=== PATIENT | male | born 1970 | race Caucasian/White ===

== ENCOUNTER → 2016-04-28 | Outpatient (CLI) | payer MEDICARE, MEDICAID ==
[~2016-04-28] MED LIST: ALBU17IN INH; ASPI81TA45 PO; ASPI81TA7 PO; BREO1INH INH; CARV6.25 PO; FLECTOR1.3 TD; FLEXERIL OR; GABA300C3 PO; GEMF600T PO; LIPI20TA PO; MOBI15TA PO; NICO14DI3 TD; NORC5TAB PO; OMEP20CA3 PO; OMEP40CA2 PO; ROBA750T4 PO; ROSU10TA PO; SUCR1TA PO; TIZA4CAP3 PO; TIZA4TAB OR; TRIC1TAB PO; VARE1TA PO; VICO5TAB OR; VITA100066 PO; VYTO10TA5 PO
--- NOTE | 2016-05-25 01:14 | ECWPNPC ---
PATIENT NAME: MEHUL FERRARO : 1970 GENDER: MALE VISIT DATE: 04/28/2016 DISCHARGE DATE: 04/28/16 1458 VISIT LOCKED DATE TIME: PHYSICIAN: EARL BANUELOS RESOURCE: EARL BANUELOS REASON FOR APPOINTMENT 1. POST PROCEDURE-BACK HISTORY OF PRESENT ILLNESS HISTORY OF PRESENT ILLNESS: PAIN THE PATIENT DESCRIBES THE PAIN... FALL RISK SCREENING: SCREENING :NO FALLS IN THE PAST YEAR TODAY'S VISIT: NOTES: RATES PAIN TODAY 7/10. NOTES PAIN IS CENTERD IN MID AND LOW BACK WELL BOTH KNEES. IS BEING SCHEDULED FOR ENDOSCOPY AND COLONOSCOPY. NO RECENT FALLS. IS S/P SIJ [id number]/16 AND THIS HAS DECREASED PAIN IN AREA. . CURRENT MEDICATIONS TAKING ASPIRIN EC 81 MG TABLET DELAYED RELEASE 1 TABLET ORALLY ONCE A DAY, NOTES: 04/06/16929 TAKING VITAMIN D3 1000 UNIT CAPSULE 1 CAPSULE ORALLY ONCE A DAY, NOTES: 04/06/16 TAKING CARVEDILOL 6.25 MG TABLET 1 TABLET WITH FOOD ORALLY DAILY, NOTES: 04/06/16929 TAKING PROAIR HFA 108 (90 BASE) MCG/ACT AEROSOL SOLUTION 2 PUFFS NEEDED INHALATION EVERY 4 HRS, NOTES: > 1 WEEK TAKING BREO ELLIPTA 100-25 MCG/INH AEROSOL POWDER BREATH ACTIVATED USE ONE INHALATION ONCE DAILY , NOTES: 04/06/16929 TAKING CRESTOR 10 MG TABLET 1 TABLET ORALLY ONCE A DAY, NOTES: 04/06/16929 TAKING GEMFIBROZIL 600 MG TABLET 1 TABLET ORALLY TWICE A DAY, NOTES: 04/06/162229 TAKING VIAGRA 50 MG TABLET 1 TABLET NEEDED ORALLY ONCE A DAY, NOTES: NONE RECENT TAKING GABAPENTIN 300 MG CAPSULE 1 CAPSULE ORALLY QHS, NOTES: 04/06/162229 TAKING OMEPRAZOLE 40 MG CAPSULE DELAYED RELEASE 1 CAPSULE ORALLY TWICE DAILY, NOTES: 04/06/162229 TAKING HYDROCODONE-ACETAMINOPHEN 5-325 MG TABLET 1 TABLET NEEDED ORALLY EVERY 4- 6 HRS PRN PAIN MDD=4, NOTES: 04/07/16629 TAKING SUCRALFATE 1 GM TABLET 1 TABLET ON AN EMPTY STOMACH ORALLY TWICE A DAY, NOTES: 04/06/162229 NOT-TAKING PREDNISONE 10 MG TABLET 1 TABLET ORALLY TAKE 5 TABS X 2 DAY, 4 TAB X 2 DAY, 3 TAB X 2 DAY, 2 TAB X 2 DAY AND 1 TAB X 2 DAY MEDICATION LIST REVIEWED AND RECONCILED WITH THE PATIENT PAST MEDICAL HISTORY CAD - NO HISTORY OF INFARCT - CARDIAC CATHETERIZATION 08/24 REVEALED NON-OBSTRUCTIVE DISEASE ONLY. ECHOCARDIOGRAM 10/25 NO VALVULAR DISEASE, TRACE MITRAL INSUFFICIENCY, TRACE TRICUSPID INSUFFICIENCY. NUCLEAR STRESS TEST 10/25 - NORMAL PERFUSION NO ISCHEMIA OR INFARCTION. EF CALCULATED AT 52% EKG - 07/28 - NSR 84 BPM (FOLLOWED BY DR. TORRES) LUMBAGO - OSTEOARTHRITIS - DDD HYPERLIPIDEMIA HIATAL HERNIA WITH REFLUX TOBACCO ABUSE WALI DX 02/26, COMPLIANT WITH CPAP. COPD ALLERGIES N.K.D.A. SURGICAL HISTORY DOUBLE HERNIA REPAIR CARDIAC CATH, NO STENTS SOCIAL HISTORY GENERAL: TOBACCO USE ARE YOU A:NONSMOKER LEARNING BARRIERS / SPECIAL NEEDS ORIENTED TO PLAN OF CARE: PATIENT, PAIN MANAGEMENT PATIENT, ORIENTED TO PLAN OF CARE: PATIENT, PAIN MANAGEMENT PATIENT. NEW PATIENT PAIN DIARY TODAY'S VISITNOTES FROM 0-10, WHAT LEVEL IS YOUR PAIN TODAY?0 PAIN CLINIC PFS, CLERGY, PUBLIC HEALTH REFERRALS PFS REFERRAL NEEDED?NO CLERGY REFERRAL NEEDED?NO PUBLIC HEALTH REFERRAL NEEDED?NO WAS THE PROVIDER NOTIFIED OF ANY PERTINENT INFO?NO PFS REFERRAL NEEDED?NO CLERGY REFERRAL NEEDED?NO PUBLIC HEALTH REFERRAL NEEDED?NO WAS THE PROVIDER NOTIFIED OF ANY PERTINENT INFO?NO HOSPITALIZATION/MAJOR DIAGNOSTIC PROCEDURE TWICE FOR CHEST PAIN - NO INFARCTS REVIEW OF SYSTEMS CONSTITUTIONAL: ANY CHANGE IN YOUR MEDICAL CONDITION? NO . CHILLS NO . FEVER NO . INFECTION: DO YOU HAVE NEW INFECTIONS? NO . DO YOU HAVE HISTORY OF MRSA? NO . MUSCULOSKELETAL: ANY NEW PATTERNS OF PAIN OR NUMBNESS? NO . GASTROENTEROLOGY: ANY NEW CHANGE IN BOWEL CONTROL? NO . UNEXPLAINED WEIGHT LOSS OVER 10 LBS IN 1 MONTH DESPITE GOOD APPETITE. WILL DISCUSS WITH DR PETERSEN . GENITOURINARY: ANY NEW CHANGE IN BLADDER CONTROL? NO . IS THERE A CHANCE YOU COULD BE ? NO . HEMATOLOGY/LYMPH: DO YOU TAKE ANY BLOOD THINNERS? (FOR EXAMPLE- COUMADIN, PLAVIX, AGGRENOX, PLATEL, PRADAXA, OR XARELTO) NO . WHEN WAS YOUR LAST DOSE? DATE: TIME: . NEUROLOGY: HAVE YOU FALLEN IN THE PAST 6 MONTHS? NO . ANY NEW EXTREMITY NUMBNESS OR WEAKNESS? NO . CARDIOLOGY: DO YOU HAVE A PACEMAKER OR DEFIBRILLATOR? NO . RESPIRATORY: HAVE YOU BEEN SICK IN THE PAST WEEK? NO . FEVER NO . FLU LIKE SYMPTOMS? NO . COUGH YES - CLEAR PRODUCTION . INTEGUMENTARY: DO YOU HAVE ANY RASHES OR OPEN SORES? NO . ALLERGIC/IMMUNO: ARE YOU ALLERGIC TO SHELLFISH OR IV DYE? NO . ANY NEW ALLERGIES? NO . PSYCHIATRIC: DO YOU HAVE THOUGHTS OF HURTING YOURSELF OR SOMEONE ELSE? NO . ARE YOU ABUSED, NEGLECTED, OR IN AN UNSAFE ENVIRONMENT? NO . ENDOCRINOLOGY: ARE YOU DIABETIC? NO . OTHER: DO YOU NEED ANY PRESCRIPTIONS? NO . IF YES, PLEASE LIST: ____ . ANY NEW PROBLEMS WITH YOUR MEDICATIONS? NO . WHEN DID YOU LAST EAT? ____ . WHEN DID YOU LAST DRINK? ____ . WHAT DID YOU LAST DRINK? ____ . NAME OF PERSON DRIVING YOU HOME? ____ . DO YOU HAVE ANY OTHER QUESTIONS OR CONCERNS NO . REVIEWED BY: PROVIDER: EARL CUNNINGHAM . VITAL SIGNS WT 194 LBS, HT 68 IN, BMI 29.49 INDEX, BP 134/86 MM HG, HR 76 /MIN, RR 16 /MIN, TEMP 96.5 F, OXYGEN SAT % 96, NA INITIALS TL 1419, REVIEWED BY: AD. EXAMINATION GENERAL EXAMINATION: PSYCHALERT , ORIENTED X 3 , APPROPRIATE MOOD AND AFFECT . LUNGS:WHEEZES THOUGH ALL LUNG HARRY. HEART:HEART RATE REGULAR. MUSCULOSKELETAL:MUSCLE STRENGTH TESTING 4/5 BILATERAL LOWER EXTREMITIES. UNABLE TO FLEX AT HIPS WITHOUT SEVERE LOW BACK PAIN. POINT TENDERNESS OVER SACRALILIAC JOINTS, RIGHT GREATER THAN LEFT. CANE USED FOR BALANCE., GAIT ANTALGIC, POSTURE STOOPED.. ASSESSMENTS LUMBAR DISC DISEASE WITH RADICULOPATHY - M51.16 (PRIMARY) SACROILIITIS - M46.1 CHRONIC USE OF OPIATE DRUGS THERAPEUTIC PURPOSES - Z79.899 TREATMENT LUMBAR DISC DISEASE WITH RADICULOPATHY NOTES: UTOX TODAY. CLINICAL NOTES: ISTOP REGISTRY REVIEWED AND DEMNOSTRATES COMPLLIANCE. BRINGS IN MEDICATIONS WHICH IS APPROPRIATE FOR WHAT WAS DISPENSED. RECENT URINE TOXICOLOGY REVIEWED. NO UNAUTHORIZED MEDICATIONS. NO ILLICIT SUBSTANCES AND PRESCRIBED MEDICATIONS WERE PRESENT. , # 226 TOBACCO USE SCREENING/INTERVENTION: PATIENT CURRENTLY USED TOBACCO. WAS OFFERED SMOKING CESSATION FOR GUIDANCE IN QUITTING THROUGH THE [facility] QUITS PROGRAM AND THE [facility] CESSATION PROGRAM. PROCEDURE CODES FA211 ESTABILISHED PATIENT [facility] FACILITY CHARGE G8751 BP SCR PRFRM RCMDD DEFIND SCR INTVL G8730 PAIN ASSESS POS TOOL F/U PLAN DOC 3016F PT SCRND [place] USE 1123F ACP DISCUSS/DSCN MKR DOCD 0518F FALL PLAN OF CARE DOCD G8427 DOC MEDS VERIFIED W/PT OR RE G8420 BMI<30 AND >=22 CALC & DOCU 3288F FALL RISK ASSESSMENT DOCD 4004F PT TOBACCO SCREEN RCVD TLK FOLLOW UP 7 WEEKS ELECTRONICALLY SIGNED BY CHAPIN BERG ON 05/23/2016 AT 08:38 AM EST DISCLAIMER : THIS IS A VISIT SUMMARY EXTRACTED FROM THE [employer] CHART. IT IS NOT A COPY OF THE [employer] PROGRESS NOTE. NILAD
== END ==
LOC: M PAIN 14:20
PROVIDERS: ATTEND Nurse Practitioner Family
DX: Z09 Encounter for follow-up examination after completed treatment for conditions other than malignant neoplasm (principal); M51.16 Intervertebral disc disorders with radiculopathy, lumbar region; M46.1 Sacroiliitis, not elsewhere classified; I25.10 Atherosclerotic heart disease of native coronary artery without angina pectoris; M51.36 Other intervertebral disc degeneration, lumbar region; E78.5 Hyperlipidemia, unspecified; K44.9 Diaphragmatic hernia without obstruction or gangrene; K21.9 Gastro-esophageal reflux disease without esophagitis; G47.30 Sleep apnea, unspecified; J44.9 Chronic obstructive pulmonary disease, unspecified; Z79.82 Long term (current) use of aspirin; Z79.891 Long term (current) use of opiate analgesic; Z79.899 Other long term (current) drug therapy; Z87.891 Personal history of nicotine dependence

== ENCOUNTER → 2016-05-15 | Outpatient (CLI) | payer MEDICARE, MEDICAID ==
[~2016-05-15] VITALS: Ht 172.7 cm; Wt 88.0 kg
[~2016-05-15] MED LIST changes: +LIDOCAINE 2% INJ 100 MG/5 ML SDV (FOR ANES.) As Ordered ONE; +PROPOFOL 200 MG/20 ML VIAL As Ordered ONE
[2016-05-15] MEDS: NS 1,000 ML IV SCH ×2 (10:31→10:37)
--- NOTE | 2016-05-15 11:08 | ROOR ---
Patient Name: Kristofer Castaneda Procedure Date: 05/15/2016 10:49 AM Date of : 1970 Age: 46 Room: [facility] Gender: Male Note Status: Finalized Procedure: Upper GI endoscopy Indications: Epigastric abdominal pain Providers: Jayden Esteves MD Referring MD: JOI Oseguera Requesting Provider: Medicines: Monitored Anesthesia Care Complications: No immediate complications. Procedure: Pre-Anesthesia Assessment: - The heart rate, respiratory rate, oxygen saturations, blood pressure, adequacy of pulmonary ventilation, and response to care were monitored throughout the procedure. The Endoscope was introduced through the mouth, and advanced to the second part of duodenum. The upper GI endoscopy was accomplished without difficulty. The patient tolerated the procedure well. Findings: The Z-line was regular and was found 40 cm from the incisors. A small hiatal hernia was present. The exam of the esophagus was otherwise normal. No other significant abnormalities were identified in a careful examination of the stomach. The exam of the duodenum was otherwise normal. Impression: - Z-line regular, 40 cm from the incisors. - Small hiatal hernia. - No specimens collected. - The examination was otherwise normal. Recommendation: - Patient has a contact number available for emergencies. The signs and symptoms of potential delayed complications were discussed with the patient. Return to normal activities tomorrow. Written discharge instructions were provided to the patient. - High fiber diet. - Discharge patient to home. - Continue present medications. - Follow an antireflux regimen. - Return to referring physician. - The findings and recommendations were discussed with the patient's family. Jayden Esteves MD Jayden Esteves MD 05/15/2016 11:07:52 AM This report has been signed electronically. Number of Addenda: 0 Note Initiated On: 05/15/2016 10:49 AM Estimated Blood Loss: Estimated blood loss: none.
--- NOTE | 2016-05-15 11:21 | ROOR ---
Patient Name: Kristofer Castaneda Procedure Date: 05/15/2016 10:50 AM Date of : 1970 Age: 46 Room: [facility] Gender: Male Note Status: Finalized Procedure: Colonoscopy to Cecum Indications: High risk colon cancer surveillance: Personal history of colonic polyps, Last colonoscopy: 2010 Providers: Jayden Esteves MD Referring MD: JOI Oseguera Requesting Provider: Medicines: Monitored Anesthesia Care Complications: No immediate complications. Procedure: Pre-Anesthesia Assessment: - The heart rate, respiratory rate, oxygen saturations, blood pressure, adequacy of pulmonary ventilation, and response to care were monitored throughout the procedure. The Colonoscope was introduced through the anus and advanced to the cecum, identified by appendiceal orifice and ileocecal valve. The colonoscopy was performed without difficulty. The patient tolerated the procedure well. The quality of the bowel preparation was good. Findings: The perianal and digital rectal examinations were normal. Non-bleeding internal hemorrhoids were found during retroflexion. The hemorrhoids were small and Grade I (internal hemorrhoids that do not prolapse). Scattered small-mouthed diverticula were found in the recto-sigmoid colon, sigmoid colon and descending colon. The exam was otherwise without abnormality on direct and retroflexion views. Impression: - Non-bleeding internal hemorrhoids. - Diverticulosis in the recto-sigmoid colon, in the sigmoid colon and in the descending colon. - The examination was otherwise normal on direct and retroflexion views. - No specimens collected. - The exam was otherwise normal to the cecum. Recommendation: - Patient has a contact number available for emergencies. The signs and symptoms of potential delayed complications were discussed with the patient. Return to normal activities tomorrow. Written discharge instructions were provided to the patient. - Discharge patient to home. - High fiber diet. - Continue present medications. - Repeat colonoscopy in 5 years for surveillance. - Return to referring physician. - The findings and recommendations were discussed with the patient's family. Jayden Esteves MD Jayden Esteves MD 05/15/2016 11:21:10 AM This report has been signed electronically. Number of Addenda: 0 Note Initiated On: 05/15/2016 10:50 AM Estimated Blood Loss: Estimated blood loss: none.
[2016-05-15 11:40] VITALS: BP 134/88
== END | disposition home or self-care (01) ==
LOC: M OPP 10:05
PROVIDERS: ATTEND Internal Medicine Gastroenterology
DX: Z12.11 Encounter for screening for malignant neoplasm of colon (principal); Z86.010 Personal history of colon polyps; K64.0 First degree hemorrhoids; K57.30 Diverticulosis of large intestine without perforation or abscess without bleeding; R10.13 Epigastric pain; K44.9 Diaphragmatic hernia without obstruction or gangrene; I48.91 Unspecified atrial fibrillation; I25.10 Atherosclerotic heart disease of native coronary artery without angina pectoris; I10 Essential (primary) hypertension; E78.00 Pure hypercholesterolemia, unspecified; R06.83 Snoring; I25.2 Old myocardial infarction; F17.200 Nicotine dependence, unspecified, uncomplicated; F17.228 Nicotine dependence, chewing tobacco, with other nicotine-induced disorders; Z79.82 Long term (current) use of aspirin; Z79.899 Other long term (current) drug therapy
CPT/HCPCS: 43235; 99156; 99157; G0105

== ENCOUNTER 2016-06-19 15:36 | Emergency (ER) | payer MEDICARE, MEDICAID ==
[~2016-06-19] VITALS: Ht 172.7 cm; Wt 90.7 kg
[~2016-06-19 15:36] MED LIST changes: -LIDOCAINE 2% INJ 100 MG/5 ML SDV (FOR ANES.) As Ordered ONE; -PROPOFOL 200 MG/20 ML VIAL As Ordered ONE
[2016-06-19] MEDS ORDERED: ASPIRIN 81 MG CHEW TABLET PO ONE ×2 (16:30→17:15)
[2016-06-19 16:40] LABS: BASO % 0.5 % (0.0-1.0); EOS # 0.3 K/mm3 (0.0-0.50); EOS % 2.6 % (0.0-3.0); LARGE UNSTAINED CELL # 0.2 K/mm3 (0.0-0.4); LARGE UNSTAINED CELL % 1.6 % (0.0-4.0); LYMPH # 2.3 K/mm3 (1.5-4.5); LYMPH % 22.1 % (24.0-44.0); MEAN CORPUSCULAR HEMOGLOBIN 29.8 pg (27.0-33.0); MEAN CORPUSCULAR VOLUME 87.6 fl (80.0-96.0); MONO # 0.5 K/mm3 (0.0-0.8); MONO % 5.2 % (0.0-5.0); NEUTROPHILS # 7.1 K/mm3 (1.8-7.7); PLATELET COUNT, AUTOMATED 325 k/mm3 (150-450); RED CELL DISTRIBUTION WIDTH 12.7 % (11.5-14.5); WHITE BLOOD COUNT 10.4 K/mm3 (4.0-10.0)
[2016-06-19 16:57] LABS: ANION GAP 9 MEQ/L (8-16); BLOOD UREA NITROGEN 31 MG/DL (7-18); CARBON DIOXIDE LEVEL 24 MEQ/L (21-32); CHLORIDE LEVEL 108 MEQ/L (98-107); CREATININE FOR GFR 0.92 MG/DL (0.70-1.30); GLOMERULAR FILTRATION RATE > 60.0 (>60); GLUCOSE, FASTING 101 MG/DL (70-105); POTASSIUM SERUM 4.1 MEQ/L (3.5-5.1); SODIUM LEVEL 141 MEQ/L (136-145)
--- NOTE | 2016-06-19 17:00 | REP ---
Portable chest: Single view. History: Chest pain. Comparison study: March 10, 2016 Findings: EKG monitoring electrodes overlie the chest. Lungs are well inflated and clear. Heart is not enlarged. Pulmonary vasculature is not increased. No bony abnormality is seen for Impression: No active disease. Signed by Naren Allen MD 06/19/2016 04:52 P
[2016-06-19] MEDS ORDERED: ISOVUE-370 76% 100ML VIAL (Q9967) As Ordered ONE (17:13)
[2016-06-19] MEDS ORDERED: ONDANSETRON 4MG/2ML VIAL (J2405) IV ONE ×2 (17:30→19:30)
[2016-06-19] MEDS ORDERED: fentaNYL 100 MCG/2 ML INJECTION (J3010) IV ONE (17:30)
--- NOTE | 2016-06-19 18:14 | REP ---
CT abdomen and pelvis with IV but without oral contrast: History: Abdominal pain. CT contrast dose: 75 ml of Isovue 370 is administered intravenously. Comparison study: 03/14/2016. CT findings: The lung bases are clear except for some linear plate-like atelectasis in the right middle lobe. No pleural effusion is seen. The liver and the spleen are normal in size and homogeneous in texture. No adrenal lesion is seen on either side. Pancreas is unremarkable. The gallbladder wall is very slightly thickened but otherwise the gallbladder has a normal appearance. It is smaller and somewhat contracted today. The kidneys enhance symmetrically are morphologically intact. No retroperitoneal mass or adenopathy is seen. A normal caliber aorta is noted. Small and large intestinal bowel loops are normal in the abdomen and pelvis. A normal appendix is seen containing a gas. No appendiceal inflammation is observed. Small and large bowel loops are unremarkable. Urinary bladder seminal vesicles and prostate are intact. No abdominal wall defect is seen. There is some postoperative scarring in the right inguinal soft tissues post herniorrhaphy. Bone window settings show no bony destructive lesion. Impression: Normal appendix seen. No significant abnormality. Signed by Naren Allen MD 06/19/2016 07:46 P
--- NOTE | 2016-06-19 18:16 | REP ---
CT pulmonary angiogram: With IV contrast: History: Question pulmonary embolism. Comparison studies: No comparison study. Contrast dose: 75 cc of Isovue-[address] technique: Helical scanning is acquired and overlapping 1.5 mm and contiguous 3 mm axial images are reformatted. In addition, a 3-D work station is deployed to generate thick slab maximum intensity projection images in sagittal and coronal imaging projections. CT pulmonary angiographic findings: There is good opacification of the pulmonary arterial tree. There is no CT evidence of pulmonary embolism. The thoracic aorta enhances homogeneously and is normal in course and caliber. No dissection or aneurysm is seen. No pleural or pericardial effusion is seen. No hilar or mediastinal mass or adenopathy is observed. No adrenal lesion is seen. Lung parenchymal window settings demonstrate an mild linear discoid atelectasis or fibrosis in the right middle lobe. No lung nodule or mass lesion is observed. There is one granulomatous calcification visible in the left upper lobe. There are a few tiny right apical bullae. There is mild oligemia and hyperlucency in the right middle lobe which is unchanged from the 04/19/[address] study. Impression: No CT evidence of pulmonary embolism. Small right apical bullae. No active cardiopulmonary disease seen. There is a granulomatous calcification in the left upper lobe. Signed by Naren Allen MD 06/19/2016 07:46 P
--- NOTE | 2016-06-19 19:14 | REP ---
Scrotal sonography: History: Right testicular pain. Findings: High-resolution bilateral scrotal sonography shows no evidence of intratesticular mass lesion on either side. Testicular Doppler flow is normal to both testes. Resistive indices are measured at 0.48 and 0.36 on the right and left respectively. Right testis measures 4.1 x 2.8 x 3.1 cm. Left testicular dimensions are 4.7 x 2.9 x 2.8 cm. There is a tiny cyst in the head of each epididymis, 0.2 cm on the right and 0.5 cm on the left. No significant scrotal abnormality. Impression: Normal scrotal sonography. Normal testicular Doppler flow bilaterally. Signed by Naren Allen MD 06/19/2016 07:47 P
[2016-06-19] MEDS ORDERED: KETOROLAC 30 MG/ML VIAL (J1885) IV ONE (19:30)
[2016-06-19 20:26] VITALS: BP 115/62
--- NOTE | 2016-06-19 20:59 | ECGEPIP ---
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
== END 2016-06-19 20:31 | disposition home or self-care (01) ==
LOC: M ED 18:33
DX: R07.9 Chest pain, unspecified (principal); R10.9 Unspecified abdominal pain; I48.91 Unspecified atrial fibrillation; M51.9 Unspecified thoracic, thoracolumbar and lumbosacral intervertebral disc disorder; R11.2 Nausea with vomiting, unspecified; R06.02 Shortness of breath; Z79.899 Other long term (current) drug therapy; Z79.82 Long term (current) use of aspirin; Z79.51 Long term (current) use of inhaled steroids; F17.210 Nicotine dependence, cigarettes, uncomplicated
CPT/HCPCS: 71010; 71275; 74177; 76870; 80048; 81001; 82550; 82553; 83690; 83880; 84484; 85025; 87086; 93005; 93041; 93976; 94760; 96374; 96375; 96376; 99285; J1885; J2405; J3010; Q9967

== ENCOUNTER → 2016-06-26 | Outpatient (CLI) | payer MEDICARE, MEDICAID ==
--- NOTE | 2016-07-01 01:44 | ECWPNPC ---
PATIENT NAME: NAEL FERRARO : 1970 GENDER: MALE VISIT DATE: 06/26/2016 DISCHARGE DATE: 06/26/16 1542 VISIT LOCKED DATE TIME: PHYSICIAN: EARL BANUELOS RESOURCE: EARL BANUELOS REASON FOR APPOINTMENT 1. FOLLOWUP-BACK HISTORY OF PRESENT ILLNESS HISTORY OF PRESENT ILLNESS: PAIN THE PATIENT DESCRIBES THE PAIN... FALL RISK SCREENING: SCREENING :NO FALLS IN THE PAST YEAR TODAY'S VISIT: NOTES: RATES PAIN TODAY 7.5/10. IS S/P BILATERAL SIJ INJECTION ON 04/07/16. REPORTS A REDUCTION IN RIOS OF 25-30% AND THEN PAIN RETURNED IN 2 WEEEK.S FEELS IF PAIN WAS ABOVE THE INJECTION SITE. NOTES PAIN IS SHOOTING DOWN LEGS TO THE FEET AND THE FEET ARE GOING NUMB. HAS NOT BEEN ABLE TO GO OUT LIKE USUAL. HAS BEEN HAVING MORE HEAD PAIN WITH WEATHER, SINUSES AND VARIOUS VIRAL ILLNESS. HAS HAD INCREASE IN PAIN DAY PROGRESSES. . CURRENT MEDICATIONS TAKING ASPIRIN EC 81 MG TABLET DELAYED RELEASE 1 TABLET ORALLY ONCE A DAY, NOTES: 04/06/16929 TAKING VITAMIN D3 1000 UNIT CAPSULE 1 CAPSULE ORALLY ONCE A DAY, NOTES: 04/06/16 TAKING CARVEDILOL 6.25 MG TABLET 1 TABLET WITH FOOD ORALLY DAILY, NOTES: 04/06/16929 TAKING PROAIR HFA 108 (90 BASE) MCG/ACT AEROSOL SOLUTION 2 PUFFS NEEDED INHALATION EVERY 4 HRS, NOTES: > 1 WEEK TAKING CRESTOR 10 MG TABLET 1 TABLET ORALLY ONCE A DAY, NOTES: 04/06/16929 TAKING GEMFIBROZIL 600 MG TABLET 1 TABLET ORALLY TWICE A DAY, NOTES: 04/06/162229 TAKING GABAPENTIN 300 MG CAPSULE 1 CAPSULE ORALLY QHS, NOTES: 04/06/162229 TAKING OMEPRAZOLE 40 MG CAPSULE DELAYED RELEASE 1 CAPSULES ORALLY TWICE DAILY TAKING HYDROCODONE-ACETAMINOPHEN 5-325 MG TABLET 1 TABLET NEEDED ORALLY EVERY 4- 6 HRS PRN PAIN MDD=4 TAKING BREO ELLIPTA 100-25 MCG/INH AEROSOL POWDER BREATH ACTIVATED USE ONE INHALATION ONCE DAILY TAKING MENS ONE DAILY - TABLET ORALLY NOT-TAKING VIAGRA 50 MG TABLET 1 TABLET NEEDED ORALLY ONCE A DAY, NOTES: NONE RECENT DISCONTINUED SUCRALFATE 1 GM TABLET 1 TABLET ON AN EMPTY STOMACH ORALLY TWICE A DAY, NOTES: 12/22/16 2230 DISCONTINUED PREDNISONE 10 MG TABLET 1 TABLET ORALLY TAKE 5 TABS X 2 DAY, 4 TAB X 2 DAY, 3 TAB X 2 DAY, 2 TAB X 2 DAY AND 1 TAB X 2 DAY MEDICATION LIST REVIEWED AND RECONCILED WITH THE PATIENT PAST MEDICAL HISTORY CAD - NO HISTORY OF INFARCT - CARDIAC CATHETERIZATION 08/24 REVEALED NON-OBSTRUCTIVE DISEASE ONLY. ECHOCARDIOGRAM 10/25 NO VALVULAR DISEASE, TRACE MITRAL INSUFFICIENCY, TRACE TRICUSPID INSUFFICIENCY. NUCLEAR STRESS TEST 10/25 - NORMAL PERFUSION NO ISCHEMIA OR INFARCTION. EF CALCULATED AT 52% EKG - 07/28 - NSR 84 BPM (FOLLOWED BY DR. TORRES) LUMBAGO - OSTEOARTHRITIS - DDD HYPERLIPIDEMIA HIATAL HERNIA WITH REFLUX TOBACCO ABUSE WALI DX 02/26, COMPLIANT WITH CPAP. COPD ALLERGIES N.K.D.A. SOCIAL HISTORY GENERAL: TOBACCO USE ARE YOU A:NONSMOKER LEARNING BARRIERS / SPECIAL NEEDS ORIENTED TO PLAN OF CARE: PATIENT, PAIN MANAGEMENT PATIENT, ORIENTED TO PLAN OF CARE: PATIENT, PAIN MANAGEMENT PATIENT. NEW PATIENT PAIN DIARY TODAY'S VISITNOTES FROM 0-10, WHAT LEVEL IS YOUR PAIN TODAY?0 PAIN CLINIC PFS, CLERGY, PUBLIC HEALTH REFERRALS PFS REFERRAL NEEDED?NO CLERGY REFERRAL NEEDED?NO PUBLIC HEALTH REFERRAL NEEDED?NO WAS THE PROVIDER NOTIFIED OF ANY PERTINENT INFO?NO PFS REFERRAL NEEDED?NO CLERGY REFERRAL NEEDED?NO PUBLIC HEALTH REFERRAL NEEDED?NO WAS THE PROVIDER NOTIFIED OF ANY PERTINENT INFO?NO REVIEW OF SYSTEMS CONSTITUTIONAL: ANY CHANGE IN YOUR MEDICAL CONDITION? NO . CHILLS NO . FEVER NO . INFECTION: DO YOU HAVE NEW INFECTIONS? NO BUT HAS HAD MULTIPLE GI UPSETS, AND SINUS INFECTIONS . DO YOU HAVE HISTORY OF MRSA? NO . MUSCULOSKELETAL: ANY NEW PATTERNS OF PAIN OR NUMBNESS? NO . GASTROENTEROLOGY: ANY NEW CHANGE IN BOWEL CONTROL? NO . GENITOURINARY: ANY NEW CHANGE IN BLADDER CONTROL? NO . IS THERE A CHANCE YOU COULD BE ? NO . HEMATOLOGY/LYMPH: DO YOU TAKE ANY BLOOD THINNERS? (FOR EXAMPLE- COUMADIN, PLAVIX, AGGRENOX, PLATEL, PRADAXA, OR XARELTO) NO . WHEN WAS YOUR LAST DOSE? DATE: TIME: . NEUROLOGY: HAVE YOU FALLEN IN THE PAST 6 MONTHS? YES . ANY NEW EXTREMITY NUMBNESS OR WEAKNESS? NO . CARDIOLOGY: DO YOU HAVE A PACEMAKER OR DEFIBRILLATOR? NO . CHEST PAIN TO HOSPITAL FOR CHEST PAIN - CADIAC WORKUP ALL OK. IS TO HAVE GALL BLADDER EVAL. . RESPIRATORY: HAVE YOU BEEN SICK IN THE PAST WEEK? YE-SCOLD . FEVER NO . FLU LIKE SYMPTOMS? NO . COUGH NO . INTEGUMENTARY: DO YOU HAVE ANY RASHES OR OPEN SORES? NO . ALLERGIC/IMMUNO: ARE YOU ALLERGIC TO SHELLFISH OR IV DYE? NO . ANY NEW ALLERGIES? NO . PSYCHIATRIC: DO YOU HAVE THOUGHTS OF HURTING YOURSELF OR SOMEONE ELSE? NO . ARE YOU ABUSED, NEGLECTED, OR IN AN UNSAFE ENVIRONMENT? NO . ENDOCRINOLOGY: ARE YOU DIABETIC? NO . OTHER: DO YOU NEED ANY PRESCRIPTIONS? NO . IF YES, PLEASE LIST: ____ . ANY NEW PROBLEMS WITH YOUR MEDICATIONS? NO . WHEN DID YOU LAST EAT? ____ . WHEN DID YOU LAST DRINK? ____ . WHAT DID YOU LAST DRINK? ____ . NAME OF PERSON DRIVING YOU HOME? ____ . DO YOU HAVE ANY OTHER QUESTIONS OR CONCERNS NO . REVIEWED BY: PROVIDER: EARL CUNNINGHAM . VITAL SIGNS WT 209.6 LBS, HT 68 IN, BMI 31.87 INDEX, BP 144/91 MM HG, HR 81 /MIN, RR 16 /MIN, TEMP 96.3 F, OXYGEN SAT % 95, NA INITIALS TL 1448. EXAMINATION GENERAL EXAMINATION: PSYCHALERT , ORIENTED X 3 , APPROPRIATE MOOD AND AFFECT . LUNGS:WHEEZES THOUGH ALL LUNG HARRY. HEART:HEART RATE REGULAR. MUSCULOSKELETAL:MUSCLE STRENGTH TESTING 4/5 BILATERAL LOWER EXTREMITIES. UNABLE TO FLEX AT HIPS WITHOUT SEVERE LOW BACK PAIN. POINT TENDERNESS OVER SACRALILIAC JOINTS, RIGHT GREATER THAN LEFT. CANE USED FOR BALANCE., GAIT ANTALGIC, POSTURE STOOPED.. ASSESSMENTS LUMBAR DISC DISEASE WITH RADICULOPATHY - M51.16 (PRIMARY) MYALGIA - M79.1 SACROILIITIS - M46.1 CHRONICALLY ON OPIATE THERAPY - Z79.891 TREATMENT LUMBAR DISC DISEASE WITH RADICULOPATHY CAUDAL/LUMBAR EARL MARIEE 06/26/2016 3:21:06 PM > INTRALAMINAL L3 NOTES: UTOX TODAY,WHAT IS LUMBAR EPIDURAL INJECTION? MATERIAL WAS PRINTED, #128 - SCREENING BMI AND F/U PLAN IN : BMI ABOVE NORMAL TODAY. DISCUSSED WITH PATIENT NUTRITIONAL FOOD CHOICES TO ASSIST WITH WEIGHT LOSS. RECCOMMENDED REDUCING SALT, SUGAR, SODA INTAKE. RECOMMEND INCREASE ACTIVITY TO INCLUDE WALKING ON A REGULAR BASIS. , # 226 TOBACCO USE SCREENING/INTERVENTION: PATIENT CURRENTLY USED TOBACCO. WAS OFFERED SMOKING CESSATION FOR GUIDANCE IN QUITTING THROUGH THE [facility] QUITS PROGRAM AND THE [facility] CESSATION PROGRAM. CLINICAL NOTES: ISTOP REGISTRY REVIEWED AND DEMNOSTRATES COMPLLIANCE. BRINGS IN MEDICATIONS WHICH IS APPROPRIATE FOR WHAT WAS DISPENSED. RECENT URINE TOXICOLOGY REVIEWED. NO UNAUTHORIZED MEDICATIONS. NO ILLICIT SUBSTANCES AND PRESCRIBED MEDICATIONS WERE PRESENT. PROCEDURE CODES FA211 ESTABILISHED PATIENT [facility] FACILITY CHARGE G8783 BP SCR PRFRM RCMDD DEFIND SCR INTVL G8730 PAIN ASSESS POS TOOL F/U PLAN DOC 3016F PT SCRND [place] USE 1123F ACP DISCUSS/DSCN MKR DOCD 0518F FALL PLAN OF CARE DOCD G8427 DOC MEDS VERIFIED W/PT OR RE G8417 BMI >=30 CALCUATE W/FOLLOWUP 3288F FALL RISK ASSESSMENT DOCD 4004F PT TOBACCO SCREEN RCVD TLK DISPOSITION & COMMUNICATION FOLLOW UP AFTER INJECTION (REASON: [facility] AUTH FOR LESB) ELECTRONICALLY SIGNED BY CHAPIN BERG ON 06/29/2016 AT 08:06 PM EDT DISCLAIMER : THIS IS A VISIT SUMMARY EXTRACTED FROM THE [employer] CHART. IT IS NOT A COPY OF THE [employer] PROGRESS NOTE. MELYSSA
== END ==
LOC: M PAIN 14:20
PROVIDERS: ATTEND Nurse Practitioner Family
DX: Z09 Encounter for follow-up examination after completed treatment for conditions other than malignant neoplasm (principal); G89.29 Other chronic pain; Z87.891 Personal history of nicotine dependence; M51.16 Intervertebral disc disorders with radiculopathy, lumbar region; M79.1 Myalgia; M46.1 Sacroiliitis, not elsewhere classified; I25.10 Atherosclerotic heart disease of native coronary artery without angina pectoris; E78.5 Hyperlipidemia, unspecified; K44.9 Diaphragmatic hernia without obstruction or gangrene; K21.9 Gastro-esophageal reflux disease without esophagitis; J44.9 Chronic obstructive pulmonary disease, unspecified; G47.30 Sleep apnea, unspecified; Z79.82 Long term (current) use of aspirin; Z79.51 Long term (current) use of inhaled steroids; Z79.899 Other long term (current) drug therapy

== ENCOUNTER → 2016-07-05 | Outpatient (CLI) | payer MEDICARE, MEDICAID ==
--- NOTE | 2016-07-05 09:08 | REP ---
Clinical: Right upper quadrant and epigastric pain. Technique: Real time holt scale ultrasound examination using curved array transducer. Findings: Liver and visualized portions of the pancreas are relatively normal in contour, size, echogenicity without significant focal hepatic or pancreatic lesions identified. A 9 mm granuloma in the liver approaching the dome suggest chronic change. The gallbladder is relatively collapsed and actual wall thickening cannot be excluded no obvious cholelithiasis or pericholecystic fluid is appreciated. No sonographic Erickson's sign was elicited. No biliary ductal dilatation is identified and the common bile duct measures 2 mm diameter. The right kidney is normal in reniform shape without hydronephrosis and measures 11.6 x 5.2 x 5.9 cm. No ascites. Impression: Under distended gallbladder cannot exclude wall thickening. However no evidence for cholelithiasis, pericholecystic fluid or sonographic Erickson sign. If the patient remains symptomatic HIDA scan may be warranted for further investigation. Signed by Angel Lopez MD 07/05/2016 08:59 A
== END ==
LOC: M RAD 08:04
PROVIDERS: ATTEND Physician Assistant Medical
DX: R10.13 Epigastric pain (principal)

== ENCOUNTER → 2016-07-20 | Outpatient (CLI) | payer MEDICARE, MEDICAID ==
[~2016-07-20] MED LIST changes: +CRES10TA32 PO; +GABA-282 PO; -GABA300C3 PO; +NORC1TAB4 PO; -NORC5TAB PO; -ROSU10TA PO; +diazePAM 5 MG TAB As Ordered ONE; +oxyCODONE 5MG TAB As Ordered ONE
--- NOTE | 2016-07-20 17:21 | REP ---
FLUOROSCOPIC GUIDANCE FOR LUMBAR SPINE EPIDURAL INJECTION: 07/20/2016: Clinical history: Back pain. Findings: Three views from C-arm fluoroscopy provided to Dr. Mccall of the pain clinic demonstrating needle to the left of midline at the L5 S1 level with epidural contrast adjacent to it on the second view and the needle removed on the third view. Fluoroscopy time: 7 seconds. Signed by Domenic Wright MD 07/21/2016 08:50 P
--- NOTE | 2016-07-23 23:41 | ECWPNPC ---
PATIENT NAME: NAEL FERRARO : 1970 GENDER: MALE VISIT DATE: 07/20/2016 DISCHARGE DATE: 07/20/16 1219 VISIT LOCKED DATE TIME: PHYSICIAN: MAXIMILIANO SABA RESOURCE: MAXIMILIANO SABA REASON FOR APPOINTMENT 1. LE HISTORY OF PRESENT ILLNESS HISTORY OF PRESENT ILLNESS: PAIN THE PATIENT DESCRIBES THE PAIN... FALL RISK SCREENING: SCREENING :NO FALLS IN THE PAST YEAR CURRENT MEDICATIONS TAKING ASPIRIN EC 81 MG TABLET DELAYED RELEASE 1 TABLET ORALLY ONCE A DAY, NOTES: 07/19/16 1000 TAKING VITAMIN D3 1000 UNIT CAPSULE 1 CAPSULE ORALLY ONCE A DAY, NOTES: 07/19/16 1000 TAKING CARVEDILOL 6.25 MG TABLET 1 TABLET WITH FOOD ORALLY DAILY, NOTES: 07/19/16999 TAKING PROAIR HFA 108 (90 BASE) MCG/ACT AEROSOL SOLUTION 2 PUFFS NEEDED INHALATION EVERY 4 HRS, NOTES: 07/18/16 TAKING GABAPENTIN 300 MG CAPSULE 1 CAPSULE ORALLY QHS, NOTES: 07/19/162329 TAKING OMEPRAZOLE 40 MG CAPSULE DELAYED RELEASE 1 CAPSULES ORALLY TWICE DAILY, NOTES: 07/19/162329 TAKING BREO ELLIPTA 100-25 MCG/INH AEROSOL POWDER BREATH ACTIVATED USE ONE INHALATION ONCE DAILY , NOTES: 07/19/16 1000 TAKING MENS ONE DAILY - TABLET ORALLY , NOTES: 07/19/16999 TAKING CRESTOR 10 MG TABLET 1 TABLET ORALLY ONCE A DAY, NOTES: 07/19/16999 TAKING GEMFIBROZIL 600 MG TABLET 1 TABLET ORALLY TWICE A DAY, NOTES: 07/19/162329 TAKING HYDROCODONE-ACETAMINOPHEN 5-325 MG TABLET 1 TABLET NEEDED ORALLY EVERY 4- 6 HRS PRN PAIN MDD=4, NOTES: 07/19/161999 NOT-TAKING VIAGRA 50 MG TABLET 1 TABLET NEEDED ORALLY ONCE A DAY, NOTES: NONE RECENT MEDICATION LIST REVIEWED AND RECONCILED WITH THE PATIENT PAST MEDICAL HISTORY CAD - NO HISTORY OF INFARCT - CARDIAC CATHETERIZATION 08/24 REVEALED NON-OBSTRUCTIVE DISEASE ONLY. ECHOCARDIOGRAM 10/25 NO VALVULAR DISEASE, TRACE MITRAL INSUFFICIENCY, TRACE TRICUSPID INSUFFICIENCY. NUCLEAR STRESS TEST 10/25 - NORMAL PERFUSION NO ISCHEMIA OR INFARCTION. EF CALCULATED AT 52% EKG - 07/28 - NSR 84 BPM (FOLLOWED BY DR. TORRES) LUMBAGO - OSTEOARTHRITIS - DDD HYPERLIPIDEMIA HIATAL HERNIA WITH REFLUX TOBACCO ABUSE WALI DX 02/26, COMPLIANT WITH CPAP. COPD ALLERGIES N.K.D.A. SOCIAL HISTORY GENERAL: PAIN CLINIC PFS, CLERGY, PUBLIC HEALTH REFERRALS CLERGY REFERRAL NEEDED?NO WAS THE PROVIDER NOTIFIED OF ANY PERTINENT INFO?NO PFS REFERRAL NEEDED?NO PUBLIC HEALTH REFERRAL NEEDED?NO PATIENT: ____. REVIEW OF SYSTEMS CONSTITUTIONAL: ANY CHANGE IN YOUR MEDICAL CONDITION? NO . CHILLS NO . FEVER NO . INFECTION: DO YOU HAVE NEW INFECTIONS? NO . DO YOU HAVE HISTORY OF MRSA? NO . MUSCULOSKELETAL: ANY NEW PATTERNS OF PAIN OR NUMBNESS? NO . GASTROENTEROLOGY: ANY NEW CHANGE IN BOWEL CONTROL? NO . GENITOURINARY: ANY NEW CHANGE IN BLADDER CONTROL? NO . IS THERE A CHANCE YOU COULD BE ? NO . HEMATOLOGY/LYMPH: DO YOU TAKE ANY BLOOD THINNERS? (FOR EXAMPLE- COUMADIN, PLAVIX, AGGRENOX, PLATEL, PRADAXA, OR XARELTO) NO . WHEN WAS YOUR LAST DOSE? DATE: TIME: . NEUROLOGY: HAVE YOU FALLEN IN THE PAST 6 MONTHS? NO . ANY NEW EXTREMITY NUMBNESS OR WEAKNESS? NO . CARDIOLOGY: DO YOU HAVE A PACEMAKER OR DEFIBRILLATOR? NO . RESPIRATORY: HAVE YOU BEEN SICK IN THE PAST WEEK? NO . FEVER NO . FLU LIKE SYMPTOMS? NO . COUGH NO . INTEGUMENTARY: DO YOU HAVE ANY RASHES OR OPEN SORES? NO . ALLERGIC/IMMUNO: ARE YOU ALLERGIC TO SHELLFISH OR IV DYE? NO . ANY NEW ALLERGIES? NO . PSYCHIATRIC: DO YOU HAVE THOUGHTS OF HURTING YOURSELF OR SOMEONE ELSE? NO . ARE YOU ABUSED, NEGLECTED, OR IN AN UNSAFE ENVIRONMENT? NO . ENDOCRINOLOGY: ARE YOU DIABETIC? NO . OTHER: DO YOU NEED ANY PRESCRIPTIONS? NO . IF YES, PLEASE LIST: ____ . ANY NEW PROBLEMS WITH YOUR MEDICATIONS? NO . WHEN DID YOU LAST EAT? ____07/19/16 1900 . WHEN DID YOU LAST DRINK? ____07/20/16 0700 . WHAT DID YOU LAST DRINK? ____WATER . NAME OF PERSON DRIVING YOU HOME? ____PATTY . DO YOU HAVE ANY OTHER QUESTIONS OR CONCERNS NO . REVIEWED BY: PROVIDER: . VITAL SIGNS WT 204 LBS, HT 68 IN, BMI 31.01 INDEX, BP 130/86 MM HG, HR 82 /MIN, RR 18 /MIN, TEMP 98.2 F, OXYGEN SAT % 96, NA INITIALS HS, REVIEWED BY: MLF. ASSESSMENTS INTERVERTEBRAL DISC DISORDERS WITH RADICULOPATHY, LUMBOSACRAL REGION - M51.17 (PRIMARY) PROCEDURES PRE PROCEDURE DIAGNOSIS LUMBOSACRAL RADICULOPATHY, LUMBOSACRAL DISC DISORDER WITH RADICULOPATHY POST PROCEDURE DIAGNOSIS LUMBOSACRAL RADICULOPATHY , LUMBOSACRAL DISC DISORDER WITH RADICULOPATHY PROCEDURE L5-S1 EPIDURAL STEROID INJECTION UNDER FLUOROSCOPIC GUIDANCE SURGEON DR. MAXIMILIANO SABA CHEF INSTRUCTOR NONE ANESTHESIA LOCAL PRE PROCEDURE NOTE THE PATIENT HAS A HISTORY OF CHRONIC LOW BACK PAIN. I EVALUATE THE PATIENT AND REVIEWED THE CHART. I WENT OVER THE RISKS, ALTERNATIVES, AND BENEFITS ASSOCIATED WITH THIS PROCEDURE. THE PATIENT WOULD LIKE TO PROCEED AND GIVE CONSENT TO PERFORMED THE PROCEDURE. THE PATIENT DENIES UNEXPLAINABLE WEIGHT LOSS, FEVER, CHILLS, OR NEW CHANGES IN URINARY OR BOWEL CONTROL. DESCRIPTION OF PROCEDURE THE PATIENT WAS BROUGHT TO THE PROCEDURE ROOM AND PLACED IN THE PRONE POSITION. THE LUMBOSACRAL AREA WAS CLEANED WITH BETADINE SOLUTION AND DRAPED ASEPTICALLY. THE PROCEDURE WAS DONE UNDER STERILE CONDITIONS. I CHECKED LATERALITY AND THE LEVEL WHERE THE PROCEDURE WAS GOING TO BE PERFORMED WITH THE PATIENT AND THE SUPPORTING STAFF AT THE MOMENT OF THE TIME OUT IN THE PROCEDURE ROOM. UNDER FLUOROSCOPIC GUIDANCE, THE TARGET POINT WAS SELECTED AT THE INTERLAMINAR LEVEL OF L5-S1. LIDOCAINE WAS USED TO NUMB THE SKIN AND THE SUBCUTANEOUS TISSUE BELOW IT. EPIDURAL TUOHY NEEDLE, 17-GAUGE, WAS ADVANCED UNDER FLUOROSCOPIC GUIDANCE AND FOLLOWING PATIENT FEEDBACK UNTIL THE EPIDURAL SPACE WAS REACHED, 7 CM DEEP INTO THE SKIN BY THE LOSS OF RESISTANCE TECHNIQUE. ISOVUE M DYE 30%, 0.25 ML, WAS INJECTED SHOWING ADEQUATE SPREAD OF THE DYE. THEN, A SOLUTION OF 3 ML OF NORMAL SALINE WITH DEPO-MEDROL 60 MG WAS INJECTED SLOWLY FOLLOWING PATIENT FEEDBACK. THERE WAS NO EVIDENCE OF BLOOD, PARESTHESIA OR CEREBROSPINAL FLUID DURING THE PROCEDURE. THE PATIENT WAS SENT TO THE RECOVERY ROOM. THE PATIENT WAS MOVING THE EXTREMITIES AND DOING WELL. THERE WAS NO COMPLICATION DURING THE PROCEDURE. FLUOROSCOPY TIME WAS 7 SECONDS. POST PROCEDURE NOTE THE PATIENT WILL BE SEEN IN A FOLLOW UP IN THE NEXT FEW WEEKS. INSTRUCTIONS WERE GIVEN, QUESTIONS WERE ANSWERED, AND THE PATIENT EXPRESSED UNDERSTANDING AND AGREES WITH THE PLAN. I, OSBALDO LIN, DOCUMENTED THE ABOVE INFORMATION ACTING A SCRIBE FOR DR. SABA. I HAVE REVIEWED THE ABOVE DOCUMENT, WRITTEN BY OSBALDO HANSEN AND I VERIFY THAT IT IS ACCURATE. DIAGNOSTIC IMAGING [facility] FLUORO GUIDE SPINE INJECTION (PAIN)[id number] PROCEDURE CODES 97940 LUMBAR/SACRAL W/ IMAGING 6045F RADXPS IN END [id number] PXD DISPOSITION & COMMUNICATION FOLLOW UP 3 WEEKS ELECTRONICALLY SIGNED BY MAXIMILIANO SABA MD ON 07/23/2016 AT 08:42 PM EDT DISCLAIMER : THIS IS A VISIT SUMMARY EXTRACTED FROM THE [employer] CHART. IT IS NOT A COPY OF THE [employer] PROGRESS NOTE. MTDD
== END ==
LOC: M PAIN 10:20
PROVIDERS: ATTEND Anesthesiology
DX: G89.29 Other chronic pain (principal); M51.17 Intervertebral disc disorders with radiculopathy, lumbosacral region; I25.10 Atherosclerotic heart disease of native coronary artery without angina pectoris; E78.5 Hyperlipidemia, unspecified; K44.9 Diaphragmatic hernia without obstruction or gangrene; K21.9 Gastro-esophageal reflux disease without esophagitis; J44.9 Chronic obstructive pulmonary disease, unspecified; Z79.82 Long term (current) use of aspirin; Z79.51 Long term (current) use of inhaled steroids; Z79.899 Other long term (current) drug therapy; Z87.891 Personal history of nicotine dependence

== ENCOUNTER → 2016-08-09 | Outpatient (REF) | payer MEDICARE, MEDICAID ==
[~2016-08-09] MED LIST changes: -diazePAM 5 MG TAB As Ordered ONE; -oxyCODONE 5MG TAB As Ordered ONE
[2016-08-09 20:13] LABS: BASO # 0.1 K/mm3 (0.0-0.2); BASO % 0.7 % (0.0-1.0); EOS # 0.2 K/mm3 (0.0-0.50); EOS % 2.2 % (0.0-3.0); LARGE UNSTAINED CELL # 0.1 K/mm3 (0.0-0.4); LYMPH # 1.9 K/mm3 (1.5-4.5); LYMPH % 22.7 % (24.0-44.0); MEAN CORPUSCULAR HEMOGLOBIN 29.9 pg (27.0-33.0); MEAN CORPUSCULAR HGB CONC 32.9 g/dl (32.0-36.5); MONO # 0.5 K/mm3 (0.0-0.8); MONO % 6.4 % (0.0-5.0); NEUTROPHILS # 5.3 K/mm3 (1.8-7.7); NEUTROPHILS % 67.1 % (36.0-66.0); PLATELET COUNT, AUTOMATED 321 k/mm3 (150-450); RED CELL DISTRIBUTION WIDTH 12.5 % (11.5-14.5); WHITE BLOOD COUNT 7.9 K/mm3 (4.0-10.0)
[2016-08-09 21:08] LABS: ALBUMIN 4.2 GM/DL (3.2-5.2); ALKALINE PHOSPHATASE 57 U/L (45-117); ALT/SGPT 20 U/L (12-78); ANION GAP 7 MEQ/L (8-16); AST/SGOT 15 U/L (15-37); BILIRUBIN,TOTAL 0.3 MG/DL (0.2-1.0); BLOOD UREA NITROGEN 19 MG/DL (7-18); CARBON DIOXIDE LEVEL 28 MEQ/L (21-32); CHLORIDE LEVEL 107 MEQ/L (98-107); CHOLESTEROL LEVEL 167 MG/DL (<200); CREATININE FOR GFR 1.01 MG/DL (0.70-1.30); GLOMERULAR FILTRATION RATE > 60.0 (>60); GLUCOSE, FASTING 93 MG/DL (70-105); POTASSIUM SERUM 4.8 MEQ/L (3.5-5.1); SODIUM LEVEL 142 MEQ/L (136-145); TOTAL PROTEIN 7.2 GM/DL (6.4-8.2); TRIGLYCERIDES LEVEL 147 MG/DL (<150)
== END ==
LOC: M SFHCADAM 11:33
PROVIDERS: ATTEND Physician Assistant Medical
DX: I25.10 Atherosclerotic heart disease of native coronary artery without angina pectoris (principal); E55.9 Vitamin D deficiency, unspecified

== ENCOUNTER → 2016-08-10 | Outpatient (CLI) | payer MEDICARE, MEDICAID ==
--- NOTE | 2016-08-29 02:44 | ECWPNPC ---
PATIENT NAME: NAEL FERRARO : 1970 GENDER: MALE VISIT DATE: 08/10/2016 DISCHARGE DATE: 08/10/16 1554 VISIT LOCKED DATE TIME: PHYSICIAN: EARL BANUELOS RESOURCE: EARL BANUELOS REASON FOR APPOINTMENT 1. POST PROCEDURE HISTORY OF PRESENT ILLNESS HISTORY OF PRESENT ILLNESS: PAIN THE PATIENT DESCRIBES THE PAIN... FALL RISK SCREENING: SCREENING :NO FALLS IN THE PAST YEAR TODAY'S VISIT: NOTES: RATES PAIN TODAY 10/23. IS S/P LESB COMPLETED ON 07/20/16. REPORTS THE PAIN WAS SIGNIFICANTLY IMPROVED. IS HAVING DIFFICULTY WITH SLEEP WITH DRENCHING SWEATS. NO RECENT FALLS. IS HAVING A VERY HOT FEELING ACROSS SHOULDERS. CURRENT MEDICATIONS TAKING ASPIRIN EC 81 MG TABLET DELAYED RELEASE 1 TABLET ORALLY ONCE A DAY TAKING VITAMIN D3 1000 UNIT CAPSULE 1 CAPSULE ORALLY ONCE A DAY TAKING CARVEDILOL 6.25 MG TABLET 1 TABLET WITH FOOD ORALLY DAILY TAKING PROAIR HFA 108 (90 BASE) MCG/ACT AEROSOL SOLUTION 2 PUFFS NEEDED INHALATION EVERY 4 HRS TAKING GABAPENTIN 300 MG CAPSULE 1 CAPSULE ORALLY QHS TAKING OMEPRAZOLE 40 MG CAPSULE DELAYED RELEASE 1 CAPSULES ORALLY TWICE DAILY TAKING BREO ELLIPTA 100-25 MCG/INH AEROSOL POWDER BREATH ACTIVATED USE ONE INHALATION ONCE DAILY TAKING MENS ONE DAILY - TABLET 1 TAB ORALLY DAILY TAKING CRESTOR 10 MG TABLET 1 TABLET ORALLY ONCE A DAY TAKING GEMFIBROZIL 600 MG TABLET 1 TABLET ORALLY TWICE A DAY TAKING HYDROCODONE-ACETAMINOPHEN 5-325 MG TABLET 1 TABLET NEEDED ORALLY EVERY 4- 6 HRS PRN PAIN MDD=4 NOT-TAKING VIAGRA 50 MG TABLET 1 TABLET NEEDED ORALLY ONCE A DAY, NOTES: NONE RECENT MEDICATION LIST REVIEWED AND RECONCILED WITH THE PATIENT PAST MEDICAL HISTORY CAD - NO HISTORY OF INFARCT - CARDIAC CATHETERIZATION 08/24 REVEALED NON-OBSTRUCTIVE DISEASE ONLY. ECHOCARDIOGRAM 10/25 NO VALVULAR DISEASE, TRACE MITRAL INSUFFICIENCY, TRACE TRICUSPID INSUFFICIENCY. NUCLEAR STRESS TEST 10/25 - NORMAL PERFUSION NO ISCHEMIA OR INFARCTION. EF CALCULATED AT 52% EKG - 07/28 - NSR 84 BPM (FOLLOWED BY DR. TORRES) LUMBAGO - OSTEOARTHRITIS - DDD HYPERLIPIDEMIA HIATAL HERNIA WITH REFLUX TOBACCO ABUSE WALI DX 02/26, COMPLIANT WITH CPAP. COPD ALLERGIES N.K.D.A. REVIEW OF SYSTEMS CONSTITUTIONAL: ANY CHANGE IN YOUR MEDICAL CONDITION? NO . CHILLS NO . FEVER NO . INFECTION: DO YOU HAVE NEW INFECTIONS? NO . DO YOU HAVE HISTORY OF MRSA? NO . MUSCULOSKELETAL: ANY NEW PATTERNS OF PAIN OR NUMBNESS? NO . GASTROENTEROLOGY: ANY NEW CHANGE IN BOWEL CONTROL? NO . GENITOURINARY: ANY NEW CHANGE IN BLADDER CONTROL? NO . IS THERE A CHANCE YOU COULD BE ? NO . HEMATOLOGY/LYMPH: DO YOU TAKE ANY BLOOD THINNERS? (FOR EXAMPLE- COUMADIN, PLAVIX, AGGRENOX, PLATEL, PRADAXA, OR XARELTO) NO . WHEN WAS YOUR LAST DOSE? DATE: TIME: . NEUROLOGY: HAVE YOU FALLEN IN THE PAST 6 MONTHS? YES . ANY NEW EXTREMITY NUMBNESS OR WEAKNESS? NO . CARDIOLOGY: DO YOU HAVE A PACEMAKER OR DEFIBRILLATOR? NO . RESPIRATORY: HAVE YOU BEEN SICK IN THE PAST WEEK? NO . FEVER NO . FLU LIKE SYMPTOMS? NO . COUGH NO . INTEGUMENTARY: DO YOU HAVE ANY RASHES OR OPEN SORES? NO . ALLERGIC/IMMUNO: ARE YOU ALLERGIC TO SHELLFISH OR IV DYE? NO . ANY NEW ALLERGIES? NO . PSYCHIATRIC: DO YOU HAVE THOUGHTS OF HURTING YOURSELF OR SOMEONE ELSE? NO . ARE YOU ABUSED, NEGLECTED, OR IN AN UNSAFE ENVIRONMENT? NO . ENDOCRINOLOGY: ARE YOU DIABETIC? NO . OTHER: DO YOU NEED ANY PRESCRIPTIONS? NO . IF YES, PLEASE LIST: ____ . ANY NEW PROBLEMS WITH YOUR MEDICATIONS? NO . WHEN DID YOU LAST EAT? ____ . WHEN DID YOU LAST DRINK? ____ . WHAT DID YOU LAST DRINK? ____ . NAME OF PERSON DRIVING YOU HOME? ____ . DO YOU HAVE ANY OTHER QUESTIONS OR CONCERNS NO . REVIEWED BY: PROVIDER: EARL CUNNINGHAM . VITAL SIGNS WT 204 LBS, HT 68 IN, BMI 31.01 INDEX, BP 121/79 MM HG, HR 80 /MIN, RR 16 /MIN, TEMP 99.1 F, OXYGEN SAT % 94%, NA INITIALS TL, REVIEWED BY: CS. EXAMINATION GENERAL EXAMINATION: PSYCHALERT , ORIENTED X 3 , APPROPRIATE MOOD AND AFFECT . LUNGS:FEW SCATTERED WHEEZES THOUGH ALL LUNG HARRY. HEART:HEART RATE REGULAR. MUSCULOSKELETAL:MUSCLE STRENGTH TESTING 5-/5 BILATERAL LOWER EXTREMITIES. FLEX AT HIPS IMPROVED WITH IMPROVED QUAD STRENGTH. POINT TENDERNESS OVER SACRALILIAC JOINTS, RIGHT GREATER THAN LEFT. CANE USED FOR BALANCE., GAIT ANTALGIC, POSTURE STOOPED.. ASSESSMENTS LUMBAR DISC DISEASE WITH RADICULOPATHY - M51.16 (PRIMARY) MYALGIA - M79.1 CHRONICALLY ON OPIATE THERAPY - Z79.891 LUMBAR FACET ARTHROPATHY - M12.88 TREATMENT LUMBAR DISC DISEASE WITH RADICULOPATHY INJECTION FACET JOINT/NERVE DOM/SHELTONEARL BANUELOS Celine 08/10/2016 3:37:59 PM > BILATERAL DIAGNOSTIC L4-5, L5 S1 NOTES: CONTINUE CURRENT MEDS,FACET JOINT INJECTION MATERIAL WAS PRINTED,FACET JOINT INJECTION: YOUR EXPERIENCE MATERIAL WAS PRINTED. CLINICAL NOTES: ISTOP REGISTRY REVIEWED AND DEMNOSTRATES COMPLLIANCE. BRINGS IN MEDICATIONS WHICH IS APPROPRIATE FOR WHAT WAS DISPENSED. RECENT URINE TOXICOLOGY REVIEWED. NO UNAUTHORIZED MEDICATIONS. NO ILLICIT SUBSTANCES AND PRESCRIBED MEDICATIONS WERE PRESENT. PROCEDURE CODES FA211 ESTABILISHED PATIENT [facility] FACILITY CHARGE G8730 PAIN ASSESS POS TOOL F/U PLAN DOC G8427 DOC MEDS VERIFIED W/PT OR RE DISPOSITION & COMMUNICATION FOLLOW UP AFTER INJECTION (REASON: CHECK AUTH FOR BILATERAL DIAGNOSTIC LUMBAR FACET L4-5, L5-S1) ELECTRONICALLY SIGNED BY CHAPIN BERG ON 08/28/2016 AT 05:48 PM EDT DISCLAIMER : THIS IS A VISIT SUMMARY EXTRACTED FROM THE [employer] CHART. IT IS NOT A COPY OF THE [employer] PROGRESS NOTE. MELYSSA
== END ==
LOC: M PAIN 14:40
PROVIDERS: ATTEND Nurse Practitioner Family
DX: G89.29 Other chronic pain (principal); M51.16 Intervertebral disc disorders with radiculopathy, lumbar region; M79.1 Myalgia; M12.88 Other specific arthropathies, not elsewhere classified, other specified site; I25.10 Atherosclerotic heart disease of native coronary artery without angina pectoris; E78.5 Hyperlipidemia, unspecified; K44.9 Diaphragmatic hernia without obstruction or gangrene; K21.9 Gastro-esophageal reflux disease without esophagitis; G47.30 Sleep apnea, unspecified; J44.9 Chronic obstructive pulmonary disease, unspecified; Z79.82 Long term (current) use of aspirin; Z79.51 Long term (current) use of inhaled steroids; Z79.899 Other long term (current) drug therapy

== ENCOUNTER → 2016-08-22 | Outpatient (CLI) | payer MEDICARE, MEDICAID ==
[~2016-08-22] MED LIST changes: +BUPIVACAINE HCL 0.25% 30 ML VIAL As Ordered ONE; +ISOVUE-M 300 61% 15ML VIAL (Q9967) As Ordered ONE; +LIDOCAINE 1% SDV INJ 30 ML VIAL As Ordered ONE
--- NOTE | 2016-08-22 16:07 | REP ---
Partial lumbar spine series: Two views: History: Bilateral lumbar facet block for pain. 45 seconds of fluoroscopy time is reported. Findings: A sequence of two fluoroscopically obtained intraprocedural spot radiographs of the lumbar spine document various needle positions and contrast injections associated with lumbar spine and facet injection procedure. Signed by Naren Allen MD 08/22/2016 04:40 P
--- NOTE | 2016-09-02 23:38 | ECWPNPC ---
PATIENT NAME: NAEL FERRARO : 1970 GENDER: MALE VISIT DATE: 08/22/2016 DISCHARGE DATE: 08/22/16 1230 VISIT LOCKED DATE TIME: PHYSICIAN: MAXIMILIANO SABA RESOURCE: MAXIMILIANO SABA REASON FOR APPOINTMENT 1. LUMBAR FACET HISTORY OF PRESENT ILLNESS HISTORY OF PRESENT ILLNESS: PAIN THE PATIENT DESCRIBES THE PAIN... FALL RISK SCREENING: SCREENING :NO FALLS IN THE PAST YEAR CURRENT MEDICATIONS TAKING ASPIRIN EC 81 MG TABLET DELAYED RELEASE 1 TABLET ORALLY ONCE A DAY, NOTES: 08-21-16799 TAKING VITAMIN D3 1000 UNIT CAPSULE 1 CAPSULE ORALLY ONCE A DAY, NOTES: 08-21-16799 TAKING CARVEDILOL 6.25 MG TABLET 1 TABLET WITH FOOD ORALLY DAILY, NOTES: 08-21-16799 TAKING PROAIR HFA 108 (90 BASE) MCG/ACT AEROSOL SOLUTION 2 PUFFS NEEDED INHALATION EVERY 4 HRS, NOTES: 08-21-16799 TAKING GABAPENTIN 300 MG CAPSULE 1 CAPSULE ORALLY QHS, NOTES: 08-21-162099 TAKING OMEPRAZOLE 40 MG CAPSULE DELAYED RELEASE 1 CAPSULES ORALLY TWICE DAILY, NOTES: 08-21-16799 TAKING BREO ELLIPTA 100-25 MCG/INH AEROSOL POWDER BREATH ACTIVATED USE ONE INHALATION ONCE DAILY , NOTES: 08-21-16799 TAKING MENS ONE DAILY - TABLET 1 TAB ORALLY DAILY, NOTES: 08-21-16799 TAKING CRESTOR 10 MG TABLET 1 TABLET ORALLY ONCE A DAY, NOTES: 08-21-16799 TAKING GEMFIBROZIL 600 MG TABLET 1 TABLET ORALLY TWICE A DAY, NOTES: 08-21-162099 TAKING HYDROCODONE-ACETAMINOPHEN 5-325 MG TABLET 1 TABLET NEEDED ORALLY EVERY 4- 6 HRS PRN PAIN MDD=4, NOTES: 08-21-161199 NOT-TAKING VIAGRA 50 MG TABLET 1 TABLET NEEDED ORALLY ONCE A DAY, NOTES: NONE RECENT MEDICATION LIST REVIEWED AND RECONCILED WITH THE PATIENT PAST MEDICAL HISTORY CAD - NO HISTORY OF INFARCT - CARDIAC CATHETERIZATION 08/24 REVEALED NON-OBSTRUCTIVE DISEASE ONLY. ECHOCARDIOGRAM 10/25 NO VALVULAR DISEASE, TRACE MITRAL INSUFFICIENCY, TRACE TRICUSPID INSUFFICIENCY. NUCLEAR STRESS TEST 10/25 - NORMAL PERFUSION NO ISCHEMIA OR INFARCTION. EF CALCULATED AT 52% EKG - 07/28 - NSR 84 BPM (FOLLOWED BY DR. TORRES) LUMBAGO - OSTEOARTHRITIS - DDD HYPERLIPIDEMIA HIATAL HERNIA WITH REFLUX TOBACCO ABUSE WALI DX 11/13, COMPLIANT WITH CPAP. COPD ALLERGIES N.K.D.A. REVIEW OF SYSTEMS CONSTITUTIONAL: ANY CHANGE IN YOUR MEDICAL CONDITION? NO . CHILLS NO . FEVER NO . INFECTION: DO YOU HAVE NEW INFECTIONS? NO . DO YOU HAVE HISTORY OF MRSA? NO . MUSCULOSKELETAL: ANY NEW PATTERNS OF PAIN OR NUMBNESS? NO . GASTROENTEROLOGY: ANY NEW CHANGE IN BOWEL CONTROL? NO . GENITOURINARY: ANY NEW CHANGE IN BLADDER CONTROL? NO . IS THERE A CHANCE YOU COULD BE ? NO . HEMATOLOGY/LYMPH: DO YOU TAKE ANY BLOOD THINNERS? (FOR EXAMPLE- COUMADIN, PLAVIX, AGGRENOX, PLATEL, PRADAXA, OR XARELTO) NO . WHEN WAS YOUR LAST DOSE? DATE: TIME: . NEUROLOGY: HAVE YOU FALLEN IN THE PAST 6 MONTHS? YES . ANY NEW EXTREMITY NUMBNESS OR WEAKNESS? NO . CARDIOLOGY: DO YOU HAVE A PACEMAKER OR DEFIBRILLATOR? NO . RESPIRATORY: HAVE YOU BEEN SICK IN THE PAST WEEK? NO . FEVER NO . FLU LIKE SYMPTOMS? NO . COUGH NO . INTEGUMENTARY: DO YOU HAVE ANY RASHES OR OPEN SORES? NO . ALLERGIC/IMMUNO: ARE YOU ALLERGIC TO SHELLFISH OR IV DYE? NO . ANY NEW ALLERGIES? NO . PSYCHIATRIC: DO YOU HAVE THOUGHTS OF HURTING YOURSELF OR SOMEONE ELSE? NO . ARE YOU ABUSED, NEGLECTED, OR IN AN UNSAFE ENVIRONMENT? NO . ENDOCRINOLOGY: ARE YOU DIABETIC? NO . OTHER: DO YOU NEED ANY PRESCRIPTIONS? NO . IF YES, PLEASE LIST: ____ . ANY NEW PROBLEMS WITH YOUR MEDICATIONS? NO . WHEN DID YOU LAST EAT? 08-21-16 PM . WHEN DID YOU LAST DRINK? 08-22-16 0800 . WHAT DID YOU LAST DRINK? WATER . NAME OF PERSON DRIVING YOU HOME? ALYCIA . DO YOU HAVE ANY OTHER QUESTIONS OR CONCERNS NO . REVIEWED BY: PROVIDER: . VITAL SIGNS WT 205.4 LBS, HT 68 IN, BMI 31.23 INDEX, BP 136/89 MM HG, HR 82 /MIN, RR 18 /MIN, TEMP 98.1 F, OXYGEN SAT % 96%, NA INITIALS TL 1007, REVIEWED BY: CM. 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 MAXIMILIANO SABA GRAIN ELEVATOR AGENT NONE ANESTHESIA LOCAL PRE PROCEDURE NOTE THE PATIENT WITH HISTORY OF CHRONIC LOW BACK PAIN. I EVALUATED THE PATIENT AND REVIEWED THE CHART. I WENT OVER THE RISKS, ALTERNATIVES, AND BENEFITS ASSOCIATED WITH THIS PROCEDURE. THE PATIENT WOULD LIKE TO PROCEED AND GAVE CONSENT TO PERFORM THE PROCEDURE. AGREED WITH THE PATIENT WE ARE DOING THIS PROCEDURE TO DETERMINE IF THE PATIENT IS A CANDIDATE FOR A RADIOFREQUENCY ABLATION OF THE FACETS JOINTS. THE PATIENT DENIES UNEXPLAINABLE WEIGHT LOSS, FEVER, CHILLS, OR NEW CHANGES IN URINARY OR BOWEL CONTROL DESCRIPTION OF PROCEDURE THE PATIENT WAS BROUGHT TO THE PROCEDURE ROOM AND PLACED IN THE PRONE POSITION. THE LUMBOSACRAL AREA WAS CLEANED WITH CHLORAPREP SOLUTION AND DRAPED ASEPTICALLY. THE PROCEDURE WAS DONE UNDER STERILE CONDITIONS. I CHECKED LATERALITY AND THE LEVEL WHERE THE PROCEDURE WAS GOING TO BE PERFORMED WITH THE PATIENT AND THE SUPPORTING STAFF AT THE MOMENT OF THE TIME OUT IN THE PROCEDURE ROOM. UNDER FLUOROSCOPIC GUIDANCE, TARGETS WERE SELECTED AT THE INTERSECTION OF THE RIGHT AND LEFT TRANSVERSE PROCESS OF L4, L5 AND ALA OF S1 WITH ITS RESPECTIVE SUPERIOR ARTICULAR PROCESS. LIDOCAINE WAS USED TO NUMB THE SKIN AND THE SUBCUTANEOUS TISSUE BELOW IT. SPINAL NEEDLE, 22-GAUGE WAS ADVANCED UNDER FLUOROSCOPIC GUIDANCE AND FOLLOWING PATIENT FEEDBACK UNTIL THE TARGETS WERE REACHED. POSITION OF THE NEEDLES WAS VERIFIED WITH AP AND LATERAL VIEWS. AFTER PROPER POSITION OF THE NEEDLES WAS ACHIEVED, ISOVUE-M DYE 30% 0.1 ML WAS INJECTED AT EACH SITE SHOWING ADEQUATE SPREAD OF THE DYE. THEN A SOLUTION OF 0.4 ML OF BUPIVACAINE 0.25% WAS INJECTED AT EACH SITE. THERE WAS NO EVIDENCE OF BLOOD, PARESTHESIA OR CEREBROSPINAL FLUID DURING THE PROCEDURE. THE PATIENT WAS SENT TO THE RECOVERY ROOM. THE PATIENT WAS MOVING THE EXTREMITIES AND DOING WELL. THERE WAS NO COMPLICATION DURING THE PROCEDURE. FLUOROSCOPY TIME WAS 45 SECONDS POST PROCEDURE NOTE THE PATIENT WILL DOCUMENT HIS PAIN LEVEL AND RESPONSE TO THIS PROCEDURE EVERY 30 MINUTES. THE PATIENT WILL BE SEEN IN A FOLLOW UP IN THE NEXT FEW WEEKS. FURTHER DETERMINATION FOR HIS CASE WILL BE DONE AT THE NEXT VISIT. INSTRUCTIONS WERE GIVEN, QUESTIONS WERE ANSWERED, AND THE PATIENT EXPRESSED UNDERSTANDING AND AGREED WITH THE PLAN. I, OSBALDO LIN, DOCUMENTED THE ABOVE INFORMATION ACTING A SCRIBE FOR DR. SABA. I HAVE REVIEWED THE ABOVE DOCUMENT, WRITTEN BY OSBALDO LIN SCRIBE AND I VERIFY THAT IT IS ACCURATE DIAGNOSTIC IMAGING [facility] FACET BLOCK (PAIN)[id number] PROCEDURE CODES 02980 INJ PARAVERT F JNT L/S 1 LEV 95480 INJ PARAVERT F JNT L/S 2 LEV 6045F RADXPS IN END [id number] PXD DISPOSITION & COMMUNICATION FOLLOW UP 3 WEEKS ELECTRONICALLY SIGNED BY MAXIMILIANO SABA MD ON 09/02/2016 AT 06:55 PM EDT DISCLAIMER : THIS IS A VISIT SUMMARY EXTRACTED FROM THE [employer] CHART. IT IS NOT A COPY OF THE [employer] PROGRESS NOTE. MTDMi
== END ==
LOC: M PAIN 10:20
PROVIDERS: ATTEND Anesthesiology
DX: G89.29 Other chronic pain (principal); M47.816 Spondylosis without myelopathy or radiculopathy, lumbar region; M47.817 Spondylosis without myelopathy or radiculopathy, lumbosacral region; E78.5 Hyperlipidemia, unspecified; K21.9 Gastro-esophageal reflux disease without esophagitis; K44.9 Diaphragmatic hernia without obstruction or gangrene; F17.210 Nicotine dependence, cigarettes, uncomplicated; J44.9 Chronic obstructive pulmonary disease, unspecified; G47.33 Obstructive sleep apnea (adult) (pediatric); I25.10 Atherosclerotic heart disease of native coronary artery without angina pectoris; E55.9 Vitamin D deficiency, unspecified; Z79.82 Long term (current) use of aspirin; Z79.51 Long term (current) use of inhaled steroids; Z79.899 Other long term (current) drug therapy
CPT/HCPCS: 64493; 64494; Q9967

== ENCOUNTER → 2016-09-07 | Outpatient (CLI) | payer MEDICARE, MEDICAID ==
[~2016-09-07] MED LIST changes: -BUPIVACAINE HCL 0.25% 30 ML VIAL As Ordered ONE; -ISOVUE-M 300 61% 15ML VIAL (Q9967) As Ordered ONE; -LIDOCAINE 1% SDV INJ 30 ML VIAL As Ordered ONE
--- NOTE | 2016-09-11 23:47 | ECWPNPC ---
PATIENT NAME: NAEL FERRARO : 1970 GENDER: MALE VISIT DATE: 09/07/2016 DISCHARGE DATE: 09/07/16 1535 VISIT LOCKED DATE TIME: PHYSICIAN: EARL BANUELOS RESOURCE: EARL BANUELOS REASON FOR APPOINTMENT 1. POST PROCDEDURE HISTORY OF PRESENT ILLNESS HISTORY OF PRESENT ILLNESS: PAIN THE PATIENT DESCRIBES THE PAIN... FALL RISK SCREENING: SCREENING :ONE FALL WITHOUT INJURY IN THE PAST YEAR TODAY'S VISIT: NOTES: RATES PAIN TODAY 3-4/10. PT IS S/P DIAGNOSITC LUMBAR FACET BLOCK #1, DONE BILATERALLY AT L4-5, L5-S1 ON 08/22/16. BILLIE REPORTS HE IS VERY PLEASED ANS HE HAS HAD EXCELLANT RELIEF OF PAIN AND HAS BEEN MUCH MORE ACTIVE AROUND HIS HOME. HE REPORTS HE HAS USED LESS PAIN MEDS. STILL HAS SOME INTERMITTANT PAIN SOME RIGHT SIDE LOW BACK WITH RADIATION TO THE HIP. CURRENT MEDICATIONS TAKING ASPIRIN EC 81 MG TABLET DELAYED RELEASE 1 TABLET ORALLY ONCE A DAY, NOTES: 08-21-16799 TAKING VITAMIN D3 1000 UNIT CAPSULE 1 CAPSULE ORALLY ONCE A DAY, NOTES: 08-21-16799 TAKING CARVEDILOL 6.25 MG TABLET 1 TABLET WITH FOOD ORALLY DAILY, NOTES: 08-21-16799 TAKING PROAIR HFA 108 (90 BASE) MCG/ACT AEROSOL SOLUTION 2 PUFFS NEEDED INHALATION EVERY 4 HRS, NOTES: 08-21-16799 TAKING GABAPENTIN 300 MG CAPSULE 1 CAPSULE ORALLY QHS, NOTES: 08-21-162099 TAKING OMEPRAZOLE 40 MG CAPSULE DELAYED RELEASE 1 CAPSULES ORALLY TWICE DAILY, NOTES: 08-21-16799 TAKING BREO ELLIPTA 100-25 MCG/INH AEROSOL POWDER BREATH ACTIVATED USE ONE INHALATION ONCE DAILY , NOTES: 08-21-16799 TAKING MENS ONE DAILY - TABLET 1 TAB ORALLY DAILY, NOTES: 08-21-16799 TAKING CRESTOR 10 MG TABLET 1 TABLET ORALLY ONCE A DAY, NOTES: 08-21-16799 TAKING GEMFIBROZIL 600 MG TABLET 1 TABLET ORALLY TWICE A DAY, NOTES: 08-21-162099 TAKING HYDROCODONE-ACETAMINOPHEN 5-325 MG TABLET 1 TABLET NEEDED ORALLY EVERY 4- 6 HRS PRN PAIN MDD=4, NOTES: 08-21-161199 NOT-TAKING VIAGRA 50 MG TABLET 1 TABLET NEEDED ORALLY ONCE A DAY, NOTES: NONE RECENT MEDICATION LIST REVIEWED AND RECONCILED WITH THE PATIENT PAST MEDICAL HISTORY CAD - NO HISTORY OF INFARCT - CARDIAC CATHETERIZATION 08/24 REVEALED NON-OBSTRUCTIVE DISEASE ONLY. ECHOCARDIOGRAM 10/25 NO VALVULAR DISEASE, TRACE MITRAL INSUFFICIENCY, TRACE TRICUSPID INSUFFICIENCY. NUCLEAR STRESS TEST 10/25 - NORMAL PERFUSION NO ISCHEMIA OR INFARCTION. EF CALCULATED AT 52% EKG - 07/28 - NSR 84 BPM (FOLLOWED BY DR. TORRES) LUMBAGO - OSTEOARTHRITIS - DDD HYPERLIPIDEMIA HIATAL HERNIA WITH REFLUX TOBACCO ABUSE WALI DX 02/26, COMPLIANT WITH CPAP. COPD ALLERGIES N.K.D.A. SOCIAL HISTORY GENERAL: TOBACCO USE ARE YOU A:CURRENT SMOKER HOW MANY CIGARETTES A DAY DO YOU SMOKE?11-20 HOW SOON AFTER YOU WAKE UP DO YOU SMOKE YOUR FIRST CIGARETTE?6-30 MIN HOW OFTEN DO YOU SMOKE CIGARETTES?EVERY DAY PATIENT COUNSELED ON THE DANGERS OF TOBACCO USE AND URGED TO QUIT:09/07/2016 ARE YOU INTERESTED IN QUITTING?READY TO QUIT COUNSELED THE PATIENT ON TOBACCO USE, CESSATION [id number]/25/2017 ALCOHOL SCREENING DID YOU HAVE A DRINK CONTAINING ALCOHOL IN THE PAST YEAR?YES POINTS2 INTERPRETATIONNEGATIVE HOW OFTEN DID YOU HAVE A DRINK CONTAINING ALCOHOL IN THE PAST YEAR?MONTHLY OR LESS (1 POINT) HOW MANY DRINKS DID YOU HAVE ON A TYPICAL DAY WHEN YOU WERE DRINKING IN THE PAST YEAR?1 OR 2 (0 POINTS) HOW OFTEN DID YOU HAVE SIX OR MORE DRINKS ON ONE OCCASION IN THE PAST YEAR?LESS THAN MONTHLY (1 POINT) RECREATIONAL DRUG USE DRUG USE?NO CAFFEINE CAFFEINE USE?YES HOW OFTEN AND HOW MUCH? COFFEE 3- 4 POTS DAILY AT TIMES SEXUAL HX HAD SEX IN THE LAST 12 MONTHS (VAGINAL, ORAL, OR ANAL)?YES WITHWOMEN ONLY USE PROTECTION?NO HAVE YOU EVER HAD AN STD?NO HIV / HEP-C SCREENING HIV TEST OFFERED TO PATIENT:YES DATE OFFERED:08/17/2016 TEST ACCEPTED:NO REASON:PATIENT DECLINED HEP-C TEST OFFERED TO PATIENT:YES DATE OFFERED:08/17/2016 TEST ACCEPTED:NO REASON:PATIENT DECLINED DIET: REGULAR. EXERCISE: DAILY. MARITAL STATUS: . OTHERS AT HOME: NONE. BUDDHIST [id number] OTHER LANGUAGE LANGUAGES SPOKEN:UPPER SORBIAN LEARNING BARRIERS / SPECIAL NEEDS BARRIERS TO LEARNING?NO HEARING IMPAIRED?NO VISION IMPAIRED?YES :CORRECTIVE LENSES COGNITIVELY IMPAIRED?NO READINESS TO LEARN?YES LEARNING PREFERENCES?NO LEARNING CAPABILITIES PRESENT?YES EMOTIONAL BARRIERS?NO SPECIAL DEVICES?NO CHILD CARE DEVELOPMENT SPECIALIST NEEDED?NO PAIN CLINIC PFS, CLERGY, PUBLIC HEALTH REFERRALS PFS REFERRAL NEEDED? NO , CLERGY REFERRAL NEEDED? NO , PUBLIC HEALTH REFERRAL NEEDED? NO , WAS THE PROVIDER NOTIFIED OF ANY PERTINENT INFO? NO . PATIENT: ____. REVIEW OF SYSTEMS CONSTITUTIONAL: ANY CHANGE IN YOUR MEDICAL CONDITION? NO . CHILLS NO . FEVER NO . INFECTION: DO YOU HAVE NEW INFECTIONS? NO . DO YOU HAVE HISTORY OF MRSA? NO . MUSCULOSKELETAL: ANY NEW PATTERNS OF PAIN OR NUMBNESS? NO . GASTROENTEROLOGY: ANY NEW CHANGE IN BOWEL CONTROL? NO . GENITOURINARY: ANY NEW CHANGE IN BLADDER CONTROL? NO . IS THERE A CHANCE YOU COULD BE ? NO . HEMATOLOGY/LYMPH: DO YOU TAKE ANY BLOOD THINNERS? (FOR EXAMPLE- COUMADIN, PLAVIX, AGGRENOX, PLATEL, PRADAXA, OR XARELTO) NO . WHEN WAS YOUR LAST DOSE? DATE: TIME: . NEUROLOGY: HAVE YOU FALLEN IN THE PAST 6 MONTHS? YES . ANY NEW EXTREMITY NUMBNESS OR WEAKNESS? NO . CARDIOLOGY: DO YOU HAVE A PACEMAKER OR DEFIBRILLATOR? NO . RESPIRATORY: HAVE YOU BEEN SICK IN THE PAST WEEK? NO . FEVER NO . FLU LIKE SYMPTOMS? NO . COUGH NO . INTEGUMENTARY: DO YOU HAVE ANY RASHES OR OPEN SORES? NO . ALLERGIC/IMMUNO: ARE YOU ALLERGIC TO SHELLFISH OR IV DYE? NO . ANY NEW ALLERGIES? NO . PSYCHIATRIC: DO YOU HAVE THOUGHTS OF HURTING YOURSELF OR SOMEONE ELSE? NO . ARE YOU ABUSED, NEGLECTED, OR IN AN UNSAFE ENVIRONMENT? NO . ENDOCRINOLOGY: ARE YOU DIABETIC? NO . OTHER: DO YOU NEED ANY PRESCRIPTIONS? NO . IF YES, PLEASE LIST: ____ . ANY NEW PROBLEMS WITH YOUR MEDICATIONS? NO . WHEN DID YOU LAST EAT? ____ . WHEN DID YOU LAST DRINK? ____ . WHAT DID YOU LAST DRINK? ____ . NAME OF PERSON DRIVING YOU HOME? ____ . DO YOU HAVE ANY OTHER QUESTIONS OR CONCERNS NO . REVIEWED BY: PROVIDER: EARL CUNNINGHAM . VITAL SIGNS WT 202 LBS, HT 68 IN, BMI 30.71 INDEX, BP 111/77 MM HG, HR 67 /MIN, RR 18 /MIN, TEMP 99.1 F, OXYGEN SAT % 95, REVIEWED BY: VD. EXAMINATION GENERAL EXAMINATION: PSYCHALERT , ORIENTED X 3 , APPROPRIATE MOOD AND AFFECT . LUNGS:FEW SCATTERED WHEEZES THOUGH ALL LUNG HARRY. HEART:HEART RATE REGULAR. MUSCULOSKELETAL:MUSCLE STRENGTH TESTING 5-/5 BILATERAL LOWER EXTREMITIES. FLEX AT HIPS IMPROVED WITH IMPROVED QUAD STRENGTH. POINT TENDERNESS OVER SACRALILIAC JOINTS, RIGHT GREATER THAN LEFT. GAIT WIDEBASED. ASSESSMENTS SPONDYLOSIS WITHOUT MYELOPATHY OR RADICULOPATHY, LUMBAR REGION - M47.816 (PRIMARY) SPONDYLOSIS WITHOUT MYELOPATHY OR RADICULOPATHY, LUMBOSACRAL REGION - M47.817 TREATMENT SPONDYLOSIS WITHOUT MYELOPATHY OR RADICULOPATHY, LUMBAR REGION INJECTION FACET JOINT/NERVE LUMBAR/SACRALEARL BANUELOS 09/07/2016 3:18:52 PM > DIAGNOSTIC #2 RIGHT NOTES: TAKE MEDS WHEN NEEDED - NOT ON A SCHEDULE. CLINICAL NOTES: ISTOP REGISTRY REVIEWED AND DEMNOSTRATES COMPLLIANCE. BRINGS IN MEDICATIONS WHICH IS APPROPRIATE FOR WHAT WAS DISPENSED. RECENT URINE TOXICOLOGY REVIEWED. NO UNAUTHORIZED MEDICATIONS. NO ILLICIT SUBSTANCES AND PRESCRIBED MEDICATIONS WERE PRESENT. PREVENTIVE MEDICINE LUMBAR FACET BLOCK DIAGNOSTIC INFORMATION REVIEWED. PROCEDURE CODES FA211 ESTABILISHED PATIENT [facility] FACILITY CHARGE G8730 PAIN ASSESS POS TOOL F/U PLAN DOC G8427 DOC MEDS VERIFIED W/PT OR RE DISPOSITION & COMMUNICATION FOLLOW UP OK TO CALL TO SCHEDULE INJECTION - NEED MED FOLLOWUP 7 WEEKS (REASON: CHECK AUTH - LEFT L4-5, L5-S1 TRANSFORAMINAL EPIDURAL) ELECTRONICALLY SIGNED BY CHAPIN BERG ON 09/11/2016 AT 02:16 PM EDT DISCLAIMER : THIS IS A VISIT SUMMARY EXTRACTED FROM THE [employer] CHART. IT IS NOT A COPY OF THE [employer] PROGRESS NOTE. MTDMi
== END ==
LOC: M PAIN 14:20
PROVIDERS: ATTEND Nurse Practitioner Family
DX: M47.816 Spondylosis without myelopathy or radiculopathy, lumbar region (principal); M47.817 Spondylosis without myelopathy or radiculopathy, lumbosacral region; Z79.82 Long term (current) use of aspirin; Z79.891 Long term (current) use of opiate analgesic; Z79.899 Other long term (current) drug therapy; F17.210 Nicotine dependence, cigarettes, uncomplicated; I25.10 Atherosclerotic heart disease of native coronary artery without angina pectoris; J44.9 Chronic obstructive pulmonary disease, unspecified; K21.9 Gastro-esophageal reflux disease without esophagitis; E55.9 Vitamin D deficiency, unspecified; G47.33 Obstructive sleep apnea (adult) (pediatric); M46.1 Sacroiliitis, not elsewhere classified

== ENCOUNTER → 2016-09-27 | Outpatient (CLI) | payer MEDICARE, MEDICAID ==
[~2016-09-27] MED LIST changes: +BUPIVACAINE HCL 0.25% 30 ML VIAL As Ordered ONE; +ISOVUE-M 300 61% 15ML VIAL (Q9967) As Ordered ONE; +LIDOCAINE 1% SDV INJ 30 ML VIAL As Ordered ONE
--- NOTE | 2016-09-27 19:08 | REP ---
FLUOROSCOPIC GUIDANCE FOR LUMBAR FACET BLOCK: 09/27/2016. Clinical history: Back pain. Findings: Two images from C-arm fluoroscopy provided to Dr. Acosta of the pain clinic for left lumbar facet block are reviewed. [place] are seen at the L3-4, L4-5, and L5-S1 levels with contrast adjacent to the needle tips. Fluoroscopy time 27 seconds. Signed by Domenic Wright MD 09/28/2016 03:18 P
--- NOTE | 2016-10-06 00:08 | ECWPNPC ---
PATIENT NAME: NAEL FERRARO : 1970 GENDER: MALE VISIT DATE: 09/27/2016 DISCHARGE DATE: 09/27/16 1318 VISIT LOCKED DATE TIME: PHYSICIAN: MAXIMILIANO SABA RESOURCE: MAXIMILIANO SABA REASON FOR APPOINTMENT 1. LUMBAR FACET BLOCK AT L4-5, L5-S1 RIGHT HISTORY OF PRESENT ILLNESS HISTORY OF PRESENT ILLNESS: PAIN THE PATIENT DESCRIBES THE PAIN... FALL RISK SCREENING: SCREENING :NO FALLS IN THE PAST YEAR CURRENT MEDICATIONS TAKING ASPIRIN EC 81 MG TABLET DELAYED RELEASE 1 TABLET ORALLY ONCE A DAY, NOTES: 09/26/16@1000 TAKING VITAMIN D3 1000 UNIT CAPSULE 1 CAPSULE ORALLY ONCE A DAY, NOTES: 09/26/16@100 TAKING CARVEDILOL 6.25 MG TABLET 1 TABLET WITH FOOD ORALLY DAILY, NOTES: 09/26/16@999 TAKING PROAIR HFA 108 (90 BASE) MCG/ACT AEROSOL SOLUTION 2 PUFFS NEEDED INHALATION EVERY 4 HRS, NOTES: 2 DAYS AGO TAKING OMEPRAZOLE 40 MG CAPSULE DELAYED RELEASE 1 CAPSULES ORALLY TWICE DAILY, NOTES: 09/26/16@1000 TAKING BREO ELLIPTA 100-25 MCG/INH AEROSOL POWDER BREATH ACTIVATED USE ONE INHALATION ONCE DAILY , NOTES: 09/26/16@1000 TAKING MENS ONE DAILY - TABLET 1 TAB ORALLY DAILY, NOTES: 09/26/16@999 TAKING CRESTOR 10 MG TABLET 1 TABLET ORALLY ONCE A DAY, NOTES: 09/26/16@999 TAKING GEMFIBROZIL 600 MG TABLET 1 TABLET ORALLY TWICE A DAY, NOTES: 09/26/16@2330 TAKING HYDROCODONE-ACETAMINOPHEN 5-325 MG TABLET 1 TABLET NEEDED ORALLY EVERY 4- 6 HRS PRN PAIN MDD=4, NOTES: TAKING GABAPENTIN 300 MG CAPSULE 1 CAPSULE ORALLY QHS, NOTES: 09/26/16@2300 NOT-TAKING VIAGRA 50 MG TABLET 1 TABLET NEEDED ORALLY ONCE A DAY, NOTES: NONE RECENT MEDICATION LIST REVIEWED AND RECONCILED WITH THE PATIENT PAST MEDICAL HISTORY CAD - NO HISTORY OF INFARCT - CARDIAC CATHETERIZATION 08/24 REVEALED NON-OBSTRUCTIVE DISEASE ONLY. ECHOCARDIOGRAM 10/25 NO VALVULAR DISEASE, TRACE MITRAL INSUFFICIENCY, TRACE TRICUSPID INSUFFICIENCY. NUCLEAR STRESS TEST 10/25 - NORMAL PERFUSION NO ISCHEMIA OR INFARCTION. EF CALCULATED AT 52% EKG - 07/28 - NSR 84 BPM (FOLLOWED BY DR. BRIAN) LUMBAGO - OSTEOARTHRITIS - DDD HYPERLIPIDEMIA HIATAL HERNIA WITH REFLUX TOBACCO ABUSE WALI DX 02/26, COMPLIANT WITH CPAP. COPD ALLERGIES N.K.D.A. SOCIAL HISTORY GENERAL: TOBACCO USE ARE YOU A:CURRENT SMOKER HOW MANY CIGARETTES A DAY DO YOU SMOKE?11-20 HOW SOON AFTER YOU WAKE UP DO YOU SMOKE YOUR FIRST CIGARETTE?6-30 MIN HOW OFTEN DO YOU SMOKE CIGARETTES?EVERY DAY PATIENT COUNSELED ON THE DANGERS OF TOBACCO USE AND URGED TO QUIT:09/27/2016 ARE YOU INTERESTED IN QUITTING?READY TO QUIT COUNSELED THE PATIENT ON TOBACCO USE, CESSATION [id number]/14/2017 ALCOHOL SCREENING DID YOU HAVE A DRINK CONTAINING ALCOHOL IN THE PAST YEAR?YES POINTS2 INTERPRETATIONNEGATIVE HOW OFTEN DID YOU HAVE A DRINK CONTAINING ALCOHOL IN THE PAST YEAR?MONTHLY OR LESS (1 POINT) HOW MANY DRINKS DID YOU HAVE ON A TYPICAL DAY WHEN YOU WERE DRINKING IN THE PAST YEAR?1 OR 2 (0 POINTS) HOW OFTEN DID YOU HAVE SIX OR MORE DRINKS ON ONE OCCASION IN THE PAST YEAR?LESS THAN MONTHLY (1 POINT) RECREATIONAL DRUG USE DRUG USE?NO CAFFEINE CAFFEINE USE?YES HOW OFTEN AND HOW MUCH? COFFEE 3- 4 POTS DAILY AT TIMES SEXUAL HX HAD SEX IN THE LAST 12 MONTHS (VAGINAL, ORAL, OR ANAL)?YES WITHWOMEN ONLY USE PROTECTION?NO HAVE YOU EVER HAD AN STD?NO HIV / HEP-C SCREENING HIV TEST OFFERED TO PATIENT:YES DATE OFFERED:08/17/2016 TEST ACCEPTED:NO REASON:PATIENT DECLINED HEP-C TEST OFFERED TO PATIENT:YES DATE OFFERED:08/17/2016 TEST ACCEPTED:NO REASON:PATIENT DECLINED DIET: REGULAR. EXERCISE: DAILY. MARITAL STATUS: . OTHERS AT HOME: NONE. TEMPLE [id number] OTHER LANGUAGE LANGUAGES SPOKEN:KOREAN LEARNING BARRIERS / SPECIAL NEEDS BARRIERS TO LEARNING?NO HEARING IMPAIRED?NO VISION IMPAIRED?YES :CORRECTIVE LENSES COGNITIVELY IMPAIRED?NO READINESS TO LEARN?YES LEARNING PREFERENCES?NO LEARNING CAPABILITIES PRESENT?YES EMOTIONAL BARRIERS?NO SPECIAL DEVICES?NO CRYSTALIZER TENDER NEEDED?NO PAIN CLINIC PFS, CLERGY, PUBLIC HEALTH REFERRALS PFS REFERRAL NEEDED? NO , CLERGY REFERRAL NEEDED? NO , PUBLIC HEALTH REFERRAL NEEDED? NO , WAS THE PROVIDER NOTIFIED OF ANY PERTINENT INFO? NO . PATIENT: ____. REVIEW OF SYSTEMS REVIEWED BY: PROVIDER: . CONSTITUTIONAL: ANY CHANGE IN YOUR MEDICAL CONDITION? NO . CHILLS NO . FEVER NO . INFECTION: DO YOU HAVE NEW INFECTIONS? NO . DO YOU HAVE HISTORY OF MRSA? NO . MUSCULOSKELETAL: ANY NEW PATTERNS OF PAIN OR NUMBNESS? NO . GASTROENTEROLOGY: ANY NEW CHANGE IN BOWEL CONTROL? NO . GENITOURINARY: ANY NEW CHANGE IN BLADDER CONTROL? NO . IS THERE A CHANCE YOU COULD BE ? NO . HEMATOLOGY/LYMPH: DO YOU TAKE ANY BLOOD THINNERS? (FOR EXAMPLE- COUMADIN, PLAVIX, AGGRENOX, PLATEL, PRADAXA, OR XARELTO) NO . WHEN WAS YOUR LAST DOSE? DATE: TIME: . NEUROLOGY: HAVE YOU FALLEN IN THE PAST 6 MONTHS? NO . ANY NEW EXTREMITY NUMBNESS OR WEAKNESS? NO . CARDIOLOGY: DO YOU HAVE A PACEMAKER OR DEFIBRILLATOR? NO . RESPIRATORY: HAVE YOU BEEN SICK IN THE PAST WEEK? NO . FEVER NO . FLU LIKE SYMPTOMS? NO . COUGH NO . INTEGUMENTARY: DO YOU HAVE ANY RASHES OR OPEN SORES? NO . ALLERGIC/IMMUNO: ARE YOU ALLERGIC TO SHELLFISH OR IV DYE? NO . ANY NEW ALLERGIES? NO . PSYCHIATRIC: DO YOU HAVE THOUGHTS OF HURTING YOURSELF OR SOMEONE ELSE? NO . ARE YOU ABUSED, NEGLECTED, OR IN AN UNSAFE ENVIRONMENT? NO . ENDOCRINOLOGY: ARE YOU DIABETIC? NO . OTHER: DO YOU NEED ANY PRESCRIPTIONS? NO . IF YES, PLEASE LIST: ____ . ANY NEW PROBLEMS WITH YOUR MEDICATIONS? NO . WHEN DID YOU LAST EAT? ____09/26/16 . WHEN DID YOU LAST DRINK? ____0400 . WHAT DID YOU LAST DRINK? ____COFFEE . NAME OF PERSON DRIVING YOU HOME? ALYCIA . DO YOU HAVE ANY OTHER QUESTIONS OR CONCERNS NO . VITAL SIGNS WT 194.8 LBS, HT 68 IN, BMI 29.62 INDEX, BP 117/77 MM HG, HR 70 /MIN, RR 16 /MIN, TEMP 98.2 F, OXYGEN SAT % 94%, NA INITIALS SC 10:21. ASSESSMENTS SPONDYLOSIS WITHOUT MYELOPATHY OR RADICULOPATHY, LUMBAR REGION - M47.816 (PRIMARY) SPONDYLOSIS WITHOUT MYELOPATHY OR RADICULOPATHY, LUMBOSACRAL REGION - M47.817 PROCEDURES PN LUMBAR FACET BLOCK DIAGNOSTIC PRE PROCEDURE DIAGNOSIS LUMBAR SPONDYLOSIS, LUMBOSACRAL SPONDYLOSIS POST PROCEDURE DIAGNOSIS LUMBAR SPONDYLOSIS, LUMBOSACRAL SPONDYLOSIS PROCEDURE LEFT L4-L5 AND LEFT L5-S1 FACET BLOCK DIAGNOSTIC NUMBER [address] MAXIMILIANO SABA MEDICAL SUPERINTENDENT NONE ANESTHESIA LOCAL PRE PROCEDURE NOTE THE PATIENT WITH HISTORY OF CHRONIC LOW BACK PAIN. I EVALUATED THE PATIENT AND REVIEWED THE CHART. I WENT OVER THE RISKS, ALTERNATIVES, AND BENEFITS ASSOCIATED WITH THIS PROCEDURE. THE PATIENT WOULD LIKE TO PROCEED AND GAVE CONSENT TO PERFORM THE PROCEDURE. AGREED WITH THE PATIENT WE ARE DOING THIS PROCEDURE TO DETERMINE IF THE PATIENT IS A CANDIDATE FOR A RADIOFREQUENCY ABLATION OF THE FACETS JOINTS. THE PATIENT DENIES UNEXPLAINABLE WEIGHT LOSS, FEVER, CHILLS, OR NEW CHANGES IN URINARY OR BOWEL CONTROL DESCRIPTION OF PROCEDURE THE PATIENT WAS BROUGHT TO THE PROCEDURE ROOM AND PLACED IN THE PRONE POSITION. THE LUMBOSACRAL AREA WAS CLEANED WITH CHLORAPREP SOLUTION AND DRAPED ASEPTICALLY. THE PROCEDURE WAS DONE UNDER STERILE CONDITIONS. I CHECKED LATERALITY AND THE LEVEL WHERE THE PROCEDURE WAS GOING TO BE PERFORMED WITH THE PATIENT AND THE SUPPORTING STAFF AT THE MOMENT OF THE TIME OUT IN THE PROCEDURE ROOM. UNDER FLUOROSCOPIC GUIDANCE, TARGETS WERE SELECTED AT THE INTERSECTION OF THE LEFT TRANSVERSE PROCESS OF L4, L5 AND ALA OF S1 WITH ITS RESPECTIVE SUPERIOR ARTICULAR PROCESS. LIDOCAINE WAS USED TO NUMB THE SKIN AND THE SUBCUTANEOUS TISSUE BELOW IT. SPINAL NEEDLE, 22-GAUGE WAS ADVANCED UNDER FLUOROSCOPIC GUIDANCE AND FOLLOWING PATIENT FEEDBACK UNTIL THE TARGETS WERE REACHED. POSITION OF THE NEEDLES WAS VERIFIED WITH AP AND LATERAL VIEWS. AFTER PROPER POSITION OF THE NEEDLES WAS ACHIEVED, ISOVUE-M DYE 30% 0.1 ML WAS INJECTED AT EACH SITE SHOWING ADEQUATE SPREAD OF THE DYE. THEN A SOLUTION OF 0.4 ML OF BUPIVACAINE 0.25% WAS INJECTED AT EACH SITE. THERE WAS NO EVIDENCE OF BLOOD, PARESTHESIA OR CEREBROSPINAL FLUID DURING THE PROCEDURE. THE PATIENT WAS SENT TO THE RECOVERY ROOM. THE PATIENT WAS MOVING THE EXTREMITIES AND DOING WELL. THERE WAS NO COMPLICATION DURING THE PROCEDURE. FLUOROSCOPY TIME WAS 27 SECONDS POST PROCEDURE NOTE THE PATIENT WILL DOCUMENT HIS PAIN LEVEL AND RESPONSE TO THIS PROCEDURE EVERY 30 MINUTES. THE PATIENT WILL BE SEEN IN A FOLLOW UP IN THE NEXT FEW WEEKS. FURTHER DETERMINATION FOR HIS CASE WILL BE DONE AT THE NEXT VISIT. INSTRUCTIONS WERE GIVEN, QUESTIONS WERE ANSWERED, AND THE PATIENT EXPRESSED UNDERSTANDING AND AGREED WITH THE PLAN. I, AMILCAR FAUST, DOCUMENTED THE ABOVE INFORMATION ACTING A SCRIBE FOR DR. SABA. I HAVE REVIEWED THE ABOVE DOCUMENT, WRITTEN BY AMILCAR HANSEN AND I VERIFY THAT IT IS ACCURATE DIAGNOSTIC IMAGING [facility] FACET BLOCK (PAIN)[id number] PROCEDURE CODES 47978 INJ PARAVERT F JNT L/S 1 LEV 53018 INJ PARAVERT F JNT L/S 2 LEV 6045F RADXPS IN END [id number] PXD DISPOSITION & COMMUNICATION FOLLOW UP 3 WEEKS ELECTRONICALLY SIGNED BY MAXIMILIANO SABA MD ON 10/05/2016 AT 12:22 PM EDT DISCLAIMER : THIS IS A VISIT SUMMARY EXTRACTED FROM THE [employer] CHART. IT IS NOT A COPY OF THE [employer] PROGRESS NOTE. MTDD
== END ==
LOC: M PAIN 11:00
PROVIDERS: ATTEND Anesthesiology
DX: G89.29 Other chronic pain (principal); M47.816 Spondylosis without myelopathy or radiculopathy, lumbar region; M47.817 Spondylosis without myelopathy or radiculopathy, lumbosacral region; I25.10 Atherosclerotic heart disease of native coronary artery without angina pectoris; E78.5 Hyperlipidemia, unspecified; K44.9 Diaphragmatic hernia without obstruction or gangrene; K21.9 Gastro-esophageal reflux disease without esophagitis; F17.210 Nicotine dependence, cigarettes, uncomplicated; J44.9 Chronic obstructive pulmonary disease, unspecified; G47.33 Obstructive sleep apnea (adult) (pediatric); Z79.82 Long term (current) use of aspirin; Z79.51 Long term (current) use of inhaled steroids; Z79.899 Other long term (current) drug therapy
CPT/HCPCS: 64493; 64494; Q9967

== ENCOUNTER → 2016-10-31 | Outpatient (CLI) | payer MEDICARE, MEDICAID ==
[~2016-10-31] MED LIST changes: +ASPI1TAB15 PO; -ASPI81TA7 PO; -BUPIVACAINE HCL 0.25% 30 ML VIAL As Ordered ONE; -ISOVUE-M 300 61% 15ML VIAL (Q9967) As Ordered ONE; -LIDOCAINE 1% SDV INJ 30 ML VIAL As Ordered ONE
--- NOTE | 2016-11-20 00:30 | ECWPNPC ---
PATIENT NAME: NAEL FERRARO : 1970 GENDER: MALE VISIT DATE: 10/31/2016 DISCHARGE DATE: 10/31/16 1446 VISIT LOCKED DATE TIME: PHYSICIAN: EARL BANUELOS RESOURCE: EARL BANUELOS REASON FOR APPOINTMENT 1. BACK HISTORY OF PRESENT ILLNESS HISTORY OF PRESENT ILLNESS: PAIN THE PATIENT DESCRIBES THE PAIN... FALL RISK SCREENING: SCREENING :NO FALLS IN THE PAST YEAR TODAY'S VISIT: NOTES: S/P DIAGNOSTIC LUMBAR FACET BLOCK #2 COMPLETED ON. NOTES PAIN LEVEL PRIOR TO PROCEDURE -11/23 AND POST PROCEDURE -06/23 FOR 1 WEEK. REPORTS AT LEAST 75% IMPROVEMENT AND HAS BEEN ABLE TO STAND STRAIGHTER, SLEEP WITHOUT INTERRUPTION AND USE LESS PAIN MEDS.. CURRENT MEDICATIONS TAKING ASPIRIN EC 81 MG TABLET DELAYED RELEASE 1 TABLET ORALLY ONCE A DAY TAKING VITAMIN D3 1000 UNIT CAPSULE 1 CAPSULE ORALLY ONCE A DAY TAKING CARVEDILOL 6.25 MG TABLET 1 TABLET WITH FOOD ORALLY DAILY TAKING PROAIR HFA 108 (90 BASE) MCG/ACT AEROSOL SOLUTION 2 PUFFS NEEDED INHALATION EVERY 4 HRS TAKING OMEPRAZOLE 40 MG CAPSULE DELAYED RELEASE 1 CAPSULES ORALLY TWICE DAILY TAKING BREO ELLIPTA 100-25 MCG/INH AEROSOL POWDER BREATH ACTIVATED USE ONE INHALATION ONCE DAILY TAKING MENS ONE DAILY - TABLET 1 TAB ORALLY DAILY TAKING CRESTOR 10 MG TABLET 1 TABLET ORALLY ONCE A DAY TAKING GEMFIBROZIL 600 MG TABLET 1 TABLET ORALLY TWICE A DAY TAKING GABAPENTIN 300 MG CAPSULE 1 CAPSULE ORALLY QHS TAKING HYDROCODONE-ACETAMINOPHEN 5-325 MG TABLET 1 TABLET NEEDED ORALLY EVERY 4- 6 HRS PRN PAIN MDD=4 NOT-TAKING VIAGRA 50 MG TABLET 1 TABLET NEEDED ORALLY ONCE A DAY, NOTES: NONE RECENT MEDICATION LIST REVIEWED AND RECONCILED WITH THE PATIENT PAST MEDICAL HISTORY CAD - NO HISTORY OF INFARCT - CARDIAC CATHETERIZATION 08/24 REVEALED NON-OBSTRUCTIVE DISEASE ONLY. ECHOCARDIOGRAM 10/25 NO VALVULAR DISEASE, TRACE MITRAL INSUFFICIENCY, TRACE TRICUSPID INSUFFICIENCY. NUCLEAR STRESS TEST 10/25 - NORMAL PERFUSION NO ISCHEMIA OR INFARCTION. EF CALCULATED AT 52% EKG - 07/28 - NSR 84 BPM (FOLLOWED BY DR. TORRES) LUMBAGO - OSTEOARTHRITIS - DDD HYPERLIPIDEMIA HIATAL HERNIA WITH REFLUX TOBACCO ABUSE WALI DX 02/26, COMPLIANT WITH CPAP. COPD SURGICAL HISTORY B INGUINAL HERNIA REPAIR A CHILD AND AGAIN IN 2010 CARDIAC CATH 2007, 2010 COLONOSCOPY - 05/02 - REPEAT IN 5 YEARS 2010, 2016 HOSPITALIZATION/MAJOR DIAGNOSTIC PROCEDURE CHEST PAIN/ABD PAIN 03/01 CHEST PAIN, CARDIAC CATH 2010 REVIEW OF SYSTEMS REVIEWED BY: PROVIDER: EARL CUNNINGHAM . CONSTITUTIONAL: ANY CHANGE IN YOUR MEDICAL CONDITION? NO . CHILLS NO . FEVER NO . INFECTION: DO YOU HAVE NEW INFECTIONS? NO . DO YOU HAVE HISTORY OF MRSA? NO . MUSCULOSKELETAL: ANY NEW PATTERNS OF PAIN OR NUMBNESS? NO . GASTROENTEROLOGY: ANY NEW CHANGE IN BOWEL CONTROL? NO . GENITOURINARY: ANY NEW CHANGE IN BLADDER CONTROL? NO . IS THERE A CHANCE YOU COULD BE ? NO . HEMATOLOGY/LYMPH: DO YOU TAKE ANY BLOOD THINNERS? (FOR EXAMPLE- COUMADIN, PLAVIX, AGGRENOX, PLATEL, PRADAXA, OR XARELTO) NO . WHEN WAS YOUR LAST DOSE? DATE: TIME: . NEUROLOGY: HAVE YOU FALLEN IN THE PAST 6 MONTHS? NO . ANY NEW EXTREMITY NUMBNESS OR WEAKNESS? NO . CARDIOLOGY: DO YOU HAVE A PACEMAKER OR DEFIBRILLATOR? NO . RESPIRATORY: HAVE YOU BEEN SICK IN THE PAST WEEK? NO . FEVER NO . FLU LIKE SYMPTOMS? NO . COUGH NO . INTEGUMENTARY: DO YOU HAVE ANY RASHES OR OPEN SORES? NO . ALLERGIC/IMMUNO: ARE YOU ALLERGIC TO SHELLFISH OR IV DYE? NO . ANY NEW ALLERGIES? NO . PSYCHIATRIC: DO YOU HAVE THOUGHTS OF HURTING YOURSELF OR SOMEONE ELSE? NO . ARE YOU ABUSED, NEGLECTED, OR IN AN UNSAFE ENVIRONMENT? NO . ENDOCRINOLOGY: ARE YOU DIABETIC? NO . OTHER: DO YOU NEED ANY PRESCRIPTIONS? NO . IF YES, PLEASE LIST: ____ . ANY NEW PROBLEMS WITH YOUR MEDICATIONS? NO . WHEN DID YOU LAST EAT? ____ . WHEN DID YOU LAST DRINK? ____ . WHAT DID YOU LAST DRINK? ____ . NAME OF PERSON DRIVING YOU HOME? ____ . DO YOU HAVE ANY OTHER QUESTIONS OR CONCERNS NO . VITAL SIGNS WT 194.4 LBS, HT 68 IN, BMI 29.56 INDEX, BP 121/76 MM HG, HR 71 /MIN, RR 16 /MIN, TEMP 98.4 F, OXYGEN SAT % 95%, NA INITIALS TL 1406. EXAMINATION GENERAL EXAMINATION: PSYCHALERT , ORIENTED X 3 , APPROPRIATE MOOD AND AFFECT . LUNGS:FEW SCATTERED WHEEZES THOUGH ALL LUNG HARRY. HEART:HEART RATE REGULAR. MUSCULOSKELETAL:MUSCLE STRENGTH TESTING 5-/5 BILATERAL LOWER EXTREMITIES. FLEX AT HIPS IMPROVED WITH IMPROVED QUAD STRENGTH. POINT TENDERNESS OVER SACRALILIAC JOINTS, RIGHT GREATER THAN LEFT. GAIT WIDEBASED. ASSESSMENTS SPONDYLOSIS WITHOUT MYELOPATHY OR RADICULOPATHY, LUMBAR REGION - M47.816 (PRIMARY) SPONDYLOSIS WITHOUT MYELOPATHY OR RADICULOPATHY, LUMBOSACRAL REGION - M47.817 TREATMENT SPONDYLOSIS WITHOUT MYELOPATHY OR RADICULOPATHY, LUMBAR REGION NOTES: REQUEST AUTH LEFT L4-5, L5-S1 RADIOFREQUENCY DENERVATION REQUEST AUTH RIGHT DIAGNOSTIC LUMBAR FACET BLOCK #2 L4-5, L5-S1 CONTINUED EXERCISES AND STRETCHES. ,FACET JOINT INJECTION MATERIAL WAS PRINTED. CLINICAL NOTES: ISTOP REGISTRY REVIEWED AND DEMNOSTRATES COMPLLIANCE. BRINGS IN MEDICATIONS WHICH IS APPROPRIATE FOR WHAT WAS DISPENSED. RECENT URINE TOXICOLOGY REVIEWED. NO UNAUTHORIZED MEDICATIONS. NO ILLICIT SUBSTANCES AND PRESCRIBED MEDICATIONS WERE PRESENT. , RISKS AND BENEFITS OF NARCOTIC/OPIOD MEDICATIONS WERE REVIEWED WITH PATIENT - THIS INCLUDES BUT IS NOT LIMITED TO RISK OF DEPENDANCE/DEVELOPMENT OF ADDICTION, MOOD DISTURBANCE AND DEPRESSION, OSTEOPOROSIS, HORMONAL AND LABIDAL CHANGES, RESPIRATORY DEPRESSION AND . PATIENT IS ADVISED NOT TO DRIVE WHILE ON THESE MEDICATIONS. PREVENTIVE MEDICINE DISCUSSED PREPROCEDURE CARE AND RADIOFREQUENCY PROCEDURE WITH PT/ HE EXPRESSED UNDERSTANDING. PROCEDURE CODES FA211 ESTABILISHED PATIENT [facility] FACILITY CHARGE G8730 PAIN ASSESS POS TOOL F/U PLAN DOC G8427 DOC MEDS VERIFIED W/PT OR RE DISPOSITION & COMMUNICATION FOLLOW UP SCHED FOR FOLLOWUP AFTER DIAG BLOCK (REASON: [facility] AUTH LEFT L4-5, L5-S1 RADIOFREQUENCY DENERVATION) ELECTRONICALLY SIGNED BY CHAPIN BERG ON 11/19/2016 AT 01:38 PM EDT DISCLAIMER : THIS IS A VISIT SUMMARY EXTRACTED FROM THE [employer] CHART. IT IS NOT A COPY OF THE [employer] PROGRESS NOTE. MTDD
== END ==
LOC: M PAIN 14:00
PROVIDERS: ATTEND Nurse Practitioner Family
DX: G89.29 Other chronic pain (principal); M47.816 Spondylosis without myelopathy or radiculopathy, lumbar region; M47.817 Spondylosis without myelopathy or radiculopathy, lumbosacral region; E78.5 Hyperlipidemia, unspecified; K44.9 Diaphragmatic hernia without obstruction or gangrene; K21.9 Gastro-esophageal reflux disease without esophagitis; F17.200 Nicotine dependence, unspecified, uncomplicated; G47.33 Obstructive sleep apnea (adult) (pediatric); J44.9 Chronic obstructive pulmonary disease, unspecified; Z79.82 Long term (current) use of aspirin; Z79.51 Long term (current) use of inhaled steroids; Z79.899 Other long term (current) drug therapy

== ENCOUNTER → 2016-11-21 | Outpatient (CLI) | payer MEDICARE, MEDICAID ==
[~2016-11-21] MED LIST changes: +BUPIVACAINE HCL 0.25% 30 ML VIAL As Ordered ONE; +ISOVUE-M 300 61% 15ML VIAL (Q9967) As Ordered ONE; +LIDOCAINE 1% SDV INJ 30 ML VIAL As Ordered ONE
--- NOTE | 2016-11-21 18:05 | REP ---
FLUOROSCOPIC GUIDANCE FOR LUMBAR FACET BLOCK: 11/21/2016. Clinical history: Back pain. Findings: Two images from C-arm fluoroscopy provided to Dr. Acosta of the pain clinic. Initial image prone PA shows a needle at the L5-S1 level. Second image shows needles at the three lowermost facets with some adjacent contrast. Fluoroscopy time :19 seconds. Signed by Domenic Wright MD 11/22/2016 05:03 P
--- NOTE | 2016-12-05 01:07 | ECWPNPC ---
PATIENT NAME: NAEL FERRARO : 1970 GENDER: MALE VISIT DATE: 11/21/2016 DISCHARGE DATE: 11/21/16 1248 VISIT LOCKED DATE TIME: PHYSICIAN: MAXIMILIANO SABA RESOURCE: MAXIMILIANO SABA REASON FOR APPOINTMENT 1. L4-L5 AND L5-S1 DIAGNOSTIC #2 HISTORY OF PRESENT ILLNESS HISTORY OF PRESENT ILLNESS: PAIN THE PATIENT DESCRIBES THE PAIN... FALL RISK SCREENING: SCREENING :NO FALLS IN THE PAST YEAR CURRENT MEDICATIONS TAKING ASPIRIN EC 81 MG TABLET DELAYED RELEASE 1 TABLET ORALLY ONCE A DAY, NOTES: 11/20 999 TAKING VITAMIN D3 1000 UNIT CAPSULE 1 CAPSULE ORALLY ONCE A DAY, NOTES: 11/20 999 TAKING CARVEDILOL 6.25 MG TABLET 1 TABLET WITH FOOD ORALLY DAILY, NOTES: 11/20 999 TAKING PROAIR HFA 108 (90 BASE) MCG/ACT AEROSOL SOLUTION 2 PUFFS NEEDED INHALATION EVERY 4 HRS, NOTES: 11/20 999 TAKING BREO ELLIPTA 100-25 MCG/INH AEROSOL POWDER BREATH ACTIVATED USE ONE INHALATION ONCE DAILY , NOTES: 11/20 999 TAKING MENS ONE DAILY - TABLET 1 TAB ORALLY DAILY, NOTES: 11/20 999 TAKING CRESTOR 10 MG TABLET 1 TABLET ORALLY ONCE A DAY, NOTES: 11/20 999 TAKING GEMFIBROZIL 600 MG TABLET 1 TABLET ORALLY TWICE A DAY, NOTES: 11/20 999 TAKING GABAPENTIN 300 MG CAPSULE 1 CAPSULE ORALLY QHS, NOTES: 11/19 TAKING OMEPRAZOLE 20 MG CAPSULE DELAYED RELEASE TAKE TWO CAPSULES BY MOUTH TWICE A DAY , NOTES: 11/20 999 TAKING HYDROCODONE-ACETAMINOPHEN 5-325 MG TABLET 1 TABLET NEEDED ORALLY EVERY 4- 6 HRS PRN PAIN MDD=4, NOTES: 11/20 1929 NOT-TAKING VIAGRA 50 MG TABLET 1 TABLET NEEDED ORALLY ONCE A DAY, NOTES: NONE RECENT DISCONTINUED OMEPRAZOLE 40 MG CAPSULE DELAYED RELEASE 1 CAPSULES ORALLY TWICE DAILY MEDICATION LIST REVIEWED AND RECONCILED WITH THE PATIENT PAST MEDICAL HISTORY CAD - NO HISTORY OF INFARCT - CARDIAC CATHETERIZATION 08/24 REVEALED NON-OBSTRUCTIVE DISEASE ONLY. ECHOCARDIOGRAM 10/25 NO VALVULAR DISEASE, TRACE MITRAL INSUFFICIENCY, TRACE TRICUSPID INSUFFICIENCY. NUCLEAR STRESS TEST 10/25 - NORMAL PERFUSION NO ISCHEMIA OR INFARCTION. EF CALCULATED AT 52% EKG - 07/28 - NSR 84 BPM (FOLLOWED BY DR. TORRES) LUMBAGO - OSTEOARTHRITIS - DDD HYPERLIPIDEMIA HIATAL HERNIA WITH REFLUX TOBACCO ABUSE WALI DX 02/26, COMPLIANT WITH CPAP. COPD ALLERGIES N.K.D.A. SOCIAL HISTORY GENERAL: TOBACCO USE ARE YOU A:CURRENT SMOKER HOW MANY CIGARETTES A DAY DO YOU SMOKE?11-20 HOW SOON AFTER YOU WAKE UP DO YOU SMOKE YOUR FIRST CIGARETTE?6-30 MIN HOW OFTEN DO YOU SMOKE CIGARETTES?EVERY DAY PATIENT COUNSELED ON THE DANGERS OF TOBACCO USE AND URGED TO QUIT:11/21/2016 ARE YOU INTERESTED IN QUITTING?THINKING ABOUT QUITTING PREVIOUS QUIT ATTEMPTS?YES, MORE THAN 6 MONTHS AGO. COUNSELED THE PATIENT ON SMOKING CESSATION, EDUCATION [id number]/08/2017 ALCOHOL SCREENING DID YOU HAVE A DRINK CONTAINING ALCOHOL IN THE PAST YEAR?YES POINTS2 INTERPRETATIONNEGATIVE HOW OFTEN DID YOU HAVE A DRINK CONTAINING ALCOHOL IN THE PAST YEAR?MONTHLY OR LESS (1 POINT) HOW MANY DRINKS DID YOU HAVE ON A TYPICAL DAY WHEN YOU WERE DRINKING IN THE PAST YEAR?1 OR 2 (0 POINTS) HOW OFTEN DID YOU HAVE SIX OR MORE DRINKS ON ONE OCCASION IN THE PAST YEAR?LESS THAN MONTHLY (1 POINT) RECREATIONAL DRUG USE DRUG USE?NO CAFFEINE CAFFEINE USE?YES HOW OFTEN AND HOW MUCH? COFFEE 3- 4 POTS DAILY AT TIMES SEXUAL HX HAD SEX IN THE LAST 12 MONTHS (VAGINAL, ORAL, OR ANAL)?YES WITHWOMEN ONLY USE PROTECTION?NO HAVE YOU EVER HAD AN STD?NO HIV / HEP-C SCREENING HIV TEST OFFERED TO PATIENT:YES DATE OFFERED:08/17/2016 TEST ACCEPTED:NO REASON:PATIENT DECLINED HEP-C TEST OFFERED TO PATIENT:YES DATE OFFERED:08/17/2016 TEST ACCEPTED:NO REASON:PATIENT DECLINED DIET: REGULAR. EXERCISE: DAILY. MARITAL STATUS: . OTHERS AT HOME: NONE. SHINTO [id number] OTHER LANGUAGE LANGUAGES SPOKEN:FRENCH LEARNING BARRIERS / SPECIAL NEEDS BARRIERS TO LEARNING?NO HEARING IMPAIRED?NO VISION IMPAIRED?YES :CORRECTIVE LENSES COGNITIVELY IMPAIRED?NO READINESS TO LEARN?YES LEARNING PREFERENCES?NO LEARNING CAPABILITIES PRESENT?YES EMOTIONAL BARRIERS?NO SPECIAL DEVICES?NO SENIOR WATER/WASTEWATER ENGINEER NEEDED?NO PAIN CLINIC PFS, CLERGY, PUBLIC HEALTH REFERRALS PFS REFERRAL NEEDED? NO , CLERGY REFERRAL NEEDED? NO , PUBLIC HEALTH REFERRAL NEEDED? NO , WAS THE PROVIDER NOTIFIED OF ANY PERTINENT INFO? NO . PATIENT: ____. REVIEW OF SYSTEMS REVIEWED BY: PROVIDER: . CONSTITUTIONAL: ANY CHANGE IN YOUR MEDICAL CONDITION? NO . CHILLS NO . FEVER NO . INFECTION: DO YOU HAVE NEW INFECTIONS? NO . DO YOU HAVE HISTORY OF MRSA? NO . MUSCULOSKELETAL: ANY NEW PATTERNS OF PAIN OR NUMBNESS? NO . GASTROENTEROLOGY: ANY NEW CHANGE IN BOWEL CONTROL? NO . GENITOURINARY: ANY NEW CHANGE IN BLADDER CONTROL? NO . IS THERE A CHANCE YOU COULD BE ? NO . HEMATOLOGY/LYMPH: DO YOU TAKE ANY BLOOD THINNERS? (FOR EXAMPLE- COUMADIN, PLAVIX, AGGRENOX, PLATEL, PRADAXA, OR XARELTO) NO . WHEN WAS YOUR LAST DOSE? DATE: TIME: . NEUROLOGY: HAVE YOU FALLEN IN THE PAST 6 MONTHS? NO . ANY NEW EXTREMITY NUMBNESS OR WEAKNESS? NO . CARDIOLOGY: DO YOU HAVE A PACEMAKER OR DEFIBRILLATOR? NO . RESPIRATORY: HAVE YOU BEEN SICK IN THE PAST WEEK? NO . FEVER NO . FLU LIKE SYMPTOMS? NO . COUGH NO . INTEGUMENTARY: DO YOU HAVE ANY RASHES OR OPEN SORES? NO . ALLERGIC/IMMUNO: ARE YOU ALLERGIC TO SHELLFISH OR IV DYE? NO . ANY NEW ALLERGIES? NO . PSYCHIATRIC: DO YOU HAVE THOUGHTS OF HURTING YOURSELF OR SOMEONE ELSE? NO . ARE YOU ABUSED, NEGLECTED, OR IN AN UNSAFE ENVIRONMENT? NO . ENDOCRINOLOGY: ARE YOU DIABETIC? NO . OTHER: DO YOU NEED ANY PRESCRIPTIONS? NO . IF YES, PLEASE LIST: ____ . ANY NEW PROBLEMS WITH YOUR MEDICATIONS? NO . WHEN DID YOU LAST EAT? 11/20/161999 . WHEN DID YOU LAST DRINK? 11/20/160 . WHAT DID YOU LAST DRINK? COFFEE . NAME OF PERSON DRIVING YOU HOME? ALYCIA . DO YOU HAVE ANY OTHER QUESTIONS OR CONCERNS NO . VITAL SIGNS WT 196.4 LBS, HT 68 IN, BMI 29.86 INDEX, BP 133/77 MM HG, HR 109 /MIN, RR 18 /MIN, TEMP 98.4 F, OXYGEN SAT % 95%, NA INITIALS SC 10:49, REVIEWED BY: AD11/21/16 HR BOB 100. ASSESSMENTS SPONDYLOSIS WITHOUT MYELOPATHY OR RADICULOPATHY, LUMBAR REGION - M47.816 (PRIMARY) SPONDYLOSIS WITHOUT MYELOPATHY OR RADICULOPATHY, LUMBOSACRAL REGION - M47.817 PROCEDURES PN LUMBAR FACET BLOCK DIAGNOSTIC PRE PROCEDURE DIAGNOSIS LUMBAR SPONDYLOSIS, LUMBOSACRAL SPONDYLOSIS POST PROCEDURE DIAGNOSIS LUMBAR SPONDYLOSIS, LUMBOSACRAL SPONDYLOSIS PROCEDURE RIGHT L4-L5 AND RIGHT L5-S1 FACET BLOCK DIAGNOSTIC NUMBER [address] MAXIMILIANO SABA HOUSE MOTHER NONE ANESTHESIA LOCAL PRE PROCEDURE NOTE THE PATIENT WITH HISTORY OF CHRONIC LOW BACK PAIN. I EVALUATED THE PATIENT AND REVIEWED THE CHART. I WENT OVER THE RISKS, ALTERNATIVES, AND BENEFITS ASSOCIATED WITH THIS PROCEDURE. THE PATIENT WOULD LIKE TO PROCEED AND GAVE CONSENT TO PERFORM THE PROCEDURE. AGREED WITH THE PATIENT WE ARE DOING THIS PROCEDURE TO DETERMINE IF THE PATIENT IS A CANDIDATE FOR A RADIOFREQUENCY ABLATION OF THE FACETS JOINTS. THE PATIENT DENIES UNEXPLAINABLE WEIGHT LOSS, FEVER, CHILLS, OR NEW CHANGES IN URINARY OR BOWEL CONTROL DESCRIPTION OF PROCEDURE THE PATIENT WAS BROUGHT TO THE PROCEDURE ROOM AND PLACED IN THE PRONE POSITION. THE LUMBOSACRAL AREA WAS CLEANED WITH CHLORAPREP SOLUTION AND DRAPED ASEPTICALLY. THE PROCEDURE WAS DONE UNDER STERILE CONDITIONS. I CHECKED LATERALITY AND THE LEVEL WHERE THE PROCEDURE WAS GOING TO BE PERFORMED WITH THE PATIENT AND THE SUPPORTING STAFF AT THE MOMENT OF THE TIME OUT IN THE PROCEDURE ROOM. UNDER FLUOROSCOPIC GUIDANCE, TARGETS WERE SELECTED AT THE INTERSECTION OF THE RIGHT TRANSVERSE PROCESS OF L4, L5 AND ALA OF S1 WITH ITS RESPECTIVE SUPERIOR ARTICULAR PROCESS. LIDOCAINE WAS USED TO NUMB THE SKIN AND THE SUBCUTANEOUS TISSUE BELOW IT. SPINAL NEEDLE, 22-GAUGE WAS ADVANCED UNDER FLUOROSCOPIC GUIDANCE AND FOLLOWING PATIENT FEEDBACK UNTIL THE TARGETS WERE REACHED. POSITION OF THE NEEDLES WAS VERIFIED WITH AP AND LATERAL VIEWS. AFTER PROPER POSITION OF THE NEEDLES WAS ACHIEVED, ISOVUE-M DYE 30% 0.1 ML WAS INJECTED AT EACH SITE SHOWING ADEQUATE SPREAD OF THE DYE. THEN A SOLUTION OF 0.4 ML OF BUPIVACAINE 0.25% WAS INJECTED AT EACH SITE. THERE WAS NO EVIDENCE OF BLOOD, PARESTHESIA OR CEREBROSPINAL FLUID DURING THE PROCEDURE. THE PATIENT WAS SENT TO THE RECOVERY ROOM. THE PATIENT WAS MOVING THE EXTREMITIES AND DOING WELL. THERE WAS NO COMPLICATION DURING THE PROCEDURE. FLUOROSCOPY TIME WAS 19 SECONDS POST PROCEDURE NOTE THE PATIENT WILL DOCUMENT HIS PAIN LEVEL AND RESPONSE TO THIS PROCEDURE EVERY 30 MINUTES. THE PATIENT WILL BE SEEN IN A FOLLOW UP IN THE NEXT FEW WEEKS. FURTHER DETERMINATION FOR HIS CASE WILL BE DONE AT THE NEXT VISIT. INSTRUCTIONS WERE GIVEN, QUESTIONS WERE ANSWERED, AND THE PATIENT EXPRESSED UNDERSTANDING AND AGREED WITH THE PLAN. I, AMILCAR FAUST, DOCUMENTED THE ABOVE INFORMATION ACTING A SCRIBE FOR DR. SABA. I HAVE REVIEWED THE ABOVE DOCUMENT, WRITTEN BY AMILCAR HANSEN AND I VERIFY THAT IT IS ACCURATE DIAGNOSTIC IMAGING [facility] FACET BLOCK (PAIN)[id number] PROCEDURE CODES 79335 INJ PARAVERT F JNT L/S 1 LEV 11784 INJ PARAVERT F JNT L/S 2 LEV 6045F RADXPS IN END [id number] PXD DISPOSITION & COMMUNICATION FOLLOW UP 3 WEEKS ELECTRONICALLY SIGNED BY MAXIMILIANO SABA MD ON 12/04/2016 AT 05:45 PM EDT DISCLAIMER : THIS IS A VISIT SUMMARY EXTRACTED FROM THE [employer] CHART. IT IS NOT A COPY OF THE [facility] PROGRESS NOTE. MTDD
== END ==
LOC: M PAIN 11:00
PROVIDERS: ATTEND Anesthesiology
DX: G89.29 Other chronic pain (principal); M47.816 Spondylosis without myelopathy or radiculopathy, lumbar region; M47.817 Spondylosis without myelopathy or radiculopathy, lumbosacral region; I25.10 Atherosclerotic heart disease of native coronary artery without angina pectoris; E78.5 Hyperlipidemia, unspecified; K21.9 Gastro-esophageal reflux disease without esophagitis; F17.210 Nicotine dependence, cigarettes, uncomplicated; J44.9 Chronic obstructive pulmonary disease, unspecified; G47.33 Obstructive sleep apnea (adult) (pediatric); Z79.82 Long term (current) use of aspirin; Z79.51 Long term (current) use of inhaled steroids; Z79.891 Long term (current) use of opiate analgesic; Z79.899 Other long term (current) drug therapy
CPT/HCPCS: 64493; 64494; Q9967

== ENCOUNTER → 2016-12-25 | Outpatient (CLI) | payer MEDICARE, MEDICAID ==
[~2016-12-25] MED LIST changes: -BUPIVACAINE HCL 0.25% 30 ML VIAL As Ordered ONE; -ISOVUE-M 300 61% 15ML VIAL (Q9967) As Ordered ONE; -LIDOCAINE 1% SDV INJ 30 ML VIAL As Ordered ONE; +ONDA4TAB6 PO
--- NOTE | 2017-01-10 01:32 | ECWPNPC ---
PATIENT NAME: NAEL FERRARO : 1970 GENDER: MALE VISIT DATE: 12/25/2016 DISCHARGE DATE: 12/25/16 1453 VISIT LOCKED DATE TIME: PHYSICIAN: EARL BANUELOS RESOURCE: EARL BANUELOS REASON FOR APPOINTMENT 1. BACK HISTORY OF PRESENT ILLNESS HISTORY OF PRESENT ILLNESS: PAIN THE PATIENT DESCRIBES THE PAIN... FALL RISK SCREENING: SCREENING :NO FALLS IN THE PAST YEAR TODAY'S VISIT: NOTES: WAS SUPPOSED TO DO LEFT RFI BUT DECIDED HE WANTED TO REPEAT RIGHT DIAGNOSTIC. IS NOW READY TO DO DO LEFT RFI. RATES PAIN LEVEL TODAY 6-8/10 LEFT LOW BACK DEPENDING ON ACTIVITY. . CURRENT MEDICATIONS TAKING ASPIRIN EC 81 MG TABLET DELAYED RELEASE 1 TABLET ORALLY ONCE A DAY TAKING VITAMIN D3 1000 UNIT CAPSULE 1 CAPSULE ORALLY ONCE A DAY TAKING CARVEDILOL 6.25 MG TABLET 1 TABLET WITH FOOD ORALLY DAILY TAKING PROAIR HFA 108 (90 BASE) MCG/ACT AEROSOL SOLUTION 2 PUFFS NEEDED INHALATION EVERY 4 HRS TAKING MENS ONE DAILY - TABLET 1 TAB ORALLY DAILY TAKING CRESTOR 10 MG TABLET 1 TABLET ORALLY ONCE A DAY TAKING GEMFIBROZIL 600 MG TABLET 1 TABLET ORALLY TWICE A DAY TAKING GABAPENTIN 300 MG CAPSULE 1 CAPSULE ORALLY QHS TAKING OMEPRAZOLE 20 MG CAPSULE DELAYED RELEASE TAKE TWO CAPSULES BY MOUTH TWICE A DAY TAKING BREO ELLIPTA 100-25 MCG/INH AEROSOL POWDER BREATH ACTIVATED USE ONE INHALATION ONCE DAILY TAKING HYDROCODONE-ACETAMINOPHEN 5-325 MG TABLET 1 TABLET NEEDED ORALLY EVERY 4- 6 HRS PRN PAIN MDD=4 NOT-TAKING VIAGRA 50 MG TABLET 1 TABLET NEEDED ORALLY ONCE A DAY, NOTES: NONE RECENT MEDICATION LIST REVIEWED AND RECONCILED WITH THE PATIENT PAST MEDICAL HISTORY CAD - NO HISTORY OF INFARCT - CARDIAC CATHETERIZATION 08/24 REVEALED NON-OBSTRUCTIVE DISEASE ONLY. ECHOCARDIOGRAM 10/25 NO VALVULAR DISEASE, TRACE MITRAL INSUFFICIENCY, TRACE TRICUSPID INSUFFICIENCY. NUCLEAR STRESS TEST 10/25 - NORMAL PERFUSION NO ISCHEMIA OR INFARCTION. EF CALCULATED AT 52% EKG - 07/28 - NSR 84 BPM (FOLLOWED BY DR. TORRES) LUMBAGO - OSTEOARTHRITIS - DDD HYPERLIPIDEMIA HIATAL HERNIA WITH REFLUX TOBACCO ABUSE WALI DX 02/26, COMPLIANT WITH CPAP. COPD ALLERGIES N.K.D.A. SURGICAL HISTORY B INGUINAL HERNIA REPAIR A CHILD AND AGAIN IN 2010 CARDIAC CATH 2007, 2010 COLONOSCOPY - 05/02 - REPEAT IN 5 YEARS 20102016 HOSPITALIZATION/MAJOR DIAGNOSTIC PROCEDURE CHEST PAIN/ABD PAIN 03/01 CHEST PAIN, CARDIAC CATH 2010 REVIEW OF SYSTEMS REVIEWED BY: PROVIDER: EARL CUNNINGHAM . CONSTITUTIONAL: ANY CHANGE IN YOUR MEDICAL CONDITION? NO . CHILLS NO . FEVER NO . INFECTION: DO YOU HAVE NEW INFECTIONS? YES, N/V/D, HEADACHE X2 WEEKS, RESOLVED SPONTANEOUSLY . DO YOU HAVE HISTORY OF MRSA? NO . MUSCULOSKELETAL: ANY NEW PATTERNS OF PAIN OR NUMBNESS? NO . GASTROENTEROLOGY: ANY NEW CHANGE IN BOWEL CONTROL? NO . GENITOURINARY: ANY NEW CHANGE IN BLADDER CONTROL? NO . IS THERE A CHANCE YOU COULD BE ? NO . HEMATOLOGY/LYMPH: DO YOU TAKE ANY BLOOD THINNERS? (FOR EXAMPLE- COUMADIN, PLAVIX, AGGRENOX, PLATEL, PRADAXA, OR XARELTO) NO . WHEN WAS YOUR LAST DOSE? DATE: TIME: . NEUROLOGY: HAVE YOU FALLEN IN THE PAST 6 MONTHS? NO . ANY NEW EXTREMITY NUMBNESS OR WEAKNESS? NO . CARDIOLOGY: DO YOU HAVE A PACEMAKER OR DEFIBRILLATOR? NO . RESPIRATORY: HAVE YOU BEEN SICK IN THE PAST WEEK? NO . FEVER NO . FLU LIKE SYMPTOMS? NO . COUGH NO . INTEGUMENTARY: DO YOU HAVE ANY RASHES OR OPEN SORES? NO . ALLERGIC/IMMUNO: ARE YOU ALLERGIC TO SHELLFISH OR IV DYE? NO . ANY NEW ALLERGIES? NO . PSYCHIATRIC: DO YOU HAVE THOUGHTS OF HURTING YOURSELF OR SOMEONE ELSE? NO . ARE YOU ABUSED, NEGLECTED, OR IN AN UNSAFE ENVIRONMENT? NO . ENDOCRINOLOGY: ARE YOU DIABETIC? NO . OTHER: DO YOU NEED ANY PRESCRIPTIONS? NO . IF YES, PLEASE LIST: ____ . ANY NEW PROBLEMS WITH YOUR MEDICATIONS? NO . WHEN DID YOU LAST EAT? ____ . WHEN DID YOU LAST DRINK? ____ . WHAT DID YOU LAST DRINK? ____ . NAME OF PERSON DRIVING YOU HOME? ____ . DO YOU HAVE ANY OTHER QUESTIONS OR CONCERNS NO . VITAL SIGNS WT 195.6 LBS, HT 68 IN, BMI 29.74 INDEX, BP 122/79 MM HG, HR 81 /MIN, RR 18 /MIN, TEMP 98.8 F, OXYGEN SAT % 94%, NA INITIALS SC 14:15, REVIEWED BY: EM. EXAMINATION GENERAL EXAMINATION: PSYCHALERT , ORIENTED X 3 , APPROPRIATE MOOD AND AFFECT . LUNGS:FEW SCATTERED WHEEZES THOUGH ALL LUNG HARRY. HEART:HEART RATE REGULAR. MUSCULOSKELETAL:MUSCLE STRENGTH TESTING 5-/5 BILATERAL LOWER EXTREMITIES. FLEX AT HIPS IMPROVED WITH IMPROVED QUAD STRENGTH. POINT TENDERNESS OVER SLUMBAR FACETS LEFT GREATER THAN RIGHT. GAIT WIDEBASED. ASSESSMENTS SPONDYLOSIS WITHOUT MYELOPATHY OR RADICULOPATHY, LUMBAR REGION - M47.816 (PRIMARY) SPONDYLOSIS WITHOUT MYELOPATHY OR RADICULOPATHY, LUMBOSACRAL REGION - M47.817 TREATMENT SPONDYLOSIS WITHOUT MYELOPATHY OR RADICULOPATHY, LUMBAR REGION RF FACET LUMBAR SACRAL EARL CRAWFORD 12/25/2016 2:47:50 PM > LEFT L4-5, L5-S1 NOTES: CONTINUE CURRENT MEDS. WALK EVERY DAY,UNDERSTANDING RADIOFREQUENCY DENERVATION MATERIAL WAS PRINTED, REVIEWED AND GIVEN TO PT. CLINICAL NOTES: ISTOP REGISTRY REVIEWED AND DEMNOSTRATES COMPLLIANCE. BRINGS IN MEDICATIONS WHICH IS APPROPRIATE FOR WHAT WAS DISPENSED. RECENT URINE TOXICOLOGY REVIEWED. NO UNAUTHORIZED MEDICATIONS. NO ILLICIT SUBSTANCES AND PRESCRIBED MEDICATIONS WERE PRESENT. PROCEDURE CODES FA211 ESTABILISHED PATIENT [facility] FAC[facility] CHARGE G8730 PAIN ASSESS POS TOOL F/U PLAN DOC G8427 DOC MEDS VERIFIED W/PT OR RE DISPOSITION & COMMUNICATION FOLLOW UP AFTER INJECTION (REASON: CHECK AUTH FOR LEFT RFI L4-5 AND L5-S1) ELECTRONICALLY SIGNED BY CHAPIN BERG ON 01/09/2017 AT 07:18 PM EDT DISCLAIMER : THIS IS A VISIT SUMMARY EXTRACTED FROM THE [employer] CHART. IT IS NOT A COPY OF THE [employer] PROGRESS NOTE. MELYSSA
== END ==
LOC: M PAIN 14:15
PROVIDERS: ATTEND Nurse Practitioner Family
DX: G89.29 Other chronic pain (principal); M47.816 Spondylosis without myelopathy or radiculopathy, lumbar region; M47.817 Spondylosis without myelopathy or radiculopathy, lumbosacral region; K21.9 Gastro-esophageal reflux disease without esophagitis; F17.210 Nicotine dependence, cigarettes, uncomplicated; G47.33 Obstructive sleep apnea (adult) (pediatric); J44.9 Chronic obstructive pulmonary disease, unspecified; E55.9 Vitamin D deficiency, unspecified; I25.10 Atherosclerotic heart disease of native coronary artery without angina pectoris; Z79.82 Long term (current) use of aspirin; Z79.51 Long term (current) use of inhaled steroids; Z79.899 Other long term (current) drug therapy

== ENCOUNTER → 2017-01-09 | Outpatient (CLI) | payer MEDICARE, MEDICAID ==
[~2017-01-09] MED LIST changes: +BUPIVACAINE HCL 0.25% 30 ML VIAL As Ordered ONE; +ISOVUE-M 300 61% 15ML VIAL (Q9967) As Ordered ONE; +LIDOCAINE 1% SDV INJ 30 ML VIAL As Ordered ONE; +TRIAMCINOLONE ACETONIDE SUSP 40 MG/ML VIAL (J3301) As Ordered ONE
--- NOTE | 2017-01-10 00:22 | ECWPNPC ---
PATIENT NAME: NAEL FERRARO : 1970 GENDER: MALE VISIT DATE: 01/09/2017 DISCHARGE DATE: 01/09/17 1626 VISIT LOCKED DATE TIME: PHYSICIAN: MAXIMILIANO SABA RESOURCE: MAXIMILIANO SABA REASON FOR APPOINTMENT 1. LEFT RFI L4-5 AND L5-S1 HISTORY OF PRESENT ILLNESS HISTORY OF PRESENT ILLNESS: PAIN THE PATIENT DESCRIBES THE PAIN... FALL RISK SCREENING: SCREENING :NO FALLS IN THE PAST YEAR CURRENT MEDICATIONS TAKING ASPIRIN EC 81 MG TABLET DELAYED RELEASE 1 TABLET ORALLY ONCE A DAY, NOTES: 01/08/17829 TAKING VITAMIN D3 1000 UNIT CAPSULE 1 CAPSULE ORALLY ONCE A DAY, NOTES: 01/08/17829 TAKING CARVEDILOL 6.25 MG TABLET 1 TABLET WITH FOOD ORALLY DAILY, NOTES: 01/08/17829 TAKING PROAIR HFA 108 (90 BASE) MCG/ACT AEROSOL SOLUTION 2 PUFFS NEEDED INHALATION EVERY 4 HRS, NOTES: > 1 WEEK AGO TAKING MENS ONE DAILY - TABLET 1 TAB ORALLY DAILY, NOTES: 01/08/17829 TAKING CRESTOR 10 MG TABLET 1 TABLET ORALLY ONCE A DAY, NOTES: 01/08/17829 TAKING GEMFIBROZIL 600 MG TABLET 1 TABLET ORALLY TWICE A DAY, NOTES: 01/08/17829 TAKING GABAPENTIN 300 MG CAPSULE 1 CAPSULE ORALLY QHS, NOTES: 01/08/172099 TAKING OMEPRAZOLE 20 MG CAPSULE DELAYED RELEASE TAKE TWO CAPSULES BY MOUTH TWICE A DAY , NOTES: 01/08/17829 TAKING BREO ELLIPTA 100-25 MCG/INH AEROSOL POWDER BREATH ACTIVATED USE ONE INHALATION ONCE DAILY , NOTES: 01/08/17829 TAKING HYDROCODONE-ACETAMINOPHEN 5-325 MG TABLET 1 TABLET NEEDED ORALLY EVERY 4- 6 HRS PRN PAIN MDD=4, NOTES: 01/08/17 1200 NOT-TAKING VIAGRA 50 MG TABLET 1 TABLET NEEDED ORALLY ONCE A DAY, NOTES: NONE RECENT MEDICATION LIST REVIEWED AND RECONCILED WITH THE PATIENT PAST MEDICAL HISTORY CAD - NO HISTORY OF INFARCT - CARDIAC CATHETERIZATION 08/24 REVEALED NON-OBSTRUCTIVE DISEASE ONLY. ECHOCARDIOGRAM 10/25 NO VALVULAR DISEASE, TRACE MITRAL INSUFFICIENCY, TRACE TRICUSPID INSUFFICIENCY. NUCLEAR STRESS TEST 10/25 - NORMAL PERFUSION NO ISCHEMIA OR INFARCTION. EF CALCULATED AT 52% EKG - 07/28 - NSR 84 BPM (FOLLOWED BY DR. TORRES) LUMBAGO - OSTEOARTHRITIS - DDD HYPERLIPIDEMIA HIATAL HERNIA WITH REFLUX TOBACCO ABUSE WALI DX 02/26, COMPLIANT WITH CPAP. COPD ALLERGIES N.K.D.A. SOCIAL HISTORY GENERAL: TOBACCO USE ARE YOU A:CURRENT SMOKER ARE YOU INTERESTED IN QUITTING?THINKING ABOUT QUITTING PRESENTLY TRYING TO QUIT PREVIOUS QUIT ATTEMPTS?YES, MORE THAN 6 MONTHS AGO. COUNSELED THE PATIENT ON SMOKING CESSATION, EDUCATION [id number]/26/2017 PT HAS INFORMATION ABOUT [facility] QUITTING CLASSES HOW MANY CIGARETTES A DAY DO YOU SMOKE?11-20 HOW SOON AFTER YOU WAKE UP DO YOU SMOKE YOUR FIRST CIGARETTE?6-30 MIN HOW OFTEN DO YOU SMOKE CIGARETTES?EVERY DAY PATIENT COUNSELED ON THE DANGERS OF TOBACCO USE AND URGED TO QUIT:01/09/2017 ALCOHOL SCREENING DID YOU HAVE A DRINK CONTAINING ALCOHOL IN THE PAST YEAR?YES POINTS2 INTERPRETATIONNEGATIVE HOW OFTEN DID YOU HAVE A DRINK CONTAINING ALCOHOL IN THE PAST YEAR?MONTHLY OR LESS (1 POINT) HOW MANY DRINKS DID YOU HAVE ON A TYPICAL DAY WHEN YOU WERE DRINKING IN THE PAST YEAR?1 OR 2 (0 POINTS) HOW OFTEN DID YOU HAVE SIX OR MORE DRINKS ON ONE OCCASION IN THE PAST YEAR?LESS THAN MONTHLY (1 POINT) RECREATIONAL DRUG USE DRUG USE?NO CAFFEINE CAFFEINE USE?YES HOW OFTEN AND HOW MUCH? COFFEE 3- 4 POTS DAILY AT TIMES SEXUAL HX HAD SEX IN THE LAST 12 MONTHS (VAGINAL, ORAL, OR ANAL)?YES WITHWOMEN ONLY USE PROTECTION?NO HAVE YOU EVER HAD AN STD?NO HIV / HEP-C SCREENING HIV TEST OFFERED TO PATIENT:YES DATE OFFERED:08/17/2016 TEST ACCEPTED:NO REASON:PATIENT DECLINED HEP-C TEST OFFERED TO PATIENT:YES DATE OFFERED:08/17/2016 TEST ACCEPTED:NO REASON:PATIENT DECLINED DIET: REGULAR. EXERCISE: DAILY. MARITAL STATUS: . OTHERS AT HOME: NONE. SABIANISM [id number] OTHER LANGUAGE LANGUAGES SPOKEN:ITALIAN LEARNING BARRIERS / SPECIAL NEEDS BARRIERS TO LEARNING?NO HEARING IMPAIRED?NO VISION IMPAIRED?YES :CORRECTIVE LENSES COGNITIVELY IMPAIRED?NO READINESS TO LEARN?YES LEARNING PREFERENCES?NO LEARNING CAPABILITIES PRESENT?YES EMOTIONAL BARRIERS?NO SPECIAL DEVICES?NO PHOTO PRINT SPECIALIST NEEDED?NO PAIN CLINIC PFS, CLERGY, PUBLIC HEALTH REFERRALS HAS THE PATIENT BEEN EDUCATED REGARDING HIS/HER PLAN OF CARE?YES HAS THE PATIENT BEEN EDUCATED REGARDING PAIN, THE RISK FOR PAIN, THE IMPORTANCE OF EFFECTIVE PAIN MANAGEMENT, AND THE PAIN ASSESSMENT PROCESS?YES PATIENT: ____. REVIEW OF SYSTEMS REVIEWED BY: PROVIDER: . CONSTITUTIONAL: ANY CHANGE IN YOUR MEDICAL CONDITION? NO . CHILLS NO . FEVER NO . INFECTION: DO YOU HAVE NEW INFECTIONS? NO . DO YOU HAVE HISTORY OF MRSA? NO . MUSCULOSKELETAL: ANY NEW PATTERNS OF PAIN OR NUMBNESS? NO . GASTROENTEROLOGY: ANY NEW CHANGE IN BOWEL CONTROL? NO . GENITOURINARY: ANY NEW CHANGE IN BLADDER CONTROL? NO . IS THERE A CHANCE YOU COULD BE ? NO . HEMATOLOGY/LYMPH: DO YOU TAKE ANY BLOOD THINNERS? (FOR EXAMPLE- COUMADIN, PLAVIX, AGGRENOX, PLATEL, PRADAXA, OR XARELTO) NO . WHEN WAS YOUR LAST DOSE? DATE: TIME: . NEUROLOGY: HAVE YOU FALLEN IN THE PAST 6 MONTHS? NO . ANY NEW EXTREMITY NUMBNESS OR WEAKNESS? NO . CARDIOLOGY: DO YOU HAVE A PACEMAKER OR DEFIBRILLATOR? NO . RESPIRATORY: HAVE YOU BEEN SICK IN THE PAST WEEK? NO . FEVER NO . FLU LIKE SYMPTOMS? NO . COUGH NO . INTEGUMENTARY: DO YOU HAVE ANY RASHES OR OPEN SORES? NO . ALLERGIC/IMMUNO: ARE YOU ALLERGIC TO SHELLFISH OR IV DYE? NO . ANY NEW ALLERGIES? NO . PSYCHIATRIC: DO YOU HAVE THOUGHTS OF HURTING YOURSELF OR SOMEONE ELSE? NO . ARE YOU ABUSED, NEGLECTED, OR IN AN UNSAFE ENVIRONMENT? NO . ENDOCRINOLOGY: ARE YOU DIABETIC? NO . OTHER: DO YOU NEED ANY PRESCRIPTIONS? NO . IF YES, PLEASE LIST: ____ . ANY NEW PROBLEMS WITH YOUR MEDICATIONS? NO . WHEN DID YOU LAST EAT? ____01/08/17 1800 . WHEN DID YOU LAST DRINK? ____01/09/17 0630 . WHAT DID YOU LAST DRINK? ____COFFEE WITH CREAM/SUGAR . NAME OF PERSON DRIVING YOU HOME? ____PATTY . DO YOU HAVE ANY OTHER QUESTIONS OR CONCERNS NO . VITAL SIGNS WT 194 LBS, HT 68 IN, BMI 29.49 INDEX, BP 132/86 MM HG, HR 82 /MIN, RR 18 /MIN, TEMP 98.5 F, OXYGEN SAT % 95%, SAFE IN ENV? (Y/N) YES, NA INITIALS AW 1255, REVIEWED BY: TRAVIS. ASSESSMENTS SPONDYLOSIS OF LUMBAR REGION WITHOUT MYELOPATHY OR RADICULOPATHY - M47.816 (PRIMARY) SPONDYLOSIS OF LUMBOSACRAL REGION WITHOUT MYELOPATHY OR RADICULOPATHY - M47.817 PROCEDURES PN RADIOFREQUENCY PRE PROCEDURE DIAGNOSES 1. LUMBAR SPONDYLOSIS. 2. LUMBOSACRAL SPONDYLOSIS POST PROCEDURE DIAGNOSES 1. LUMBAR SPONDYLOSIS. 2. LUMBOSACRAL SPONDYLOSIS PROCEDURE LEFT L4-L5 AND LEFT L5-S1 LUMBAR FACET RADIOFREQUENCY SURGEON DR. MAXIMILIANO SABA INSPECTOR SET UP AND LAY OUT NONE ANESTHESIA LOCAL PRE PROCEDURE REPORT THE PATIENT HAS HISTORY OF CHRONIC LOW BACK PAIN. I EVALUATE THE PATIENT AND REVIEWED THE CHART. I WENT OVER THE RISKS, ALTERNATIVES, AND BENEFITS ASSOCIATED WITH THIS PROCEDURE. THE PATIENT WOULD LIKE TO PROCEED AND GIVE CONSENT TO PERFORMED THE PROCEDURE. THE PATIENT DENIES UNEXPLAINABLE WEIGHT LOSS, FEVER, CHILLS, OR NEW CHANGES IN URINARY OR BOWEL CONTROL DESCRIPTION OF PROCEDURE THE PATIENT WAS BROUGHT TO THE PROCEDURE ROOM AND PLACED IN THE PRONE POSITION. THE LUMBOSACRAL AREA WAS CLEANED WITH CHLORAPREP SOLUTION AND DRAPED ASEPTICALLY. THE PROCEDURE WAS DONE UNDER STERILE CONDITIONS. I CHECKED LATERALITY AND THE LEVEL WHERE THE PROCEDURE WAS GOING TO BE PERFORMED WITH THE PATIENT AND THE SUPPORTING STAFF AT THE MOMENT OF THE TIME OUT IN THE PROCEDURE ROOM. UNDER FLUOROSCOPIC GUIDANCE, TARGETS WERE SELECTED AT THE INTERSECTION OF THE LEFT TRANSVERSE PROCESS OF L4, L5 AND ALA OF S1 WITH ITS RESPECTIVE SUPERIOR ARTICULAR PROCESS. LIDOCAINE WAS USED TO NUMB THE SKIN AND THE SUBCUTANEOUS TISSUE BELOW IT. RADIOFREQUENCY NEEDLES 22-GAUGE 15 CM LONG WITH 10 MM ACTIVE CURVE TIP WERE ADVANCED UNDER FLUOROSCOPIC GUIDANCE AND FOLLOWING PATIENT FEEDBACK UNTIL THE TARGET AREA WAS REACHED. POSITION OF THE NEEDLES WAS VERIFIED WITH AP AND LATERAL VIEWS. AFTER PROPER POSITION OF THE NEEDLE WAS ACHIEVED, WE WORKED WITH THE LEFT SELECTED MEDIAN BRANCHES OF L3, L4 AND THE DORSAL RAMI OF L5. WE MEASURED THE CORRESPONDING IMPEDANCES, SENSORY STIMULATION AND MOTOR RESPONSES INDICATED IN THE RADIOFREQUENCY WORKSHEET. POSITION OF THE NEEDLES WAS VERIFIED AGAIN WITH AP AND LATERAL VIEWS. LIDOCAINE 1%, 2 ML, WAS INJECTED AT EACH LEVEL. RADIOFREQUENCY WAS DONE AT EACH LEVEL AT 80 DEGREES FOR 90 SECONDS. AFTER RADIOFREQUENCY WAS DONE, THE PATIENT RECEIVED BUPIVACAINE 0.125% 1 CC WITH KENALOG 5 MG AT EACH SITE. THERE WAS NO EVIDENCE OF BLOOD, PARESTHESIA OR CEREBROSPINAL FLUID DURING THE PROCEDURE. THE PATIENT WAS SENT TO THE RECOVERY ROOM. THE PATIENT WAS MOVING THE EXTREMITIES AND DOING WELL. THERE WAS NO COMPLICATION DURING THE PROCEDURE. FLUOROSCOPY TIME WAS 33 SECONDS POST PROCEDURE NOTE THE PATIENT WILL BE SEEN IN A FOLLOW UP IN THE NEXT FEW WEEKS. INSTRUCTIONS WERE GIVEN, QUESTIONS WERE ANSWERED, AND THE PATIENT EXPRESSED UNDERSTANDING AND AGREES WITH THE PLAN. I, AMILCAR FAUST, DOCUMENTED THE ABOVE INFORMATION ACTING A SCRIBE FOR DR. SABA. I, DR. SABA, HAVE REVIEWED THE ABOVE DOCUMENT, SCRIBED BY AMILCAR FAUST, AND I VERIFY THAT IT IS ACCURATE DIAGNOSTIC IMAGING [facility] FACET BLOCK (PAIN)[id number] PROCEDURE CODES 17600 DESTROY LUMB/SAC FACET JNT, [place]: [place] [address] DESTROY L/S FACET JNT ADDL, MODIFIERS: LT 6045F RADXPS IN END [id number] PXD DISPOSITION & COMMUNICATION FOLLOW UP 3 WEEKS ELECTRONICALLY SIGNED BY MAXIMILIANO SABA MD ON 01/09/2017 AT 09:47 PM EDT DISCLAIMER : THIS IS A VISIT SUMMARY EXTRACTED FROM THE [employer] CHART. IT IS NOT A COPY OF THE [employer] PROGRESS NOTE. MTDD
--- NOTE | 2017-01-10 18:18 | REP ---
FACET BLOCK INJECTION: All imaging was reviewed with Dr. Braun prior to dictation. The portable C-Arm is provided in the OR for Dr. Acosta for fluoroscopic guidance. Two intraoperative spot films were obtained using last imaging hold technology for needle placement verification for left lumbar facet dalia. The films are on the PACs system and are available for review. 33 seconds of fluoroscopy time were utilized for this procedure. Reviewed by AMPARO Whitt 01/11/2017 08:24 AEdited and Signed by Alex Braun MD 01/11/2017 07:59 P
== END ==
LOC: M PAIN 13:00
PROVIDERS: ATTEND Anesthesiology
DX: G89.29 Other chronic pain (principal); M47.816 Spondylosis without myelopathy or radiculopathy, lumbar region; M47.817 Spondylosis without myelopathy or radiculopathy, lumbosacral region; I25.10 Atherosclerotic heart disease of native coronary artery without angina pectoris; K21.9 Gastro-esophageal reflux disease without esophagitis; F17.210 Nicotine dependence, cigarettes, uncomplicated; G47.33 Obstructive sleep apnea (adult) (pediatric); J44.9 Chronic obstructive pulmonary disease, unspecified; E55.9 Vitamin D deficiency, unspecified; Z79.82 Long term (current) use of aspirin; Z79.51 Long term (current) use of inhaled steroids; Z79.899 Other long term (current) drug therapy
CPT/HCPCS: 64635; 64636; J3301; Q9967

== ENCOUNTER → 2017-01-23 | Outpatient (CLI) | payer MEDICARE, MEDICAID ==
[~2017-01-23] MED LIST changes: -BUPIVACAINE HCL 0.25% 30 ML VIAL As Ordered ONE; -ISOVUE-M 300 61% 15ML VIAL (Q9967) As Ordered ONE; -LIDOCAINE 1% SDV INJ 30 ML VIAL As Ordered ONE; -TRIAMCINOLONE ACETONIDE SUSP 40 MG/ML VIAL (J3301) As Ordered ONE
--- NOTE | 2017-01-26 01:38 | ECWPNPC ---
PATIENT NAME: NAEL FERRARO : 1970 GENDER: MALE VISIT DATE: 01/23/2017 DISCHARGE DATE: 01/23/17 1208 VISIT LOCKED DATE TIME: PHYSICIAN: EARL BANUELOS RESOURCE: EARL BANUELOS REASON FOR APPOINTMENT 1. POST PROC HISTORY OF PRESENT ILLNESS HISTORY OF PRESENT ILLNESS: PAIN THE PATIENT DESCRIBES THE PAIN... FALL RISK SCREENING: SCREENING :NO FALLS IN THE PAST YEAR TODAY'S VISIT: NOTES: IS S/P LEFT L4-5, L5-S1 RADIO FREQUENCY DENERVATION COMPLETED ON 01/09/17. HAD ISSUES WITH BEING ABLE TO STAND AND FELT LEFT LEG WAS WEAK"JELLY" FOR 2 DAYS POST PROCEDURE. NOTED ALMOST 08=733% RELIEF OF PAIN ON LEFT SIDE WITH MIN PAIN RADIATION TO HIPS OR BUTTUCKS. HAS BEEN ABLE TO STAND AND WALK AND IS MORE UPRIGHT AND IS NOT USING HIS CANE. HAS BEEN ABLE TO TAKE LESS PAIN MEDICATION. CURRENT MEDICATIONS TAKING ASPIRIN EC 81 MG TABLET DELAYED RELEASE 1 TABLET ORALLY ONCE A DAY TAKING VITAMIN D3 1000 UNIT CAPSULE 1 CAPSULE ORALLY ONCE A DAY TAKING CARVEDILOL 6.25 MG TABLET 1 TABLET WITH FOOD ORALLY DAILY TAKING PROAIR HFA 108 (90 BASE) MCG/ACT AEROSOL SOLUTION 2 PUFFS NEEDED INHALATION EVERY 4 HRS TAKING MENS ONE DAILY - TABLET 1 TAB ORALLY DAILY TAKING GABAPENTIN 300 MG CAPSULE 1 CAPSULE ORALLY QHS TAKING OMEPRAZOLE 20 MG CAPSULE DELAYED RELEASE TAKE TWO CAPSULES BY MOUTH TWICE A DAY TAKING BREO ELLIPTA 100-25 MCG/INH AEROSOL POWDER BREATH ACTIVATED USE ONE INHALATION ONCE DAILY TAKING GEMFIBROZIL 600 MG TABLET 1 TABLET ORALLY TWICE A DAY TAKING CRESTOR 10 MG TABLET 1 TABLET ORALLY ONCE A DAY TAKING HYDROCODONE-ACETAMINOPHEN 5-325 MG TABLET 1 TABLET NEEDED ORALLY EVERY 6-8 HRS PRN PAIN MDD=3 UNKNOWN VIAGRA 50 MG TABLET 1 TABLET NEEDED ORALLY ONCE A DAY, NOTES: NONE RECENT MEDICATION LIST REVIEWED AND RECONCILED WITH THE PATIENT PAST MEDICAL HISTORY CAD - NO HISTORY OF INFARCT - CARDIAC CATHETERIZATION 08/24 REVEALED NON-OBSTRUCTIVE DISEASE ONLY. ECHOCARDIOGRAM 10/25 NO VALVULAR DISEASE, TRACE MITRAL INSUFFICIENCY, TRACE TRICUSPID INSUFFICIENCY. NUCLEAR STRESS TEST 10/25 - NORMAL PERFUSION NO ISCHEMIA OR INFARCTION. EF CALCULATED AT 52% EKG - 07/28 - NSR 84 BPM (FOLLOWED BY DR. TORRES) LUMBAGO - OSTEOARTHRITIS - DDD HYPERLIPIDEMIA HIATAL HERNIA WITH REFLUX TOBACCO ABUSE WALI DX 02/26, COMPLIANT WITH CPAP. COPD ALLERGIES NO[ALLERGIES VERIFIED] SURGICAL HISTORY B INGUINAL HERNIA REPAIR A CHILD AND AGAIN IN 2010 CARDIAC CATH 2007, 2010 COLONOSCOPY - 05/02 - REPEAT IN 5 YEARS 2010, 2016 SOCIAL HISTORY GENERAL: TOBACCO USE ARE YOU A:CURRENT SMOKER ARE YOU INTERESTED IN QUITTING?THINKING ABOUT QUITTING PRESENTLY TRYING TO QUIT PREVIOUS QUIT ATTEMPTS?YES, MORE THAN 6 MONTHS AGO. COUNSELED THE PATIENT ON SMOKING CESSATION, EDUCATION [id number] PT HAS INFORMATION ABOUT [facility] OUTPATIENT QUITTING CLASSES HOW MANY CIGARETTES A DAY DO YOU SMOKE?11-20 HOW SOON AFTER YOU WAKE UP DO YOU SMOKE YOUR FIRST CIGARETTE?6-30 MIN HOW OFTEN DO YOU SMOKE CIGARETTES?EVERY DAY PATIENT COUNSELED ON THE DANGERS OF TOBACCO USE AND URGED TO QUIT:01/09/2017 ADDITIONAL FINDINGS: TOBACCO NON-USER DISCUSSED SMOKING CESSATION WITH PT AND HE HAS BEEN ABLE TO DECREASE FROM 1& 1/2 PACK PER DAY TO 1/2 PACK AND HE IS PLEASED WITH THIS ALCOHOL SCREENING DID YOU HAVE A DRINK CONTAINING ALCOHOL IN THE PAST YEAR?YES POINTS2 INTERPRETATIONNEGATIVE HOW OFTEN DID YOU HAVE A DRINK CONTAINING ALCOHOL IN THE PAST YEAR?MONTHLY OR LESS (1 POINT) HOW MANY DRINKS DID YOU HAVE ON A TYPICAL DAY WHEN YOU WERE DRINKING IN THE PAST YEAR?1 OR 2 (0 POINTS) HOW OFTEN DID YOU HAVE SIX OR MORE DRINKS ON ONE OCCASION IN THE PAST YEAR?LESS THAN MONTHLY (1 POINT) RECREATIONAL DRUG USE DRUG USE?NO CAFFEINE CAFFEINE USE?YES HOW OFTEN AND HOW MUCH? COFFEE 3- 4 POTS DAILY AT TIMES SEXUAL HX HAD SEX IN THE LAST 12 MONTHS (VAGINAL, ORAL, OR ANAL)?YES WITHWOMEN ONLY USE PROTECTION?NO HAVE YOU EVER HAD AN STD?NO HIV / HEP-C SCREENING HIV TEST OFFERED TO PATIENT:YES DATE OFFERED:08/17/2016 TEST ACCEPTED:NO REASON:PATIENT DECLINED HEP-C TEST OFFERED TO PATIENT:YES DATE OFFERED:08/17/2016 TEST ACCEPTED:NO REASON:PATIENT DECLINED DIET: REGULAR. EXERCISE: DAILY. MARITAL STATUS: . OTHERS AT HOME: NONE. NONDENOMINATIONAL [id number] OTHER LANGUAGE LANGUAGES SPOKEN:SLOVAK LEARNING BARRIERS / SPECIAL NEEDS BARRIERS TO LEARNING?NO HEARING IMPAIRED?NO VISION IMPAIRED?YES :CORRECTIVE LENSES COGNITIVELY IMPAIRED?NO READINESS TO LEARN?YES LEARNING PREFERENCES?NO LEARNING CAPABILITIES PRESENT?YES EMOTIONAL BARRIERS?NO SPECIAL DEVICES?NO LOSS PREVENTION REPRESENTATIVE NEEDED?NO PAIN CLINIC PFS, CLERGY, PUBLIC HEALTH REFERRALS HAS THE PATIENT BEEN EDUCATED REGARDING HIS/HER PLAN OF CARE?YES HAS THE PATIENT BEEN EDUCATED REGARDING PAIN, THE RISK FOR PAIN, THE IMPORTANCE OF EFFECTIVE PAIN MANAGEMENT, AND THE PAIN ASSESSMENT PROCESS?YES PATIENT: ____. HOSPITALIZATION/MAJOR DIAGNOSTIC PROCEDURE CHEST PAIN/ABD PAIN 03/01 CHEST PAIN, CARDIAC CATH 2010 REVIEW OF SYSTEMS REVIEWED BY: PROVIDER: EARL CUNNINGHAM . CONSTITUTIONAL: ANY CHANGE IN YOUR MEDICAL CONDITION? NO . CHILLS NO . FEVER NO . INFECTION: DO YOU HAVE NEW INFECTIONS? NO . DO YOU HAVE HISTORY OF MRSA? NO . MUSCULOSKELETAL: ANY NEW PATTERNS OF PAIN OR NUMBNESS? NO . GASTROENTEROLOGY: ANY NEW CHANGE IN BOWEL CONTROL? NO . GENITOURINARY: ANY NEW CHANGE IN BLADDER CONTROL? NO . IS THERE A CHANCE YOU COULD BE ? NO . HEMATOLOGY/LYMPH: DO YOU TAKE ANY BLOOD THINNERS? (FOR EXAMPLE- COUMADIN, PLAVIX, AGGRENOX, PLATEL, PRADAXA, OR XARELTO) NO . WHEN WAS YOUR LAST DOSE? DATE: TIME: . NEUROLOGY: HAVE YOU FALLEN IN THE PAST 6 MONTHS? NO . ANY NEW EXTREMITY NUMBNESS OR WEAKNESS? NO . CARDIOLOGY: DO YOU HAVE A PACEMAKER OR DEFIBRILLATOR? NO . RESPIRATORY: HAVE YOU BEEN SICK IN THE PAST WEEK? NO . FEVER NO . FLU LIKE SYMPTOMS? NO . COUGH NO . INTEGUMENTARY: DO YOU HAVE ANY RASHES OR OPEN SORES? NO . ALLERGIC/IMMUNO: ARE YOU ALLERGIC TO SHELLFISH OR IV DYE? NO . ANY NEW ALLERGIES? NO . PSYCHIATRIC: DO YOU HAVE THOUGHTS OF HURTING YOURSELF OR SOMEONE ELSE? NO . ARE YOU ABUSED, NEGLECTED, OR IN AN UNSAFE ENVIRONMENT? NO . ENDOCRINOLOGY: ARE YOU DIABETIC? NO . OTHER: DO YOU NEED ANY PRESCRIPTIONS? NO . IF YES, PLEASE LIST: ____ . ANY NEW PROBLEMS WITH YOUR MEDICATIONS? NO . WHEN DID YOU LAST EAT? ____ . WHEN DID YOU LAST DRINK? ____ . WHAT DID YOU LAST DRINK? ____ . NAME OF PERSON DRIVING YOU HOME? ____ . DO YOU HAVE ANY OTHER QUESTIONS OR CONCERNS NO . VITAL SIGNS WT 193 LBS, HT 68 IN, BMI 29.34 INDEX, BP 141/80 MM HG, HR 66 /MIN, RR 18 /MIN, TEMP 985 F, OXYGEN SAT % 95%, NA INITIALS RI 11:36, REVIEWED BY: NL. EXAMINATION GENERAL EXAMINATION: PSYCHALERT , ORIENTED X 3 , APPROPRIATE MOOD AND AFFECT . LUNGS:CLEAR TO AUSCULTATION BILATERALLY. HEART:HEART RATE REGULAR. MUSCULOSKELETAL:MUSCLE STRENGTH TESTING 5-/5 BILATERAL LOWER EXTREMITIES. FLEX AT HIPS IMPROVED WITH IMPROVED QUAD STRENGTH. POINT TENDERNESS OVER LUMBAR FACETS RIGHT GREATER THAN LEFT. GAIT WIDEBASED. POSTURE UPRIGHT NO FOOT DROP. ASSESSMENTS SPONDYLOSIS OF LUMBAR REGION WITHOUT MYELOPATHY OR RADICULOPATHY - M47.816 (PRIMARY) SPONDYLOSIS OF LUMBOSACRAL REGION WITHOUT MYELOPATHY OR RADICULOPATHY - M47.817 TREATMENT SPONDYLOSIS OF LUMBAR REGION WITHOUT MYELOPATHY OR RADICULOPATHY RF FACET LUMBAR SACRAL EARL CRAWFORD 01/23/2017 11:55:36 AM > RIGHT L4-5, L5-S1 NOTES: USE PAIN MEDS INFREQUENTLY. WALK EVERY DAY. PREVENTIVE MEDICINE REVIEWED PRE PROCUDURE CARE FOR RF WITH PT EXPRESSING UNDERSTANDING. PROCEDURE CODES FA211 ESTABILISHED PATIENT [facility] FACILITY CHARGE G8730 PAIN ASSESS POS TOOL F/U PLAN DOC G8427 DOC MEDS VERIFIED W/PT OR RE DISPOSITION & COMMUNICATION FOLLOW UP AFTER INJECTION (REASON: CHECK AUTH FOR FFI RIGHT L4-5, L5-S1) ELECTRONICALLY SIGNED BY CHAPIN BERG ON 01/25/2017 AT 09:10 AM EDT DISCLAIMER : THIS IS A VISIT SUMMARY EXTRACTED FROM THE [employer] CHART. IT IS NOT A COPY OF THE [employer] PROGRESS NOTE. MELYSSA
== END ==
LOC: M PAIN 11:30
PROVIDERS: ATTEND Nurse Practitioner Family
DX: G89.29 Other chronic pain (principal); M47.816 Spondylosis without myelopathy or radiculopathy, lumbar region; M47.817 Spondylosis without myelopathy or radiculopathy, lumbosacral region; K21.9 Gastro-esophageal reflux disease without esophagitis; I25.10 Atherosclerotic heart disease of native coronary artery without angina pectoris; F17.210 Nicotine dependence, cigarettes, uncomplicated; G47.33 Obstructive sleep apnea (adult) (pediatric); J44.9 Chronic obstructive pulmonary disease, unspecified; E55.9 Vitamin D deficiency, unspecified; Z79.82 Long term (current) use of aspirin; Z79.51 Long term (current) use of inhaled steroids; Z79.899 Other long term (current) drug therapy

== ENCOUNTER → 2017-02-08 | Outpatient (CLI) | payer MEDICARE, MEDICAID ==
[~2017-02-08] MED LIST changes: +BUPIVACAINE HCL 0.25% 30 ML VIAL As Ordered ONE; +ISOVUE-M 300 61% 15ML VIAL (Q9967) As Ordered ONE; +LIDOCAINE 1% SDV INJ 30 ML VIAL As Ordered ONE; +TRIAMCINOLONE ACETONIDE SUSP 40 MG/ML VIAL (J3301) As Ordered ONE
--- NOTE | 2017-02-08 16:20 | REP ---
Partial lumbar spine series: Three views . History: Injection procedure for pain. 34 seconds of fluoroscopy time is reported. Findings: A sequence of three fluoroscopically obtained last image hold procedural spot radiographs of the lumbar spine document needle position and contrast injection associated with injection procedure. Signed by Naren Allen MD 02/08/2017 04:11 P
--- NOTE | 2017-02-14 00:24 | ECWPNPC ---
PATIENT NAME: NAEL FERRARO : 1970 GENDER: MALE VISIT DATE: 02/08/2017 DISCHARGE DATE: 02/08/17 1622 VISIT LOCKED DATE TIME: PHYSICIAN: MAXIMILIANO SABA RESOURCE: MAXIMILIANO SABA REASON FOR APPOINTMENT 1. RADIOFREQUENCY HISTORY OF PRESENT ILLNESS HISTORY OF PRESENT ILLNESS: PAIN THE PATIENT DESCRIBES THE PAIN... FALL RISK SCREENING: SCREENING :NO FALLS IN THE PAST YEAR CURRENT MEDICATIONS TAKING ASPIRIN EC 81 MG TABLET DELAYED RELEASE 1 TABLET ORALLY ONCE A DAY, NOTES: 02/07 1030 TAKING VITAMIN D3 1000 UNIT CAPSULE 1 CAPSULE ORALLY ONCE A DAY, NOTES: 02/07 1030 TAKING CARVEDILOL 6.25 MG TABLET 1 TABLET WITH FOOD ORALLY DAILY, NOTES: 02/07 1030 TAKING PROAIR HFA 108 (90 BASE) MCG/ACT AEROSOL SOLUTION 2 PUFFS NEEDED INHALATION EVERY 4 HRS, NOTES: NONE RECENT TAKING MENS ONE DAILY - TABLET 1 TAB ORALLY DAILY, NOTES: 02/07 1030 TAKING GABAPENTIN 300 MG CAPSULE 1 CAPSULE ORALLY QHS, NOTES: 02/07 2300 TAKING OMEPRAZOLE 20 MG CAPSULE DELAYED RELEASE TAKE TWO CAPSULES BY MOUTH TWICE A DAY , NOTES: 02/07 1030 TAKING BREO ELLIPTA 100-25 MCG/INH AEROSOL POWDER BREATH ACTIVATED USE ONE INHALATION ONCE DAILY , NOTES: 02/07 1030 TAKING GEMFIBROZIL 600 MG TABLET 1 TABLET ORALLY TWICE A DAY, NOTES: 02/07 1030 TAKING CRESTOR 10 MG TABLET 1 TABLET ORALLY ONCE A DAY, NOTES: 02/07 1030 TAKING HYDROCODONE-ACETAMINOPHEN 5-325 MG TABLET 1 TABLET NEEDED ORALLY EVERY 6-8 HRS PRN PAIN MDD=3, NOTES: 02/07 1400 DISCONTINUED VIAGRA 50 MG TABLET 1 TABLET NEEDED ORALLY ONCE A DAY, NOTES: NONE RECENT MEDICATION LIST REVIEWED AND RECONCILED WITH THE PATIENT PAST MEDICAL HISTORY CAD - NO HISTORY OF INFARCT - CARDIAC CATHETERIZATION 08/24 REVEALED NON-OBSTRUCTIVE DISEASE ONLY. ECHOCARDIOGRAM 10/25 NO VALVULAR DISEASE, TRACE MITRAL INSUFFICIENCY, TRACE TRICUSPID INSUFFICIENCY. NUCLEAR STRESS TEST 10/25 - NORMAL PERFUSION NO ISCHEMIA OR INFARCTION. EF CALCULATED AT 52% EKG - 07/28 - NSR 84 BPM (FOLLOWED BY DR. TORRES) LUMBAGO - OSTEOARTHRITIS - DDD HYPERLIPIDEMIA HIATAL HERNIA WITH REFLUX TOBACCO ABUSE WALI DX 02/26, COMPLIANT WITH CPAP. COPD ALLERGIES N.K.D.A. SOCIAL HISTORY GENERAL: TOBACCO USE ARE YOU A:CURRENT SMOKER ARE YOU INTERESTED IN QUITTING?THINKING ABOUT QUITTING PRESENTLY TRYING TO QUIT PREVIOUS QUIT ATTEMPTS?YES, MORE THAN 6 MONTHS AGO. COUNSELED THE PATIENT ON SMOKING CESSATION, EDUCATION [id number]/26/2017 PT HAS INFORMATION ABOUT [facility] QUITTING CLASSES HOW MANY CIGARETTES A DAY DO YOU SMOKE?6-10 HOW SOON AFTER YOU WAKE UP DO YOU SMOKE YOUR FIRST CIGARETTE?6-30 MIN HOW OFTEN DO YOU SMOKE CIGARETTES?SOME DAYS, BUT NOT EVERY DAY PATIENT COUNSELED ON THE DANGERS OF TOBACCO USE AND URGED TO QUIT:02/08/2017 ADDITIONAL FINDINGS: TOBACCO NON-USER DISCUSSED SMOKING CESSATION WITH PT AND HE HAS BEEN ABLE TO DECREASE FROM 1& 1/2 PACK PER DAY TO 1/2 PACK AND HE IS PLEASED WITH THIS ALCOHOL SCREENING DID YOU HAVE A DRINK CONTAINING ALCOHOL IN THE PAST YEAR?YES POINTS2 INTERPRETATIONNEGATIVE HOW OFTEN DID YOU HAVE A DRINK CONTAINING ALCOHOL IN THE PAST YEAR?MONTHLY OR LESS (1 POINT) HOW MANY DRINKS DID YOU HAVE ON A TYPICAL DAY WHEN YOU WERE DRINKING IN THE PAST YEAR?1 OR 2 (0 POINTS) HOW OFTEN DID YOU HAVE SIX OR MORE DRINKS ON ONE OCCASION IN THE PAST YEAR?LESS THAN MONTHLY (1 POINT) RECREATIONAL DRUG USE DRUG USE?NO CAFFEINE CAFFEINE USE?YES HOW OFTEN AND HOW MUCH? COFFEE 3- 4 POTS DAILY AT TIMES SEXUAL HX HAD SEX IN THE LAST 12 MONTHS (VAGINAL, ORAL, OR ANAL)?YES WITHWOMEN ONLY USE PROTECTION?NO HAVE YOU EVER HAD AN STD?NO HIV / HEP-C SCREENING HIV TEST OFFERED TO PATIENT:YES DATE OFFERED:08/17/2016 TEST ACCEPTED:NO REASON:PATIENT DECLINED HEP-C TEST OFFERED TO PATIENT:YES DATE OFFERED:08/17/2016 TEST ACCEPTED:NO REASON:PATIENT DECLINED DIET: REGULAR. EXERCISE: DAILY. MARITAL STATUS: . OTHERS AT HOME: NONE. RELIGIOUS [id number] OTHER LANGUAGE LANGUAGES SPOKEN:SYRIAN LEARNING BARRIERS / SPECIAL NEEDS BARRIERS TO LEARNING?NO HEARING IMPAIRED?NO VISION IMPAIRED?YES :CORRECTIVE LENSES COGNITIVELY IMPAIRED?NO READINESS TO LEARN?YES LEARNING PREFERENCES?NO LEARNING CAPABILITIES PRESENT?YES EMOTIONAL BARRIERS?NO SPECIAL DEVICES?NO PUPIL PERSONNEL SERVICES DIRECTOR NEEDED?NO PAIN CLINIC PFS, CLERGY, PUBLIC HEALTH REFERRALS PFS REFERRAL NEEDED?NO CLERGY REFERRAL NEEDED?NO PUBLIC HEALTH REFERRAL NEEDED?NO HAS THE PATIENT BEEN EDUCATED REGARDING HIS/HER PLAN OF CARE?YES HAS THE PATIENT BEEN EDUCATED REGARDING PAIN, THE RISK FOR PAIN, THE IMPORTANCE OF EFFECTIVE PAIN MANAGEMENT, AND THE PAIN ASSESSMENT PROCESS?YES PATIENT: 02/08/17 1350 AD. [facility]VANCE DIRECTIVES HEALTH CARE PROXY?NO WOULD YOU LIKE MORE INFORMATION?YES GIVEN DO YOU HAVE A DNR?NO WOULD YOU LIKE MORE INFORMATION?NO LIVING WILL?NO WOULD YOU LIKE MORE INFORMATION?NO POWER OF MINE SAFETY MANAGER?NO WOULD YOU LIKE MORE INFORMATION?NO DOMESTIC VIOLENCE DO YOU FEEL SAFE IN YOUR ENVIRONMENT?YES REVIEW OF SYSTEMS REVIEWED BY: PROVIDER: . CONSTITUTIONAL: ANY CHANGE IN YOUR MEDICAL CONDITION? NO . CHILLS NO . FEVER NO . INFECTION: DO YOU HAVE NEW INFECTIONS? NO . DO YOU HAVE HISTORY OF MRSA? NO . MUSCULOSKELETAL: ANY NEW PATTERNS OF PAIN OR NUMBNESS? YES, PAIN AND NUMBNESS LEFT LEG SINCE 01/24--HAS HAD TENDONITIS IN BEFORE AND HE'S NOT SURE IF THIS IS THE PROB. NOW . GASTROENTEROLOGY: ANY NEW CHANGE IN BOWEL CONTROL? NO . GENITOURINARY: ANY NEW CHANGE IN BLADDER CONTROL? NO . IS THERE A CHANCE YOU COULD BE ? NO . HEMATOLOGY/LYMPH: DO YOU TAKE ANY BLOOD THINNERS? (FOR EXAMPLE- COUMADIN, PLAVIX, AGGRENOX, PLATEL, PRADAXA, OR XARELTO) NO . WHEN WAS YOUR LAST DOSE? DATE: TIME: . NEUROLOGY: HAVE YOU FALLEN IN THE PAST 6 MONTHS? NO . ANY NEW EXTREMITY NUMBNESS OR WEAKNESS? NO . CARDIOLOGY: DO YOU HAVE A PACEMAKER OR DEFIBRILLATOR? NO . RESPIRATORY: HAVE YOU BEEN SICK IN THE PAST WEEK? NO . FEVER NO . FLU LIKE SYMPTOMS? NO . COUGH NO . INTEGUMENTARY: DO YOU HAVE ANY RASHES OR OPEN SORES? NO . ALLERGIC/IMMUNO: ARE YOU ALLERGIC TO SHELLFISH OR IV DYE? NO . ANY NEW ALLERGIES? NO . PSYCHIATRIC: DO YOU HAVE THOUGHTS OF HURTING YOURSELF OR SOMEONE ELSE? NO . ARE YOU ABUSED, NEGLECTED, OR IN AN UNSAFE ENVIRONMENT? NO . ENDOCRINOLOGY: ARE YOU DIABETIC? NO . OTHER: DO YOU NEED ANY PRESCRIPTIONS? NO . IF YES, PLEASE LIST: ____ . ANY NEW PROBLEMS WITH YOUR MEDICATIONS? NO . WHEN DID YOU LAST EAT? 02/07 . WHEN DID YOU LAST DRINK? 02/08/17 0800 . WHAT DID YOU LAST DRINK? BLACK COFFEE . NAME OF PERSON DRIVING YOU HOME? ALYCIA . DO YOU HAVE ANY OTHER QUESTIONS OR CONCERNS HAD FLU VACCINE 01/23/17 DR. SABA . VITAL SIGNS WT 193.8 LBS, HT 68 IN, BMI 29.46 INDEX, BP 142/90 MM HG, HR 70 /MIN, RR 18 /MIN, TEMP 98.0 F, OXYGEN SAT % 94%, SAFE IN ENV? (Y/N) Y, NA INITIALS TL 1327, REVIEWED BY: AD. ASSESSMENTS SPONDYLOSIS OF LUMBAR REGION WITHOUT MYELOPATHY OR RADICULOPATHY - M47.816 (PRIMARY) SPONDYLOSIS OF LUMBOSACRAL REGION WITHOUT MYELOPATHY OR RADICULOPATHY - M47.817 PROCEDURES PN RADIOFREQUENCY PRE PROCEDURE DIAGNOSES 1. LUMBAR SPONDYLOSIS. 2. LUMBOSACRAL SPONDYLOSIS POST PROCEDURE DIAGNOSES 1. LUMBAR SPONDYLOSIS. 2. LUMBOSACRAL SPONDYLOSIS PROCEDURE RIGHT L4-L5 AND RIGHT L5-S1 LUMBAR FACET RADIOFREQUENCY SURGEON DR. MAXIMILIANO SABA ROTOR CASTING MACHINE OPERATOR NONE ANESTHESIA LOCAL PRE PROCEDURE REPORT THE PATIENT HAS HISTORY OF CHRONIC LOW BACK PAIN. I EVALUATE THE PATIENT AND REVIEWED THE CHART. I WENT OVER THE RISKS, ALTERNATIVES, AND BENEFITS ASSOCIATED WITH THIS PROCEDURE. THE PATIENT WOULD LIKE TO PROCEED AND GIVE CONSENT TO PERFORMED THE PROCEDURE. THE PATIENT DENIES UNEXPLAINABLE WEIGHT LOSS, FEVER, CHILLS, OR NEW CHANGES IN URINARY OR BOWEL CONTROL DESCRIPTION OF PROCEDURE THE PATIENT WAS BROUGHT TO THE PROCEDURE ROOM AND PLACED IN THE PRONE POSITION. THE LUMBOSACRAL AREA WAS CLEANED WITH CHLORAPREP SOLUTION AND DRAPED ASEPTICALLY. THE PROCEDURE WAS DONE UNDER STERILE CONDITIONS. I CHECKED LATERALITY AND THE LEVEL WHERE THE PROCEDURE WAS GOING TO BE PERFORMED WITH THE PATIENT AND THE SUPPORTING STAFF AT THE MOMENT OF THE TIME OUT IN THE PROCEDURE ROOM. UNDER FLUOROSCOPIC GUIDANCE, TARGETS WERE SELECTED AT THE INTERSECTION OF THE RIGHT TRANSVERSE PROCESS OF L4, L5 AND ALA OF S1 WITH ITS RESPECTIVE SUPERIOR ARTICULAR PROCESS. LIDOCAINE WAS USED TO NUMB THE SKIN AND THE SUBCUTANEOUS TISSUE BELOW IT. RADIOFREQUENCY NEEDLES 22-GAUGE 15 CM LONG WITH 10 MM ACTIVE CURVE TIP WERE ADVANCED UNDER FLUOROSCOPIC GUIDANCE AND FOLLOWING PATIENT FEEDBACK UNTIL THE TARGET AREA WAS REACHED. POSITION OF THE NEEDLES WAS VERIFIED WITH AP AND LATERAL VIEWS. AFTER PROPER POSITION OF THE NEEDLE WAS ACHIEVED, WE WORKED WITH THE RIGHT SELECTED MEDIAN BRANCHES OF L3, L4 AND THE DORSAL RAMI OF L5. WE MEASURED THE CORRESPONDING IMPEDANCES, SENSORY STIMULATION AND MOTOR RESPONSES INDICATED IN THE RADIOFREQUENCY WORK SHEET. POSITION OF THE NEEDLES WAS VERIFIED AGAIN WITH AP AND LATERAL VIEWS. LIDOCAINE 1%, 2 ML, WAS INJECTED AT EACH LEVEL. RADIOFREQUENCY WAS DONE AT EACH LEVEL AT 80 DEGREES FOR 90 SECONDS. AFTER RADIOFREQUENCY WAS DONE, THE PATIENT RECEIVED BUPIVACAINE 0.125% 1 CC WITH KENALOG 5 MG AT EACH SITE. THERE WAS NO EVIDENCE OF BLOOD, PARESTHESIA OR CEREBROSPINAL FLUID DURING THE PROCEDURE. THE PATIENT WAS SENT TO THE RECOVERY ROOM. THE PATIENT WAS MOVING THE EXTREMITIES AND DOING WELL. THERE WAS NO COMPLICATION DURING THE PROCEDURE. FLUOROSCOPY TIME WAS 34 SECONDS POST PROCEDURE NOTE THE PATIENT WILL BE SEEN IN A FOLLOW UP IN THE NEXT FEW WEEKS. INSTRUCTIONS WERE GIVEN, QUESTIONS WERE ANSWERED, AND THE PATIENT EXPRESSED UNDERSTANDING AND AGREES WITH THE PLAN. I, AMILCAR FAUST, DOCUMENTED THE ABOVE INFORMATION ACTING A SCRIBE FOR DR. SABA. I HAVE REVIEWED THE ABOVE DOCUMENT, WRITTEN BY AMILCAR DELGADOIBEvan AND I VERIFY THAT IT IS [facility]NOST[facility] FACET BLOCK (PAIN)[id number] PROCEDURE CODES 30537 INJ PARAVERT F JNT L/S 1 LEV, MODIFIERS: [place] [id number] INJ PARAVERT F JNT L/S 2 LEV, MODIFIERS: RT [id number] RADXPS IN END [id number] PXD DISPOSITION & COMMUNICATION FOLLOW UP 3 WEEKS ELECTRONICALLY SIGNED BY MAXIMILIANO SABA MD ON 02/13/2017 AT 03:15 PM EDT DISCLAIMER : THIS IS A VISIT SUMMARY EXTRACTED FROM THE dINK CHART. IT IS NOT A COPY OF THE [facility]INK PROGRESS NOTE. MTDD
== END ==
LOC: M PAIN 13:00
PROVIDERS: ATTEND Anesthesiology
DX: G89.29 Other chronic pain (principal); M47.816 Spondylosis without myelopathy or radiculopathy, lumbar region; M47.817 Spondylosis without myelopathy or radiculopathy, lumbosacral region; E55.9 Vitamin D deficiency, unspecified; J44.9 Chronic obstructive pulmonary disease, unspecified; G47.33 Obstructive sleep apnea (adult) (pediatric); F17.210 Nicotine dependence, cigarettes, uncomplicated; K21.9 Gastro-esophageal reflux disease without esophagitis; Z79.82 Long term (current) use of aspirin; Z79.51 Long term (current) use of inhaled steroids; Z79.899 Other long term (current) drug therapy
CPT/HCPCS: 64635; 64636; J3301; Q9967

== ENCOUNTER → 2017-02-23 | Outpatient (CLI) | payer MEDICARE, MEDICAID ==
[~2017-02-23] MED LIST changes: -BUPIVACAINE HCL 0.25% 30 ML VIAL As Ordered ONE; +CIPR500T3 PO; -ISOVUE-M 300 61% 15ML VIAL (Q9967) As Ordered ONE; -LIDOCAINE 1% SDV INJ 30 ML VIAL As Ordered ONE; -TRIAMCINOLONE ACETONIDE SUSP 40 MG/ML VIAL (J3301) As Ordered ONE; +ZOFR4TAB3 PO
--- NOTE | 2017-03-15 01:58 | ECWPNPC ---
PATIENT NAME: NAEL FERRARO : 1970 GENDER: MALE VISIT DATE: 02/23/2017 DISCHARGE DATE: 02/23/17 1302 VISIT LOCKED DATE TIME: PHYSICIAN: EARL BANUELOS RESOURCE: EARL BANUELOS REASON FOR APPOINTMENT 1. POST RF HISTORY OF PRESENT ILLNESS HISTORY OF PRESENT ILLNESS: PAIN THE PATIENT DESCRIBES THE PAIN... FALL RISK SCREENING: SCREENING :NO FALLS IN THE PAST YEAR TODAY'S VISIT: NOTES: S/P RIGHT RFI - NTES A NUMB SENSATION OVER THE LOW BACK. DOES HAVA ASENSE OF PRESSURE ACROSS THE LOW BACK. RATES BACK PAIN 07/24. . CURRENT MEDICATIONS TAKING ASPIRIN EC 81 MG TABLET DELAYED RELEASE 1 TABLET ORALLY ONCE A DAY TAKING VITAMIN D3 1000 UNIT CAPSULE 1 CAPSULE ORALLY ONCE A DAY TAKING CARVEDILOL 6.25 MG TABLET 1 TABLET WITH FOOD ORALLY DAILY TAKING PROAIR HFA 108 (90 BASE) MCG/ACT AEROSOL SOLUTION 2 PUFFS NEEDED INHALATION EVERY 4 HRS TAKING MENS ONE DAILY - TABLET 1 TAB ORALLY DAILY TAKING GABAPENTIN 300 MG CAPSULE 1 CAPSULE ORALLY QHS TAKING OMEPRAZOLE 20 MG CAPSULE DELAYED RELEASE TAKE TWO CAPSULES BY MOUTH TWICE A DAY TAKING BREO ELLIPTA 100-25 MCG/INH AEROSOL POWDER BREATH ACTIVATED USE ONE INHALATION ONCE DAILY TAKING GEMFIBROZIL 600 MG TABLET 1 TABLET ORALLY TWICE A DAY TAKING CRESTOR 10 MG TABLET 1 TABLET ORALLY ONCE A DAY, NOTES: 02/07 1030 TAKING HYDROCODONE-ACETAMINOPHEN 5-325 MG TABLET 1 TABLET NEEDED ORALLY EVERY 6-8 HRS PRN PAIN MDD=3 MEDICATION LIST REVIEWED AND RECONCILED WITH THE PATIENT PAST MEDICAL HISTORY CAD - NO HISTORY OF INFARCT - CARDIAC CATHETERIZATION 08/24 REVEALED NON-OBSTRUCTIVE DISEASE ONLY. ECHOCARDIOGRAM 10/25 NO VALVULAR DISEASE, TRACE MITRAL INSUFFICIENCY, TRACE TRICUSPID INSUFFICIENCY. NUCLEAR STRESS TEST 10/25 - NORMAL PERFUSION NO ISCHEMIA OR INFARCTION. EF CALCULATED AT 52% EKG - 07/28 - NSR 84 BPM (FOLLOWED BY DR. TORRES) LUMBAGO - OSTEOARTHRITIS - DDD HYPERLIPIDEMIA HIATAL HERNIA WITH REFLUX TOBACCO ABUSE WALI DX 02/26, COMPLIANT WITH CPAP. COPD ALLERGIES NO[ALLERGIES VERIFIED] SURGICAL HISTORY B INGUINAL HERNIA REPAIR A CHILD AND AGAIN IN 2010 CARDIAC CATH 2007, 2010 COLONOSCOPY - 05/02 - REPEAT IN 5 YEARS 2010, 2016 SOCIAL HISTORY GENERAL: TOBACCO USE ARE YOU A:CURRENT SMOKER ARE YOU INTERESTED IN QUITTING?THINKING ABOUT QUITTING PRESENTLY TRYING TO QUIT / STILL WORKING ON QUITTING TODAY 02/23/17 PREVIOUS QUIT ATTEMPTS?YES, MORE THAN 6 MONTHS AGO. COUNSELED THE PATIENT ON SMOKING CESSATION, EDUCATION [id number]/2017 PT HAS INFORMATION ABOUT [facility] OUTPATIENT QUITTING CLASSES HOW MANY CIGARETTES A DAY DO YOU SMOKE?6-10 HOW SOON AFTER YOU WAKE UP DO YOU SMOKE YOUR FIRST CIGARETTE?6-30 MIN HOW OFTEN DO YOU SMOKE CIGARETTES?SOME DAYS, BUT NOT EVERY DAY PATIENT COUNSELED ON THE DANGERS OF TOBACCO USE AND URGED TO QUIT:02/08/2017 ADDITIONAL FINDINGS: TOBACCO NON-USER DISCUSSED SMOKING CESSATION WITH PT AND HE HAS BEEN ABLE TO DECREASE FROM 1& 1/2 PACK PER DAY TO 1/2 PACK AND HE IS PLEASED WITH THIS ALCOHOL SCREENING DID YOU HAVE A DRINK CONTAINING ALCOHOL IN THE PAST YEAR?YES POINTS2 INTERPRETATIONNEGATIVE HOW OFTEN DID YOU HAVE A DRINK CONTAINING ALCOHOL IN THE PAST YEAR?MONTHLY OR LESS (1 POINT) HOW MANY DRINKS DID YOU HAVE ON A TYPICAL DAY WHEN YOU WERE DRINKING IN THE PAST YEAR?1 OR 2 (0 POINTS) HOW OFTEN DID YOU HAVE SIX OR MORE DRINKS ON ONE OCCASION IN THE PAST YEAR?LESS THAN MONTHLY (1 POINT) RECREATIONAL DRUG USE DRUG USE?NO CAFFEINE CAFFEINE USE?YES HOW OFTEN AND HOW MUCH? COFFEE 3- 4 POTS DAILY AT TIMES SEXUAL HX HAD SEX IN THE LAST 12 MONTHS (VAGINAL, ORAL, OR ANAL)?YES WITHWOMEN ONLY USE PROTECTION?NO HAVE YOU EVER HAD AN STD?NO HIV / HEP-C SCREENING HIV TEST OFFERED TO PATIENT:YES DATE OFFERED:08/17/2016 TEST ACCEPTED:NO REASON:PATIENT DECLINED HEP-C TEST OFFERED TO PATIENT:YES DATE OFFERED:08/17/2016 TEST ACCEPTED:NO REASON:PATIENT DECLINED DIET: REGULAR. EXERCISE: DAILY. MARITAL STATUS: . OTHERS AT HOME: NONE. ZOROASTRIAN [id number] OTHER LANGUAGE LANGUAGES SPOKEN:PANAMANIAN LEARNING BARRIERS / SPECIAL NEEDS BARRIERS TO LEARNING?NO HEARING IMPAIRED?NO VISION IMPAIRED?YES :CORRECTIVE LENSES COGNITIVELY IMPAIRED?NO READINESS TO LEARN?YES LEARNING PREFERENCES?NO LEARNING CAPABILITIES PRESENT?YES EMOTIONAL BARRIERS?NO SPECIAL DEVICES?NO DIGITAL CONTENT COORDINATOR NEEDED?NO PAIN CLINIC PFS, CLERGY, PUBLIC HEALTH REFERRALS PFS REFERRAL NEEDED?NO CLERGY REFERRAL NEEDED?NO PUBLIC HEALTH REFERRAL NEEDED?NO HAS THE PATIENT BEEN EDUCATED REGARDING HIS/HER PLAN OF CARE?YES HAS THE PATIENT BEEN EDUCATED REGARDING PAIN, THE RISK FOR PAIN, THE IMPORTANCE OF EFFECTIVE PAIN MANAGEMENT, AND THE PAIN ASSESSMENT PROCESS?YES PATIENT: 02/08/17 1350 AD. [facility] DIRECTIVES HEALTH CARE PROXY?NO WOULD YOU LIKE MORE INFORMATION?YES GIVEN DO YOU HAVE A DNR?NO WOULD YOU LIKE MORE INFORMATION?NO LIVING WILL?NO WOULD YOU LIKE MORE INFORMATION?NO POWER OF LIME HIDE INSPECTOR?NO WOULD YOU LIKE MORE INFORMATION?NO DOMESTIC VIOLENCE DO YOU FEEL SAFE IN YOUR ENVIRONMENT?YES HOSPITALIZATION/MAJOR DIAGNOSTIC PROCEDURE CHEST PAIN/ABD PAIN 03/01 CHEST PAIN, CARDIAC CATH 2010 REVIEW OF SYSTEMS REVIEWED BY: PROVIDER: . CONSTITUTIONAL: ANY CHANGE IN YOUR MEDICAL CONDITION? NO . CHILLS NO . FEVER NO . INFECTION: DO YOU HAVE NEW INFECTIONS? NO . DO YOU HAVE HISTORY OF MRSA? NO . MUSCULOSKELETAL: ANY NEW PATTERNS OF PAIN OR NUMBNESS? YES, NECK PAINFUL AND NUMBNESS TO NECK AND IINTO ARMS TOO . GASTROENTEROLOGY: ANY NEW CHANGE IN BOWEL CONTROL? NO . GENITOURINARY: ANY NEW CHANGE IN BLADDER CONTROL? NO . IS THERE A CHANCE YOU COULD BE ? NO . HEMATOLOGY/LYMPH: DO YOU TAKE ANY BLOOD THINNERS? (FOR EXAMPLE- COUMADIN, PLAVIX, AGGRENOX, PLATEL, PRADAXA, OR XARELTO) NO . WHEN WAS YOUR LAST DOSE? DATE: TIME: . NEUROLOGY: HAVE YOU FALLEN IN THE PAST 6 MONTHS? NO . ANY NEW EXTREMITY NUMBNESS OR WEAKNESS? NO . CARDIOLOGY: DO YOU HAVE A PACEMAKER OR DEFIBRILLATOR? NO . RESPIRATORY: HAVE YOU BEEN SICK IN THE PAST WEEK? NO . FEVER NO . FLU LIKE SYMPTOMS? NO . COUGH NO . INTEGUMENTARY: DO YOU HAVE ANY RASHES OR OPEN SORES? NO . ALLERGIC/IMMUNO: ARE YOU ALLERGIC TO SHELLFISH OR IV DYE? NO . ANY NEW ALLERGIES? NO . PSYCHIATRIC: DO YOU HAVE THOUGHTS OF HURTING YOURSELF OR SOMEONE ELSE? NO . ARE YOU ABUSED, NEGLECTED, OR IN AN UNSAFE ENVIRONMENT? NO . ENDOCRINOLOGY: ARE YOU DIABETIC? NO . OTHER: DO YOU NEED ANY PRESCRIPTIONS? NO . IF YES, PLEASE LIST: ____ . ANY NEW PROBLEMS WITH YOUR MEDICATIONS? NO . WHEN DID YOU LAST EAT? ____ . WHEN DID YOU LAST DRINK? ____ . WHAT DID YOU LAST DRINK? ____ . NAME OF PERSON DRIVING YOU HOME? ____ . DO YOU HAVE ANY OTHER QUESTIONS OR CONCERNS NO . VITAL SIGNS WT 194.8 LBS, HT 68 IN, BMI 29.62 INDEX, BP 123/78 MM HG, HR 76 /MIN, RR 16 /MIN, TEMP 98.5 F, OXYGEN SAT % 94%, NA INITIALS TL 1142, REVIEWED BY: NL. ASSESSMENTS SPONDYLOSIS OF LUMBAR REGION WITHOUT MYELOPATHY OR RADICULOPATHY - M47.816 (PRIMARY) SPONDYLOSIS OF LUMBOSACRAL REGION WITHOUT MYELOPATHY OR RADICULOPATHY - M47.817 TREATMENT SPONDYLOSIS OF LUMBAR REGION WITHOUT MYELOPATHY OR RADICULOPATHY NOTES: CONTINUE WALKING, STRETCHES. NO MORE THAN 3/DAY OF PAIN MEDS CALL WHEN MEDS DUE. DISPOSITION & COMMUNICATION ELECTRONICALLY SIGNED BY CHAPIN BERG ON 03/13/2017 AT 08:42 AM EST DISCLAIMER : THIS IS A VISIT SUMMARY EXTRACTED FROM THE [employer] CHART. IT IS NOT A COPY OF THE [employer] PROGRESS NOTE. MELYSSA
== END ==
LOC: M PAIN 11:30
PROVIDERS: ATTEND Nurse Practitioner Family
DX: G89.29 Other chronic pain (principal); M47.816 Spondylosis without myelopathy or radiculopathy, lumbar region; M47.817 Spondylosis without myelopathy or radiculopathy, lumbosacral region; G47.33 Obstructive sleep apnea (adult) (pediatric); J44.9 Chronic obstructive pulmonary disease, unspecified; E55.9 Vitamin D deficiency, unspecified; F17.210 Nicotine dependence, cigarettes, uncomplicated; Z79.82 Long term (current) use of aspirin; Z79.51 Long term (current) use of inhaled steroids; Z79.899 Other long term (current) drug therapy

== ENCOUNTER 2017-02-25 21:36 | Emergency (ER) | payer MEDICARE, MEDICAID ==
[~2017-02-25] VITALS: Ht 172.7 cm; Wt 88.2 kg
[~2017-02-25 21:36] MED LIST changes: -CIPR500T3 PO; -ONDA4TAB6 PO; -ZOFR4TAB3 PO
[2017-02-25] MEDS ORDERED: ONDANSETRON 4MG/2ML VIAL (J2405) IV ONE (22:00)
[2017-02-25] MEDS ORDERED: NS 1,000 ML IV ONE (22:00)
[2017-02-25 22:20] LABS: BASO % 0.3 % (0.0-1.0); EOS # 0.1 10^3/uL (0.0-0.50); IMMATURE GRANULOCYTE % 0.4 % (0-0); LYMPH # 1.3 10^3/uL (1.5-4.5); LYMPH % 11.9 % (24.0-44.0); MEAN CORPUSCULAR HEMOGLOBIN 29.8 pg (27.0-33.0); MEAN CORPUSCULAR HGB CONC 33.9 g/dl (32.0-36.5); MEAN CORPUSCULAR VOLUME 87.8 fl (80.0-96.0); MONO # 1.4 10^3/uL (0.0-0.8); MONO % 13.1 % (0.0-5.0); NEUTROPHILS # 7.8 10^3/uL (1.8-7.7); NEUTROPHILS % 73.3 % (36.0-66.0); PLATELET COUNT, AUTOMATED 315 10^3/uL (150-450); WHITE BLOOD COUNT 10.6 10^3/uL (4.0-10.0)
[2017-02-25] MEDS: MORPHINE 2 MG/ML 1ML SYRINGE IV PRN ×2 (22:25→22:53)
[2017-02-25 22:47] LABS: ALBUMIN 4.5 GM/DL (3.2-5.2); ALBUMIN/GLOBULIN RATIO 1.25 (1.00-1.93); ALKALINE PHOSPHATASE 75 U/L (45-117); ALT/SGPT 36 U/L (12-78); ANION GAP 8 MEQ/L (8-16); AST/SGOT 22 U/L (7-37); BILIRUBIN,DIRECT 0.2 MG/DL (0.0-0.2); BILIRUBIN,TOTAL 0.6 MG/DL (0.2-1.0); BLOOD UREA NITROGEN 31 MG/DL (7-18); CALCIUM LEVEL 9.1 MG/DL (8.5-10.1); CARBON DIOXIDE LEVEL 22 MEQ/L (21-32); CHLORIDE LEVEL 106 MEQ/L (98-107); CREATININE FOR GFR 1.31 MG/DL (0.70-1.30); GLOMERULAR FILTRATION RATE > 60.0 (>60); GLUCOSE, FASTING 92 MG/DL (70-105); POTASSIUM SERUM 4.6 MEQ/L (3.5-5.1); SODIUM LEVEL 136 MEQ/L (136-145); TOTAL PROTEIN 8.1 GM/DL (6.4-8.2)
[2017-02-25] MEDS ORDERED: DICYCLOMINE INJ 20MG/2ML (J0500) IM ONE (23:15)
[2017-02-26 00:41] VITALS: BP 111/74
[2017-02-26] MEDS ORDERED: ONDA4TAB6 PO (00:44)
[2017-02-26] MEDS ORDERED: ONDANSETRON 4 MG ORAL DISINTEGRATING TAB (S0181) PO ONE (00:45)
== END 2017-02-26 00:52 | disposition home or self-care (01) ==
LOC: M ED 21:36
DX: R10.9 Unspecified abdominal pain (principal); R11.2 Nausea with vomiting, unspecified; R19.7 Diarrhea, unspecified; M54.9 Dorsalgia, unspecified; I25.2 Old myocardial infarction; Z95.5 Presence of coronary angioplasty implant and graft; Z79.899 Other long term (current) drug therapy; Z79.82 Long term (current) use of aspirin; Z79.51 Long term (current) use of inhaled steroids; F17.210 Nicotine dependence, cigarettes, uncomplicated
CPT/HCPCS: 80048; 80076; 81001; 83690; 85025; 96374; 96375; 99284; J0500; J2405

== ENCOUNTER → 2017-02-27 | Outpatient (REF) | payer MEDICARE, MEDICAID ==
[~2017-02-27] MED LIST changes: +CIPR500T3 PO; +ONDA4TAB6 PO; +ZOFR4TAB3 PO
[2017-02-27 13:31] LABS: BASO % 0.4 % (0.0-1.0); EOS # 0.3 10^3/uL (0.0-0.50); EOS % 2.8 % (0.0-3.0); IMMATURE GRANULOCYTE % 0.3 % (0-0); LYMPH # 1.5 10^3/uL (1.5-4.5); LYMPH % 14.9 % (24.0-44.0); MEAN CORPUSCULAR HEMOGLOBIN 29.2 pg (27.0-33.0); MEAN CORPUSCULAR HGB CONC 31.7 g/dl (32.0-36.5); MEAN CORPUSCULAR VOLUME 92.1 fl (80.0-96.0); MONO # 1.2 10^3/uL (0.0-0.8); MONO % 11.9 % (0.0-5.0); NEUTROPHILS % 69.7 % (36.0-66.0); PLATELET COUNT, AUTOMATED 298 10^3/uL (150-450); RED CELL DISTRIBUTION WIDTH 13.2 % (11.5-14.5); WHITE BLOOD COUNT 10.1 10^3/uL (4.0-10.0)
[2017-02-27 13:46] LABS: ALBUMIN 4.6 GM/DL (3.2-5.2); ALBUMIN/GLOBULIN RATIO 1.35 (1.00-1.93); ALKALINE PHOSPHATASE 71 U/L (45-117); ALT/SGPT 106 U/L (12-78); ANION GAP 8 MEQ/L (8-16); AST/SGOT 59 U/L (7-37); BILIRUBIN,TOTAL 0.3 MG/DL (0.2-1.0); BLOOD UREA NITROGEN 16 MG/DL (7-18); CALCIUM LEVEL 10.2 MG/DL (8.5-10.1); CARBON DIOXIDE LEVEL 20 MEQ/L (21-32); CHLORIDE LEVEL 115 MEQ/L (98-107); CREATININE FOR GFR 1.04 MG/DL (0.70-1.30); GLOMERULAR FILTRATION RATE > 60.0 (>60); GLUCOSE, FASTING 106 MG/DL (70-105); POTASSIUM SERUM 4.4 MEQ/L (3.5-5.1); SODIUM LEVEL 143 MEQ/L (136-145)
== END ==
LOC: M SFHCADAM 10:21
PROVIDERS: ATTEND Physician Assistant
DX: R74.8 Abnormal levels of other serum enzymes (principal); R19.7 Diarrhea, unspecified; N17.9 Acute kidney failure, unspecified; R94.5 Abnormal results of liver function studies
CPT/HCPCS: 80053; 85025; 86705; 86709; 86803; 87340; 87507; G0463

== ENCOUNTER → 2017-03-02 | Outpatient (REF) | payer MEDICARE, MEDICAID ==
[2017-03-02 20:23] LABS: ALBUMIN 4.7 GM/DL (3.2-5.2); ALBUMIN/GLOBULIN RATIO 1.15 (1.00-1.93); BILIRUBIN,TOTAL 0.8 MG/DL (0.2-1.0); CALCIUM LEVEL 10.3 MG/DL (8.5-10.1); CREATININE FOR GFR 1.45 MG/DL (0.70-1.30); GLOMERULAR FILTRATION RATE 55.3 (>60); POTASSIUM SERUM 3.9 MEQ/L (3.5-5.1); TOTAL PROTEIN 8.8 GM/DL (6.4-8.2)
== END ==
LOC: M SFHCADAM 16:49
PROVIDERS: ATTEND Physician Assistant
DX: A04.1 Enterotoxigenic Escherichia coli infection (principal)
CPT/HCPCS: 80053; G0463

== ENCOUNTER 2017-03-03 11:52 | Observation (INO) | payer MEDICARE, MEDICAID ==
[~2017-03-03] VITALS: Ht 172.7 cm; Wt 85.1 kg
[~2017-03-03 11:52] MED LIST changes: -CIPR500T3 PO; -ZOFR4TAB3 PO
[2017-03-03] MEDS ORDERED: CIPR500T3 PO (12:04)
[2017-03-03] MEDS ORDERED: ONDANSETRON 4MG/2ML VIAL (J2405) IV ONE (12:30)
[2017-03-03] MEDS ORDERED: NS 1,000 ML IV ONE ×2 (12:30→16:00)
[2017-03-03] MEDS ORDERED: CIPROFLOXACIN 400 MG in APPROPRIATE DILUENT 1 EA IV ONE (12:30)
[2017-03-03] MEDS ORDERED: GASTROGRAFIN SOLUTION 30ML (Q9963) PO ONE ×2 (13:00→13:30)
[2017-03-03 13:05] LABS: BASO % 0.4 % (0.0-1.0); EOS # 0.3 10^3/uL (0.0-0.50); EOS % 2.9 % (0.0-3.0); IMMATURE GRANULOCYTE % 0.8 % (0-0); LYMPH # 2.5 10^3/uL (1.5-4.5); LYMPH % 27.5 % (24.0-44.0); MEAN CORPUSCULAR HEMOGLOBIN 29.5 pg (27.0-33.0); MEAN CORPUSCULAR HGB CONC 36.1 g/dl (32.0-36.5); MEAN CORPUSCULAR VOLUME 81.8 fl (80.0-96.0); MONO # 1.1 10^3/uL (0.0-0.8); MONO % 11.7 % (0.0-5.0); NEUTROPHILS # 5.2 10^3/uL (1.8-7.7); NEUTROPHILS % 56.7 % (36.0-66.0); PLATELET COUNT, AUTOMATED 364 10^3/uL (150-450); RED CELL DISTRIBUTION WIDTH 12.4 % (11.5-14.5); WHITE BLOOD COUNT 9.2 10^3/uL (4.0-10.0)
[2017-03-03] MEDS ORDERED: METOCLOPRAMIDE INJ 10MG/2ML VIAL (J2765) IV ONE (13:30)
[2017-03-03 13:32] LABS: ANION GAP 7 MEQ/L (8-16); BLOOD UREA NITROGEN 28 MG/DL (7-18); CALCIUM LEVEL 8.8 MG/DL (8.5-10.1); CARBON DIOXIDE LEVEL 22 MEQ/L (21-32); CHLORIDE LEVEL 104 MEQ/L (98-107); CREATININE FOR GFR 0.96 MG/DL (0.70-1.30); GLOMERULAR FILTRATION RATE > 60.0 (>60); GLUCOSE, FASTING 97 MG/DL (70-105); POTASSIUM SERUM 3.6 MEQ/L (3.5-5.1); SODIUM LEVEL 133 MEQ/L (136-145)
[2017-03-03] MEDS ORDERED: ISOVUE-370 76% 100ML VIAL (Q9967) As Ordered ONE (14:02)
[2017-03-03 14:56] LABS: ALBUMIN/GLOBULIN RATIO 1.12 (1.00-1.93)
[2017-03-03 14:58] LABS: BILIRUBIN,DIRECT 0.2 MG/DL (0.0-0.2); BILIRUBIN,TOTAL 0.7 MG/DL (0.2-1.0); MAGNESIUM LEVEL 1.6 MG/DL (1.8-2.4)
[2017-03-03 14:59] LABS: ALBUMIN 3.7 GM/DL (3.2-5.2)
[2017-03-03] MEDS ORDERED: ZOFR4TAB3 PO (15:54)
[2017-03-03] MEDS ORDERED: ONDANSETRON 4MG/2ML VIAL (J2405) IV PRN (17:45)
[2017-03-03] MEDS ORDERED: ACETAMINOPHEN TAB 650MG DOSE (2X325MG) PO PRN (17:45)
--- NOTE | 2017-03-03 18:56 | HPE ---
DATE OF ADMISSION: 03/03/2017 CHIEF COMPLAINT: Abdominal pain, nausea, vomiting and diarrhea. HISTORY: The patient was in the usual state of health until six days ago when he and his went to [facility]. They both had a Whopper, taking advantage of the 2-for-1 deal. The following morning had abdominal pain, nausea and diarrhea, multiple times a day diarrhea. He was seen in the emergency room (ER) here, sent home, saw his family physician and eventually laboratory was done which indicated some evidence of BUN increase and creatinine increase in the 1.4 neighborhood on the day before admission. Concern was also about hyponatremia. He was still ill this morning and was advised to come to the emergency department (ED). He continues to have nausea and vomiting, abdominal pain, although after being in the ED for several hours, his abdominal pain has begun to relent somewhat, still having some diarrhea. He has had no fevers or chills. No blood in stool, no hematemesis. REVIEW OF SYSTEMS: Reviews no visual changes. No trouble swallowing. No chest pain. No trouble with urination. No numbness, tingling or weakness. No rashes. FAMILY HISTORY: Remarkable for end-stage renal disease in his father, diabetes mellitus, coronary artery disease, hyperlipidemia in mother. The patient him self has history of hypercholesterolemia. MEDICATIONS: Current medications for the patient include: - Cipro started a day or two ago - gemfibrozil 600 mg twice a day - Crestor 10 mg daily - hydrocodone/acetaminophen 5/325 for pain not specified - Zofran 4 mg for nausea - gabapentin 300 mg at bedtime - carvedilol 6.25 mg by mouth daily Apparently the patient also does have a history of atherosclerotic cardiovascular disease (ASCVD) and gastroesophageal reflux disease (GERD) and history of smoking. EXAMINATION: GENERAL: The patient is alert, pleasant, no distress. VITAL SIGNS: 143/89 pressure, pulse 101, respiratory rate 18, temperature 98.1, pulse oximetry 97%. HEENT: Normocephalic, atraumatic. Pupils equal, round, reactive. Oropharynx shows uvular scar with the uvula directed toward the right. The patient reports a toddler incident as a youth where he ingested Drano and suffered severe alkali segura creating a scar. There is no neck mass or tracheal shift. LUNGS: Auscultation of chest shows no wheezing, rales or rhonchi. HEART: Regular rhythm without murmurs, gallops or rubs. ABDOMEN: Bowel sounds are present. He is mildly distended, diffusely mildly to moderately tender. There is no palpable mass. There is mild pelvic shake tenderness. EXTREMITIES: Show no edema and no deformities. NEUROLOGIC: No deficit. Speech is clear. Gait was not tested. LABORATORY DATA: On admission today, his potassium is 3.6, sodium 133, magnesium 1.6. The ER gave him a liter of fluids, and fluids are up running at the present time. He was given metoclopramide as a one-time dose in the ED, ondansetron as a one-time dose. Outpatient laboratory data before today's visit included a gastrointestinal (GI) panel and biochemical testing. The GI panel showed enterotoxigenic Escherichia (E.) coli. On a GI panel done on February 27 ordered by Lizy Young also identified in chemistries on the day of admission sodium is 132, BUN was 42 and creatinine 1.45, calcium 10.3, potassium was 3.9 and today is 3.6. So far, potassium has not been included in his intravenous (IV) fluids administered in the ED. IMPRESSION: Enterotoxigenic Escherichia (E.) coli causing gastroenteritis and severe nausea, vomiting, diarrhea and some dehydration. PLAN: Admitted for rehydration. He has already received a liter of fluids. He will receive another liter overnight with 150 mL/hour. I will give him a magnesium infusion. He will be allowed to eat and drink as tolerated, start with clear liquids, advance as tolerated. He is expressing some hunger at this point, Hopefully, it will go well. If he needs potassium tomorrow, we can give him potassium (K) runs. If he is eating and drinking well tomorrow, anticipate discharge. He will be admitted as an observation patient at this time. He is FULL CODE at this time. [facility]
[2017-03-03] MEDS ORDERED: MAG SULF 1GM/100ML (MAG RUN) 1 GM in APPROPRIATE DILUENT 1 EA IV ONE (19:00)
[2017-03-03] MEDS: OMEPRAZOLE 20 MG CAP PO SCH (21:00)
[2017-03-03] MEDS: GABAPENTIN 300 MG CAP PO SCH (21:00)
[2017-03-03] MEDS: CARVedilol 6.25 MG TAB PO SCH (21:00)
[2017-03-03 22:00] VITALS: BP 130/89
[2017-03-03] MEDS: NS 1,000 ML IV SCH (23:15)
[2017-03-03] MEDS: CIPROFLOXACIN 500 MG TAB PO SCH (23:16)
[2017-03-04] MEDS ORDERED: ALBUTEROL 90 MCG/ACT 8GM HFA INHALER INH PRN
[2017-03-04] MEDS ORDERED: NORCO, ANEXSIA 5/325MG TABLET (HYDROcodone/ACETAMINOPHEN) PO PRN
[2017-03-04] MEDS: NS 1,000 ML IV SCH ×2 (00:40→06:06)
[2017-03-04 06:00] VITALS: BP 118/72
[2017-03-04 06:05] LABS: BASO # 0.1 10^3/uL (0.0-0.2); BASO % 0.5 % (0.0-1.0); EOS # 0.3 10^3/uL (0.0-0.50); EOS % 2.5 % (0.0-3.0); IMMATURE GRANULOCYTE % 0.6 % (0-0); LYMPH # 3.2 10^3/uL (1.5-4.5); LYMPH % 30.4 % (24.0-44.0); MEAN CORPUSCULAR HEMOGLOBIN 29.5 pg (27.0-33.0); MEAN CORPUSCULAR HGB CONC 36.5 g/dl (32.0-36.5); MEAN CORPUSCULAR VOLUME 80.9 fl (80.0-96.0); MONO # 1.1 10^3/uL (0.0-0.8); MONO % 10.6 % (0.0-5.0); NEUTROPHILS # 5.8 10^3/uL (1.8-7.7); NEUTROPHILS % 55.4 % (36.0-66.0); PLATELET COUNT, AUTOMATED 318 10^3/uL (150-450); RED CELL DISTRIBUTION WIDTH 12.4 % (11.5-14.5); WHITE BLOOD COUNT 10.5 10^3/uL (4.0-10.0)
[2017-03-04 06:29] LABS: ALBUMIN/GLOBULIN RATIO 1.03 (1.00-1.93); ALKALINE PHOSPHATASE 65 U/L (45-117); ALT/SGPT 35 U/L (12-78); ANION GAP 7 MEQ/L (8-16); AST/SGOT 10 U/L (7-37); BILIRUBIN,TOTAL 0.5 MG/DL (0.2-1.0); BLOOD UREA NITROGEN 14 MG/DL (7-18); CALCIUM LEVEL 7.9 MG/DL (8.5-10.1); CARBON DIOXIDE LEVEL 23 MEQ/L (21-32); CHLORIDE LEVEL 109 MEQ/L (98-107); GLOMERULAR FILTRATION RATE > 60.0 (>60); GLUCOSE, FASTING 87 MG/DL (70-105); POTASSIUM SERUM 3.1 MEQ/L (3.5-5.1); SODIUM LEVEL 139 MEQ/L (136-145); TOTAL PROTEIN 5.9 GM/DL (6.4-8.2)
--- NOTE | 2017-03-04 06:51 | REP ---
CT ABDOMEN AND PELVIS WITH IV CONTRAST: TECHNIQUE: Axial contrast enhanced images from the lung bases to the pubic symphysis using 100 mL Isovue 370 intravenous contrast material with multiplanar reformations. In the visualized lungs bases there are scattered fibrotic changes. The liver, spleen, adrenals, pancreas, and kidneys are essentially unremarkable in appearance. There is no hydronephrosis. There is mild scattered atherosclerotic calcification of the abdominal aorta without aneurysm. There is no adenopathy. There no free air or free fluid. There is no bowel wall thickening. There is no obstruction. Appendix is normal. No pelvic mass is seen. Urinary bladder is mildly distended and grossly unremarkable. IMPRESSION: No acute abnormalities as discussed above. Signed by Alex Braun MD 03/04/2017 05:26 P
[2017-03-04] MEDS ORDERED: POTASSIUM CHLORIDE 10 MEQ SR TABLET PO ONE (08:00)
--- NOTE | 2017-03-04 08:35 | IPNPDOC ---
Subjective Date Seen The patient was seen on 03/04/17. Subjective Chief Complaint/HPI The patient is a 46-year-old male admitted with a reason for visit of N/V/D. General: Reports: Malaise, Denies: Chills ENT: Denies: Head Aches, Dysphagia Pulmonary: Denies: Dyspnea, Cough Cardiovascular: Denies: Chest Pain, Palpitations, Orthopnea Gastrointestinal: Reports: Abdominal Pain, Diarrhea (nurses report no diarrhea but patient report very frequent stools overnight.), Denies: Vomiting Genitourinary: Denies: Dysuria Hematologic: Denies: Bruising Objective Physical Examination General Exam: Positive: Alert, Cooperative, No Acute Distress Eye Exam: Positive: PERRLA Chest Exam: Positive: Clear to auscultation, Negative: Rales Heart Exam: Positive: Rate Normal, Regular Rhythm Abdomen Exam: Positive: BS Hyperactive, Other (diffusely tender, somewhat distended. 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 will give po and add to IV fluid) Plan/VTE VTE Prophylaxis Ordered?: Yes Plan IVF: Continue, Decrease (add K to IV fluid) If not discharged tomorrow will need status change from OBS to ACUTE VS, I&O, 24H, Fishbone Vital Signs/I&O Vital Signs Date Time Temp Pulse Resp B/P (MAP) Pulse Ox O2 Delivery O2 Flow Rate FiO2 03/04/17 06:00 98.3 71 18 118/72 (87) 96 Room Air I&O- Last 24 Hours up to 6 AM 03/05/17 06:00 Intake Total 360 ml Output Total 300 ml Balance 60 ml Laboratory Data 24H LABS Laboratory Tests 2 03/03/17 12:54: Immature Granulocyte % (Auto) 0.8H, White Blood Count 9.2, Red Blood Count 5.28 , Hemoglobin 15.6, Hematocrit 43.2, Mean Corpuscular Volume 81.8, Mean Corpuscular Hemoglobin 29.5, Mean Corpuscular Hemoglobin Concent 36.1, Red Cell Distribution Width 12.4, Platelet Count 364, Neutrophils (%) (Auto) 56.7, Lymphocytes (%) (Auto) 27.5, Monocytes (%) (Auto) 11.7H, Eosinophils (%) (Auto) 2.9, Basophils (%) (Auto) 0.4, Neutrophils # (Auto) 5.2, Lymphocytes # (Auto) 2.5, Monocytes # (Auto) 1.1H, Eosinophils # (Auto) 0.3, Basophils # (Auto) 0.0, Immature Granulocyte # (Auto) 0.1H, Nucleated Red Blood Cells % (auto) 0.0, Anion Gap 7L, Glomerular Filtration Rate > 60.0, Blood Urea Nitrogen 28H, Creatinine 0.96, Sodium Level 133L, Potassium Level 3.6, Chloride Level 104, Carbon Dioxide Level 22, Calcium Level 8.8, Magnesium Level 1.6L, Aspartate Amino Transf (AST/SGOT) 10, Alanine Aminotransferase (ALT/SGPT) 47, Alkaline Phosphatase 89, Total Bilirubin 0.7, Direct Bilirubin 0.2, Total Protein 7.0#, Albumin 3.7#, Albumin/Globulin Ratio 1.12, Lipase 316 03/04/17 05:43: Immature Granulocyte % (Auto) 0.6H, White Blood Count 10.5H, Red Blood Count 4.34, Hemoglobin 12.8#L, Hematocrit 35.1L, Mean Corpuscular Volume 80.9, Mean Corpuscular Hemoglobin 29.5, Mean Corpuscular Hemoglobin Concent 36.5, Red Cell Distribution Width 12.4, Platelet Count 318, Neutrophils (%) (Auto) 55.4, Lymphocytes (%) (Auto) 30.4, Monocytes (%) (Auto) 10.6H, Eosinophils (%) (Auto) 2.5, Basophils (%) (Auto) 0.5, Neutrophils # (Auto) 5.8, Lymphocytes # (Auto) 3.2, Monocytes # (Auto) 1.1H, Eosinophils # (Auto) 0.3, Basophils # (Auto) 0.1, Immature Granulocyte # (Auto) 0.1H, Nucleated Red Blood Cells % (auto) 0.0, Anion Gap 7L, Glomerular Filtration Rate > 60.0, Blood Urea Nitrogen 14, Creatinine 0.70, Sodium Level 139, Potassium Level 3.1L, Chloride Level 109H, Carbon Dioxide Level 23, Calcium Level 7.9L, Aspartate Amino Transf (AST/SGOT) 10, Alanine Aminotransferase (ALT/SGPT) 35, Alkaline Phosphatase 65, Total Bilirubin 0.5, Total Protein 5.9L, Albumin 3.0L, Albumin/Globulin Ratio 1.03 CBC/BMP Laboratory Tests 03/03/17 12:54 Red Blood Count 5.28, Mean Corpuscular Volume 81.8, Mean Corpuscular Hemoglobin 29.5, Mean Corpuscular Hemoglobin Concent 36.1, Red Cell Distribution Width 12.4 , Neutrophils (%) (Auto) 56.7, Lymphocytes (%) (Auto) 27.5, Monocytes (%) (Auto ) 11.7 H, Eosinophils (%) (Auto) 2.9, Basophils (%) (Auto) 0.4, Neutrophils # ( Auto) 5.2, Lymphocytes # (Auto) 2.5, Monocytes # (Auto) 1.1 H, Eosinophils # ( Auto) 0.3, Basophils # (Auto) 0.0, Calcium Level 8.8 03/04/17 05:43 Red Blood Count 4.34, Mean Corpuscular Volume 80.9, Mean Corpuscular Hemoglobin 29.5, Mean Corpuscular Hemoglobin Concent 36.5, Red Cell Distribution Width 12.4 , Neutrophils (%) (Auto) 55.4, Lymphocytes (%) (Auto) 30.4, Monocytes (%) (Auto ) 10.6 H, Eosinophils (%) (Auto) 2.5, Basophils (%) (Auto) 0.5, Neutrophils # ( Auto) 5.8, Lymphocytes # (Auto) 3.2, Monocytes # (Auto) 1.1 H, Eosinophils # ( Auto) 0.3, Basophils # (Auto) 0.1, Calcium Level 7.9 L, Aspartate Amino Transf ( AST/SGOT) 10, Alanine Aminotransferase (ALT/SGPT) 35, Alkaline Phosphatase 65, Total Bilirubin 0.5, Total Protein 5.9 L, Albumin 3.0 L Chandan Spence MD Mar 04, 2017 08:35
[2017-03-04] MEDS: CIPROFLOXACIN 500 MG TAB PO SCH ×2 (08:45→21:31)
[2017-03-04] MEDS: OMEPRAZOLE 20 MG CAP PO SCH ×2 (08:45→21:31)
[2017-03-04] MEDS: CARVedilol 6.25 MG TAB PO SCH ×2 (08:46→21:32)
[2017-03-04] MEDS: KCL 20MEQ in NS 1000ML 1,000 ML IV SCH ×2 (08:54→21:32)
[2017-03-04] MEDS: ENOXAPARIN 40 MG/0.4 ML SYRINGE (J1650) SC SCH (09:00)
[2017-03-04 14:00] VITALS: BP 117/71
[2017-03-04] MEDS: GABAPENTIN 300 MG CAP PO SCH (21:31)
[2017-03-04 22:00] VITALS: BP 106/66
[2017-03-05 06:00] VITALS: BP_SYST 106; BP_SYST 109; BP_DIAS 60; BP_DIAS 66
[2017-03-05 06:43] LABS: MEAN CORPUSCULAR HEMOGLOBIN 29.1 pg (27.0-33.0); MEAN CORPUSCULAR HGB CONC 35.4 g/dl (32.0-36.5); MEAN CORPUSCULAR VOLUME 82.4 fl (80.0-96.0); PLATELET COUNT, AUTOMATED 322 10^3/uL (150-450); WHITE BLOOD COUNT 12.1 10^3/uL (4.0-10.0)
[2017-03-05 07:00] LABS: ANION GAP 5 MEQ/L (8-16); BLOOD UREA NITROGEN 13 MG/DL (7-18); CALCIUM LEVEL 8.1 MG/DL (8.5-10.1); CARBON DIOXIDE LEVEL 28 MEQ/L (21-32); CHLORIDE LEVEL 108 MEQ/L (98-107); CREATININE FOR GFR 0.74 MG/DL (0.70-1.30); GLOMERULAR FILTRATION RATE > 60.0 (>60); GLUCOSE, FASTING 85 MG/DL (70-105); MAGNESIUM LEVEL 1.8 MG/DL (1.8-2.4); POTASSIUM SERUM 3.5 MEQ/L (3.5-5.1); SODIUM LEVEL 141 MEQ/L (136-145)
[2017-03-05] MEDS: KCL 20MEQ in NS 1000ML 1,000 ML IV SCH (08:42)
[2017-03-05 08:43] VITALS: BP 109/60
[2017-03-05] MEDS: CARVedilol 6.25 MG TAB PO SCH (08:43)
[2017-03-05] MEDS: OMEPRAZOLE 20 MG CAP PO SCH (08:43)
[2017-03-05] MEDS: CIPROFLOXACIN 500 MG TAB PO SCH (08:43)
[2017-03-05] MEDS: ENOXAPARIN 40 MG/0.4 ML SYRINGE (J1650) SC SCH (08:43)
[2017-03-05] MEDS ORDERED: ENOXAPARIN 40 MG/0.4 ML SYRINGE (J1650) SC SCH (09:00)
--- NOTE | 2017-03-05 11:19 | DS.PDOC ---
Discharge Summary General Date of Admission Mar 03, 2017 at 17:33 Date of Discharge 03/05/17 Discharge Summary Consults: None Discharge diagnosis: Infectious diarrhea Secondary diagnosis: Atherosclerotic hernia vascular disease involving retina Hospital course: Patient was admitted on 03/03/17 after developing abdominal pain, nausea, vomiting, diarrhea post eating at [facility]. GI panel performed prior to admission showed enterotoxigenic Escherichia coli. Prior to admission patient was started on a outpatient course of ciprofloxacin. Patient was admitted, started on IV fluids for fluid resuscitation. He was initially started on IV ciprofloxacin, once he was able to tolerate oral medication this was transitioned to oral ciprofloxacin. On 03/04 his diet was advanced to a regular diet. This was continued through discharge. Progress note on date of discharge: Subjective: Patient states that he is doing good today. He was able to tolerate breakfast without difficulty. He states that he is ready to go home. He denies any fevers , chills, sweats, chest pain/pressure, shortness of breath, difficulty breathing , abdominal pain, nausea, vomiting, diarrhea. Objective: Vitals: Temperature 98.4, pulse 64, respiratory rate 20, blood pressure 109/60, pulse ox 96% on room air Gen.: Patient awake, alert and oriented, verbal and able to answer questions appropriately. Patient does not appear to be in any acute distress Heart: Regular rate and rhythm, normal S1-S2. No murmurs, rubs, clicks or gallops Lungs: Clear to auscultation bilaterally. No wheezes, rales or rhonchi Abdomen: Active bowel sounds, soft, nontender, no masses to palpation Labs: CBC: White blood cells 12.1, hemoglobin and hematocrit 11.6/32.8, platelets 322 Chemistry: Sodium 141, potassium 3.5, chloride 108, carbon monoxide 28, BUN 18, creatinine 0.74, glucose 85, calcium 8.1, magnesium 1.8 Assessment: 46-year-old male admitted with infectious diarrhea, now tolerating regular diet , has had resolution of symptoms. He is able to be discharged home at this time. Disposition: Discharge patient to home Follow-up: With primary care provider in 5-7 days Activity: As tolerated Diet: As tolerated Medications on discharge: Logan 5/325 one tablet 3 times a day as needed for pain Albuterol sulfate 2 puff every 4 hours as needed for shortness of breath or wheezing Aspirin 81 mg by mouth daily Carvedilol 6.25 mg by mouth twice a day Vitamin D 1000 units by mouth daily Ciprofloxacin 500 mg by mouth twice daily, continue another 7 days (10 day total course) Briel Ellipta one puff daily Gabapentin 300 mg by mouth daily at bedtime Gemfibrozil 600 mg by mouth twice a day Omeprazole 40 mg by mouth by mouth twice a day Zofran 4 mg by mouth 4 times a day as needed for nausea Crestor 10 mg by mouth daily at bedtime Time spent on discharge: 30 minutes Discharge Medications Scheduled Aspirin (Aspirin) 81 Mg Tab, 81 MG PO DAILY, (Reported) Carvedilol (Carvedilol) 6.25 Mg Tab, 6.25 MG PO BID, (Reported) Cholecalciferol (Vitamin D) 1,000 Unit Tab, 1,000 UNIT PO DAILY, (Reported) Ciprofloxacin HCl (Ciprofloxacin HCl) 500 Mg Tab, 500 MG PO BID, (Reported) FILLED 03/02/17 FOR 10 DAYS Fluticasone/Vilanterol (Breo Ellipta 100-25 Mcg/INH) 1 Inh Inh, 1 PUFF INH DAILY , (Reported) Gabapentin (Gabapentin) 300 Mg Cap, 300 MG PO QHS, (Reported) Gemfibrozil (Gemfibrozil) 600 Mg Tab, 600 MG PO BID, (Reported) Omeprazole (Omeprazole) 20 Mg Cap, 40 MG PO BID, (Reported) Rosuvastatin (Crestor) 10 Mg Tab, 10 MG PO QHS, (Reported) Scheduled PRN Acetaminophen/Hydrocodone (Logan 5-325 mg) 1 Tab Tab, 1 TAB PO TID PRN for PAIN, (Reported) Albuterol Sulfate (Ventolin Hfa) 200 Puff/8 Gm Aers, 2 PUFF INH Q4H PRN for SOB/ WHEEZING, (Reported) Ondansetron (Zofran Odt) 4 Mg Tab, 4 MG PO QID PRN for NAUSEA, (Reported) Allergies Coded Allergies: No Known Drug Allergy (Verified Allergy, Unknown, 05/10/16) GME ATTESTATION GME ATTESTATION My faculty preceptor for this patient encounter was physically present during the encounter and was fully available. All aspects of the patient interview, examination, medical decision making process, and medical care plan development were reviewed and approved by the faculty preceptor. The faculty preceptor is aware and concurs with the plan as stated in the body of this note and will attest to such by his/her cosignature. ATTENDING NOTE I saw and examined Mr. Castaneda this morning; I discussed his care with Dr. Benoit and I agree with his note as documented. (KES) AAMIR BENOIT DO Mar 05, 2017 11:18 REBEKAH GOSS MD Mar 05, 2017 12:41
== END 2017-03-05 12:13 | disposition home or self-care (01) ==
LOC: M ED 11:52 → EDBEDREQSVC 16:30 → M ED INP 17:33 → M MS5PR 21:55
PROVIDERS: ADMIT Family Medicine; ATTEND Family Medicine
DX: A04.1 Enterotoxigenic Escherichia coli infection (principal); I25.10 Atherosclerotic heart disease of native coronary artery without angina pectoris; E87.6 Hypokalemia; E86.0 Dehydration; E78.00 Pure hypercholesterolemia, unspecified; K21.9 Gastro-esophageal reflux disease without esophagitis; Z79.899 Other long term (current) drug therapy; Z79.2 Long term (current) use of antibiotics; Z79.82 Long term (current) use of aspirin; Z79.51 Long term (current) use of inhaled steroids
CPT/HCPCS: 36415; 74177; 80048; 80053; 80076; 83690; 83735; 85025; 85027; 96374; 96375; 99284; G0378; J0744; J2405; J2765; J3475; Q9963; Q9967

== ENCOUNTER → 2017-04-19 | Outpatient (REF) | payer MEDICARE, MEDICAID ==
[2017-04-19 13:04] LABS: ALBUMIN 4.4 GM/DL (3.2-5.2); ALBUMIN/GLOBULIN RATIO 1.63 (1.00-1.93); ALKALINE PHOSPHATASE 58 U/L (45-117); ALT/SGPT 21 U/L (12-78); ANION GAP 7 MEQ/L (8-16); AST/SGOT 15 U/L (7-37); BILIRUBIN,TOTAL 0.4 MG/DL (0.2-1.0); BLOOD UREA NITROGEN 26 MG/DL (7-18); CALCIUM LEVEL 9.3 MG/DL (8.5-10.1); CARBON DIOXIDE LEVEL 25 MEQ/L (21-32); CHLORIDE LEVEL 107 MEQ/L (98-107); CHOLESTEROL LEVEL 206 MG/DL (<200); CHOLESTEROL RISK RATIO 4.577 (<5); CREATININE FOR GFR 0.81 MG/DL (0.70-1.30); GLOMERULAR FILTRATION RATE > 60.0 (>60); GLUCOSE, FASTING 105 MG/DL (70-105); HDL CHOLESTEROL 45 MG/DL (>40); NON-HDL-C 161 MG/DL; POTASSIUM SERUM 4.3 MEQ/L (3.5-5.1); SODIUM LEVEL 139 MEQ/L (136-145); TOTAL 25(OH) VITAMIN D 57.4 NG/ML (30.0-100.0); TOTAL PROTEIN 7.1 GM/DL (6.4-8.2); TRIGLYCERIDES LEVEL 90 MG/DL (<150)
== END ==
LOC: M SFHCADAM 10:25
DX: I25.10 Atherosclerotic heart disease of native coronary artery without angina pectoris (principal); E55.9 Vitamin D deficiency, unspecified
CPT/HCPCS: 80053

== ENCOUNTER 2017-04-20 17:01 | Emergency (ER) | payer MEDICARE, MEDICAID ==
[2017-04-20] MEDS: NORCO, ANEXSIA 5/325MG TABLET (HYDROcodone/ACETAMINOPHEN) PO (17:32)
== END 2017-04-20 18:46 | disposition home or self-care (01) ==
LOC: M ED 17:01
DX: S02.2XXA Fracture of nasal bones, initial encounter for closed fracture (principal); S00.31XA Abrasion of nose, initial encounter; S06.0X0A Concussion without loss of consciousness, initial encounter; V86.52XA Driver of snowmobile injured in nontraffic accident, initial encounter; Y92.89 Other specified places as the place of occurrence of the external cause; Y93.29 Activity, other involving ice and snow; I10 Essential (primary) hypertension; J44.9 Chronic obstructive pulmonary disease, unspecified; K21.9 Gastro-esophageal reflux disease without esophagitis; M54.5 Low back pain; I25.2 Old myocardial infarction; Z87.19 Personal history of other diseases of the digestive system; Z79.899 Other long term (current) drug therapy; Z79.82 Long term (current) use of aspirin; Z79.51 Long term (current) use of inhaled steroids; Y99.8 Other external cause status
CPT/HCPCS: 70450

== ENCOUNTER → 2017-05-25 | Outpatient (CLI) | payer MEDICARE, MEDICAID | LOC: M PAIN 11:30 | DX: M47.816 Spondylosis without myelopathy or radiculopathy, lumbar region (principal); M47.817 Spondylosis without myelopathy or radiculopathy, lumbosacral region; M51.16 Intervertebral disc disorders with radiculopathy, lumbar region; I25.10 Atherosclerotic heart disease of native coronary artery without angina pectoris; E78.5 Hyperlipidemia, unspecified; K21.9 Gastro-esophageal reflux disease without esophagitis; K45.0 Other specified abdominal hernia with obstruction, without gangrene; F17.210 Nicotine dependence, cigarettes, uncomplicated; G47.33 Obstructive sleep apnea (adult) (pediatric); J44.9 Chronic obstructive pulmonary disease, unspecified; Z79.82 Long term (current) use of aspirin; Z79.51 Long term (current) use of inhaled steroids; Z79.891 Long term (current) use of opiate analgesic; Z79.899 Other long term (current) drug therapy | CPT/HCPCS: G0463 ==

== ENCOUNTER → 2017-05-28 | Outpatient (REF) | payer MEDICARE, MEDICAID ==
[2017-05-28 20:52] LABS: ALBUMIN 4.2 GM/DL (3.2-5.2); ALBUMIN/GLOBULIN RATIO 1.45 (1.00-1.93); ALKALINE PHOSPHATASE 55 U/L (45-117); ALT/SGPT 28 U/L (12-78); ANION GAP 8 MEQ/L (8-16); AST/SGOT 18 U/L (7-37); BILIRUBIN,TOTAL 0.4 MG/DL (0.2-1.0); BLOOD UREA NITROGEN 20 MG/DL (7-18); CARBON DIOXIDE LEVEL 29 MEQ/L (21-32); CHLORIDE LEVEL 105 MEQ/L (98-107); CREATININE FOR GFR 0.89 MG/DL (0.70-1.30); GLOMERULAR FILTRATION RATE > 60.0 (>60); GLUCOSE, FASTING 102 MG/DL (70-100); POTASSIUM SERUM 3.9 MEQ/L (3.5-5.1); SODIUM LEVEL 142 MEQ/L (136-145); TOTAL PROTEIN 7.1 GM/DL (6.4-8.2)
[2017-05-28 21:28] LABS: ESTIMATED AVERAGE GLUCOSE 117 MG/DL (60-110); HEMOGLOBIN A1c 5.7 %
== END ==
LOC: M SFHCADAM 15:51
DX: R73.01 Impaired fasting glucose (principal); Z11.4 Encounter for screening for human immunodeficiency virus [HIV]
CPT/HCPCS: 80053

== ENCOUNTER → 2017-06-21 | Outpatient (CLI) | payer MEDICARE, MEDICAID ==
[~2017-06-21] MED LIST changes: -ALBU17IN INH; -ASPI1TAB15 PO; -ASPI81TA45 PO; -BREO1INH INH; +BUPIVACAINE HCL 0.25% 30 ML VIAL As Ordered; -CARV6.25 PO; -CRES10TA32 PO; -FLECTOR1.3 TD; -FLEXERIL OR; -GABA-282 PO; -GEMF600T PO; +ISOVUE-M 300 61% 15ML VIAL (Q9967) As Ordered; +LIDOCAINE 1% SDV INJ 30 ML VIAL As Ordered; -LIPI20TA PO; -MOBI15TA PO; -NICO14DI3 TD; -NORC1TAB4 PO; -OMEP20CA3 PO; -OMEP40CA2 PO; -ONDA4TAB6 PO; -ROBA750T4 PO; -SUCR1TA PO; -TIZA4CAP3 PO; -TIZA4TAB OR; -TRIC1TAB PO; -VARE1TA PO; -VICO5TAB OR; -VITA100066 PO; -VYTO10TA5 PO
== END ==
LOC: M PAIN 10:30
DX: G89.29 Other chronic pain (principal); M47.816 Spondylosis without myelopathy or radiculopathy, lumbar region; M47.817 Spondylosis without myelopathy or radiculopathy, lumbosacral region; E78.5 Hyperlipidemia, unspecified; K21.9 Gastro-esophageal reflux disease without esophagitis; J44.9 Chronic obstructive pulmonary disease, unspecified; F17.210 Nicotine dependence, cigarettes, uncomplicated; Z79.82 Long term (current) use of aspirin; Z79.891 Long term (current) use of opiate analgesic; Z79.899 Other long term (current) drug therapy
CPT/HCPCS: Q9967

== ENCOUNTER → 2017-07-23 | Outpatient (CLI) | payer MEDICARE, MEDICAID | LOC: M PAIN 10:00 | DX: M47.816 Spondylosis without myelopathy or radiculopathy, lumbar region (principal); M47.817 Spondylosis without myelopathy or radiculopathy, lumbosacral region; I25.10 Atherosclerotic heart disease of native coronary artery without angina pectoris; E78.5 Hyperlipidemia, unspecified; J44.9 Chronic obstructive pulmonary disease, unspecified; K21.9 Gastro-esophageal reflux disease without esophagitis; E55.9 Vitamin D deficiency, unspecified; F17.210 Nicotine dependence, cigarettes, uncomplicated; Z79.82 Long term (current) use of aspirin; Z79.891 Long term (current) use of opiate analgesic; Z79.899 Other long term (current) drug therapy | CPT/HCPCS: G0463 ==

== ENCOUNTER → 2017-08-06 | Outpatient (CLI) | payer MEDICARE, MEDICAID ==
[~2017-08-06] MED LIST changes: +TRIAMCINOLONE ACETONIDE SUSP 40 MG/ML VIAL (J3301) As Ordered
== END ==
LOC: M PAIN 13:00
DX: G89.29 Other chronic pain (principal); M47.816 Spondylosis without myelopathy or radiculopathy, lumbar region; M47.817 Spondylosis without myelopathy or radiculopathy, lumbosacral region; I25.10 Atherosclerotic heart disease of native coronary artery without angina pectoris; E78.5 Hyperlipidemia, unspecified; K44.9 Diaphragmatic hernia without obstruction or gangrene; G47.33 Obstructive sleep apnea (adult) (pediatric); J44.9 Chronic obstructive pulmonary disease, unspecified; K21.9 Gastro-esophageal reflux disease without esophagitis; E55.9 Vitamin D deficiency, unspecified; N52.9 Male erectile dysfunction, unspecified; F17.210 Nicotine dependence, cigarettes, uncomplicated; Z79.899 Other long term (current) drug therapy
CPT/HCPCS: J3301

== ENCOUNTER → 2017-08-22 | Outpatient (CLI) | payer MEDICARE, MEDICAID | LOC: M PAIN 11:30 | DX: M47.816 Spondylosis without myelopathy or radiculopathy, lumbar region (principal); M47.817 Spondylosis without myelopathy or radiculopathy, lumbosacral region; I25.10 Atherosclerotic heart disease of native coronary artery without angina pectoris; E78.5 Hyperlipidemia, unspecified; E55.9 Vitamin D deficiency, unspecified; G47.33 Obstructive sleep apnea (adult) (pediatric); F17.210 Nicotine dependence, cigarettes, uncomplicated; Z79.82 Long term (current) use of aspirin; Z79.51 Long term (current) use of inhaled steroids; Z79.899 Other long term (current) drug therapy | CPT/HCPCS: G0463 ==

== ENCOUNTER → 2017-09-04 | Outpatient (CLI) | payer MEDICARE, MEDICAID | LOC: M PAIN 10:15 | DX: G89.29 Other chronic pain (principal); M47.816 Spondylosis without myelopathy or radiculopathy, lumbar region; M47.817 Spondylosis without myelopathy or radiculopathy, lumbosacral region; I25.10 Atherosclerotic heart disease of native coronary artery without angina pectoris; E78.5 Hyperlipidemia, unspecified; K21.9 Gastro-esophageal reflux disease without esophagitis; K44.9 Diaphragmatic hernia without obstruction or gangrene; F17.210 Nicotine dependence, cigarettes, uncomplicated; G47.33 Obstructive sleep apnea (adult) (pediatric); J44.9 Chronic obstructive pulmonary disease, unspecified; E55.9 Vitamin D deficiency, unspecified; Z79.82 Long term (current) use of aspirin; Z79.51 Long term (current) use of inhaled steroids; Z79.899 Other long term (current) drug therapy | CPT/HCPCS: Q9967 ==

== ENCOUNTER → 2017-09-18 | Outpatient (CLI) | payer MEDICARE, MEDICAID | LOC: M PAIN 10:15 | DX: M47.816 Spondylosis without myelopathy or radiculopathy, lumbar region (principal); M47.817 Spondylosis without myelopathy or radiculopathy, lumbosacral region; E78.5 Hyperlipidemia, unspecified; K21.9 Gastro-esophageal reflux disease without esophagitis; I25.10 Atherosclerotic heart disease of native coronary artery without angina pectoris; F17.210 Nicotine dependence, cigarettes, uncomplicated; G47.33 Obstructive sleep apnea (adult) (pediatric); J44.9 Chronic obstructive pulmonary disease, unspecified; E55.9 Vitamin D deficiency, unspecified; Z79.82 Long term (current) use of aspirin; Z79.51 Long term (current) use of inhaled steroids; Z79.891 Long term (current) use of opiate analgesic; Z79.899 Other long term (current) drug therapy | CPT/HCPCS: G0463 ==

== ENCOUNTER → 2017-10-08 | Outpatient (CLI) | payer MEDICARE, MEDICAID ==
[~2017-10-08] MED LIST changes: -ISOVUE-M 300 61% 15ML VIAL (Q9967) As Ordered
== END ==
LOC: M PAIN 13:00
DX: G89.29 Other chronic pain (principal); M47.816 Spondylosis without myelopathy or radiculopathy, lumbar region; M47.817 Spondylosis without myelopathy or radiculopathy, lumbosacral region; I25.10 Atherosclerotic heart disease of native coronary artery without angina pectoris; E78.5 Hyperlipidemia, unspecified; K44.9 Diaphragmatic hernia without obstruction or gangrene; K21.9 Gastro-esophageal reflux disease without esophagitis; F17.210 Nicotine dependence, cigarettes, uncomplicated; G47.33 Obstructive sleep apnea (adult) (pediatric); J44.9 Chronic obstructive pulmonary disease, unspecified; E55.9 Vitamin D deficiency, unspecified; Z79.82 Long term (current) use of aspirin; Z79.51 Long term (current) use of inhaled steroids; Z79.899 Other long term (current) drug therapy
CPT/HCPCS: J3301

== ENCOUNTER → 2017-10-29 | Outpatient (CLI) | payer MEDICARE, MEDICAID | LOC: M PAIN 11:15 | DX: M47.816 Spondylosis without myelopathy or radiculopathy, lumbar region (principal); M47.817 Spondylosis without myelopathy or radiculopathy, lumbosacral region; I25.10 Atherosclerotic heart disease of native coronary artery without angina pectoris; E78.5 Hyperlipidemia, unspecified; K44.9 Diaphragmatic hernia without obstruction or gangrene; K21.9 Gastro-esophageal reflux disease without esophagitis; G47.33 Obstructive sleep apnea (adult) (pediatric); J44.9 Chronic obstructive pulmonary disease, unspecified; E55.9 Vitamin D deficiency, unspecified; N52.9 Male erectile dysfunction, unspecified; F17.210 Nicotine dependence, cigarettes, uncomplicated; Z79.82 Long term (current) use of aspirin; Z79.891 Long term (current) use of opiate analgesic; Z79.899 Other long term (current) drug therapy | CPT/HCPCS: G0463 ==

== ENCOUNTER → 2018-01-29 | Outpatient (CLI) | payer MEDICARE, MEDICAID | LOC: M PAIN 13:00 | DX: M51.16 Intervertebral disc disorders with radiculopathy, lumbar region (principal); M47.816 Spondylosis without myelopathy or radiculopathy, lumbar region; M25.562 Pain in left knee; E78.5 Hyperlipidemia, unspecified; G47.33 Obstructive sleep apnea (adult) (pediatric); K21.9 Gastro-esophageal reflux disease without esophagitis; E55.9 Vitamin D deficiency, unspecified; F17.210 Nicotine dependence, cigarettes, uncomplicated; Z79.82 Long term (current) use of aspirin; Z79.51 Long term (current) use of inhaled steroids; Z79.899 Other long term (current) drug therapy; Z86.73 Personal history of transient ischemic attack (TIA), and cerebral infarction without residual deficits | CPT/HCPCS: G0463 ==

== ENCOUNTER → 2018-01-29 | Outpatient (CLI) | payer MEDICARE, MEDICAID | LOC: M RAD 14:44 | DX: M51.16 Intervertebral disc disorders with radiculopathy, lumbar region (principal) | CPT/HCPCS: 73564 ==

== ENCOUNTER → 2018-03-13 | Outpatient (REF) | payer MEDICARE, MEDICAID ==
[2018-03-13 13:03] LABS: BASO % 0.3 % (0.0-1.0); EOS # 0.2 10^3/uL (0.0-0.50); EOS % 2.2 % (0.0-3.0); HEMATOCRIT 44.4 % (42.0-52.0); HEMOGLOBIN 14.8 g/dl (13.5-17.5); IMMATURE GRANULOCYTE % 0.2 % (0-3.0); LYMPH # 2.1 10^3/uL (1.5-4.5); LYMPH % 23.1 % (24.0-44.0); MEAN CORPUSCULAR HEMOGLOBIN 29.2 pg (27.0-33.0); MEAN CORPUSCULAR HGB CONC 33.3 g/dl (32.0-36.5); MEAN CORPUSCULAR VOLUME 87.7 fl (80.0-96.0); MONO # 0.8 10^3/uL (0.0-0.8); MONO % 9.2 % (0.0-5.0); NEUTROPHILS # 5.8 10^3/uL (1.8-7.7); PLATELET COUNT, AUTOMATED 337 10^3/uL (150-450); RED BLOOD COUNT 5.06 10^6/uL (4.30-6.10); RED CELL DISTRIBUTION WIDTH 12.9 % (11.5-14.5); WHITE BLOOD COUNT 8.9 10^3/uL (4.0-10.0)
[2018-03-13 13:57] LABS: ALBUMIN 3.8 GM/DL (3.2-5.2); ALBUMIN/GLOBULIN RATIO 1.23 (1.00-1.93); ALKALINE PHOSPHATASE 74 U/L (45-117); ALT/SGPT 29 U/L (12-78); ANION GAP 5 MEQ/L (8-16); AST/SGOT 18 U/L (7-37); BILIRUBIN,TOTAL 0.2 MG/DL (0.2-1.0); BLOOD UREA NITROGEN 15 MG/DL (7-18); CALCIUM LEVEL 8.7 MG/DL (8.5-10.1); CARBON DIOXIDE LEVEL 30 MEQ/L (21-32); CHLORIDE LEVEL 105 MEQ/L (98-107); CHOLESTEROL LEVEL 149 MG/DL (<200); CHOLESTEROL RISK RATIO 5.518 (<5); CREATININE FOR GFR 1.08 MG/DL (0.70-1.30); GLOMERULAR FILTRATION RATE > 60.0 (>60); GLUCOSE, FASTING 104 MG/DL (70-100); HDL CHOLESTEROL 27 MG/DL (>40); LDL CHOLESTEROL 71 MG/DL (<100); NON-HDL-C 122 MG/DL; POTASSIUM SERUM 4.4 MEQ/L (3.5-5.1); SODIUM LEVEL 140 MEQ/L (136-145); TOTAL 25(OH) VITAMIN D 48.8 NG/ML (30.0-100.0); TOTAL PROTEIN 6.9 GM/DL (6.4-8.2); TRIGLYCERIDES LEVEL 255 MG/DL (<150)
[2018-03-13 14:05] LABS: ESTIMATED AVERAGE GLUCOSE 111 MG/DL (60-110); HEMOGLOBIN A1c 5.5 %
[2018-03-13 14:07] LABS: MALB URINE SIEMENS 8.6 MG/L; MAU/CREAT RATIO 5.6 MCG/MG (0.0-30.0)
== END ==
LOC: M SFHCADAM 08:57
DX: I25.10 Atherosclerotic heart disease of native coronary artery without angina pectoris (principal); K21.9 Gastro-esophageal reflux disease without esophagitis; E55.9 Vitamin D deficiency, unspecified; R73.01 Impaired fasting glucose; E07.9 Disorder of thyroid, unspecified
CPT/HCPCS: 84443

== ENCOUNTER 2018-04-06 02:37 | Emergency (ER) | payer MEDICARE, MEDICAID ==
[~2018-04-06] VITALS: Ht 172.7 cm; Wt 90.9 kg
[2018-04-06 02:37] VITALS: BP 130/82
[~2018-04-06 02:37] MED LIST changes: +ALBU17IN INH; +ASPI1TAB15 PO; +ASPI81TA45 PO; +BREO1INH INH; -BUPIVACAINE HCL 0.25% 30 ML VIAL As Ordered; +CARV6.25 PO; +CIPR500T3 PO; +CRES10TA32 PO; +FLECTOR1.3 TD; +FLEXERIL OR; +GABA-843 PO; +GEMF600T5 PO; -LIDOCAINE 1% SDV INJ 30 ML VIAL As Ordered; +LIPI20TA PO; +MOBI15TA PO; +NICO14DI3 TD; +NORC1TAB4 PO; +OMEP20CA3 PO; +OMEP40CA2 PO; +ONDA4TAB6 PO; +ROBA750T4 PO; +SUCR1TA PO; +TIZA4CAP PO; +TIZA4TAB OR; -TRIAMCINOLONE ACETONIDE SUSP 40 MG/ML VIAL (J3301) As Ordered; +TRIC1TAB PO; +VARE1TA PO; +VICO5TAB OR; +VITA100066 PO; +VYTO10TA5 PO; +ZOFR4TAB14 PO
[2018-04-06 04:05] LABS: INFLUENZA A AMPLIFICATION NEGATIVE (NEGATIVE); INFLUENZA B AMPLIFICATION NEGATIVE (NEGATIVE)
[2018-04-06] MEDS ORDERED: CIPRODEX AS (04:24)
[2018-04-06] MEDS ORDERED: AMOX500C PO (04:24)
[2018-04-06] MEDS ORDERED: AMOXICILLIN 500 MG CAP PO ONE (04:30)
== END 2018-04-06 04:45 | disposition home or self-care (01) ==
LOC: M ED 02:37
DX: H60.90 Unspecified otitis externa, unspecified ear (principal); H66.90 Otitis media, unspecified, unspecified ear; Z72.0 Tobacco use

== ENCOUNTER → 2018-05-01 | Outpatient (CLI) | payer MEDICARE, MEDICAID ==
[~2018-05-01] MED LIST changes: +AMOX500C PO; +CIPRODEX AS
--- NOTE | 2018-05-16 01:32 | ECWPNPC ---
PATIENT NAME: MEHUL FERRARO : 1970 GENDER: MALE VISIT DATE: 05/01/2018 DISCHARGE DATE: 05/01/18 1433 VISIT LOCKED DATE TIME: PHYSICIAN: RYAN ORTEGA RESOURCE: RYAN ORTEGA REASON FOR APPOINTMENT 1. MEDS FORMER PT OF SW HISTORY OF PRESENT ILLNESS HISTORY OF PRESENT ILLNESS: HERE FOR ROUTINE F/U AND MANAGEMENT OF CHRONIC GENERALIZED BACK PAIN AND LEFT LEG PAIN.STARTED ON TIZANIDINE AT LAST VISIT WITHOUT MUCH IMPROVEMENT.RATING PAIN VAS 7/10.DESCRIBES PAIN CONTINUOUS AND ACHING. PAIN THE PATIENT DESCRIBES THE PAIN... FALL RISK SCREENING: SCREENING :NO FALLS IN THE PAST YEAR CURRENT MEDICATIONS TAKING ASPIRIN EC 81 MG TABLET DELAYED RELEASE 1 TABLET ORALLY ONCE A DAY TAKING VITAMIN D3 1000 UNIT CAPSULE 1 CAPSULE ORALLY ONCE A DAY TAKING CARVEDILOL 6.25 MG TABLET 1 TABLET WITH FOOD ORALLY DAILY TAKING MENS ONE DAILY - TABLET 1 TAB ORALLY DAILY TAKING OMEPRAZOLE 20 MG CAPSULE DELAYED RELEASE TAKE TWO CAPSULES BY MOUTH TWICE A DAY TAKING BREO ELLIPTA 100-25 MCG/INH AEROSOL POWDER BREATH ACTIVATED USE ONE INHALATION ONCE DAILY TAKING GEMFIBROZIL 600 MG TABLET 1 TABLET ORALLY TWICE A DAY TAKING CRESTOR 10 MG TABLET 1 TABLET ORALLY ONCE A DAY TAKING GABAPENTIN 300 MG CAPSULE 1 CAPSULE ORALLY QHS TAKING PROAIR HFA 108 (90 BASE) MCG/ACT AEROSOL SOLUTION 2 PUFFS NEEDED INHALATION EVERY 4 HRS TAKING HYDROCODONE-ACETAMINOPHEN 5-325 MG TABLET 1 TABLET NEEDED ORALLY EVERY 8-12 HRS PRN PAIN MDD=2 TAKING CETIRIZINE HCL 10 MG TABLET 1 TABLET ORALLY ONCE A DAY NOT-TAKING AMOXICILLIN 500 MG CAPSULE 2 TABLETS ORALLY EVERY 12 HRS NOT-TAKING TIZANIDINE HCL 2 MG TABLET 1 TABLET NEEDED ORALLY BID PRN CALF TIGHTNSS NOT-TAKING CHANTIX 1 MG TABLET 1 TABLET ORALLY TWICE A DAY MEDICATION LIST REVIEWED AND RECONCILED WITH THE PATIENT PAST MEDICAL HISTORY CAD - NO HISTORY OF INFARCT - CARDIAC CATHETERIZATION 08/24 REVEALED NON-OBSTRUCTIVE DISEASE ONLY. ECHOCARDIOGRAM 10/25 NO VALVULAR DISEASE, TRACE MITRAL INSUFFICIENCY, TRACE TRICUSPID INSUFFICIENCY. NUCLEAR STRESS TEST 10/25 - NORMAL PERFUSION NO ISCHEMIA OR INFARCTION. EF CALCULATED AT 52% EKG - 07/28 - NSR 84 BPM (FOLLOWED BY DR. TORRES) LUMBAGO - OSTEOARTHRITIS - DDD HYPERLIPIDEMIA HIATAL HERNIA WITH REFLUX TOBACCO ABUSE WALI DX 02/26, COMPLIANT WITH CPAP. COPD GERD VIT D DEF ED ALLERGIES N.K.D.A. SURGICAL HISTORY B INGUINAL HERNIA REPAIR A CHILD AND AGAIN IN 2010 CARDIAC CATH 2007, 2010 COLONOSCOPY - 05/02 - REPEAT IN 5 YEARS 2010, 2016 FAMILY HISTORY FATHER: 77 YRS, ESRD MOTHER: 75 YRS, DM2, CAD, HYPERLIPIDEMIA SIBLINGS: 3 BROTHERS - UNKNOWN HX 1 SISTER (D) 50 YO - [place] 2 SISTERS - UNKNOWN HX DAUGHTER(S): ALIVE 28 YRS, NO KNOWN MEDICAL PROBLEMS - ESTRANGED 3 BROTHER(S) , 3 SISTER(S) . 1DAUGHTER(S) . SOCIAL HISTORY GENERAL: TOBACCO USE ARE YOU A:CURRENT SMOKER ARE YOU INTERESTED IN QUITTING?THINKING ABOUT QUITTING TRYING TO QUIT CURRENTLY BUT DID STOP CHANTIX. PREVIOUS QUIT ATTEMPTS?YES, MORE THAN 6 MONTHS AGO. COUNSELED THE PATIENT ON SMOKING CESSATION, EDUCATION [id number]/16/2019 HOW MANY CIGARETTES A DAY DO YOU SMOKE?5 OR LESS HOW SOON AFTER YOU WAKE UP DO YOU SMOKE YOUR FIRST CIGARETTE?6-30 MIN HOW OFTEN DO YOU SMOKE CIGARETTES?SOME DAYS, BUT NOT EVERY DAY PATIENT COUNSELED ON THE DANGERS OF TOBACCO USE AND URGED TO QUIT:05/01/2018 LUNG CANCER SCREENING SMOKING STATUS:CURRENT SMOKER BMI CARE GOAL FOLLOW-UP ABOVE NORMAL BMI FOLLOW-UPWEIGHT MONITORING ALCOHOL SCREENING DID YOU HAVE A DRINK CONTAINING ALCOHOL IN THE PAST YEAR?YES HOW OFTEN DID YOU HAVE A DRINK CONTAINING ALCOHOL IN THE PAST YEAR?MONTHLY OR LESS (1 POINT) POINTS1 INTERPRETATIONNEGATIVE RECREATIONAL DRUG USE DRUG USE?NO CAFFEINE CAFFEINE USE?YES HOW OFTEN AND HOW MUCH? COFFEE 3- 4 CUPS DAILY AT TIMES SEXUAL HX HAD SEX IN THE LAST 12 MONTHS (VAGINAL, ORAL, OR ANAL)?YES WITHWOMEN ONLY HIV / HEP-C SCREENING HIV TEST OFFERED TO PATIENT:YES DATE OFFERED:05/28/2017 TEST ACCEPTED:NO HEP-C TEST OFFERED TO PATIENT:YES DATE OFFERED:08/17/2016 REASON:PATIENT DECLINED TEST ACCEPTED:NO REASON:PATIENT DECLINED CONGREGATION [id number] NONE LANGUAGE LANGUAGES SPOKEN:GERMAN LEARNING BARRIERS / SPECIAL NEEDS BARRIERS TO LEARNING?NO HEARING IMPAIRED?NO VISION IMPAIRED?YES COGNITIVELY IMPAIRED?NO :CORRECTIVE LENSES READINESS TO LEARN?YES LEARNING PREFERENCES?NO LEARNING CAPABILITIES PRESENT?YES EMOTIONAL BARRIERS?NO SPECIAL DEVICES?NO QUARRY PLUG AND FEATHER DRILLER NEEDED?NO DOMESTIC VIOLENCE DO YOU FEEL SAFE IN YOUR ENVIRONMENT?YES DIET: REGULAR. EXERCISE: DAILY. MARITAL STATUS: . OTHERS AT HOME: NONE. NEW PATIENT PAIN DIARY FROM 0-10, WHAT LEVEL IS YOUR PAIN TODAY?7.5 PAIN CLINIC PFS, CLERGY, PUBLIC HEALTH REFERRALS PFS REFERRAL NEEDED?NO CLERGY REFERRAL NEEDED?NO PUBLIC HEALTH REFERRAL NEEDED?NO WAS THE PROVIDER NOTIFIED OF ANY PERTINENT INFO?YES HAS THE PATIENT BEEN EDUCATED REGARDING HIS/HER PLAN OF CARE?YES HAS THE PATIENT BEEN EDUCATED REGARDING PAIN, THE RISK FOR PAIN, THE IMPORTANCE OF EFFECTIVE PAIN MANAGEMENT, AND THE PAIN ASSESSMENT PROCESS?YES ADVANCE DIRECTIVE ADVANCE DIRECTIVE DISCUSSED WITH PATIENT:YES PT HAS NO ADVANCED DIRECTIVES, DECLINED INFORMATION OR ASSISTANCE AT THIS TIME. REVIEWED WITH PATIENT 01/29/18 1331 JSRREVIEWED WITH PT 05/01/18 1345 LAS. HOSPITALIZATION/MAJOR DIAGNOSTIC PROCEDURE CHEST PAIN/ABD PAIN 03/01 CHEST PAIN, CARDIAC CATH 2010 [facility] 02/2017 REVIEW OF SYSTEMS REVIEWED BY: PROVIDER: RYAN CUNNINGHAM . CONSTITUTIONAL: ANY CHANGE IN YOUR MEDICAL CONDITION? NO . CHILLS NO . FEVER NO . INFECTION: DO YOU HAVE NEW INFECTIONS? NO . DO YOU HAVE HISTORY OF MRSA? NO . MUSCULOSKELETAL: ANY NEW PATTERNS OF PAIN OR NUMBNESS? PT REPORTS A THROBBING/STABBING PAIN IN LEFT LEG THAT HAS BEEN GOING ON FOR A FEW MONTHS, PT STATES IT IS A CONTINUOUS PAIN. . GASTROENTEROLOGY: ANY NEW CHANGE IN BOWEL CONTROL? NO . GENITOURINARY: ANY NEW CHANGE IN BLADDER CONTROL? NO . IS THERE A CHANCE YOU COULD BE ? NO . HEMATOLOGY/LYMPH: DO YOU TAKE ANY BLOOD THINNERS? (FOR EXAMPLE- COUMADIN, PLAVIX, AGGRENOX, PLATEL, PRADAXA, OR XARELTO) NO . WHEN WAS YOUR LAST DOSE? DATE: TIME: . NEUROLOGY: HAVE YOU FALLEN IN THE PAST 12 MONTHS? NO . ANY NEW EXTREMITY NUMBNESS OR WEAKNESS? NO . CARDIOLOGY: DO YOU HAVE A PACEMAKER OR DEFIBRILLATOR? NO . RESPIRATORY: HAVE YOU BEEN SICK IN THE PAST WEEK? YES PT HAS HAD A SORE THROAT AND AN EAR INFECTION FOR THE LAST MONTH. TREATED WITH AMOXICILLIN BY YOUR PRIMARY, PT STATES IT HAS NOT YET RESOLVED EVEN AFTER TAKING ANTIBIOTICS. STARTED ON ZYRTEC. . FEVER NO . FLU LIKE SYMPTOMS? NO . COUGH NO . INTEGUMENTARY: DO YOU HAVE ANY RASHES OR OPEN SORES? NO . ALLERGIC/IMMUNO: ARE YOU ALLERGIC TO IV DYE? NO . ANY NEW ALLERGIES? NO . PSYCHIATRIC: DO YOU HAVE THOUGHTS OF HURTING YOURSELF OR SOMEONE ELSE? NO . ARE YOU ABUSED, NEGLECTED, OR IN AN UNSAFE ENVIRONMENT? NO . ENDOCRINOLOGY: ARE YOU DIABETIC? NO . OTHER: DO YOU NEED ANY PRESCRIPTIONS? NO . IF YES, PLEASE LIST: ____ . ANY NEW PROBLEMS WITH YOUR MEDICATIONS? NO . WHEN DID YOU LAST EAT? ____ . WHEN DID YOU LAST DRINK? ____ . WHAT DID YOU LAST DRINK? ____ . NAME OF PERSON DRIVING YOU HOME? ____ . DO YOU HAVE ANY OTHER QUESTIONS OR CONCERNS NO . VITAL SIGNS WT 210.8 LBS, HT 68 IN, BMI 32.05 INDEX, BP 130/79 MM HG, HR 86 /MIN, RR 18 /MIN, TEMP 98.9 F, OXYGEN SAT % 93%, SAFE IN ENV? (Y/N) YES, NA INITIALS SC 13:25, REVIEWED BY: TRAVIS. EXAMINATION GENERAL EXAMINATION: GENERAL APPEARANCE:AWAKE,ALERT ,PLEAASANT . PSYCHAFFECT NORMAL . LUNGS:LUNG HARRY ARE CLEAR TO AUSCULTATION BILATERALLY. GOOD MOVEMENT OF AIR . HEART:S1, S2 IN A REGULAR RATE AND RHYTHM. NO SIGNIFICANT MURMURS, RUBS OR GALLOPS NOTED . MUSCULOSKELETAL:WEAK OVER BOTH LOWER EXTREMITIES. LUMBAR SACRAL SPINEPALPATION: + FOR PAIN OVER L/S SPINE. + FOR PAIN OVER L/S PARASPINALS . NEUROLOGIC EXAM:NORMAL SENSATION LIGHT TOUCH BILAT. LOWER EXTREMITIES . DIAGNOSTIC TESTS REVIEWEDMRI L/S [id number] XRAY-LEFT TIB/FIB AND LEFT KNEE-01/2018. ASSESSMENTS LUMBAR DISC DISEASE WITH RADICULOPATHY - M51.16 (PRIMARY) MYALGIA, OTHER SITE - M79.18 TREATMENT LUMBAR DISC DISEASE WITH RADICULOPATHY CONTINUE GABAPENTIN CAPSULE, 300 MG, 1 CAPSULE, ORALLY, QHS REFILL HYDROCODONE-ACETAMINOPHEN TABLET, 5-325 MG, 1 TABLET NEEDED, ORALLY, EVERY 8-12 HRS PRN PAIN MDD=2, 30 DAY(S), 60, REFILLS 0 START GABAPENTIN CAPSULE, 100 MG, 1 CAPSULE, ORALLY, 1 IN AM AND 1 MID DAY, 30 DAY(S), 60, REFILLS 2 [facility] MRI SPINE, L.S. WITHOUT [id number] NOTES: ISTOP REGISTRY REVIEWED AND DEMONSTRATES COMPLLIANCE. (REF #[id number] ) BRINGS IN MEDICATIONS WHICH IS APPROPRIATE FOR WHAT WAS DISPENSED. RECENT URINE TOXICOLOGY REVIEWED. NO UNAUTHORIZED MEDICATIONS. NO ILLICIT SUBSTANCES AND PRESCRIBED MEDICATIONS WERE PRESENT. URINE TOX TODAY, RISKS AND BENEFITS OF NARCOTIC/OPIOD MEDICATIONS WERE REVIEWED WITH PATIENT - THIS INCLUDES BUT IS NOT LIMITED TO RISK OF DEPENDANCE/DEVELOPMENT OF ADDICTION, MOOD DISTURBANCE AND DEPRESSION, OSTEOPOROSIS, HORMONAL AND LABIDAL CHANGES, RESPIRATORY DEPRESSION AND . PATIENT IS ADVISED NOT TO DRIVE OR DRINK ALCOHOL WHILE ON THESE MEDICATIONS, [facility] NARCOTIC AGREEMENT WAS UPDATE REVIEWED AND SIGNED TODAY BY THE PATIENT. SEE ATTACHED DOCUMENT FOR FULL DETAILS; SPECIFIC ISSUES WERE REVIEWED: 1) KEEP PAIN MEDS IN THEIR ORIGINAL BOTTLES AND ANY WEEKLY PLANNERS ARE TO BE BROUGHT TO THE PAIN CENTER AT EVERY VISIT. 2) THE PATIENT IS NOT TO INCREASE DOSING OR TIMING OF THEIR PAIN MEDICATION WITHOUT SPECIFIC DIRECTION OF THEIR PAIN CENTERPROVIDER (NOT ER OR OTHER PROVIDERS). 3) ALL PAIN MEDS ARE TO BE KEPT SECURED, IN A LOCKED BOX. 4) NO PAIN MEDS ARE TO BE SHARED WITH ANY OTHER PERSON FOR ANY REASON. 5) NO PAIN MEDS MAY BE TAKEN FROM ANY FRIENDS OR RELATIVES FOR ANY REASON 6) NO MEDS OR SUBSTANCES WHICH ARE NOT LEGAL ARE TO BE USED- NO MARIJUANA, NO COCAINE, AMPHETAMINES, HEROIN, OR OTHERS ARE EVER TO BE USED. 7)URINE TESTING IS DONE TO ACCOUNT FOR MEDS AND SUBSTANCES BEING TAKEN AND WILL BE DONE RANDOMLY. PREVENTIVE MEDICINE PAIN CLINIC TEACHING: MEDICATIONS GABAPENTIN MED CHANGES REVIEWED WITH PT, PT VERBALIZES UNDERSTANDING. LAS 05/01/18 1430. PROCEDURE CODES FA211 ESTABILISHED PATIENT [facility] FACILITY CHARGE DISPOSITION & COMMUNICATION FOLLOW UP 6-8WKS ELECTRONICALLY SIGNED BY MARISA CEVALLOS ON 05/15/2018 AT 10:01 AM EST DISCLAIMER : THIS IS A VISIT SUMMARY EXTRACTED FROM THE [employer] CHART. IT IS NOT A COPY OF THE [employer] PROGRESS NOTE. MELYSSA
== END ==
LOC: M PAIN 13:30
PROVIDERS: ATTEND Nurse Practitioner Family
DX: M51.16 Intervertebral disc disorders with radiculopathy, lumbar region (principal); M79.18 Myalgia, other site; I25.10 Atherosclerotic heart disease of native coronary artery without angina pectoris; E78.5 Hyperlipidemia, unspecified; J44.9 Chronic obstructive pulmonary disease, unspecified; G47.30 Sleep apnea, unspecified; K21.9 Gastro-esophageal reflux disease without esophagitis; E55.9 Vitamin D deficiency, unspecified; F17.210 Nicotine dependence, cigarettes, uncomplicated; Z79.82 Long term (current) use of aspirin; Z79.51 Long term (current) use of inhaled steroids; Z79.899 Other long term (current) drug therapy

== ENCOUNTER → 2018-05-04 | Outpatient (CLI) | payer MEDICARE, MEDICAID ==
--- NOTE | 2018-05-05 07:13 | REP ---
MRI LUMBAR SPINE WITHOUT CONTRAST: 05/04/2018. Clinical history: Lumbar disc disease with radiculopathy. Worsening pain. Comparison: CT lumbar spine 02/21/2016. Technique: Sagittal T1, T2 and STIR images with axial T11-T2 sequences provided. Findings: Normal lumbar lordosis is maintained and unchanged from previous CT vertebral body heights and marrow signal are grossly intact except for some minor anterior superior endplate degenerative signal from L1-L4. There is narrowing of the disc space at the L2-3 level with less narrowing at L3-4. There is slight loss of disc water signal at all of these levels. The other disc levels heights are maintained. Conus terminates at T12-L1. At T12-L1 level shows minor disc bulge without spinal or foraminal stenosis. At L1-L2 there is no disc bulge herniation and no spinal or foraminal stenosis. At L2-L3 some broad-based diffuse disc bulge with left paracentral disc protrusion which abuts and displaces the left L3 nerve root in the canal. Cross-sectional area of the central canal was ample. The left foramen was adequate. The L2 nerve roots show no compression in the foramina. At L3-4 there is a central and left paracentral disc bulge extending into the foramen on that left side and abutting and displacing the left L4 nerve root, however the cross-sectional area of the canal was adequate. The foramina show adequate perineural fat without L3 nerve root compression. At L4-5 there is a broad-based disc bulge centrally and this abuts the L5 roots in the canal without narrowing of the central canal. The foramina are adequate. No L4 nerve root compression in the foramina. At L5-S1 small central disc protrusion extending slightly towards the left. This does not abut or compress the S1 nerve roots within the central canal. Foramina are narrowed and the L5 roots show some compression. Facet arthropathy is greatest at the L4-5 and L5-S1. There is a few millimeters of retrolisthesis of L2-3 as on the previous study. There is no spondylolysis. Impression: 1. Diffuse disc bulge with a disc protrusion of that left paracentral left lateral disc seen extending into the foramen at L2-L3. This is somewhat increased since the previous CT and abuts the left L3 nerve root. Cross-sectional area of the canal adequate. No nerve root compression in the foramen for those L2 roots. 2. L3-4 central and left paracentral disc bulge displacing left L4 nerve root in the canal but cross-sectional area adequate and no L3 nerve root compression in the foramina. 3. L4-5 level with broad-based disc bulge centrally abutting the L5 roots without central canal or foraminal stenosis. 4. Broad-based central disc bulge protrusion at L5-S1. This neither abuts or compresses the S1 nerve roots or causes any significance central canal stenosis. The L4-5 nerve roots in the foramina do show some encroachment impression due to combined factors. Overall there is the same level of degenerative change or slight progression at a couple of levels described above. Electronically Signed by Domenic Wright MD 05/05/2018 09:51 A
== END ==
LOC: M RAD 14:11
PROVIDERS: ATTEND Nurse Practitioner Family
DX: M51.26 Other intervertebral disc displacement, lumbar region (principal)

== ENCOUNTER → 2018-07-01 | Outpatient (CLI) | payer MEDICARE, MEDICAID ==
--- NOTE | 2018-07-17 02:00 | ECWPNPC ---
PATIENT NAME: MEHUL FERRARO : 1970 GENDER: MALE VISIT DATE: 07/01/2018 DISCHARGE DATE: 07/01/18 1428 VISIT LOCKED DATE TIME: PHYSICIAN: RYAN ORTEGA RESOURCE: RYAN ORTEGA REASON FOR APPOINTMENT 1. MEDS HISTORY OF PRESENT ILLNESS HISTORY OF PRESENT ILLNESS: HERE FOR ROUTINE F/U AND MANAGEMENT OF CHRONIC GENERALIZED BACK PAIN AND LEFT LEG PAIN.WE INCREASED GABAPENTIN AT LAST VISIT AND HE FEELS THIS MAY BE HELPING.CT OF L/S SPINE IS REVIEWED W PATIENT AND SIGNIFICANT OTHER.SHOWING SOME PROGRESSION OF LUMBAR ARTHRITIS FROM PREVIOUS EXAM.RATING PAIN VAS 7/10.DESCRIBES PAIN CONTINUOUS AND ACHING. PAIN THE PATIENT DESCRIBES THE PAIN... THE PATIENT DESCRIBES THE PAIN... FALL RISK SCREENING: SCREENING : NO FALLS IN THE PAST YEAR. CURRENT MEDICATIONS TAKING ASPIRIN EC 81 MG TABLET DELAYED RELEASE 1 TABLET ORALLY ONCE A DAY TAKING VITAMIN D3 1000 UNIT CAPSULE 1 CAPSULE ORALLY ONCE A DAY TAKING CARVEDILOL 6.25 MG TABLET 1 TABLET WITH FOOD ORALLY DAILY TAKING MENS ONE DAILY - TABLET 1 TAB ORALLY DAILY TAKING BREO ELLIPTA 100-25 MCG/INH AEROSOL POWDER BREATH ACTIVATED USE ONE INHALATION ONCE DAILY TAKING GEMFIBROZIL 600 MG TABLET 1 TABLET ORALLY TWICE A DAY TAKING CRESTOR 10 MG TABLET 1 TABLET ORALLY ONCE A DAY TAKING PROAIR HFA 108 (90 BASE) MCG/ACT AEROSOL SOLUTION 2 PUFFS NEEDED INHALATION EVERY 4 HRS TAKING CETIRIZINE HCL 10 MG TABLET 1 TABLET ORALLY ONCE A DAY TAKING GABAPENTIN 300 MG CAPSULE 1 CAPSULE ORALLY QHS TAKING OMEPRAZOLE 20 MG CAPSULE DELAYED RELEASE TAKE TWO CAPSULES BY MOUTH TWICE A DAY TAKING HYDROCODONE-ACETAMINOPHEN 5-325 MG TABLET 1 TABLET NEEDED ORALLY EVERY 8-12 HRS PRN PAIN MDD=2 TAKING GABAPENTIN 100 MG CAPSULE 1 CAPSULE ORALLY 1 IN AM AND 1 MID DAY NOT-TAKING CHANTIX 1 MG TABLET 1 TABLET ORALLY TWICE A DAY DISCONTINUED AMOXICILLIN 500 MG CAPSULE 2 TABLETS ORALLY EVERY 12 HRS DISCONTINUED TIZANIDINE HCL 2 MG TABLET 1 TABLET NEEDED ORALLY BID PRN CALF TIGHTNSS MEDICATION LIST REVIEWED AND RECONCILED WITH THE PATIENT PAST MEDICAL HISTORY CAD - NO HISTORY OF INFARCT - CARDIAC CATHETERIZATION 08/24 REVEALED NON-OBSTRUCTIVE DISEASE ONLY. ECHOCARDIOGRAM 10/25 NO VALVULAR DISEASE, TRACE MITRAL INSUFFICIENCY, TRACE TRICUSPID INSUFFICIENCY. NUCLEAR STRESS TEST 10/25 - NORMAL PERFUSION NO ISCHEMIA OR INFARCTION. EF CALCULATED AT 52% EKG - 07/28 - NSR 84 BPM (FOLLOWED BY DR. TORRES) LUMBAGO - OSTEOARTHRITIS - DDD HYPERLIPIDEMIA HIATAL HERNIA WITH REFLUX TOBACCO ABUSE WALI DX 02/26, COMPLIANT WITH CPAP. COPD GERD VIT D DEF ED ALLERGIES N.K.D.A. SURGICAL HISTORY B INGUINAL HERNIA REPAIR A CHILD AND AGAIN IN 2010 CARDIAC CATH 2007, 2010 COLONOSCOPY - 05/02 - REPEAT IN 5 YEARS 2010, 2016 FAMILY HISTORY FATHER: 77 YRS, KIDNEY INFECTION CAUSING RENAL FAILURE MOTHER: 75 YRS, DM2, CAD, HYPERLIPIDEMIA SIBLINGS: 3 BROTHERS - UNKNOWN HX 1 SISTER (D) 50 YO - [place] 2 SISTERS - UNKNOWN HX DAUGHTER(S): ALIVE 28 YRS, NO KNOWN MEDICAL PROBLEMS - ESTRANGED 3 BROTHER(S) , 3 SISTER(S) . 1DAUGHTER(S) . SOCIAL HISTORY GENERAL: TOBACCO USE ARE YOU A:CURRENT SMOKER ARE YOU INTERESTED IN QUITTING?THINKING ABOUT QUITTING TRYING TO QUIT CURRENTLY BUT DID STOP CHANTIX. PREVIOUS QUIT ATTEMPTS?YES, MORE THAN 6 MONTHS AGO. COUNSELED THE PATIENT ON SMOKING CESSATION, EDUCATION [id number]/18/2019 HOW MANY CIGARETTES A DAY DO YOU SMOKE?5 OR LESS HOW SOON AFTER YOU WAKE UP DO YOU SMOKE YOUR FIRST CIGARETTE?6-30 MIN HOW OFTEN DO YOU SMOKE CIGARETTES?SOME DAYS, BUT NOT EVERY DAY PATIENT COUNSELED ON THE DANGERS OF TOBACCO USE AND URGED TO QUIT:07/01/2018 LUNG CANCER SCREENING SMOKING STATUS:CURRENT SMOKER BMI CARE GOAL FOLLOW-UP ABOVE NORMAL BMI FOLLOW-UPWEIGHT MONITORING ALCOHOL SCREENING DID YOU HAVE A DRINK CONTAINING ALCOHOL IN THE PAST YEAR?YES HOW OFTEN DID YOU HAVE A DRINK CONTAINING ALCOHOL IN THE PAST YEAR?MONTHLY OR LESS (1 POINT) POINTS1 INTERPRETATIONNEGATIVE RECREATIONAL DRUG USE DRUG USE?NO CAFFEINE CAFFEINE USE?YES HOW OFTEN AND HOW MUCH? COFFEE 3- 4 CUPS DAILY AT TIMES SEXUAL HX HAD SEX IN THE LAST 12 MONTHS (VAGINAL, ORAL, OR ANAL)?YES WITHWOMEN ONLY HIV / HEP-C SCREENING HIV TEST OFFERED TO PATIENT:YES DATE OFFERED:05/28/2017 TEST ACCEPTED:NO HEP-C TEST OFFERED TO PATIENT:YES DATE OFFERED:08/17/2016 REASON:PATIENT DECLINED TEST ACCEPTED:NO REASON:PATIENT DECLINED VOODOO [id number] NONE LANGUAGE LANGUAGES SPOKEN:[place] ISLANDER LEARNING BARRIERS / SPECIAL NEEDS BARRIERS TO LEARNING?NO HEARING IMPAIRED?NO VISION IMPAIRED?YES :CORRECTIVE LENSES COGNITIVELY IMPAIRED?NO READINESS TO LEARN?YES LEARNING PREFERENCES?NO LEARNING CAPABILITIES PRESENT?YES EMOTIONAL BARRIERS?NO SPECIAL DEVICES?NO REGISTERED NURSE MATERNAL CHILD NEEDED?NO DOMESTIC VIOLENCE DO YOU FEEL SAFE IN YOUR ENVIRONMENT?YES DIET: REGULAR. EXERCISE: DAILY. MARITAL STATUS: . OTHERS AT HOME: NONE. NEW PATIENT PAIN DIARY FROM 0-10, WHAT LEVEL IS YOUR PAIN TODAY?7 PAIN CLINIC PFS, CLERGY, PUBLIC HEALTH REFERRALS PFS REFERRAL NEEDED?NO CLERGY REFERRAL NEEDED?NO PUBLIC HEALTH REFERRAL NEEDED?NO WAS THE PROVIDER NOTIFIED OF ANY PERTINENT INFO? N/A HAS THE PATIENT BEEN EDUCATED REGARDING HIS/HER PLAN OF CARE?YES HAS THE PATIENT BEEN EDUCATED REGARDING PAIN, THE RISK FOR PAIN, THE IMPORTANCE OF EFFECTIVE PAIN MANAGEMENT, AND THE PAIN ASSESSMENT PROCESS?YES ADVANCE DIRECTIVE ADVANCE DIRECTIVE DISCUSSED WITH PATIENT:YES 07/01/18 PT HAS NO ADVANCED DIRECTIVES AND HE DECLINED INFORMATION ON HCP OR ASSISTANCE AT THIS TIME. AD REVIEWED WITH PATIENT 01/29/18 1331 JSRREVIEWED WITH PT 05/01/18 1345 LAS07/01/18 REVIEWED WITH PT. AD. HOSPITALIZATION/MAJOR DIAGNOSTIC PROCEDURE CHEST PAIN/ABD PAIN 03/01 CHEST PAIN, CARDIAC CATH 2010 [facility] 02/2017 REVIEW OF SYSTEMS REVIEWED BY: PROVIDER: RYAN CUNNINGHAM . CONSTITUTIONAL: ANY CHANGE IN YOUR MEDICAL CONDITION? NO . CHILLS NO . FEVER NO . INFECTION: DO YOU HAVE NEW INFECTIONS? NO . DO YOU HAVE HISTORY OF MRSA? NO . MUSCULOSKELETAL: ANY NEW PATTERNS OF PAIN OR NUMBNESS? NO . GASTROENTEROLOGY: ANY NEW CHANGE IN BOWEL CONTROL? NO . GENITOURINARY: ANY NEW CHANGE IN BLADDER CONTROL? NO . IS THERE A CHANCE YOU COULD BE ? NO . HEMATOLOGY/LYMPH: DO YOU TAKE ANY BLOOD THINNERS? (FOR EXAMPLE- COUMADIN, PLAVIX, AGGRENOX, PLATEL, PRADAXA, OR XARELTO) NO . WHEN WAS YOUR LAST DOSE? DATE: TIME: . NEUROLOGY: HAVE YOU FALLEN IN THE PAST 12 MONTHS? NO . ANY NEW EXTREMITY NUMBNESS OR WEAKNESS? NO . CARDIOLOGY: DO YOU HAVE A PACEMAKER OR DEFIBRILLATOR? NO . RESPIRATORY: HAVE YOU BEEN SICK IN THE PAST WEEK? NO . FEVER NO . FLU LIKE SYMPTOMS? NO . COUGH YES, NON-PRODUCTIVE, DRY SCRATCHY--STARTED ON ZYRTEC WHICH HAS HELPED . INTEGUMENTARY: DO YOU HAVE ANY RASHES OR OPEN SORES? NO . ALLERGIC/IMMUNO: ARE YOU ALLERGIC TO IV DYE? NO . ANY NEW ALLERGIES? ? ENVIRONMENTAL . PSYCHIATRIC: DO YOU HAVE THOUGHTS OF HURTING YOURSELF OR SOMEONE ELSE? NO . ARE YOU ABUSED, NEGLECTED, OR IN AN UNSAFE ENVIRONMENT? NO . ENDOCRINOLOGY: ARE YOU DIABETIC? NO . OTHER: DO YOU NEED ANY PRESCRIPTIONS? NO . IF YES, PLEASE LIST: ____ . ANY NEW PROBLEMS WITH YOUR MEDICATIONS? NO . WHEN DID YOU LAST EAT? ____ . WHEN DID YOU LAST DRINK? ____ . WHAT DID YOU LAST DRINK? ____ . NAME OF PERSON DRIVING YOU HOME? ____ . DO YOU HAVE ANY OTHER QUESTIONS OR CONCERNS NO . VITAL SIGNS WT 206.2 LBS, HT 68 IN, BMI 31.35 INDEX, BP 136/75 MM HG, HR 79 /MIN, RR 20 /MIN, TEMP 98.4 F, OXYGEN SAT % 94%, SAFE IN ENV? (Y/N) Y, NA INITIALS SC 134:42, REVIEWED BY: ELLI. EXAMINATION GENERAL EXAMINATION: GENERAL APPEARANCE:AWAKE,ALERT ,PLEAASANT . PSYCHAFFECT NORMAL . LUNGS:LUNG HARRY ARE CLEAR TO AUSCULTATION BILATERALLY. GOOD MOVEMENT OF AIR . HEART:S1, S2 IN A REGULAR RATE AND RHYTHM. NO SIGNIFICANT MURMURS, RUBS OR GALLOPS NOTED . ASSESSMENTS LUMBAR DISC DISEASE WITH RADICULOPATHY - M51.16 (PRIMARY) MYALGIA, OTHER SITE - M79.18 TREATMENT LUMBAR DISC DISEASE WITH RADICULOPATHY CONTINUE GABAPENTIN CAPSULE, 300 MG, 1 CAPSULE, ORALLY, QHS CONTINUE GABAPENTIN CAPSULE, 100 MG, 1 CAPSULE, ORALLY, 1 IN AM AND 1 MID DAY REFILL HYDROCODONE-ACETAMINOPHEN TABLET, 5-325 MG, 1 TABLET NEEDED, ORALLY, EVERY 8-12 HRS PRN PAIN MDD=2, 30 DAY(S), 60, REFILLS 0 NOTES: ISTOP REGISTRY REVIEWED AND DEMONSTRATES COMPLLIANCE. (REF # [id number] ) BRINGS IN MEDICATIONS WHICH IS APPROPRIATE FOR WHAT WAS DISPENSED. RECENT URINE TOXICOLOGY REVIEWED. NO UNAUTHORIZED MEDICATIONS. NO ILLICIT SUBSTANCES AND PRESCRIBED MEDICATIONS WERE PRESENT. , RISKS AND BENEFITS OF NARCOTIC/OPIOD MEDICATIONS WERE REVIEWED WITH PATIENT - THIS INCLUDES BUT IS NOT LIMITED TO RISK OF DEPENDANCE/DEVELOPMENT OF ADDICTION, MOOD DISTURBANCE AND DEPRESSION, OSTEOPOROSIS, HORMONAL AND LABIDAL CHANGES, RESPIRATORY DEPRESSION AND . PATIENT IS ADVISED NOT TO DRIVE OR DRINK ALCOHOL WHILE ON THESE MEDICATIONS, PATIENT WAS ADVISED TO START A WALKING PROGRAM TO STRENGTHEN LUMBAR PARASPINAL MUSCLES AND IMPROVE MOBILITY. THEY WERE ADVISED THAT THIS WILL IMPROVE WEIGHT LOSS AND ALSO DEPRESSION/FIBROMYALGIA SYMPTOMS. ADVISED TO WALK 10 MINUTES EVERY OTHER DAY ON A FLAT SURFACE. EMPHASIZED THE IMPORTANCE OF DOING THIS CONSISTANTLY AND NOT SPORATICALLY TO AVOID INJURY. STRONG ADVISED NOT TO DO MORE THAN 10 MINUTES EVERY OTHER DAY FOR THE FIRST 4 WEEKS. PROCEDURE CODES FA211 ESTABILISHED PATIENT [facility] CHARGE DISPOSITION & COMMUNICATION FOLLOW UP 10 WKS ELECTRONICALLY SIGNED BY MARISA CEVALLOS ON 07/16/2018 AT 12:58 PM EDT DISCLAIMER : THIS IS A VISIT SUMMARY EXTRACTED FROM THE [employer] CHART. IT IS NOT A COPY OF THE [employer] PROGRESS NOTE. MELYSSA
== END ==
LOC: M PAIN 13:30
PROVIDERS: ATTEND Nurse Practitioner Family
DX: M51.16 Intervertebral disc disorders with radiculopathy, lumbar region (principal); M79.18 Myalgia, other site; I25.10 Atherosclerotic heart disease of native coronary artery without angina pectoris; E78.5 Hyperlipidemia, unspecified; K21.9 Gastro-esophageal reflux disease without esophagitis; J44.9 Chronic obstructive pulmonary disease, unspecified; E55.9 Vitamin D deficiency, unspecified; F17.210 Nicotine dependence, cigarettes, uncomplicated; Z79.82 Long term (current) use of aspirin; Z79.51 Long term (current) use of inhaled steroids; Z79.899 Other long term (current) drug therapy

== ENCOUNTER → 2018-09-12 | Outpatient (CLI) | payer MEDICARE, MEDICAID ==
[~2018-09-12] MED LIST changes: +CRES10TA PO; -CRES10TA32 PO; -NORC1TAB4 PO; +NORC1TAB7 PO
--- NOTE | 2018-09-25 02:04 | ECWPNPC ---
PATIENT NAME: MEHUL FERRARO : 1970 GENDER: MALE VISIT DATE: 09/12/2018 DISCHARGE DATE: 09/12/18 1346 VISIT LOCKED DATE TIME: PHYSICIAN: RYAN ORTEGA RESOURCE: RYAN ORTEGA REASON FOR APPOINTMENT 1. 10 WKS HISTORY OF PRESENT ILLNESS HISTORY OF PRESENT ILLNESS: HERE FOR ROUTINE F/U AND MANAGEMENT OF CHRONIC GENERALIZED BACK PAIN AND LEFT LEG PAIN.RATING PAIN VAS 8/10.DESCRIBES PAIN CONTINUOUS AND ACHING.REVIEWED MRI AND DISCUSSED TREATMENT OPTIONS. PAIN THE PATIENT DESCRIBES THE PAIN... THE PATIENT DESCRIBES THE PAIN... THE PATIENT DESCRIBES THE PAIN... FALL RISK SCREENING: SCREENING :NO FALLS REPORTED IN THE LAST YEAR CURRENT MEDICATIONS TAKING ASPIRIN EC 81 MG TABLET DELAYED RELEASE 1 TABLET ORALLY ONCE A DAY TAKING VITAMIN D3 1000 UNIT CAPSULE 1 CAPSULE ORALLY ONCE A DAY TAKING CARVEDILOL 6.25 MG TABLET 1 TABLET WITH FOOD ORALLY DAILY TAKING MENS ONE DAILY - TABLET 1 TAB ORALLY DAILY TAKING BREO ELLIPTA 100-25 MCG/INH AEROSOL POWDER BREATH ACTIVATED USE ONE INHALATION ONCE DAILY TAKING PROAIR HFA 108 (90 BASE) MCG/ACT AEROSOL SOLUTION 2 PUFFS NEEDED INHALATION EVERY 4 HRS TAKING CETIRIZINE HCL 10 MG TABLET 1 TABLET ORALLY ONCE A DAY TAKING OMEPRAZOLE 20 MG CAPSULE DELAYED RELEASE TAKE TWO CAPSULES BY MOUTH TWICE A DAY TAKING GABAPENTIN 300 MG CAPSULE 1 CAPSULE ORALLY QHS TAKING GABAPENTIN 100 MG CAPSULE 1 CAPSULE ORALLY 1 IN AM AND 1 MID DAY TAKING GEMFIBROZIL 600 MG TABLET 1 TABLET ORALLY TWICE A DAY TAKING CRESTOR 10 MG TABLET 1 TABLET ORALLY ONCE A DAY TAKING HYDROCODONE-ACETAMINOPHEN 5-325 MG TABLET 1 TABLET NEEDED ORALLY EVERY 8-12 HRS PRN PAIN MDD=2 NOT-TAKING CHANTIX 1 MG TABLET 1 TABLET ORALLY TWICE A DAY MEDICATION LIST REVIEWED AND RECONCILED WITH THE PATIENT PAST MEDICAL HISTORY CAD - NO HISTORY OF INFARCT - CARDIAC CATHETERIZATION 08/24 REVEALED NON-OBSTRUCTIVE DISEASE ONLY. ECHOCARDIOGRAM 10/25 NO VALVULAR DISEASE, TRACE MITRAL INSUFFICIENCY, TRACE TRICUSPID INSUFFICIENCY. NUCLEAR STRESS TEST 10/25 - NORMAL PERFUSION NO ISCHEMIA OR INFARCTION. EF CALCULATED AT 52% EKG - 07/28 - NSR 84 BPM (FOLLOWED BY DR. TORRES) LUMBAGO - OSTEOARTHRITIS - DDD HYPERLIPIDEMIA HIATAL HERNIA WITH REFLUX TOBACCO ABUSE WALI DX 02/26, COMPLIANT WITH CPAP. COPD GERD VIT D DEF ED ALLERGIES N.K.D.A. SURGICAL HISTORY B INGUINAL HERNIA REPAIR A CHILD AND AGAIN IN 2010 CARDIAC CATH 2007, 2010 COLONOSCOPY - 05/02 - REPEAT IN 5 YEARS 2010, 2016 FAMILY HISTORY FATHER: 77 YRS, KIDNEY INFECTION CAUSING RENAL FAILURE MOTHER: 75 YRS, DM2, CAD, HYPERLIPIDEMIA SIBLINGS: 3 BROTHERS - UNKNOWN HX 1 SISTER (D) 50 YO - [place] 2 SISTERS - UNKNOWN HX DAUGHTER(S): ALIVE 28 YRS, NO KNOWN MEDICAL PROBLEMS - ESTRANGED 3 BROTHER(S) , 3 SISTER(S) . 1DAUGHTER(S) . SOCIAL HISTORY GENERAL: TOBACCO USE ARE YOU A:CURRENT SMOKER ARE YOU INTERESTED IN QUITTING?THINKING ABOUT QUITTING TRYING TO QUIT CURRENTLY BUT DID STOP CHANTIX. PREVIOUS QUIT ATTEMPTS?YES, MORE THAN 6 MONTHS AGO. COUNSELED THE PATIENT ON SMOKING CESSATION, EDUCATION [id number]/30/2019 HOW MANY CIGARETTES A DAY DO YOU SMOKE?5 OR LESS HOW SOON AFTER YOU WAKE UP DO YOU SMOKE YOUR FIRST CIGARETTE?6-30 MIN HOW OFTEN DO YOU SMOKE CIGARETTES?SOME DAYS, BUT NOT EVERY DAY PATIENT COUNSELED ON THE DANGERS OF TOBACCO USE AND URGED TO QUIT:07/01/2018 HIV / HEP-C SCREENING HIV TEST OFFERED TO PATIENT:YES DATE OFFERED:05/28/2017 TEST ACCEPTED:NO HEP-C TEST OFFERED TO PATIENT:YES DATE OFFERED:08/17/2016 REASON:PATIENT DECLINED TEST ACCEPTED:NO REASON:PATIENT DECLINED OTHERS AT HOME: NONE. DIET: REGULAR. LANGUAGE LANGUAGES SPOKEN:TAMAZIGHT DOMESTIC VIOLENCE DO YOU FEEL SAFE IN YOUR ENVIRONMENT?YES NEW PATIENT PAIN DIARY FROM 0-10, WHAT LEVEL IS YOUR PAIN TODAY?7 BMI CARE GOAL FOLLOW-UP ABOVE NORMAL BMI FOLLOW-UPWEIGHT MONITORING RECREATIONAL DRUG USE DRUG USE?NO EXERCISE: DAILY. LEARNING BARRIERS / SPECIAL NEEDS BARRIERS TO LEARNING?NO HEARING IMPAIRED?NO VISION IMPAIRED?YES COGNITIVELY IMPAIRED?NO :CORRECTIVE LENSES READINESS TO LEARN?YES LEARNING PREFERENCES?NO LEARNING CAPABILITIES PRESENT?YES EMOTIONAL BARRIERS?NO SPECIAL DEVICES?NO MANAGER STUDIO NEEDED?NO LUNG CANCER SCREENING SMOKING STATUS:CURRENT SMOKER PAIN CLINIC PFS, CLERGY, PUBLIC HEALTH REFERRALS PFS REFERRAL NEEDED?NO CLERGY REFERRAL NEEDED?NO PUBLIC HEALTH REFERRAL NEEDED?NO WAS THE PROVIDER NOTIFIED OF ANY PERTINENT INFO? N/A HAS THE PATIENT BEEN EDUCATED REGARDING HIS/HER PLAN OF CARE?YES HAS THE PATIENT BEEN EDUCATED REGARDING PAIN, THE RISK FOR PAIN, THE IMPORTANCE OF EFFECTIVE PAIN MANAGEMENT, AND THE PAIN ASSESSMENT PROCESS?YES CAFFEINE CAFFEINE USE?YES HOW OFTEN AND HOW MUCH? COFFEE 3- 4 CUPS DAILY AT TIMES ADVANCE DIRECTIVE ADVANCE DIRECTIVE DISCUSSED WITH PATIENT:YES PT HAS NO ADVANCED DIRECTIVES AND HE DECLINED INFORMATION ON HCP OR ASSISTANCE AT THIS TIME. TAOIST [id number] NONE MARITAL STATUS: . ALCOHOL SCREENING DID YOU HAVE A DRINK CONTAINING ALCOHOL IN THE PAST YEAR?YES HOW OFTEN DID YOU HAVE A DRINK CONTAINING ALCOHOL IN THE PAST YEAR?MONTHLY OR LESS (1 POINT) POINTS1 INTERPRETATIONNEGATIVE SEXUAL HX HAD SEX IN THE LAST 12 MONTHS (VAGINAL, ORAL, OR ANAL)?YES WITHWOMEN ONLY REVIEWED WITH PATIENT 01/29/18 1331 JSRREVIEWED WITH PT 05/01/18 1345 LAS07/01/18 REVIEWED WITH PT. AD. HOSPITALIZATION/MAJOR DIAGNOSTIC PROCEDURE CHEST PAIN/ABD PAIN 03/01 CHEST PAIN, CARDIAC CATH 2010 [facility] 02/2017 REVIEW OF SYSTEMS REVIEWED BY: PROVIDER: RYAN CUNNINGHAM . CONSTITUTIONAL: ANY CHANGE IN YOUR MEDICAL CONDITION? NO . CHILLS NO . FEVER NO . INFECTION: DO YOU HAVE NEW INFECTIONS? NO . DO YOU HAVE HISTORY OF MRSA? NO . MUSCULOSKELETAL: ANY NEW PATTERNS OF PAIN OR NUMBNESS? NO . GASTROENTEROLOGY: ANY NEW CHANGE IN BOWEL CONTROL? NO . GENITOURINARY: ANY NEW CHANGE IN BLADDER CONTROL? NO . IS THERE A CHANCE YOU COULD BE ? NO . HEMATOLOGY/LYMPH: DO YOU TAKE ANY BLOOD THINNERS? (FOR EXAMPLE- COUMADIN, PLAVIX, AGGRENOX, PLATEL, PRADAXA, OR XARELTO) NO . WHEN WAS YOUR LAST DOSE? DATE: TIME: . NEUROLOGY: HAVE YOU FALLEN IN THE PAST 12 MONTHS? NO . ANY NEW EXTREMITY NUMBNESS OR WEAKNESS? YES, LEFT LEG PAIN . CARDIOLOGY: DO YOU HAVE A PACEMAKER OR DEFIBRILLATOR? NO . RESPIRATORY: HAVE YOU BEEN SICK IN THE PAST WEEK? NO . FEVER NO . FLU LIKE SYMPTOMS? NO . COUGH NO . INTEGUMENTARY: DO YOU HAVE ANY RASHES OR OPEN SORES? NO . ALLERGIC/IMMUNO: ARE YOU ALLERGIC TO IV DYE? NO . ANY NEW ALLERGIES? NO . PSYCHIATRIC: DO YOU HAVE THOUGHTS OF HURTING YOURSELF OR SOMEONE ELSE? NO . ARE YOU ABUSED, NEGLECTED, OR IN AN UNSAFE ENVIRONMENT? NO . ENDOCRINOLOGY: ARE YOU DIABETIC? NO . OTHER: DO YOU NEED ANY PRESCRIPTIONS? NO . IF YES, PLEASE LIST: ____ . ANY NEW PROBLEMS WITH YOUR MEDICATIONS? NO . WHEN DID YOU LAST EAT? ____ . WHEN DID YOU LAST DRINK? ____ . WHAT DID YOU LAST DRINK? ____ . NAME OF PERSON DRIVING YOU HOME? ____ . DO YOU HAVE ANY OTHER QUESTIONS OR CONCERNS NO . VITAL SIGNS WT 207 LBS, HT 68 IN, BMI 31.47 INDEX, BP 117/81 MM HG, HR 83 /MIN, RR 18 /MIN, TEMP 97.4 F, OXYGEN SAT % 95%, NA INITIALS AW 1308, REVIEWED BY: EM. EXAMINATION GENERAL EXAMINATION: GENERAL APPEARANCE: AWAKE,ALERT ,PLEAASANT . PSYCH AFFECT NORMAL . LUNGS: LUNG HARRY ARE CLEAR TO AUSCULTATION BILATERALLY. GOOD MOVEMENT OF AIR . HEART: S1, S2 IN A REGULAR RATE AND RHYTHM. NO SIGNIFICANT MURMURS, RUBS OR GALLOPS NOTED . MUSCULOSKELETAL: WEAK OVER RIGHT LEG. LUMBAR SACRAL SPINE PALPATION: + FOR PAIN OVER L/S SPINE. + FOR PAIN OVER L/S PARASPINALS. NEUROLOGIC EXAM: NORMAL SENSATION LIGHT TOUCH BILAT. LOWER EXTREMITIES. DIAGNOSTIC TESTS REVIEWED MRI L/S SPINE-05/04/18. ASSESSMENTS LUMBAR DISC DISEASE WITH RADICULOPATHY - M51.16 (PRIMARY) TREATMENT LUMBAR DISC DISEASE WITH RADICULOPATHY CONTINUE GABAPENTIN CAPSULE, 300 MG, 1 CAPSULE, ORALLY, QHS CONTINUE GABAPENTIN CAPSULE, 100 MG, 1 CAPSULE, ORALLY, 1 IN AM AND 1 MID DAY REFILL HYDROCODONE-ACETAMINOPHEN TABLET, 5-325 MG, 1 TABLET NEEDED, ORALLY, EVERY 8-12 HRS PRN PAIN MDD=2, 30 DAY(S), 60, REFILLS 0 NOTES: L4/5 LESI, ISTOP REGISTRY REVIEWED AND DEMONSTRATES COMPLLIANCE. BRINGS IN MEDICATIONS WHICH IS APPROPRIATE FOR WHAT WAS DISPENSED. RECENT URINE TOXICOLOGY REVIEWED. NO UNAUTHORIZED MEDICATIONS. NO ILLICIT SUBSTANCES AND PRESCRIBED MEDICATIONS WERE PRESENT. , RISKS AND BENEFITS OF NARCOTIC/OPIOD MEDICATIONS WERE REVIEWED WITH PATIENT - THIS INCLUDES BUT IS NOT LIMITED TO RISK OF DEPENDANCE/DEVELOPMENT OF ADDICTION, MOOD DISTURBANCE AND DEPRESSION, OSTEOPOROSIS, HORMONAL AND LABIDAL CHANGES, RESPIRATORY DEPRESSION AND . PATIENT IS ADVISED NOT TO DRIVE OR DRINK ALCOHOL WHILE ON THESE MEDICATIONS. PROCEDURE CODES [id number] ESTABILISHED PATIENT [facility] FACILITY CHARGE DISPOSITION & COMMUNICATION FOLLOW UP POST (REASON: L4/5 LESI) ELECTRONICALLY SIGNED BY RYAN CUNNINGHAM, MARISA ON 09/23/2018 AT 08:01 AM EDT DISCLAIMER : THIS IS A VISIT SUMMARY EXTRACTED FROM THE [employer] CHART. IT IS NOT A COPY OF THE [employer] PROGRESS NOTE. MELYSSA
== END ==
LOC: M PAIN 13:00
PROVIDERS: ATTEND Nurse Practitioner Family
DX: M51.16 Intervertebral disc disorders with radiculopathy, lumbar region (principal); G89.29 Other chronic pain; E78.5 Hyperlipidemia, unspecified; G47.33 Obstructive sleep apnea (adult) (pediatric); J44.9 Chronic obstructive pulmonary disease, unspecified; K21.9 Gastro-esophageal reflux disease without esophagitis; E55.9 Vitamin D deficiency, unspecified; F17.210 Nicotine dependence, cigarettes, uncomplicated; Z79.82 Long term (current) use of aspirin; Z79.51 Long term (current) use of inhaled steroids; Z79.899 Other long term (current) drug therapy

== ENCOUNTER → 2018-10-30 | Outpatient (CLI) | payer MEDICARE, MEDICAID ==
[~2018-10-30] MED LIST changes: +BUPIVACAINE HCL 0.25% 30 ML VIAL As Ordered ONE; +ISOVUE-M 200 41% 20ML VIAL (Q9966) As Ordered ONE; +LIDOCAINE 1% SDV INJ 30 ML VIAL As Ordered ONE; -OMEP20CA3 PO; +OMEP20CA4 PO
--- NOTE | 2018-10-30 15:01 | REP ---
Partial lumbar spine series: Two views . History: Injection procedure for pain. 12 seconds of fluoroscopy time is reported. Findings: A sequence of two fluoroscopically obtained last image hold procedural spot radiographs of the lumbar spine document needle position and contrast injection associated with injection procedure. Electronically Signed by Naren Allen MD 10/30/2018 02:52 P
--- NOTE | 2018-11-01 23:45 | ECWPNPC ---
PATIENT NAME: MEHUL FERRARO : 1970 GENDER: MALE VISIT DATE: 10/30/2018 DISCHARGE DATE: 10/30/18 1243 VISIT LOCKED DATE TIME: PHYSICIAN: MAXIMILIANO SABA MD RESOURCE: MAXIMILIANO SABA MD REASON FOR APPOINTMENT 1. DIAGNOSTIC FACET HISTORY OF PRESENT ILLNESS GENERAL: 48 YEAR OLD MALE PATIENT WITH A HISTORY OF CHRONIC LOW BACK PAIN. THE PATIENT DESCRIBES THE PAIN ACHING, SORE, SEVERE, AND CONTINUOUS WITH A PAIN SCORE OF 6-10/10 DEPENDING ON PHYSICAL ACTIVITY. THE PATIENT STATES THE PAIN IS IN HIS LOWER BACK AREA, AND CURRENTLY WITH THE WORST PAIN MAINLY ON HIS RIGHT SIDE. THE PATIENT RECEIVED A RIGHT RADIOFREQUENCY ABLATION ON 10/08/2017, WHICH HE SAYS PROVIDED HIM WITH GOOD PAIN RELIEF, HOWEVER THE PAIN HAS SINCE RETURNED ON THAT SIDE. PATIENT DENIES UNEXPLAINABLE WEIGHT LOSS, FEVER, CHILLS, NEW CHANGES ON HIS URINARY OR BOWEL CONTROL. HISTORY OF PRESENT ILLNESS: PAIN THE PATIENT DESCRIBES THE PAIN... FALL RISK SCREENING: SCREENING :NO FALLS REPORTED IN THE LAST YEAR CURRENT MEDICATIONS TAKING ASPIRIN EC 81 MG TABLET DELAYED RELEASE 1 TABLET ORALLY ONCE A DAY, NOTES: 10/29 999 TAKING VITAMIN D3 1000 UNIT CAPSULE 1 CAPSULE ORALLY ONCE A DAY, NOTES: 10/29 999 TAKING CARVEDILOL 6.25 MG TABLET 1 TABLET WITH FOOD ORALLY DAILY, NOTES: 10/29 999 TAKING MENS ONE DAILY - TABLET 1 TAB ORALLY DAILY, NOTES: 10/29 999 TAKING BREO ELLIPTA 100-25 MCG/INH AEROSOL POWDER BREATH ACTIVATED USE ONE INHALATION ONCE DAILY , NOTES: 10/29 999 TAKING PROAIR HFA 108 (90 BASE) MCG/ACT AEROSOL SOLUTION 2 PUFFS NEEDED INHALATION EVERY 4 HRS, NOTES: 2 DAYS AGO TAKING CETIRIZINE HCL 10 MG TABLET 1 TABLET ORALLY ONCE A DAY, NOTES: 10/29 999 TAKING OMEPRAZOLE 20 MG CAPSULE DELAYED RELEASE TAKE TWO CAPSULES BY MOUTH TWICE A DAY , NOTES: 10/29 2299 TAKING GEMFIBROZIL 600 MG TABLET 1 TABLET ORALLY TWICE A DAY, NOTES: 10/29 2299 TAKING CRESTOR 10 MG TABLET 1 TABLET ORALLY ONCE A DAY, NOTES: 10/29 1000 TAKING GABAPENTIN 100 MG CAPSULE 1 CAPSULE ORALLY 1 IN AM AND 1 MID DAY, NOTES: 10/29 1200 TAKING GABAPENTIN 300 MG CAPSULE 1 CAPSULE ORALLY QHS, NOTES: 10/29 2299 TAKING HYDROCODONE-ACETAMINOPHEN 5-325 MG TABLET 1 TABLET NEEDED ORALLY EVERY 8-12 HRS PRN PAIN MDD=2, NOTES: 11/01 2129 NOT-TAKING CHANTIX 1 MG TABLET 1 TABLET ORALLY TWICE A DAY MEDICATION LIST REVIEWED AND RECONCILED WITH THE PATIENT PAST MEDICAL HISTORY CAD - NO HISTORY OF INFARCT - CARDIAC CATHETERIZATION 08/24 REVEALED NON-OBSTRUCTIVE DISEASE ONLY. ECHOCARDIOGRAM 10/25 NO VALVULAR DISEASE, TRACE MITRAL INSUFFICIENCY, TRACE TRICUSPID INSUFFICIENCY. NUCLEAR STRESS TEST 10/25 - NORMAL PERFUSION NO ISCHEMIA OR INFARCTION. EF CALCULATED AT 52% EKG - 07/28 - NSR 84 BPM (FOLLOWED BY DR. TORRES) LUMBAGO - OSTEOARTHRITIS - DDD HYPERLIPIDEMIA HIATAL HERNIA WITH REFLUX TOBACCO ABUSE WALI DX 02/26, COMPLIANT WITH CPAP. COPD GERD VIT D DEF ED ALLERGIES ENVIRONMENTAL: COUGH, SCRATHY THROAT, - ALLERGY SURGICAL HISTORY B INGUINAL HERNIA REPAIR A CHILD AND AGAIN IN 2010 CARDIAC CATH 2007, 2010 COLONOSCOPY - 05/02 - REPEAT IN 5 YEARS 2010, 2016 FAMILY HISTORY FATHER: 77 YRS, KIDNEY INFECTION CAUSING RENAL FAILURE MOTHER: 75 YRS, DM2, CAD, HYPERLIPIDEMIA SIBLINGS: 3 BROTHERS - UNKNOWN HX 1 SISTER (D) 50 YO - [place] 2 SISTERS - UNKNOWN HX DAUGHTER(S): ALIVE 28 YRS, NO KNOWN MEDICAL PROBLEMS - ESTRANGED 3 BROTHER(S) , 3 SISTER(S) . 1DAUGHTER(S) . SOCIAL HISTORY GENERAL: TOBACCO USE ARE YOU A:CURRENT SMOKER ARE YOU INTERESTED IN QUITTING?THINKING ABOUT QUITTING TRYING TO QUIT CURRENTLY BUT DID STOP CHANTIX. PREVIOUS QUIT ATTEMPTS?YES, MORE THAN 6 MONTHS AGO. COUNSELED THE PATIENT ON SMOKING CESSATION, EDUCATION [id number]/17/2019 HOW MANY CIGARETTES A DAY DO YOU SMOKE?5 OR LESS HOW SOON AFTER YOU WAKE UP DO YOU SMOKE YOUR FIRST CIGARETTE?6-30 MIN HOW OFTEN DO YOU SMOKE CIGARETTES?SOME DAYS, BUT NOT EVERY DAY PATIENT COUNSELED ON THE DANGERS OF TOBACCO USE AND URGED TO QUIT:10/30/2018 HIV / HEP-C SCREENING HIV TEST OFFERED TO PATIENT:YES DATE OFFERED:05/28/2017 TEST ACCEPTED:NO HEP-C TEST OFFERED TO PATIENT:YES DATE OFFERED:08/17/2016 REASON:PATIENT DECLINED TEST ACCEPTED:NO REASON:PATIENT DECLINED OTHERS AT HOME: NONE. DIET: REGULAR. LANGUAGE LANGUAGES SPOKEN:FAROESE DOMESTIC VIOLENCE DO YOU FEEL SAFE IN YOUR ENVIRONMENT?YES BMI CARE GOAL FOLLOW-UP ABOVE NORMAL BMI FOLLOW-UPWEIGHT MONITORING RECREATIONAL DRUG USE DRUG USE?NO EXERCISE: DAILY. LEARNING BARRIERS / SPECIAL NEEDS BARRIERS TO LEARNING?NO HEARING IMPAIRED?NO VISION IMPAIRED?YES :CORRECTIVE LENSES COGNITIVELY IMPAIRED?NO READINESS TO LEARN?YES LEARNING PREFERENCES?NO LEARNING CAPABILITIES PRESENT?YES EMOTIONAL BARRIERS?NO SPECIAL DEVICES?NO SUBMARINE ELEMENT COORDINATOR NEEDED?NO LUNG CANCER SCREENING SMOKING STATUS:CURRENT SMOKER PAIN CLINIC PFS, CLERGY, PUBLIC HEALTH REFERRALS PFS REFERRAL NEEDED?NO CLERGY REFERRAL NEEDED?NO PUBLIC HEALTH REFERRAL NEEDED?NO WAS THE PROVIDER NOTIFIED OF ANY PERTINENT INFO? N/A HAS THE PATIENT BEEN EDUCATED REGARDING HIS/HER PLAN OF CARE?YES HAS THE PATIENT BEEN EDUCATED REGARDING PAIN, THE RISK FOR PAIN, THE IMPORTANCE OF EFFECTIVE PAIN MANAGEMENT, AND THE PAIN ASSESSMENT PROCESS?YES LATEX QUESTIONNAIRE LATEX ALLERGY : HAVE YOU EVER DEVELOPED ANY TYPE OF REACTION AFTER HANDLING LATEX PRODUCTS SUCH RUBBER GLOVES, CONDOMS, DIAPHRAGMS, BALLOONS, SOCKS, OR UNDERWEAR?NO LATEX ALLERGY : HAVE YOU EVER DEVELOPED ANY TYPE OF REACTION DURING OR AFTER DENTAL APPOINTMENT, VAGINAL/RECTAL EXAMINATION, SURGICAL PROCEDURE, OR ANY OTHER EXPOSURE?NO LATEX RISK : HAVE YOU EVER HAD ANY DIFFICULTY BREATHING OR HIVES AFTER EATING OR HANDLING ANY FRUITS, OR VEGETABLES; SUCH KIWI, BANANAS, STONE FRUITS, OR CHESTNUTSNO LATEX RISK : DO YOU HAVE A PREVIOUS PERSONAL HISTORY OF MORE THAN NINE SURGERIES, SPINA BIFIDA, OR REPEATED CATHERIZATIONS? NO LATEX RISK : ARE YOU FREQUENTLY EXPOSED TO LATEX PRODUCTS IN YOUR OCCUPATION?NO DATE ASKED : 10/30/2018 CAFFEINE CAFFEINE USE?YES HOW OFTEN AND HOW MUCH? COFFEE 3- 4 CUPS DAILY AT TIMES ADVANCE DIRECTIVE ADVANCE DIRECTIVE DISCUSSED WITH PATIENT:YES 10/30/18 PT DOES NOT HAVE ANY ADVANCED DIRECTIVES AND HE DECLINES INFORMATION ON HCP AT THIS TIME. AD BAPTISM [id number] NONE MARITAL STATUS: . ALCOHOL SCREENING DID YOU HAVE A DRINK CONTAINING ALCOHOL IN THE PAST YEAR?YES HOW OFTEN DID YOU HAVE A DRINK CONTAINING ALCOHOL IN THE PAST YEAR?MONTHLY OR LESS (1 POINT) POINTS1 INTERPRETATIONNEGATIVE SEXUAL HX HAD SEX IN THE LAST 12 MONTHS (VAGINAL, ORAL, OR ANAL)?YES WITHWOMEN ONLY REVIEWED WITH PATIENT 01/29/18 1331 JSRREVIEWED WITH PT 05/01/18 1345 LAS07/01/18 REVIEWED WITH PT. AD. HOSPITALIZATION/MAJOR DIAGNOSTIC PROCEDURE CHEST PAIN/ABD PAIN 03/01 CHEST PAIN, CARDIAC CATH 2010 [facility] 02/2017 REVIEW OF SYSTEMS REVIEWED BY: PROVIDER: MAXIMILIANO SABA MD . CONSTITUTIONAL: ANY CHANGE IN YOUR MEDICAL CONDITION? NO . CHILLS NO . FEVER NO . INFECTION: DO YOU HAVE NEW INFECTIONS? NO . DO YOU HAVE HISTORY OF MRSA? NO . MUSCULOSKELETAL: ANY NEW PATTERNS OF PAIN OR NUMBNESS? YES, LEGS GO NUMB ON HIM FOR THE PAST WEEK . GASTROENTEROLOGY: ANY NEW CHANGE IN BOWEL CONTROL? NO . GENITOURINARY: ANY NEW CHANGE IN BLADDER CONTROL? NO . IS THERE A CHANCE YOU COULD BE ? NO . HEMATOLOGY/LYMPH: DO YOU TAKE ANY BLOOD THINNERS? (FOR EXAMPLE- COUMADIN, PLAVIX, AGGRENOX, PLATEL, PRADAXA, OR XARELTO) NO . WHEN WAS YOUR LAST DOSE? DATE: TIME: . NEUROLOGY: HAVE YOU FALLEN IN THE PAST 12 MONTHS? NO . ANY NEW EXTREMITY NUMBNESS OR WEAKNESS? YES, LEGS ARE NUMB FOR THE PAST WEEK . CARDIOLOGY: DO YOU HAVE A PACEMAKER OR DEFIBRILLATOR? NO . RESPIRATORY: HAVE YOU BEEN SICK IN THE PAST WEEK? NO . FEVER NO . FLU LIKE SYMPTOMS? NO . COUGH COUGH TODAY BECAUSE HE HAS NOT HAD HIS ZYRTEC . INTEGUMENTARY: DO YOU HAVE ANY RASHES OR OPEN SORES? NO . ALLERGIC/IMMUNO: ARE YOU ALLERGIC TO IV DYE? NO . ANY NEW ALLERGIES? NO . PSYCHIATRIC: DO YOU HAVE THOUGHTS OF HURTING YOURSELF OR SOMEONE ELSE? NO . ARE YOU ABUSED, NEGLECTED, OR IN AN UNSAFE ENVIRONMENT? NO . ENDOCRINOLOGY: ARE YOU DIABETIC? NO . OTHER: DO YOU NEED ANY PRESCRIPTIONS? NO . IF YES, PLEASE LIST: ____ . ANY NEW PROBLEMS WITH YOUR MEDICATIONS? NO . WHEN DID YOU LAST EAT? 10/30 1999 . WHEN DID YOU LAST DRINK? 10/30 0700 . WHAT DID YOU LAST DRINK? COFFEE . NAME OF PERSON DRIVING YOU HOME? ALYCIA . DO YOU HAVE ANY OTHER QUESTIONS OR CONCERNS NO PT HAS NOT HAD ANY VACCINES IN THE PAST 30 DAYS . VITAL SIGNS WT 207 LBS, HT 68 IN, BMI 31.47 INDEX, BP 133/83 MM HG, HR 89 /MIN, RR 18 /MIN, TEMP 98.0 F, OXYGEN SAT % 93%, SAFE IN ENV? (Y/N) Y, NA INITIALS AW 1028, REVIEWED BY: AD. EXAMINATION GENERAL: PATIENT IS ALERT O X 3 AND COOPERATIVE. TENDERNESS IN THE LOW BACK. MRI OF THE LUMBAR SPINE DONE ON 05/04/2018 SHOWS FACET ARTHROPATHY CHANGES. ASSESSMENTS SPONDYLOSIS OF LUMBAR REGION WITHOUT MYELOPATHY OR RADICULOPATHY - M47.816 (PRIMARY) SPONDYLOSIS OF LUMBOSACRAL REGION WITHOUT MYELOPATHY OR RADICULOPATHY - M47.817 TREATMENT SPONDYLOSIS OF LUMBAR REGION WITHOUT MYELOPATHY OR RADICULOPATHY [facility] FACET BLOCK (PAIN)[id number] CLINICAL NOTES: WE DISCUSSED SEVERAL ISSUES WITH MR. FERRARO'S PAIN MANAGEMENT CASE. DUE TO THE LUMBAR SPONDYLOSIS, I WOULD LIKE TO MOVE FORWARD WITH A DIAGNOSTIC LUMBAR FACET BLOCK TO CONSIDER RADIOFREQUENCY. WE DISCUSSED THE BENEFITS, RISKS, AND ALTERNATIVES OF THE PROCEDURE AND THE PATIENT WOULD LIKE TO PROCEED. THE PATIENT RECEIVED A RADIOFREQUENCY ABLATION OVER A YEAR AGO, WHICH PROVIDED HIM WITH GOOD PAIN RELIEF AND NOW THE PAIN HAS SINCE RETURNED. THE PATIENT SAYS THE PAIN IN HIS RIGHT LOWER BACK AREA IS CURRENTLY AT A PAIN SCORE OF 9/10. IF THE PAIN IS REDUCED APPROPRIATELY, WE WILL MOVE FORWARD WITH RADIOFREQUENCY. THE PATIENT WILL FOLLOW UP IN SEVERAL WEEKS AFTER THE PROCEDURE. INSTRUCTIONS WERE GIVEN, QUESTIONS WERE ANSWERED, PATIENT REPORTS UNDERSTANDING AND AGREES WITH THE PLAN. I, JEFERSON WATSON, DOCUMENTED THE ABOVE INFORMATION ACTING A SCRIBE FOR DR. SABA. I HAVE REVIEWED THE ABOVE DOCUMENT, WRITTEN BY JEFERSON DELGADOIBEvan AND I VERIFY THAT IT IS ACCURATE. . PROCEDURES PN LUMBAR FACET BLOCK DIAGNOSTIC PRE PROCEDURE DIAGNOSIS LUMBAR SPONDYLOSIS, LUMBOSACRAL SPONDYLOSIS POST PROCEDURE DIAGNOSIS LUMBAR SPONDYLOSIS, LUMBOSACRAL SPONDYLOSIS PROCEDURE RIGHT L4-L5 AND RIGHT L5-S1 FACET BLOCK DIAGNOSTIC NUMBER [address] MAXIMILIANO SABA FULL FASHIONED GARMENT KNITTER NONE ANESTHESIA LOCAL PRE PROCEDURE NOTE THE PATIENT WITH HISTORY OF CHRONIC LOW BACK PAIN. I EVALUATED THE PATIENT AND REVIEWED THE CHART. I WENT OVER THE RISKS, ALTERNATIVES, AND BENEFITS ASSOCIATED WITH THIS PROCEDURE. THE PATIENT WOULD LIKE TO PROCEED AND GAVE CONSENT TO PERFORM THE PROCEDURE. AGREED WITH THE PATIENT WE ARE DOING THIS PROCEDURE TO DETERMINE IF THE PATIENT IS A CANDIDATE FOR A RADIOFREQUENCY ABLATION OF THE FACETS JOINTS. THE PATIENT DENIES UNEXPLAINABLE WEIGHT LOSS, FEVER, CHILLS, OR NEW CHANGES IN URINARY OR BOWEL CONTROL DESCRIPTION OF PROCEDURE THE PATIENT WAS BROUGHT TO THE PROCEDURE ROOM AND PLACED IN THE PRONE POSITION. THE LUMBOSACRAL AREA WAS CLEANED WITH CHLORAPREP SOLUTION AND DRAPED ASEPTICALLY. THE PROCEDURE WAS DONE UNDER STERILE CONDITIONS. I CHECKED LATERALITY AND THE LEVEL WHERE THE PROCEDURE WAS GOING TO BE PERFORMED WITH THE PATIENT AND THE SUPPORTING STAFF AT THE MOMENT OF THE TIME OUT IN THE PROCEDURE ROOM. UNDER FLUOROSCOPIC GUIDANCE, TARGETS WERE SELECTED AT THE INTERSECTION OF THE RIGHT TRANSVERSE PROCESS OF L4, L5 AND ALA OF S1 WITH ITS RESPECTIVE SUPERIOR ARTICULAR PROCESS. LIDOCAINE WAS USED TO NUMB THE SKIN AND THE SUBCUTANEOUS TISSUE BELOW IT. SPINAL NEEDLE, 22-GAUGE WAS ADVANCED UNDER FLUOROSCOPIC GUIDANCE AND FOLLOWING PATIENT FEEDBACK UNTIL THE TARGETS WERE REACHED. POSITION OF THE NEEDLES WAS VERIFIED WITH AP AND LATERAL VIEWS. AFTER PROPER POSITION OF THE NEEDLES WAS ACHIEVED, ISOVUE-M DYE WAS INJECTED AT EACH SITE SHOWING ADEQUATE SPREAD OF THE DYE. THEN A SOLUTION OF 0.4 ML OF BUPIVACAINE 0.25% WAS INJECTED AT EACH SITE. THERE WAS NO EVIDENCE OF BLOOD, PARESTHESIA OR CEREBROSPINAL FLUID DURING THE PROCEDURE. THE PATIENT WAS SENT TO THE RECOVERY ROOM. THE PATIENT WAS MOVING THE EXTREMITIES AND DOING WELL. THERE WAS NO COMPLICATION DURING THE PROCEDURE. FLUOROSCOPY TIME WAS 12 SECONDS POST PROCEDURE NOTE THE PATIENT WILL DOCUMENT HIS PAIN LEVEL AND RESPONSE TO THIS PROCEDURE EVERY 30 MINUTES. THE PATIENT WILL BE SEEN IN A FOLLOW UP IN THE NEXT FEW WEEKS. FURTHER DETERMINATION FOR HIS CASE WILL BE DONE AT THE NEXT VISIT. INSTRUCTIONS WERE GIVEN, QUESTIONS WERE ANSWERED, AND THE PATIENT EXPRESSED UNDERSTANDING AND AGREED WITH THE PLAN. I, KALA CONCEPCION, DOCUMENTED THE ABOVE INFORMATION ACTING A SCRIBE FOR DR. SABA. I HAVE REVIEWED THE ABOVE DOCUMENT, WRITTEN BY KALA CONCEPCION SCRIBEvan AND I VERIFY THAT IT IS ACCURATE. PROCEDURE CODES [id number] RADXPS IN END [id number] PXD [id number] INJ PARAVERT F JNT L/S 1 LEV, MODIFIERS: [place] [id number] INJ PARAVERT F JNT L/S 2 LEV, MODIFIERS: RT DISPOSITION & COMMUNICATION FOLLOW UP 3 WEEKS ELECTRONICALLY SIGNED BY MAXIMILIANO SABA MD, MD ON 11/01/2018 AT 11:27 AM EDT DISCLAIMER : THIS IS A VISIT SUMMARY EXTRACTED FROM THE [facility] CHART. IT IS NOT A COPY OF THE [facility] PROGRESS NOTE. MTDD
== END ==
LOC: M PAIN 10:30
PROVIDERS: ATTEND Anesthesiology
DX: M47.816 Spondylosis without myelopathy or radiculopathy, lumbar region (principal); M47.817 Spondylosis without myelopathy or radiculopathy, lumbosacral region; I25.10 Atherosclerotic heart disease of native coronary artery without angina pectoris; M51.36 Other intervertebral disc degeneration, lumbar region; E78.5 Hyperlipidemia, unspecified; K44.9 Diaphragmatic hernia without obstruction or gangrene; K21.9 Gastro-esophageal reflux disease without esophagitis; G47.33 Obstructive sleep apnea (adult) (pediatric); J30.2 Other seasonal allergic rhinitis; J44.9 Chronic obstructive pulmonary disease, unspecified; E55.9 Vitamin D deficiency, unspecified; N52.9 Male erectile dysfunction, unspecified; F17.210 Nicotine dependence, cigarettes, uncomplicated; Z79.82 Long term (current) use of aspirin; Z79.891 Long term (current) use of opiate analgesic; Z79.899 Other long term (current) drug therapy
CPT/HCPCS: 64493; 64494; Q9966

== ENCOUNTER → 2018-11-28 | Outpatient (CLI) | payer MEDICARE, MEDICAID ==
[~2018-11-28] MED LIST changes: -BUPIVACAINE HCL 0.25% 30 ML VIAL As Ordered ONE; -ISOVUE-M 200 41% 20ML VIAL (Q9966) As Ordered ONE; -LIDOCAINE 1% SDV INJ 30 ML VIAL As Ordered ONE
--- NOTE | 2018-12-18 02:10 | ECWPNPC ---
PATIENT NAME: MEHUL FERRARO : 1970 GENDER: MALE VISIT DATE: 11/28/2018 DISCHARGE DATE: 11/28/18 0853 VISIT LOCKED DATE TIME: PHYSICIAN: RYAN ORTEGA RESOURCE: RYAN ORTEGA REASON FOR APPOINTMENT 1. POST PROC HISTORY OF PRESENT ILLNESS HISTORY OF PRESENT ILLNESS: HAD RIGHT L4/5-L5/S1 LFB DX #2 ON 10/30/18.HAD >10HRS AT 80% REDUCTION IN PAIN.PAIN HAS RETURNED TO BASELINE.RATING PAIN VAS 7/10.PAIN IS IN LOW BACK R>L. PAIN THE PATIENT DESCRIBES THE PAIN... FALL RISK SCREENING: SCREENING :NO FALLS REPORTED IN THE LAST YEAR CURRENT MEDICATIONS TAKING ASPIRIN EC 81 MG TABLET DELAYED RELEASE 1 TABLET ORALLY ONCE A DAY TAKING VITAMIN D3 1000 UNIT CAPSULE 1 CAPSULE ORALLY ONCE A DAY TAKING CARVEDILOL 6.25 MG TABLET 1 TABLET WITH FOOD ORALLY DAILY TAKING MENS ONE DAILY - TABLET 1 TAB ORALLY DAILY TAKING BREO ELLIPTA 100-25 MCG/INH AEROSOL POWDER BREATH ACTIVATED USE ONE INHALATION ONCE DAILY TAKING PROAIR HFA 108 (90 BASE) MCG/ACT AEROSOL SOLUTION 2 PUFFS NEEDED INHALATION EVERY 4 HRS, NOTES: NEEDED TAKING CETIRIZINE HCL 10 MG TABLET 1 TABLET ORALLY ONCE A DAY TAKING GEMFIBROZIL 600 MG TABLET 1 TABLET ORALLY TWICE A DAY TAKING CRESTOR 10 MG TABLET 1 TABLET ORALLY ONCE A DAY TAKING GABAPENTIN 100 MG CAPSULE 1 CAPSULE ORALLY 1 IN AM AND 1 MID DAY TAKING GABAPENTIN 300 MG CAPSULE 1 CAPSULE ORALLY QHS TAKING OMEPRAZOLE 20 MG CAPSULE DELAYED RELEASE TAKE TWO CAPSULES BY MOUTH TWICE A DAY TAKING HYDROCODONE-ACETAMINOPHEN 5-325 MG TABLET 1 TABLET NEEDED ORALLY EVERY 8-12 HRS PRN PAIN MDD=2 NOT-TAKING CHANTIX 1 MG TABLET 1 TABLET ORALLY TWICE A DAY MEDICATION LIST REVIEWED AND RECONCILED WITH THE PATIENT PAST MEDICAL HISTORY CAD - NO HISTORY OF INFARCT - CARDIAC CATHETERIZATION 08/24 REVEALED NON-OBSTRUCTIVE DISEASE ONLY. ECHOCARDIOGRAM 10/25 NO VALVULAR DISEASE, TRACE MITRAL INSUFFICIENCY, TRACE TRICUSPID INSUFFICIENCY. NUCLEAR STRESS TEST 10/25 - NORMAL PERFUSION NO ISCHEMIA OR INFARCTION. EF CALCULATED AT 52% EKG - 07/28 - NSR 84 BPM (FOLLOWED BY DR. TORRES) LUMBAGO - OSTEOARTHRITIS - DDD HYPERLIPIDEMIA HIATAL HERNIA WITH REFLUX TOBACCO ABUSE WALI DX 02/26, COMPLIANT WITH CPAP. COPD GERD VIT D DEF ED ALLERGIES ENVIRONMENTAL: COUGH, SCRATHY THROAT, - ALLERGY SURGICAL HISTORY B INGUINAL HERNIA REPAIR A CHILD AND AGAIN IN 2010 CARDIAC CATH 2007, 2010 COLONOSCOPY - 05/02 - REPEAT IN 5 YEARS 2010, 2016 FAMILY HISTORY FATHER: 77 YRS, KIDNEY INFECTION CAUSING RENAL FAILURE MOTHER: 75 YRS, DM2, CAD, HYPERLIPIDEMIA SIBLINGS: 3 BROTHERS - UNKNOWN HX 1 SISTER (D) 50 YO - [place] 2 SISTERS - UNKNOWN HX DAUGHTER(S): ALIVE 28 YRS, NO KNOWN MEDICAL PROBLEMS - ESTRANGED 3 BROTHER(S) , 3 SISTER(S) . 1DAUGHTER(S) . SOCIAL HISTORY GENERAL: TOBACCO USE ARE YOU A:CURRENT SMOKER HOW OFTEN DO YOU SMOKE CIGARETTES?SOME DAYS, BUT NOT EVERY DAY HOW SOON AFTER YOU WAKE UP DO YOU SMOKE YOUR FIRST CIGARETTE?6-30 MIN HOW MANY CIGARETTES A DAY DO YOU SMOKE?5 OR LESS ARE YOU INTERESTED IN QUITTING?THINKING ABOUT QUITTING TRYING TO QUIT CURRENTLY BUT DID STOP CHANTIX. PATIENT COUNSELED ON THE DANGERS OF TOBACCO USE AND URGED TO QUIT:10/30/2018 COUNSELED THE PATIENT ON SMOKING CESSATION, EDUCATION [id number]/17/2019 PREVIOUS QUIT ATTEMPTS?YES, MORE THAN 6 MONTHS AGO. HIV / HEP-C SCREENING HIV TEST OFFERED TO PATIENT:YES DATE OFFERED:05/28/2017 TEST ACCEPTED:NO HEP-C TEST OFFERED TO PATIENT:YES DATE OFFERED:08/17/2016 REASON:PATIENT DECLINED TEST ACCEPTED:NO REASON:PATIENT DECLINED OTHERS AT HOME: NONE. DIET: REGULAR. LANGUAGE LANGUAGES SPOKEN:LITHUANIAN DOMESTIC VIOLENCE DO YOU FEEL SAFE IN YOUR ENVIRONMENT?YES BMI CARE GOAL FOLLOW-UP ABOVE NORMAL BMI FOLLOW-UPWEIGHT MONITORING RECREATIONAL DRUG USE DRUG USE?NO EXERCISE: DAILY. LEARNING BARRIERS / SPECIAL NEEDS BARRIERS TO LEARNING?NO HEARING IMPAIRED?NO VISION IMPAIRED?YES COGNITIVELY IMPAIRED?NO :CORRECTIVE LENSES READINESS TO LEARN?YES LEARNING PREFERENCES?NO LEARNING CAPABILITIES PRESENT?YES EMOTIONAL BARRIERS?NO SPECIAL DEVICES?NO COUNCIL MEMBER NEEDED?NO LUNG CANCER SCREENING SMOKING STATUS:CURRENT SMOKER PAIN CLINIC PFS, CLERGY, PUBLIC HEALTH REFERRALS PFS REFERRAL NEEDED?NO CLERGY REFERRAL NEEDED?NO PUBLIC HEALTH REFERRAL NEEDED?NO WAS THE PROVIDER NOTIFIED OF ANY PERTINENT INFO? N/A HAS THE PATIENT BEEN EDUCATED REGARDING HIS/HER PLAN OF CARE?YES HAS THE PATIENT BEEN EDUCATED REGARDING PAIN, THE RISK FOR PAIN, THE IMPORTANCE OF EFFECTIVE PAIN MANAGEMENT, AND THE PAIN ASSESSMENT PROCESS?YES LATEX QUESTIONNAIRE LATEX ALLERGY : HAVE YOU EVER DEVELOPED ANY TYPE OF REACTION AFTER HANDLING LATEX PRODUCTS SUCH RUBBER GLOVES, CONDOMS, DIAPHRAGMS, BALLOONS, SOCKS, OR UNDERWEAR?NO LATEX ALLERGY : HAVE YOU EVER DEVELOPED ANY TYPE OF REACTION DURING OR AFTER DENTAL APPOINTMENT, VAGINAL/RECTAL EXAMINATION, SURGICAL PROCEDURE, OR ANY OTHER EXPOSURE?NO DATE ASKED : 10/30/2018 LATEX RISK : HAVE YOU EVER HAD ANY DIFFICULTY BREATHING OR HIVES AFTER EATING OR HANDLING ANY FRUITS, OR VEGETABLES; SUCH KIWI, BANANAS, STONE FRUITS, OR CHESTNUTSNO LATEX RISK : DO YOU HAVE A PREVIOUS PERSONAL HISTORY OF MORE THAN NINE SURGERIES, SPINA BIFIDA, OR REPEATED CATHERIZATIONS? NO LATEX RISK : ARE YOU FREQUENTLY EXPOSED TO LATEX PRODUCTS IN YOUR OCCUPATION?NO CAFFEINE CAFFEINE USE?YES HOW OFTEN AND HOW MUCH? COFFEE 3- 4 CUPS DAILY AT TIMES ADVANCE DIRECTIVE ADVANCE DIRECTIVE DISCUSSED WITH PATIENT:YES 11/28/18 PT DOES NOT HAVE ANY ADVANCED DIRECTIVES AND HE DECLINES INFORMATION ON HCP AT THIS TIME. BV AMISH [id number] NONE MARITAL STATUS: . ALCOHOL SCREENING DID YOU HAVE A DRINK CONTAINING ALCOHOL IN THE PAST YEAR?YES HOW OFTEN DID YOU HAVE A DRINK CONTAINING ALCOHOL IN THE PAST YEAR?MONTHLY OR LESS (1 POINT) POINTS1 INTERPRETATIONNEGATIVE SEXUAL HX HAD SEX IN THE LAST 12 MONTHS (VAGINAL, ORAL, OR ANAL)?YES WITHWOMEN ONLY REVIEWED WITH PATIENT 01/29/18 1331 JSRREVIEWED WITH PT 05/01/18 1345 LAS07/01/18 REVIEWED WITH PT. ADREVIEWED WITH PT 11/28/18 1150 BV. HOSPITALIZATION/MAJOR DIAGNOSTIC PROCEDURE CHEST PAIN/ABD PAIN 03/01 CHEST PAIN, CARDIAC CATH 2010 [facility] 02/2017 REVIEW OF SYSTEMS REVIEWED BY: PROVIDER: RYAN CUNNINGHAM . CONSTITUTIONAL: ANY CHANGE IN YOUR MEDICAL CONDITION? NO . CHILLS NO . FEVER NO . INFECTION: DO YOU HAVE NEW INFECTIONS? NO . DO YOU HAVE HISTORY OF MRSA? NO . MUSCULOSKELETAL: ANY NEW PATTERNS OF PAIN OR NUMBNESS? NO . GASTROENTEROLOGY: ANY NEW CHANGE IN BOWEL CONTROL? NO . GENITOURINARY: ANY NEW CHANGE IN BLADDER CONTROL? NO . IS THERE A CHANCE YOU COULD BE ? NO . HEMATOLOGY/LYMPH: DO YOU TAKE ANY BLOOD THINNERS? (FOR EXAMPLE- COUMADIN, PLAVIX, AGGRENOX, PLATEL, PRADAXA, OR XARELTO) NO . WHEN WAS YOUR LAST DOSE? DATE: TIME: . NEUROLOGY: HAVE YOU FALLEN IN THE PAST 12 MONTHS? NO . ANY NEW EXTREMITY NUMBNESS OR WEAKNESS? NO . CARDIOLOGY: DO YOU HAVE A PACEMAKER OR DEFIBRILLATOR? NO . RESPIRATORY: HAVE YOU BEEN SICK IN THE PAST WEEK? NO . FEVER NO . FLU LIKE SYMPTOMS? NO . COUGH NO . INTEGUMENTARY: DO YOU HAVE ANY RASHES OR OPEN SORES? NO . ALLERGIC/IMMUNO: ARE YOU ALLERGIC TO IV DYE? NO . ANY NEW ALLERGIES? NO . PSYCHIATRIC: DO YOU HAVE THOUGHTS OF HURTING YOURSELF OR SOMEONE ELSE? NO . ARE YOU ABUSED, NEGLECTED, OR IN AN UNSAFE ENVIRONMENT? NO . ENDOCRINOLOGY: ARE YOU DIABETIC? NO . OTHER: DO YOU NEED ANY PRESCRIPTIONS? NO . IF YES, PLEASE LIST: ____ . ANY NEW PROBLEMS WITH YOUR MEDICATIONS? NO . WHEN DID YOU LAST EAT? ____ . WHEN DID YOU LAST DRINK? ____ . WHAT DID YOU LAST DRINK? ____ . NAME OF PERSON DRIVING YOU HOME? ____ . DO YOU HAVE ANY OTHER QUESTIONS OR CONCERNS NO . VITAL SIGNS WT 207 LBS, HT 68 IN, BMI 31.47 INDEX, BP 129/75 MM HG, HR 82 /MIN, RR 18 /MIN, TEMP 97.6 F, OXYGEN SAT % 95%, NA INITIALS AW 1144, REVIEWED BY: BV. EXAMINATION GENERAL EXAMINATION: GENERAL AWAKE,ALERT ,PLEAASANT . PSYCH AFFECT NORMAL . LUNGS: LUNG HARRY ARE CLEAR TO AUSCULTATION BILATERALLY. GOOD MOVEMENT OF AIR . HEART: S1, S2 IN A REGULAR RATE AND RHYTHM. NO SIGNIFICANT MURMURS, RUBS OR GALLOPS NOTED . MUSCULOSKELETAL: WEAK OVER RIGHT LEG. LUMBAR SACRAL SPINEPALPATION: + FOR PAIN OVER L/S SPINE. + FOR PAIN OVER L/S PARASPINALS SPECIFIC POINT TENDERNESS OVER BILAT L4/5-L5/S1 R>L LUMBAR FACETS WITH FACET LOADING. NEUROLOGIC EXAM: NORMAL SENSATION LIGHT TOUCH BILAT. LOWER EXTREMITIES. DIAGNOSTIC TESTS REVIEWED MRI L/S SPINE-05/04/18. ASSESSMENTS SPONDYLOSIS OF LUMBAR REGION WITHOUT MYELOPATHY OR RADICULOPATHY - M47.816 (PRIMARY) TREATMENT SPONDYLOSIS OF LUMBAR REGION WITHOUT MYELOPATHY OR RADICULOPATHY REFILL HYDROCODONE-ACETAMINOPHEN TABLET, 5-325 MG, 1 TABLET NEEDED, ORALLY, EVERY 8-12 HRS PRN PAIN MDD=2, 30 DAY(S), 60, REFILLS 0 NOTES: RIGHT L4/5-L5/S1 RF, ISTOP REGISTRY REVIEWED AND DEMONSTRATES COMPLLIANCE. BRINGS IN MEDICATIONS WHICH IS APPROPRIATE FOR WHAT WAS DISPENSED. RECENT URINE TOXICOLOGY REVIEWED. NO UNAUTHORIZED MEDICATIONS. NO ILLICIT SUBSTANCES AND PRESCRIBED MEDICATIONS WERE PRESENT. UTOX TODAY, RISKS AND BENEFITS OF NARCOTIC/OPIOD MEDICATIONS WERE REVIEWED WITH PATIENT - THIS INCLUDES BUT IS NOT LIMITED TO RISK OF DEPENDANCE/DEVELOPMENT OF ADDICTION, MOOD DISTURBANCE AND DEPRESSION, OSTEOPOROSIS, HORMONAL AND LABIDAL CHANGES, RESPIRATORY DEPRESSION AND . PATIENT IS ADVISED NOT TO DRIVE OR DRINK ALCOHOL WHILE ON THESE MEDICATIONS. PREVENTIVE MEDICINE PAIN CLINIC TEACHING: PROCEDURE TEACHING PT GIVEN WRITTEN AND VERBAL PRE PROCEDURE INSTRUCTIONS. PT VERBALIZED UNDERSTANDING OF ALL INSTRUCTIONS. MELITON PARADA 11/28/2018 12:35:43 PM > . PROCEDURE CODES FA211 ESTABILISHED PATIENT [facility] CHARGE DISPOSITION & COMMUNICATION FOLLOW UP POST (REASON: RIGHT L4/5-L5/S1 RF) ELECTRONICALLY SIGNED BY MARISA CEVALLOS ON 12/17/2018 AT 04:47 PM EDT DISCLAIMER : THIS IS A VISIT SUMMARY EXTRACTED FROM THE [employer] CHART. IT IS NOT A COPY OF THE [employer] PROGRESS NOTE. MELYSSA
== END ==
LOC: M PAIN 11:30
PROVIDERS: ATTEND Nurse Practitioner Family
DX: M47.816 Spondylosis without myelopathy or radiculopathy, lumbar region (principal); E78.5 Hyperlipidemia, unspecified; G47.33 Obstructive sleep apnea (adult) (pediatric); J44.9 Chronic obstructive pulmonary disease, unspecified; K21.9 Gastro-esophageal reflux disease without esophagitis; E55.9 Vitamin D deficiency, unspecified; F17.210 Nicotine dependence, cigarettes, uncomplicated; Z79.82 Long term (current) use of aspirin; Z79.51 Long term (current) use of inhaled steroids; Z79.899 Other long term (current) drug therapy

== ENCOUNTER → 2018-12-13 | Outpatient (REF) | payer MEDICARE, MEDICAID ==
[~2018-12-13] MED LIST changes: +ASPI81TA85 PO; +AUGM875T28 PO; +BREO1INH; +CARV6.25; +CIPRHCOTIC AS; +GABA-1171; +GEMF600T5; +HYDR-4571; +OMEP-218; +OMEP1CAP73 PO; -OMEP20CA4 PO; -OMEP40CA2 PO; +OMEP40CA97 PO; +ROSU10TA6
[2018-12-13 12:46] LABS: BASO # 0.1 10^3/uL (0.0-0.2); BASO % 0.7 % (0.0-1.0); EOS # 0.3 10^3/uL (0.0-0.50); HEMATOCRIT 46.5 % (42.0-52.0); HEMOGLOBIN 15.2 g/dl (13.5-17.5); LYMPH % 28.1 % (24.0-44.0); MEAN CORPUSCULAR HEMOGLOBIN 28.8 pg (27.0-33.0); MEAN CORPUSCULAR HGB CONC 32.7 g/dl (32.0-36.5); MEAN CORPUSCULAR VOLUME 88.2 fl (80.0-96.0); MONO # 0.8 10^3/uL (0.0-0.8); MONO % 7.6 % (0.0-5.0); NEUTROPHILS # 6.4 10^3/uL (1.8-7.7); NEUTROPHILS % 60.2 % (36.0-66.0); PLATELET COUNT, AUTOMATED 321 10^3/uL (150-450); RED BLOOD COUNT 5.27 10^6/uL (4.30-6.10); WHITE BLOOD COUNT 10.6 10^3/uL (4.0-10.0)
[2018-12-13 12:49] LABS: ALBUMIN 3.9 GM/DL (3.2-5.2); ALT/SGPT 25 U/L (12-78); BILIRUBIN,TOTAL 0.3 MG/DL (0.2-1.0); BLOOD UREA NITROGEN 18 MG/DL (7-18); CALCIUM LEVEL 9.2 MG/DL (8.5-10.1); CARBON DIOXIDE LEVEL 25 MEQ/L (21-32); CHLORIDE LEVEL 107 MEQ/L (98-107); CHOLESTEROL LEVEL 188 MG/DL (<200); CHOLESTEROL RISK RATIO 6.266 (<5); CREATININE FOR GFR 1.07 MG/DL (0.70-1.30); GLOMERULAR FILTRATION RATE > 60.0 (>56); GLUCOSE, FASTING 143 MG/DL (70-100); HDL CHOLESTEROL 30 MG/DL (>40); LDL CHOLESTEROL 94 MG/DL (<100); NON-HDL-C 158 MG/DL; POTASSIUM SERUM 4.1 MEQ/L (3.5-5.1); SODIUM LEVEL 139 MEQ/L (136-145); TRIGLYCERIDES LEVEL 321 MG/DL (<150)
[2018-12-13 12:57] LABS: TOTAL 25(OH) VITAMIN D 39.2 NG/ML (30.0-100.0)
[2018-12-13 13:05] LABS: HEMOGLOBIN A1c 5.7 %
== END ==
LOC: M SFHCADAM 07:08
PROVIDERS: ATTEND Physician Assistant Medical
DX: I25.10 Atherosclerotic heart disease of native coronary artery without angina pectoris (principal); K21.9 Gastro-esophageal reflux disease without esophagitis; Z23 Encounter for immunization; E55.9 Vitamin D deficiency, unspecified; R73.01 Impaired fasting glucose

== ENCOUNTER 2018-12-20 00:03 | Emergency (ER) | payer OTHER, MEDICARE, MEDICAID ==
[~2018-12-20] VITALS: Ht 172.7 cm; Wt 95.5 kg
[~2018-12-20 00:03] MED LIST changes: -ASPI81TA85 PO; -AUGM875T28 PO; -BREO1INH; -CARV6.25; -CIPRHCOTIC AS; -GABA-1171; -GEMF600T5; -HYDR-4571; -OMEP-218; -OMEP1CAP73 PO; +OMEP20CA4 PO; +OMEP40CA2 PO; -OMEP40CA97 PO; -ROSU10TA6
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
[2018-12-20 01:45] VITALS: BP 132/68
--- NOTE | 2018-12-20 07:55 | REP ---
Clinical: Trauma. Technique: Neutral and frog lateral views of the left femur. Findings: Mild arthritic changes at the hip. No acute fracture or dislocation. No subcutaneous emphysema or foreign body. Impression: No acute fracture or dislocation. Electronically Signed by Angel Lopez MD 12/20/2018 07:46 A
--- NOTE | 2018-12-20 07:56 | REP ---
Clinical: Trauma. Technique: AP and lateral views of the right tibia / fibula. Findings: Age-related changes at the knee and ankle joint. No acute fracture or dislocation. No subcutaneous emphysema or radiodense foreign body. Impression: No acute fracture or dislocation. Electronically Signed by Angel Lopez MD 12/20/2018 07:47 A
[2018-12-21] MEDS ORDERED: BREO1INH (18:36)
[2018-12-21] MEDS ORDERED: CARV6.25 (18:36)
[2018-12-21] MEDS ORDERED: HYDR-4571 (18:36)
[2018-12-21] MEDS ORDERED: GEMF600T5 (18:36)
[2018-12-21] MEDS ORDERED: GABA-1171 (18:36)
[2018-12-21] MEDS ORDERED: ROSU10TA6 (18:36)
[2018-12-21] MEDS ORDERED: OMEP-218 (18:36)
[2018-12-21] MEDS ORDERED: ASPI81TA85 PO (18:36)
== END 2018-12-20 02:14 | disposition home or self-care (01) ==
LOC: M ED 00:03
DX: M79.604 Pain in right leg (principal); M79.605 Pain in left leg; V23.4XXA Motorcycle driver injured in collision with car, pick-up truck or van in traffic accident, initial encounter; Y92.9 Unspecified place or not applicable; Y93.9 Activity, unspecified; Y99.9 Unspecified external cause status; F17.200 Nicotine dependence, unspecified, uncomplicated; Z79.82 Long term (current) use of aspirin; Z79.899 Other long term (current) drug therapy

== ENCOUNTER 2018-12-21 18:26 | Emergency (ER) | payer OTHER, MEDICARE, MEDICAID ==
[~2018-12-21] VITALS: Ht 172.7 cm; Wt 92.7 kg
[2018-12-21] MEDS ORDERED: ASPI81TA85 PO (18:36)
[2018-12-21] MEDS ORDERED: BREO1INH (18:36)
[2018-12-21] MEDS ORDERED: CARV6.25 (18:36)
[2018-12-21] MEDS ORDERED: ROSU10TA6 (18:36)
[2018-12-21] MEDS ORDERED: GABA-1171 (18:36)
[2018-12-21] MEDS ORDERED: HYDR-4571 (18:36)
[2018-12-21] MEDS ORDERED: GEMF600T5 (18:36)
[2018-12-21] MEDS ORDERED: OMEP-218 (18:36)
--- NOTE | 2018-12-21 22:10 | REPVR ---
EXAM: US Scrotum EXAM DATE/TIME: 12/21/2018 9:51 PM CLINICAL HISTORY: 48 years old, male; Groin pain; Additional info: Bilateral pain TECHNIQUE: Imaging protocol: Real-time ultrasound of the scrotum and contents with color Doppler and image documentation. COMPARISON: No relevant prior studies available. FINDINGS: Right Testicle: The right testicle measures 4.3 CM in length by 2.8 CM in thickness and uniformly echogenic. There is vascular flow right testicle with no evidence of torsion. Left Testicle: The vascular flow of the left testicle with no evidence of torsion. The left testicle measures 4.6 CM in length by 2.3 CM in thickness and uniformly echogenic. Epididymides: The head of the epididymis on the right measures 9 mm. Small epididymal appendix identified on the right. The left epididymis measures 1 CM. There is a 6 mm epididymal appendix identified on the left. There are 2 cysts of the left epididymis measuring 5 mm each. Scrotum: There are small hydroceles right and left scrotum. IMPRESSION: Normal-appearing right and left testicle with good vascular flow and no torsion. Electronically signed by: Alek Dominguez On 12/21/2018 22:09:43 PM
--- NOTE | 2018-12-21 22:21 | REPVR ---
EXAM: US Pelvis Limited, Male EXAM DATE/TIME: 12/21/2018 9:51 PM CLINICAL HISTORY: 48 years old, male; Pain; Other: Groin; Additional info: Left sided lump with hernia exam, RO hernia TECHNIQUE: Imaging protocol: Real-time pelvic ultrasound with image documentation. COMPARISON: CT ABD/PEL W/IV ORAL CONTRAS 03/03/2017 2:17 PM FINDINGS: Soft tissues: Ultrasound of the left inguinal region was performed. Valsalva was also utilized. There is no evidence of a hernia at the left inguinal canal. IMPRESSION: No evidence of left inguinal hernia. Electronically signed by: Alek Dominguez On 12/21/2018 22:20:39 PM
[2018-12-21 22:49] VITALS: BP 123/86
== END 2018-12-21 22:51 | disposition home or self-care (01) ==
LOC: M ED 18:26
DX: N50.819 Testicular pain, unspecified (principal); S80.811A Abrasion, right lower leg, initial encounter; F17.210 Nicotine dependence, cigarettes, uncomplicated; V23.4XXA Motorcycle driver injured in collision with car, pick-up truck or van in traffic accident, initial encounter; Y92.410 Unspecified street and highway as the place of occurrence of the external cause; K21.9 Gastro-esophageal reflux disease without esophagitis; E78.5 Hyperlipidemia, unspecified; G47.30 Sleep apnea, unspecified; R51 Headache; J44.9 Chronic obstructive pulmonary disease, unspecified; I48.91 Unspecified atrial fibrillation; I50.9 Heart failure, unspecified; I25.2 Old myocardial infarction; Z79.82 Long term (current) use of aspirin; Z79.891 Long term (current) use of opiate analgesic; Z79.899 Other long term (current) drug therapy

== ENCOUNTER 2019-01-09 20:30 | Emergency (ER) | payer MEDICARE, MEDICAID ==
[~2019-01-09] VITALS: Ht 172.7 cm; Wt 94.5 kg
[2019-01-09 20:30] VITALS: BP 122/73
[~2019-01-09 20:30] MED LIST changes: +ASPI81TA85 PO; +BREO1INH; +CARV6.25; +GABA-1171; +GEMF600T5; +HYDR-4571; +OMEP-218; +OMEP1CAP73 PO; -OMEP20CA4 PO; -OMEP40CA2 PO; +OMEP40CA97 PO; +ROSU10TA6
[2019-01-09] MEDS ORDERED: CIPROFLOXACIN HC OTIC SUSPENSION AS ONE (21:45)
[2019-01-09] MEDS ORDERED: AUGMENTIN 875 MG TAB PO ONE (21:45)
[2019-01-09] MEDS ORDERED: CIPRHCOTIC AS (21:51)
[2019-01-09] MEDS ORDERED: AUGM875T28 PO (21:51)
== END 2019-01-09 22:06 | disposition home or self-care (01) ==
LOC: M ED 20:30
DX: H66.92 Otitis media, unspecified, left ear (principal); F17.200 Nicotine dependence, unspecified, uncomplicated; I48.91 Unspecified atrial fibrillation; E78.00 Pure hypercholesterolemia, unspecified; I10 Essential (primary) hypertension; I25.2 Old myocardial infarction; G47.30 Sleep apnea, unspecified; J44.9 Chronic obstructive pulmonary disease, unspecified; K21.9 Gastro-esophageal reflux disease without esophagitis; K44.9 Diaphragmatic hernia without obstruction or gangrene; Z79.891 Long term (current) use of opiate analgesic; Z79.82 Long term (current) use of aspirin; Z79.899 Other long term (current) drug therapy

== ENCOUNTER → 2019-01-14 | Outpatient (CLI) | payer MEDICARE, MEDICAID ==
[~2019-01-14] MED LIST changes: +AUGM875T28 PO; +BUPIVACAINE HCL 0.25% 30 ML VIAL As Ordered ONE; +CIPRHCOTIC AS; +ISOVUE-M 300 61% 15ML VIAL (Q9967) As Ordered ONE; +LIDOCAINE 1% SDV INJ 30 ML VIAL As Ordered ONE; -OMEP1CAP73 PO; +OMEP20CA4 PO; +OMEP40CA2 PO; -OMEP40CA97 PO; +TRIAMCINOLONE ACETONIDE SUSP 40 MG/ML VIAL (J3301) As Ordered ONE
--- NOTE | 2019-01-15 10:34 | REP ---
Partial lumbar spine series: Three views . History: Injection procedure for pain. 47 seconds of fluoroscopy time is reported. Findings: A sequence of three fluoroscopically obtained last image hold procedural spot radiographs of the lumbar spine document needle position and contrast injection associated with injection procedure. Electronically Signed by Naren Allen MD 01/15/2019 07:46 A
== END ==
LOC: M PAIN 13:00
PROVIDERS: ATTEND Anesthesiology
DX: M47.816 Spondylosis without myelopathy or radiculopathy, lumbar region (principal); M47.817 Spondylosis without myelopathy or radiculopathy, lumbosacral region; I25.10 Atherosclerotic heart disease of native coronary artery without angina pectoris; E78.5 Hyperlipidemia, unspecified; K44.9 Diaphragmatic hernia without obstruction or gangrene; J30.9 Allergic rhinitis, unspecified; F17.210 Nicotine dependence, cigarettes, uncomplicated; G47.33 Obstructive sleep apnea (adult) (pediatric); J44.9 Chronic obstructive pulmonary disease, unspecified; K21.9 Gastro-esophageal reflux disease without esophagitis; E55.9 Vitamin D deficiency, unspecified; N52.9 Male erectile dysfunction, unspecified; Z79.82 Long term (current) use of aspirin; Z79.891 Long term (current) use of opiate analgesic; Z79.899 Other long term (current) drug therapy
CPT/HCPCS: 64635; 64636; J3301; Q9967

== ENCOUNTER → 2019-02-03 | Outpatient (CLI) | payer MEDICARE, MEDICAID ==
[~2019-02-03] MED LIST changes: -BUPIVACAINE HCL 0.25% 30 ML VIAL As Ordered ONE; -ISOVUE-M 300 61% 15ML VIAL (Q9967) As Ordered ONE; -LIDOCAINE 1% SDV INJ 30 ML VIAL As Ordered ONE; -OMEP40CA2 PO; +OMEP40CA97 PO; -TRIAMCINOLONE ACETONIDE SUSP 40 MG/ML VIAL (J3301) As Ordered ONE
--- NOTE | 2019-02-13 02:25 | ECWPNPC ---
PATIENT NAME: MEHUL FERRARO : 1970 GENDER: MALE VISIT DATE: 02/03/2019 DISCHARGE DATE: 02/03/19 1347 VISIT LOCKED DATE TIME: PHYSICIAN: RYAN ORTEGA RESOURCE: RYAN ORTEGA REASON FOR APPOINTMENT 1. POST RF HISTORY OF PRESENT ILLNESS HISTORY OF PRESENT ILLNESS: HERE FOR POST PROCEDURE F/U.HAD RIGHT L4/5-L5/S1 RF ON 01/14/19.REPORTING SIGNIFICANT REDUCTION IN RIGHT LBP.RATING RIGHT LOW BACK PAIN 0/10.CHIEF AREA OF PAIN IS LEFT LOW BACK.REPORTING LESS NEED FOR PAIN MEDICATION SINCE PROCEDURE. PAIN THE PATIENT DESCRIBES THE PAIN... FALL RISK SCREENING: SCREENING :NO FALLS REPORTED IN THE LAST YEAR CURRENT MEDICATIONS TAKING ASPIRIN EC 81 MG TABLET DELAYED RELEASE 1 TABLET ORALLY ONCE A DAY TAKING VITAMIN D3 1000 UNIT CAPSULE 1 CAPSULE ORALLY ONCE A DAY TAKING CARVEDILOL 6.25 MG TABLET 1 TABLET WITH FOOD ORALLY DAILY TAKING MENS ONE DAILY - TABLET 1 TAB ORALLY DAILY TAKING BREO ELLIPTA 100-25 MCG/INH AEROSOL POWDER BREATH ACTIVATED USE ONE INHALATION ONCE DAILY TAKING PROAIR HFA 108 (90 BASE) MCG/ACT AEROSOL SOLUTION 2 PUFFS NEEDED INHALATION EVERY 4 HRS, NOTES: NEEDED TAKING CETIRIZINE HCL 10 MG TABLET 1 TABLET ORALLY ONCE A DAY TAKING GEMFIBROZIL 600 MG TABLET 1 TABLET ORALLY TWICE A DAY TAKING CRESTOR 10 MG TABLET 1 TABLET ORALLY ONCE A DAY TAKING GABAPENTIN 100 MG CAPSULE 1 CAPSULE ORALLY 1 IN AM AND 1 MID DAY TAKING GABAPENTIN 300 MG CAPSULE 1 CAPSULE ORALLY QHS TAKING OMEPRAZOLE 20 MG CAPSULE DELAYED RELEASE TAKE TWO CAPSULES BY MOUTH TWICE A DAY TAKING HYDROCODONE-ACETAMINOPHEN 5-325 MG TABLET 1 TABLET NEEDED ORALLY EVERY 8-12 HRS PRN PAIN MDD=2 NOT-TAKING CHANTIX 1 MG TABLET 1 TABLET ORALLY TWICE A DAY MEDICATION LIST REVIEWED AND RECONCILED WITH THE PATIENT PAST MEDICAL HISTORY CAD - NO HISTORY OF INFARCT - CARDIAC CATHETERIZATION 08/24 REVEALED NON-OBSTRUCTIVE DISEASE ONLY. ECHOCARDIOGRAM 10/25 NO VALVULAR DISEASE, TRACE MITRAL INSUFFICIENCY, TRACE TRICUSPID INSUFFICIENCY. NUCLEAR STRESS TEST 10/25 - NORMAL PERFUSION NO ISCHEMIA OR INFARCTION. EF CALCULATED AT 52% EKG - 07/28 - NSR 84 BPM (FOLLOWED BY DR. TORRES) LUMBAGO - OSTEOARTHRITIS - DDD - FOLLOWS WITH PAIN CLINIC HYPERLIPIDEMIA HIATAL HERNIA WITH REFLUX TOBACCO ABUSE WALI DX 02/26, COMPLIANT WITH CPAP - PULM COPD GERD VIT D DEF ED ALLERGIES ENVIRONMENTAL: COUGH, SCRATHY THROAT, - ALLERGY SURGICAL HISTORY B INGUINAL HERNIA REPAIR A CHILD AND AGAIN IN 2010 CARDIAC CATH 2007, 2010 COLONOSCOPY - 05/02 - REPEAT IN 5 YEARS 2010, 2016 FAMILY HISTORY FATHER: 77 YRS, KIDNEY INFECTION CAUSING RENAL FAILURE MOTHER: 75 YRS, DM2, CAD, HYPERLIPIDEMIA SIBLINGS: 3 BROTHERS - UNKNOWN HX 1 SISTER (D) 50 YO - [place] 2 SISTERS - UNKNOWN HX DAUGHTER(S): ALIVE 28 YRS, NO KNOWN MEDICAL PROBLEMS - ESTRANGED 3 BROTHER(S) , 3 SISTER(S) . 1DAUGHTER(S) . SOCIAL HISTORY GENERAL: TOBACCO USE ARE YOU A:CURRENT SMOKER ARE YOU INTERESTED IN QUITTING?THINKING ABOUT QUITTING TRYING TO QUIT CURRENTLY BUT DID STOP CHANTIX. PREVIOUS QUIT ATTEMPTS?YES, MORE THAN 6 MONTHS AGO. COUNSELED THE PATIENT ON SMOKING CESSATION, EDUCATION [id number]/01/2019 HOW MANY CIGARETTES A DAY DO YOU SMOKE?5 OR LESS HOW SOON AFTER YOU WAKE UP DO YOU SMOKE YOUR FIRST CIGARETTE?6-30 MIN HOW OFTEN DO YOU SMOKE CIGARETTES?SOME DAYS, BUT NOT EVERY DAY PATIENT COUNSELED ON THE DANGERS OF TOBACCO USE AND URGED TO QUIT:02/03/2019 HIV / HEP-C SCREENING HIV TEST OFFERED TO PATIENT:YES DATE OFFERED:05/28/2017 TEST ACCEPTED:NO HEP-C TEST OFFERED TO PATIENT:YES DATE OFFERED:08/17/2016 REASON:PATIENT DECLINED TEST ACCEPTED:NO REASON:PATIENT DECLINED OTHERS AT HOME: NONE. DIET: REGULAR. LANGUAGE LANGUAGES SPOKEN:ITALIAN DOMESTIC VIOLENCE DO YOU FEEL SAFE IN YOUR ENVIRONMENT?YES BMI CARE GOAL FOLLOW-UP ABOVE NORMAL BMI FOLLOW-UPWEIGHT MONITORING RECREATIONAL DRUG USE DRUG USE?NO EXERCISE: DAILY. LEARNING BARRIERS / SPECIAL NEEDS BARRIERS TO LEARNING?NO HEARING IMPAIRED?NO VISION IMPAIRED?YES COGNITIVELY IMPAIRED?NO :CORRECTIVE LENSES READINESS TO LEARN?YES LEARNING PREFERENCES?NO LEARNING CAPABILITIES PRESENT?YES EMOTIONAL BARRIERS?NO SPECIAL DEVICES?NO STERILIZATION SPECIALIST NEEDED?NO LUNG CANCER SCREENING SMOKING STATUS:CURRENT SMOKER PAIN CLINIC PFS, CLERGY, PUBLIC HEALTH REFERRALS PFS REFERRAL NEEDED?NO CLERGY REFERRAL NEEDED?NO PUBLIC HEALTH REFERRAL NEEDED?NO WAS THE PROVIDER NOTIFIED OF ANY PERTINENT INFO? N/A HAS THE PATIENT BEEN EDUCATED REGARDING HIS/HER PLAN OF CARE?YES HAS THE PATIENT BEEN EDUCATED REGARDING PAIN, THE RISK FOR PAIN, THE IMPORTANCE OF EFFECTIVE PAIN MANAGEMENT, AND THE PAIN ASSESSMENT PROCESS?YES LATEX QUESTIONNAIRE LATEX ALLERGY : HAVE YOU EVER DEVELOPED ANY TYPE OF REACTION AFTER HANDLING LATEX PRODUCTS SUCH RUBBER GLOVES, CONDOMS, DIAPHRAGMS, BALLOONS, SOCKS, OR UNDERWEAR?NO LATEX ALLERGY : HAVE YOU EVER DEVELOPED ANY TYPE OF REACTION DURING OR AFTER DENTAL APPOINTMENT, VAGINAL/RECTAL EXAMINATION, SURGICAL PROCEDURE, OR ANY OTHER EXPOSURE?NO DATE ASKED : 10/30/2018 LATEX RISK : HAVE YOU EVER HAD ANY DIFFICULTY BREATHING OR HIVES AFTER EATING OR HANDLING ANY FRUITS, OR VEGETABLES; SUCH KIWI, BANANAS, STONE FRUITS, OR CHESTNUTSNO LATEX RISK : DO YOU HAVE A PREVIOUS PERSONAL HISTORY OF MORE THAN NINE SURGERIES, SPINA BIFIDA, OR REPEATED CATHERIZATIONS? NO LATEX RISK : ARE YOU FREQUENTLY EXPOSED TO LATEX PRODUCTS IN YOUR OCCUPATION?NO CAFFEINE CAFFEINE USE?YES HOW OFTEN AND HOW MUCH? COFFEE 3- 4 CUPS DAILY AT TIMES ADVANCE DIRECTIVE ADVANCE DIRECTIVE DISCUSSED WITH PATIENT:YES 01/14/19 PT DOES NOT HAVE ANY ADVANCED DIRECTIVES AND HE DECLINES INFORMATION ON HCP AT THIS TIME. AD ROMAN CATHOLIC [id number] NONE MARITAL STATUS: . ALCOHOL SCREENING DID YOU HAVE A DRINK CONTAINING ALCOHOL IN THE PAST YEAR?YES HOW OFTEN DID YOU HAVE A DRINK CONTAINING ALCOHOL IN THE PAST YEAR?MONTHLY OR LESS (1 POINT) POINTS1 INTERPRETATIONNEGATIVE SEXUAL HX HAD SEX IN THE LAST 12 MONTHS (VAGINAL, ORAL, OR ANAL)?YES WITHWOMEN ONLY REVIEWED WITH PATIENT 01/29/18 1331 JSRREVIEWED WITH PT 05/01/18 1345 LAS07/01/18 REVIEWED WITH PT. ADREVIEWED WITH PT 11/28/18 1150 BVREVIEWED WITH PATIENT 02/03/19 1303 NLJ. HOSPITALIZATION/MAJOR DIAGNOSTIC PROCEDURE CHEST PAIN/ABD PAIN 03/01 CHEST PAIN, CARDIAC CATH 2010 [facility] 02/2017 REVIEW OF SYSTEMS REVIEWED BY: PROVIDER: RYAN CUNNINGHAM . CONSTITUTIONAL: ANY CHANGE IN YOUR MEDICAL CONDITION? NO . CHILLS NO . FEVER NO . INFECTION: DO YOU HAVE NEW INFECTIONS? NO . DO YOU HAVE HISTORY OF MRSA? NO . MUSCULOSKELETAL: ANY NEW PATTERNS OF PAIN OR NUMBNESS? NO- RF OF RIGHT SIDE WORKED VERY WELL AND CONTINUES TO FEEL RELIEF, STATES THAT HE WOULD NOW LIKE THE LEFT SIDE DONE . GASTROENTEROLOGY: ANY NEW CHANGE IN BOWEL CONTROL? NO . GENITOURINARY: ANY NEW CHANGE IN BLADDER CONTROL? NO . IS THERE A CHANCE YOU COULD BE ? NO . HEMATOLOGY/LYMPH: DO YOU TAKE ANY BLOOD THINNERS? (FOR EXAMPLE- COUMADIN, PLAVIX, AGGRENOX, PLATEL, PRADAXA, OR XARELTO) NO . WHEN WAS YOUR LAST DOSE? DATE: TIME: . NEUROLOGY: HAVE YOU FALLEN IN THE PAST 12 MONTHS? NO . ANY NEW EXTREMITY NUMBNESS OR WEAKNESS? YES- PAIN AND NUMBNESS IN LEFT LOWER BACK, HIP AND LEFT LEG . CARDIOLOGY: DO YOU HAVE A PACEMAKER OR DEFIBRILLATOR? NO . RESPIRATORY: HAVE YOU BEEN SICK IN THE PAST WEEK? NO . FEVER NO . FLU LIKE SYMPTOMS? NO . COUGH NO . INTEGUMENTARY: DO YOU HAVE ANY RASHES OR OPEN SORES? NO . ALLERGIC/IMMUNO: ARE YOU ALLERGIC TO IV DYE? NO . ANY NEW ALLERGIES? NO . PSYCHIATRIC: DO YOU HAVE THOUGHTS OF HURTING YOURSELF OR SOMEONE ELSE? NO . ARE YOU ABUSED, NEGLECTED, OR IN AN UNSAFE ENVIRONMENT? NO . ENDOCRINOLOGY: ARE YOU DIABETIC? NO . OTHER: DO YOU NEED ANY PRESCRIPTIONS? NO . IF YES, PLEASE LIST: ____ . ANY NEW PROBLEMS WITH YOUR MEDICATIONS? NO . WHEN DID YOU LAST EAT? ____ . WHEN DID YOU LAST DRINK? ____ . WHAT DID YOU LAST DRINK? ____ . NAME OF PERSON DRIVING YOU HOME? ____ . DO YOU HAVE ANY OTHER QUESTIONS OR CONCERNS YES- WOULD LIKE TO SCHEDULE A DIGNOSTIC BLOCK ON LEFT SIDE TO LEAD UP TO RF OF LEFT SIDE, STATES RIGHT SIDED RF WORKED VERY WELL AND CONTINUES TO FEEL RELIEF . VITAL SIGNS WT 203 LBS, HT 68 IN, BMI 30.86 INDEX, BP 133/75 MM HG, HR 71 /MIN, RR 18 /MIN, TEMP 98.1 F, OXYGEN SAT % 97%, SAFE IN ENV? (Y/N) YES, NA INITIALS SC 13:07, REVIEWED BY: CRISTINE. EXAMINATION GENERAL EXAMINATION: GENERAL AWAKE,ALERT ,PLEAASANT . PSYCH AFFECT NORMAL . LUNGS: LUNG HARRY ARE CLEAR TO AUSCULTATION BILATERALLY. GOOD MOVEMENT OF AIR . HEART: S1, S2 IN A REGULAR RATE AND RHYTHM. NO SIGNIFICANT MURMURS, RUBS OR GALLOPS NOTED . MUSCULOSKELETAL: WEAK OVER RIGHT LEG. LUMBAR SACRAL SPINE SPECIFIC POINT TENDERNESS OVER LEFT L4/5-L5/S1 LUMBAR FACETS WITH FACET LOADING. NEUROLOGIC EXAM: NORMAL SENSATION LIGHT TOUCH BILAT. LOWER EXTREMITIES. DIAGNOSTIC TESTS REVIEWED MRI L/S SPINE-05/04/18. ASSESSMENTS SPONDYLOSIS OF LUMBAR REGION WITHOUT MYELOPATHY OR RADICULOPATHY - M47.816 (PRIMARY) TREATMENT SPONDYLOSIS OF LUMBAR REGION WITHOUT MYELOPATHY OR RADICULOPATHY CONTINUE GABAPENTIN CAPSULE, 100 MG, 1 CAPSULE, ORALLY, 1 IN AM AND 1 MID DAY CONTINUE GABAPENTIN CAPSULE, 300 MG, 1 CAPSULE, ORALLY, QHS CONTINUE HYDROCODONE-ACETAMINOPHEN TABLET, 5-325 MG, 1 TABLET NEEDED, ORALLY, EVERY 8-12 HRS PRN PAIN MDD=2 NOTES: LEFT LFBDX #2, ISTOP REGISTRY REVIEWED AND DEMONSTRATES COMPLLIANCE. BRINGS IN MEDICATIONS WHICH IS APPROPRIATE FOR WHAT WAS DISPENSED. RECENT URINE TOXICOLOGY REVIEWED. NO UNAUTHORIZED MEDICATIONS. NO ILLICIT SUBSTANCES AND PRESCRIBED MEDICATIONS WERE PRESENT. , RISKS OF NARCOTIC/OPIOD MEDICATIONS INCLUDES BUT IS NOT LIMITED TO RISK OF DEPENDANCE/DEVELOPMENT OF ADDICTION, MOOD DISTURBANCE AND DEPRESSION, OSTEOPOROSIS, HORMONAL AND LABIDAL CHANGES, RESPIRATORY DEPRESSION AND . PATIENT IS ADVISED NOT TO DRIVE OR DRINK ALCOHOL WHILE ON THESE MEDICATIONS. PROCEDURE CODES FA211 ESTABILISHED PATIENT [facility] CHARGE DISPOSITION & COMMUNICATION FOLLOW UP POST (REASON: LEFT LFBDX #2) ELECTRONICALLY SIGNED BY MARISA CEVALLOS ON 02/12/2019 AT 03:55 PM EDT DISCLAIMER : THIS IS A VISIT SUMMARY EXTRACTED FROM THE [employer] CHART. IT IS NOT A COPY OF THE [employer] PROGRESS NOTE. MELYSSA
== END ==
LOC: M PAIN 13:30
PROVIDERS: ATTEND Nurse Practitioner Family
DX: M47.816 Spondylosis without myelopathy or radiculopathy, lumbar region (principal); E78.5 Hyperlipidemia, unspecified; G47.33 Obstructive sleep apnea (adult) (pediatric); J44.9 Chronic obstructive pulmonary disease, unspecified; K21.9 Gastro-esophageal reflux disease without esophagitis; F17.210 Nicotine dependence, cigarettes, uncomplicated; Z79.82 Long term (current) use of aspirin; Z79.51 Long term (current) use of inhaled steroids; Z79.899 Other long term (current) drug therapy

== ENCOUNTER → 2019-03-10 | Outpatient (CLI) | payer MEDICARE, MEDICAID ==
[~2019-03-10] MED LIST changes: +BUPIVACAINE HCL 0.25% 30 ML VIAL As Ordered ONE; +ISOVUE-M 300 61% 15ML VIAL (Q9967) As Ordered ONE; +LIDOCAINE 1% SDV INJ 30 ML VIAL As Ordered ONE; +OMEP-172 PO; -OMEP20CA4 PO
--- NOTE | 2019-03-10 15:27 | REP ---
Partial lumbar spine series: To views . History: Injection procedure for pain. 27 seconds of fluoroscopy time is reported. Findings: A sequence of two fluoroscopically obtained last image hold procedural spot radiographs of the lumbar spine document needle position and contrast injection associated with injection procedure. Electronically Signed by Naren Allen MD 03/10/2019 03:18 P
--- NOTE | 2019-03-26 04:03 | ECWPNPC ---
PATIENT NAME: MEHUL FERRARO : 1970 GENDER: MALE VISIT DATE: 03/10/2019 DISCHARGE DATE: 03/10/19 1522 VISIT LOCKED DATE TIME: PHYSICIAN: MAXIMILIANO SABA MD RESOURCE: MAXIMILIANO SABA MD REASON FOR APPOINTMENT 1. LEFT LFBDX #2 HISTORY OF PRESENT ILLNESS HISTORY OF PRESENT ILLNESS: PAIN THE PATIENT DESCRIBES THE PAIN... FALL RISK SCREENING: SCREENING :NO FALLS REPORTED IN THE LAST YEAR CURRENT MEDICATIONS TAKING ASPIRIN EC 81 MG TABLET DELAYED RELEASE 1 TABLET ORALLY ONCE A DAY TAKING VITAMIN D3 1000 UNIT CAPSULE 1 CAPSULE ORALLY ONCE A DAY TAKING CARVEDILOL 6.25 MG TABLET 1 TABLET WITH FOOD ORALLY DAILY TAKING MENS ONE DAILY - TABLET 1 TAB ORALLY DAILY TAKING BREO ELLIPTA 100-25 MCG/INH AEROSOL POWDER BREATH ACTIVATED USE ONE INHALATION ONCE DAILY TAKING PROAIR HFA 108 (90 BASE) MCG/ACT AEROSOL SOLUTION 2 PUFFS NEEDED INHALATION EVERY 4 HRS, NOTES: 03/08/19 TAKING CETIRIZINE HCL 10 MG TABLET 1 TABLET ORALLY ONCE A DAY TAKING GEMFIBROZIL 600 MG TABLET 1 TABLET ORALLY TWICE A DAY TAKING CRESTOR 10 MG TABLET 1 TABLET ORALLY ONCE A DAY TAKING OMEPRAZOLE 20 MG CAPSULE DELAYED RELEASE TAKE TWO CAPSULES BY MOUTH TWICE A DAY TAKING GABAPENTIN 100 MG CAPSULE 1 CAPSULE ORALLY 1 IN AM AND 1 MID DAY, NOTES: 03/09/19 1400 TAKING GABAPENTIN 300 MG CAPSULE 1 CAPSULE ORALLY QHS, NOTES: 03/09/19 2230 TAKING HYDROCODONE-ACETAMINOPHEN 5-325 MG TABLET 1 TABLET NEEDED ORALLY EVERY 8-12 HRS PRN PAIN MDD=2, NOTES: 03/09/19 1930 NOT-TAKING CHANTIX 1 MG TABLET 1 TABLET ORALLY TWICE A DAY MEDICATION LIST REVIEWED AND RECONCILED WITH THE PATIENT PAST MEDICAL HISTORY CAD - NO HISTORY OF INFARCT - CARDIAC CATHETERIZATION 08/24 REVEALED NON-OBSTRUCTIVE DISEASE ONLY. ECHOCARDIOGRAM 10/25 NO VALVULAR DISEASE, TRACE MITRAL INSUFFICIENCY, TRACE TRICUSPID INSUFFICIENCY. NUCLEAR STRESS TEST 10/25 - NORMAL PERFUSION NO ISCHEMIA OR INFARCTION. EF CALCULATED AT 52% EKG - 07/28 - NSR 84 BPM (FOLLOWED BY DR. TORRES) LUMBAGO - OSTEOARTHRITIS - DDD - FOLLOWS WITH PAIN CLINIC HYPERLIPIDEMIA HIATAL HERNIA WITH REFLUX TOBACCO ABUSE WALI DX 02/26, COMPLIANT WITH CPAP - PULM COPD GERD VIT D DEF ED ALLERGIES ENVIRONMENTAL: COUGH, SCRATHY THROAT, - ALLERGY SURGICAL HISTORY B INGUINAL HERNIA REPAIR A CHILD AND AGAIN IN 2010 CARDIAC CATH 2007, 2010 COLONOSCOPY - 05/02 - REPEAT IN 5 YEARS 2010, 2016 FAMILY HISTORY FATHER: 77 YRS, KIDNEY INFECTION CAUSING RENAL FAILURE MOTHER: 75 YRS, DM2, CAD, HYPERLIPIDEMIA SIBLINGS: 3 BROTHERS - UNKNOWN HX 1 SISTER (D) 50 YO - [place] 2 SISTERS - UNKNOWN HX DAUGHTER(S): ALIVE 28 YRS, NO KNOWN MEDICAL PROBLEMS - ESTRANGED 3 BROTHER(S) , 3 SISTER(S) . 1DAUGHTER(S) . SOCIAL HISTORY GENERAL: TOBACCO USE ARE YOU A:CURRENT SMOKER HOW OFTEN DO YOU SMOKE CIGARETTES?SOME DAYS, BUT NOT EVERY DAY HOW SOON AFTER YOU WAKE UP DO YOU SMOKE YOUR FIRST CIGARETTE?6-30 MIN HOW MANY CIGARETTES A DAY DO YOU SMOKE?5 OR LESS ARE YOU INTERESTED IN QUITTING?THINKING ABOUT QUITTING TRYING TO QUIT CURRENTLY BUT DID STOP CHANTIX. PATIENT COUNSELED ON THE DANGERS OF TOBACCO USE AND URGED TO QUIT:02/03/2019 COUNSELED THE PATIENT ON SMOKING CESSATION, EDUCATION [id number]/01/2019 PREVIOUS QUIT ATTEMPTS?YES, MORE THAN 6 MONTHS AGO. HIV / HEP-C SCREENING HIV TEST OFFERED TO PATIENT:YES DATE OFFERED:05/28/2017 TEST ACCEPTED:NO HEP-C TEST OFFERED TO PATIENT:YES DATE OFFERED:08/17/2016 REASON:PATIENT DECLINED TEST ACCEPTED:NO REASON:PATIENT DECLINED OTHERS AT HOME: NONE. DIET: REGULAR. LANGUAGE LANGUAGES SPOKEN:MAORI DOMESTIC VIOLENCE DO YOU FEEL SAFE IN YOUR ENVIRONMENT?YES BMI CARE GOAL FOLLOW-UP ABOVE NORMAL BMI FOLLOW-UPWEIGHT MONITORING RECREATIONAL DRUG USE DRUG USE?NO EXERCISE: DAILY. LEARNING BARRIERS / SPECIAL NEEDS BARRIERS TO LEARNING?NO HEARING IMPAIRED?NO VISION IMPAIRED?YES COGNITIVELY IMPAIRED?NO :CORRECTIVE LENSES READINESS TO LEARN?YES LEARNING PREFERENCES?NO LEARNING CAPABILITIES PRESENT?YES EMOTIONAL BARRIERS?NO SPECIAL DEVICES?NO CONFIGURATION MANAGER NEEDED?NO LUNG CANCER SCREENING SMOKING STATUS:CURRENT SMOKER PAIN CLINIC PFS, CLERGY, PUBLIC HEALTH REFERRALS PFS REFERRAL NEEDED?NO CLERGY REFERRAL NEEDED?NO PUBLIC HEALTH REFERRAL NEEDED?NO WAS THE PROVIDER NOTIFIED OF ANY PERTINENT INFO? N/A HAS THE PATIENT BEEN EDUCATED REGARDING HIS/HER PLAN OF CARE?YES HAS THE PATIENT BEEN EDUCATED REGARDING PAIN, THE RISK FOR PAIN, THE IMPORTANCE OF EFFECTIVE PAIN MANAGEMENT, AND THE PAIN ASSESSMENT PROCESS?YES LATEX QUESTIONNAIRE LATEX ALLERGY : HAVE YOU EVER DEVELOPED ANY TYPE OF REACTION AFTER HANDLING LATEX PRODUCTS SUCH RUBBER GLOVES, CONDOMS, DIAPHRAGMS, BALLOONS, SOCKS, OR UNDERWEAR?NO LATEX ALLERGY : HAVE YOU EVER DEVELOPED ANY TYPE OF REACTION DURING OR AFTER DENTAL APPOINTMENT, VAGINAL/RECTAL EXAMINATION, SURGICAL PROCEDURE, OR ANY OTHER EXPOSURE?NO DATE ASKED : 10/30/2018 LATEX RISK : HAVE YOU EVER HAD ANY DIFFICULTY BREATHING OR HIVES AFTER EATING OR HANDLING ANY FRUITS, OR VEGETABLES; SUCH KIWI, BANANAS, STONE FRUITS, OR CHESTNUTSNO LATEX RISK : DO YOU HAVE A PREVIOUS PERSONAL HISTORY OF MORE THAN NINE SURGERIES, SPINA BIFIDA, OR REPEATED CATHERIZATIONS? NO LATEX RISK : ARE YOU FREQUENTLY EXPOSED TO LATEX PRODUCTS IN YOUR OCCUPATION?NO CAFFEINE CAFFEINE USE?YES HOW OFTEN AND HOW MUCH? COFFEE 3- 4 CUPS DAILY AT TIMES ADVANCE DIRECTIVE ADVANCE DIRECTIVE DISCUSSED WITH PATIENT:YES PT DOES NOT HAVE ANY ADVANCED DIRECTIVES AND HE DECLINES INFORMATION ON HCP AT THIS TIME. BAHAI [id number] NONE MARITAL STATUS: . ALCOHOL SCREENING DID YOU HAVE A DRINK CONTAINING ALCOHOL IN THE PAST YEAR?YES HOW OFTEN DID YOU HAVE A DRINK CONTAINING ALCOHOL IN THE PAST YEAR?MONTHLY OR LESS (1 POINT) POINTS1 INTERPRETATIONNEGATIVE SEXUAL HX HAD SEX IN THE LAST 12 MONTHS (VAGINAL, ORAL, OR ANAL)?YES WITHWOMEN ONLY REVIEWED WITH PATIENT 01/29/18 1331 JSRREVIEWED WITH PT 05/01/18 1345 LAS07/01/18 REVIEWED WITH PT. ADREVIEWED WITH PT 11/28/18 1150 BVREVIEWED WITH PATIENT 02/03/19 1303 NLJREVIEWED WITH PATIENT 03/10/19 1410 LAS. HOSPITALIZATION/MAJOR DIAGNOSTIC PROCEDURE CHEST PAIN/ABD PAIN 03/01 CHEST PAIN, CARDIAC CATH 2010 [facility] 02/2017 REVIEW OF SYSTEMS REVIEWED BY: PROVIDER: . CONSTITUTIONAL: ANY CHANGE IN YOUR MEDICAL CONDITION? NO . CHILLS NO . FEVER NO . INFECTION: DO YOU HAVE NEW INFECTIONS? NO . DO YOU HAVE HISTORY OF MRSA? NO . MUSCULOSKELETAL: ANY NEW PATTERNS OF PAIN OR NUMBNESS? NO . GASTROENTEROLOGY: ANY NEW CHANGE IN BOWEL CONTROL? NO . GENITOURINARY: ANY NEW CHANGE IN BLADDER CONTROL? NO . IS THERE A CHANCE YOU COULD BE ? NO . HEMATOLOGY/LYMPH: DO YOU TAKE ANY BLOOD THINNERS? (FOR EXAMPLE- COUMADIN, PLAVIX, AGGRENOX, PLATEL, PRADAXA, OR XARELTO) NO . WHEN WAS YOUR LAST DOSE? DATE: TIME: . NEUROLOGY: HAVE YOU FALLEN IN THE PAST 12 MONTHS? NO . ANY NEW EXTREMITY NUMBNESS OR WEAKNESS? YES PT REPORTS HIS LEFT HIP IS NOW BOTHERING HIM THIS PAST MONTH . CARDIOLOGY: DO YOU HAVE A PACEMAKER OR DEFIBRILLATOR? NO . RESPIRATORY: HAVE YOU BEEN SICK IN THE PAST WEEK? NO . FEVER NO . FLU LIKE SYMPTOMS? NO . COUGH YES "SMOKER'S COUGH" . INTEGUMENTARY: DO YOU HAVE ANY RASHES OR OPEN SORES? NO . ALLERGIC/IMMUNO: ARE YOU ALLERGIC TO IV DYE? NO . ANY NEW ALLERGIES? NO . PSYCHIATRIC: DO YOU HAVE THOUGHTS OF HURTING YOURSELF OR SOMEONE ELSE? NO . ARE YOU ABUSED, NEGLECTED, OR IN AN UNSAFE ENVIRONMENT? NO . ENDOCRINOLOGY: ARE YOU DIABETIC? NO . OTHER: DO YOU NEED ANY PRESCRIPTIONS? NO . IF YES, PLEASE LIST: ____ . ANY NEW PROBLEMS WITH YOUR MEDICATIONS? NO . WHEN DID YOU LAST EAT? ____03/09/192199 . WHEN DID YOU LAST DRINK? ____03/09/190 . WHAT DID YOU LAST DRINK? ____EGGNOG . NAME OF PERSON DRIVING YOU HOME? ____PATTY . DO YOU HAVE ANY OTHER QUESTIONS OR CONCERNS NO . VITAL SIGNS WT 200.6 LBS, HT 68 IN, BMI 30.50 INDEX, BP 130/77 MM HG, HR 87 /MIN, RR 18 /MIN, TEMP 98.6 F, OXYGEN SAT % 95%, NA INITIALS SC 14:13. ASSESSMENTS SPONDYLOSIS OF LUMBAR REGION WITHOUT MYELOPATHY OR RADICULOPATHY - M47.816 (PRIMARY) SPONDYLOSIS WITHOUT MYELOPATHY OR RADICULOPATHY, LUMBOSACRAL REGION - M47.817 TREATMENT SPONDYLOSIS OF LUMBAR REGION WITHOUT MYELOPATHY OR RADICULOPATHY [facility] FACET BLOCK (PAIN)[id number] PROCEDURES PN LUMBAR FACET BLOCK DIAGNOSTIC PRE PROCEDURE DIAGNOSIS LUMBAR SPONDYLOSIS, LUMBOSACRAL SPONDYLOSIS POST PROCEDURE DIAGNOSIS LUMBAR SPONDYLOSIS, LUMBOSACRAL SPONDYLOSIS PROCEDURE LEFT L4-L5 AND LEFT L5-S1 FACET BLOCK DIAGNOSTIC NUMBER [address] MAXIMILIANO SABA POULTRY PACKER NONE ANESTHESIA LOCAL PRE PROCEDURE NOTE THE PATIENT WITH HISTORY OF CHRONIC LOW BACK PAIN. I EVALUATED THE PATIENT AND REVIEWED THE CHART. I WENT OVER THE RISKS, ALTERNATIVES, AND BENEFITS ASSOCIATED WITH THIS PROCEDURE. THE PATIENT WOULD LIKE TO PROCEED AND GAVE CONSENT TO PERFORM THE PROCEDURE. AGREED WITH THE PATIENT WE ARE DOING THIS PROCEDURE TO DETERMINE IF THE PATIENT IS A CANDIDATE FOR A RADIOFREQUENCY ABLATION OF THE FACETS JOINTS. THE PATIENT DENIES UNEXPLAINABLE WEIGHT LOSS, FEVER, CHILLS, OR NEW CHANGES IN URINARY OR BOWEL CONTROL DESCRIPTION OF PROCEDURE THE PATIENT WAS BROUGHT TO THE PROCEDURE ROOM AND PLACED IN THE PRONE POSITION. THE LUMBOSACRAL AREA WAS CLEANED WITH CHLORAPREP SOLUTION AND DRAPED ASEPTICALLY. THE PROCEDURE WAS DONE UNDER STERILE CONDITIONS. I CHECKED LATERALITY AND THE LEVEL WHERE THE PROCEDURE WAS GOING TO BE PERFORMED WITH THE PATIENT AND THE SUPPORTING STAFF AT THE MOMENT OF THE TIME OUT IN THE PROCEDURE ROOM. UNDER FLUOROSCOPIC GUIDANCE, TARGETS WERE SELECTED AT THE INTERSECTION OF THE LEFT TRANSVERSE PROCESS OF L4, L5 AND ALA OF S1 WITH ITS RESPECTIVE SUPERIOR ARTICULAR PROCESS. LIDOCAINE WAS USED TO NUMB THE SKIN AND THE SUBCUTANEOUS TISSUE BELOW IT. SPINAL NEEDLE, 22-GAUGE WAS ADVANCED UNDER FLUOROSCOPIC GUIDANCE AND FOLLOWING PATIENT FEEDBACK UNTIL THE TARGETS WERE REACHED. POSITION OF THE NEEDLES WAS VERIFIED WITH AP AND LATERAL VIEWS. AFTER PROPER POSITION OF THE NEEDLES WAS ACHIEVED, ISOVUE-M DYE 30% 0.1 ML WAS INJECTED AT EACH SITE SHOWING ADEQUATE SPREAD OF THE DYE. THEN A SOLUTION OF 0.4 ML OF BUPIVACAINE 0.25% WAS INJECTED AT EACH SITE. THERE WAS NO EVIDENCE OF BLOOD, PARESTHESIA OR CEREBROSPINAL FLUID DURING THE PROCEDURE. THE PATIENT WAS SENT TO THE RECOVERY ROOM. THE PATIENT WAS MOVING THE EXTREMITIES AND DOING WELL. THERE WAS NO COMPLICATION DURING THE PROCEDURE. FLUOROSCOPY TIME WAS 27 SECONDS POST PROCEDURE NOTE THE PATIENT WILL DOCUMENT HIS PAIN LEVEL AND RESPONSE TO THIS PROCEDURE EVERY 30 MINUTES. THE PATIENT WILL BE SEEN IN A FOLLOW UP IN THE NEXT FEW WEEKS. FURTHER DETERMINATION FOR HIS CASE WILL BE DONE AT THE NEXT VISIT. INSTRUCTIONS WERE GIVEN, QUESTIONS WERE ANSWERED, AND THE PATIENT EXPRESSED UNDERSTANDING AND AGREED WITH THE PLAN. I, JEFERSON WATSON, DOCUMENTED THE ABOVE INFORMATION ACTING A SCRIBE FOR DR. SABA. I HAVE REVIEWED THE ABOVE DOCUMENT, WRITTEN BY JEFERSON WATSON SCRIBEvan AND I VERIFY THAT IT IS ACCURATE. PROCEDURE CODES 08441 INJ PARAVERT F JNT L/S 1 LEV, [place] [address] INJ PARAVERT F JNT L/S 2 LEV, MODIFIERS: LT 6045F RADXPS IN END [id number] PXD DISPOSITION & COMMUNICATION FOLLOW UP 3 WEEKS ELECTRONICALLY SIGNED BY MAXIMILIANO SABA MD, MD ON 03/25/2019 AT 07:53 PM EST DISCLAIMER : THIS IS A VISIT SUMMARY EXTRACTED FROM THE [employer] CHART. IT IS NOT A COPY OF THE [employer] PROGRESS NOTE. MTDD
== END ==
LOC: M PAIN 13:45
PROVIDERS: ATTEND Anesthesiology
DX: M47.816 Spondylosis without myelopathy or radiculopathy, lumbar region (principal); M47.817 Spondylosis without myelopathy or radiculopathy, lumbosacral region; E78.5 Hyperlipidemia, unspecified; K21.9 Gastro-esophageal reflux disease without esophagitis; G47.33 Obstructive sleep apnea (adult) (pediatric); J44.9 Chronic obstructive pulmonary disease, unspecified; E55.9 Vitamin D deficiency, unspecified; F17.210 Nicotine dependence, cigarettes, uncomplicated; Z79.82 Long term (current) use of aspirin; Z79.51 Long term (current) use of inhaled steroids; Z79.899 Other long term (current) drug therapy
CPT/HCPCS: 64493; 64494; Q9967

== ENCOUNTER → 2019-04-04 | Outpatient (CLI) | payer MEDICARE, MEDICAID ==
[~2019-04-04] MED LIST changes: -BUPIVACAINE HCL 0.25% 30 ML VIAL As Ordered ONE; -ISOVUE-M 300 61% 15ML VIAL (Q9967) As Ordered ONE; -LIDOCAINE 1% SDV INJ 30 ML VIAL As Ordered ONE
--- NOTE | 2019-04-23 03:31 | ECWPNPC ---
PATIENT NAME: MEHUL FERRARO : 1970 GENDER: MALE VISIT DATE: 04/04/2019 DISCHARGE DATE: 04/04/19 1500 VISIT LOCKED DATE TIME: PHYSICIAN: RYAN ORTEGA RESOURCE: RYAN ORTEGA REASON FOR APPOINTMENT 1. POST PROCEDURE HISTORY OF PRESENT ILLNESS HISTORY OF PRESENT ILLNESS: HERE FOR POST PROCEDURE F/U.HAD LEFT L4/5-L5/S1 LFBDX #2 ON 03/10/19.REPORTING SIGNIFICANT REDUCTION IN LEFT LBP FOR SEVERAL HOURS POST PROCEDURE.RATING PAIN VAS 6/10. PAIN THE PATIENT DESCRIBES THE PAIN... FALL RISK SCREENING: SCREENING :NO FALLS REPORTED IN THE LAST YEAR CURRENT MEDICATIONS TAKING ASPIRIN EC 81 MG TABLET DELAYED RELEASE 1 TABLET ORALLY ONCE A DAY TAKING VITAMIN D3 1000 UNIT CAPSULE 1 CAPSULE ORALLY ONCE A DAY TAKING CARVEDILOL 6.25 MG TABLET 1 TABLET WITH FOOD ORALLY DAILY TAKING MENS ONE DAILY - TABLET 1 TAB ORALLY DAILY TAKING BREO ELLIPTA 100-25 MCG/INH AEROSOL POWDER BREATH ACTIVATED USE ONE INHALATION ONCE DAILY TAKING PROAIR HFA 108 (90 BASE) MCG/ACT AEROSOL SOLUTION 2 PUFFS NEEDED INHALATION EVERY 4 HRS, NOTES: 03/08/19 TAKING CETIRIZINE HCL 10 MG TABLET 1 TABLET ORALLY ONCE A DAY TAKING GEMFIBROZIL 600 MG TABLET 1 TABLET ORALLY TWICE A DAY TAKING CRESTOR 10 MG TABLET 1 TABLET ORALLY ONCE A DAY TAKING OMEPRAZOLE 20 MG CAPSULE DELAYED RELEASE TAKE TWO CAPSULES BY MOUTH TWICE A DAY TAKING GABAPENTIN 100 MG CAPSULE 1 CAPSULE ORALLY 1 IN AM AND 1 MID DAY, NOTES: 03/09/19 1400 TAKING GABAPENTIN 300 MG CAPSULE 1 CAPSULE ORALLY QHS, NOTES: 03/09/19 2230 TAKING HYDROCODONE-ACETAMINOPHEN 5-325 MG TABLET 1 TABLET NEEDED ORALLY EVERY 8-12 HRS PRN PAIN MDD=2, NOTES: 03/09/19 1930 NOT-TAKING CHANTIX 1 MG TABLET 1 TABLET ORALLY TWICE A DAY MEDICATION LIST REVIEWED AND RECONCILED WITH THE PATIENT PAST MEDICAL HISTORY CAD - NO HISTORY OF INFARCT - CARDIAC CATHETERIZATION 08/24 REVEALED NON-OBSTRUCTIVE DISEASE ONLY. ECHOCARDIOGRAM 10/25 NO VALVULAR DISEASE, TRACE MITRAL INSUFFICIENCY, TRACE TRICUSPID INSUFFICIENCY. NUCLEAR STRESS TEST 10/25 - NORMAL PERFUSION NO ISCHEMIA OR INFARCTION. EF CALCULATED AT 52% EKG - 07/28 - NSR 84 BPM (FOLLOWED BY DR. TORRES) LUMBAGO - OSTEOARTHRITIS - DDD - FOLLOWS WITH PAIN CLINIC HYPERLIPIDEMIA HIATAL HERNIA WITH REFLUX TOBACCO ABUSE WALI DX 02/26, COMPLIANT WITH CPAP - PULM COPD GERD VIT D DEF ED ALLERGIES ENVIRONMENTAL: COUGH, SCRATHY THROAT, - ALLERGY SURGICAL HISTORY B INGUINAL HERNIA REPAIR A CHILD AND AGAIN IN 2010 CARDIAC CATH 2007, 2010 COLONOSCOPY - 05/02 - REPEAT IN 5 YEARS 2010, 2016 FAMILY HISTORY FATHER: 77 YRS, KIDNEY INFECTION CAUSING RENAL FAILURE MOTHER: 75 YRS, DM2, CAD, HYPERLIPIDEMIA SIBLINGS: 3 BROTHERS - UNKNOWN HX 1 SISTER (D) 50 YO - [place] 2 SISTERS - UNKNOWN HX DAUGHTER(S): ALIVE 28 YRS, NO KNOWN MEDICAL PROBLEMS - ESTRANGED 3 BROTHER(S) , 3 SISTER(S) . 1DAUGHTER(S) . SOCIAL HISTORY GENERAL: TOBACCO USE ARE YOU A:CURRENT SMOKER ARE YOU INTERESTED IN QUITTING?THINKING ABOUT QUITTING TRYING TO QUIT CURRENTLY BUT DID STOP CHANTIX. PREVIOUS QUIT ATTEMPTS?YES, MORE THAN 6 MONTHS AGO. COUNSELED THE PATIENT ON SMOKING CESSATION, EDUCATION [id number]/01/2019 HOW MANY CIGARETTES A DAY DO YOU SMOKE?5 OR LESS HOW SOON AFTER YOU WAKE UP DO YOU SMOKE YOUR FIRST CIGARETTE?6-30 MIN HOW OFTEN DO YOU SMOKE CIGARETTES?SOME DAYS, BUT NOT EVERY DAY PATIENT COUNSELED ON THE DANGERS OF TOBACCO USE AND URGED TO QUIT:04/04/2019 HIV / HEP-C SCREENING HIV TEST OFFERED TO PATIENT:YES DATE OFFERED:05/28/2017 TEST ACCEPTED:NO HEP-C TEST OFFERED TO PATIENT:YES DATE OFFERED:08/17/2016 REASON:PATIENT DECLINED TEST ACCEPTED:NO REASON:PATIENT DECLINED OTHERS AT HOME: NONE. DIET: REGULAR. LANGUAGE LANGUAGES SPOKEN:MAURITIAN DOMESTIC VIOLENCE DO YOU FEEL SAFE IN YOUR ENVIRONMENT?YES BMI CARE GOAL FOLLOW-UP ABOVE NORMAL BMI FOLLOW-UPWEIGHT MONITORING RECREATIONAL DRUG USE DRUG USE?NO EXERCISE: DAILY. LEARNING BARRIERS / SPECIAL NEEDS BARRIERS TO LEARNING?NO HEARING IMPAIRED?NO VISION IMPAIRED?YES COGNITIVELY IMPAIRED?NO :CORRECTIVE LENSES READINESS TO LEARN?YES LEARNING PREFERENCES?NO LEARNING CAPABILITIES PRESENT?YES EMOTIONAL BARRIERS?NO SPECIAL DEVICES?NO EXTENSION SERVICE AGENT NEEDED?NO LUNG CANCER SCREENING SMOKING STATUS:CURRENT SMOKER PAIN CLINIC PFS, CLERGY, PUBLIC HEALTH REFERRALS PFS REFERRAL NEEDED?NO CLERGY REFERRAL NEEDED?NO PUBLIC HEALTH REFERRAL NEEDED?NO WAS THE PROVIDER NOTIFIED OF ANY PERTINENT INFO? N/A HAS THE PATIENT BEEN EDUCATED REGARDING HIS/HER PLAN OF CARE?YES HAS THE PATIENT BEEN EDUCATED REGARDING PAIN, THE RISK FOR PAIN, THE IMPORTANCE OF EFFECTIVE PAIN MANAGEMENT, AND THE PAIN ASSESSMENT PROCESS?YES LATEX QUESTIONNAIRE LATEX ALLERGY : HAVE YOU EVER DEVELOPED ANY TYPE OF REACTION AFTER HANDLING LATEX PRODUCTS SUCH RUBBER GLOVES, CONDOMS, DIAPHRAGMS, BALLOONS, SOCKS, OR UNDERWEAR?NO LATEX ALLERGY : HAVE YOU EVER DEVELOPED ANY TYPE OF REACTION DURING OR AFTER DENTAL APPOINTMENT, VAGINAL/RECTAL EXAMINATION, SURGICAL PROCEDURE, OR ANY OTHER EXPOSURE?NO DATE ASKED : 10/30/2018 LATEX RISK : HAVE YOU EVER HAD ANY DIFFICULTY BREATHING OR HIVES AFTER EATING OR HANDLING ANY FRUITS, OR VEGETABLES; SUCH KIWI, BANANAS, STONE FRUITS, OR CHESTNUTSNO LATEX RISK : DO YOU HAVE A PREVIOUS PERSONAL HISTORY OF MORE THAN NINE SURGERIES, SPINA BIFIDA, OR REPEATED CATHERIZATIONS? NO LATEX RISK : ARE YOU FREQUENTLY EXPOSED TO LATEX PRODUCTS IN YOUR OCCUPATION?NO CAFFEINE CAFFEINE USE?YES HOW OFTEN AND HOW MUCH? COFFEE 3- 4 CUPS DAILY AT TIMES ADVANCE DIRECTIVE ADVANCE DIRECTIVE DISCUSSED WITH PATIENT:YES PT DOES NOT HAVE ANY ADVANCED DIRECTIVES AND HE DECLINES INFORMATION ON HCP AT THIS TIME. MORAVIAN [id number] NONE MARITAL STATUS: . ALCOHOL SCREENING DID YOU HAVE A DRINK CONTAINING ALCOHOL IN THE PAST YEAR?YES HOW OFTEN DID YOU HAVE A DRINK CONTAINING ALCOHOL IN THE PAST YEAR?MONTHLY OR LESS (1 POINT) POINTS1 INTERPRETATIONNEGATIVE SEXUAL HX HAD SEX IN THE LAST 12 MONTHS (VAGINAL, ORAL, OR ANAL)?YES WITHWOMEN ONLY REVIEWED WITH PATIENT 01/29/18 1331 JSRREVIEWED WITH PT 05/01/18 1345 LAS07/01/18 REVIEWED WITH PT. ADREVIEWED WITH PT 11/28/18 1150 BVREVIEWED WITH PATIENT 02/03/19 1303 NLJREVIEWED WITH PATIENT 03/10/19 1410 LAS. HOSPITALIZATION/MAJOR DIAGNOSTIC PROCEDURE CHEST PAIN/ABD PAIN 03/01 CHEST PAIN, CARDIAC CATH 2010 [facility] 02/2017 REVIEW OF SYSTEMS REVIEWED BY: PROVIDER: RYAN CUNNINGHAM . CONSTITUTIONAL: ANY CHANGE IN YOUR MEDICAL CONDITION? NO . CHILLS NO . FEVER NO . INFECTION: DO YOU HAVE NEW INFECTIONS? BEEN HAVING A COLD LATELY . DO YOU HAVE HISTORY OF MRSA? NO . MUSCULOSKELETAL: ANY NEW PATTERNS OF PAIN OR NUMBNESS? NO . GASTROENTEROLOGY: ANY NEW CHANGE IN BOWEL CONTROL? NO . GENITOURINARY: ANY NEW CHANGE IN BLADDER CONTROL? NO . IS THERE A CHANCE YOU COULD BE ? NO . HEMATOLOGY/LYMPH: DO YOU TAKE ANY BLOOD THINNERS? (FOR EXAMPLE- COUMADIN, PLAVIX, AGGRENOX, PLATEL, PRADAXA, OR XARELTO) NO . WHEN WAS YOUR LAST DOSE? DATE: TIME: . NEUROLOGY: HAVE YOU FALLEN IN THE PAST 12 MONTHS? NO . ANY NEW EXTREMITY NUMBNESS OR WEAKNESS? NO . CARDIOLOGY: DO YOU HAVE A PACEMAKER OR DEFIBRILLATOR? NO . RESPIRATORY: HAVE YOU BEEN SICK IN THE PAST WEEK? NO . FEVER NO . FLU LIKE SYMPTOMS? NO . COUGH NO . INTEGUMENTARY: DO YOU HAVE ANY RASHES OR OPEN SORES? NO . ALLERGIC/IMMUNO: ARE YOU ALLERGIC TO IV DYE? NO . ANY NEW ALLERGIES? NO . PSYCHIATRIC: DO YOU HAVE THOUGHTS OF HURTING YOURSELF OR SOMEONE ELSE? NO . ARE YOU ABUSED, NEGLECTED, OR IN AN UNSAFE ENVIRONMENT? NO . ENDOCRINOLOGY: ARE YOU DIABETIC? NO . OTHER: DO YOU NEED ANY PRESCRIPTIONS? NO . IF YES, PLEASE LIST: ____ . ANY NEW PROBLEMS WITH YOUR MEDICATIONS? NO . WHEN DID YOU LAST EAT? ____ . WHEN DID YOU LAST DRINK? ____ . WHAT DID YOU LAST DRINK? ____ . NAME OF PERSON DRIVING YOU HOME? ____ . DO YOU HAVE ANY OTHER QUESTIONS OR CONCERNS NO . VITAL SIGNS WT 206.6 LBS, HT 68 IN, BMI 31.41 INDEX, BP 120/79 MM HG, HR 65 /MIN, RR 18 /MIN, TEMP 97.8 F, OXYGEN SAT % 97%, SAFE IN ENV? (Y/N) YES, NA INITIALS SC 14:16. EXAMINATION GENERAL EXAMINATION: GENERAL AWAKE,ALERT ,PLEAASANT . PSYCH AFFECT NORMAL . LUNGS: LUNG HARRY ARE CLEAR TO AUSCULTATION BILATERALLY. GOOD MOVEMENT OF AIR . HEART: S1, S2 IN A REGULAR RATE AND RHYTHM. NO SIGNIFICANT MURMURS, RUBS OR GALLOPS NOTED . MUSCULOSKELETAL: WEAK OVER RIGHT LEG. FOR BILAT. SIJ SPECIFIC POINT TENDERNESS OVER LEFT L4/5-L5/S1 LUMBAR FACETS WITH FACET LOADING. NEUROLOGIC EXAM: NORMAL SENSATION LIGHT TOUCH BILAT. LOWER EXTREMITIES. DIAGNOSTIC TESTS REVIEWED MRI L/S SPINE-05/04/18. ASSESSMENTS SPONDYLOSIS OF LUMBAR REGION WITHOUT MYELOPATHY OR RADICULOPATHY - M47.816 (PRIMARY) TREATMENT SPONDYLOSIS OF LUMBAR REGION WITHOUT MYELOPATHY OR RADICULOPATHY CONTINUE HYDROCODONE-ACETAMINOPHEN TABLET, 5-325 MG, 1 TABLET NEEDED, ORALLY, EVERY 8-12 HRS PRN PAIN MDD=2, NOTES: 03/09/191929 NOTES: LEFT L4/5-L5/S1 RF, ISTOP REGISTRY REVIEWED AND DEMONSTRATES COMPLLIANCE. BRINGS IN MEDICATIONS WHICH IS APPROPRIATE FOR WHAT WAS DISPENSED. RECENT URINE TOXICOLOGY REVIEWED. NO UNAUTHORIZED MEDICATIONS. NO ILLICIT SUBSTANCES AND PRESCRIBED MEDICATIONS WERE PRESENT. PROCEDURE CODES FA211 ESTABILISHED PATIENT [facility] CHARGE DISPOSITION & COMMUNICATION FOLLOW UP POST (REASON: LEFT L4/5-L5/S1 RF) ELECTRONICALLY SIGNED BY MARISA CEVALLOS ON 04/22/2019 AT 04:39 PM EST DISCLAIMER : THIS IS A VISIT SUMMARY EXTRACTED FROM THE [employer] CHART. IT IS NOT A COPY OF THE [employer] PROGRESS NOTE. MELYSSA
== END ==
LOC: M PAIN 14:30
PROVIDERS: ATTEND Nurse Practitioner Family
DX: M47.816 Spondylosis without myelopathy or radiculopathy, lumbar region (principal)

== ENCOUNTER → 2019-05-14 | Outpatient (CLI) | payer MEDICARE, MEDICAID ==
[~2019-05-14] MED LIST changes: +OFLOSO OTIC; -OMEP-172 PO; +OMEP1CAP73 PO
== END ==
LOC: M PAIN 10:00
PROVIDERS: ATTEND Anesthesiology
DX: Z53.20 Procedure and treatment not carried out because of patient's decision for unspecified reasons (principal)

== ENCOUNTER 2019-05-20 14:44 | Emergency (ER) | payer OTHER, MEDICAID ==
[~2019-05-20] VITALS: Ht 172.7 cm; Wt 91.6 kg
[~2019-05-20 14:44] MED LIST changes: -OFLOSO OTIC
[2019-05-20 14:45] VITALS: BP 120/77
[2019-05-20] MEDS ORDERED: OFLOSO OTIC (16:52)
[2019-05-20] MEDS ORDERED: AMOX500C PO (16:52)
== END 2019-05-20 17:30 | disposition home or self-care (01) ==
LOC: M ED 14:44
DX: H66.91 Otitis media, unspecified, right ear (principal); H60.91 Unspecified otitis externa, right ear; I51.9 Heart disease, unspecified; E78.5 Hyperlipidemia, unspecified; F17.200 Nicotine dependence, unspecified, uncomplicated; Z79.82 Long term (current) use of aspirin; Z79.899 Other long term (current) drug therapy

== ENCOUNTER 2019-05-21 21:22 | Emergency (ER) | payer OTHER, MEDICAID ==
[~2019-05-21] VITALS: Ht 172.7 cm; Wt 94.1 kg
[~2019-05-21 21:22] MED LIST changes: +OFLOSO OTIC
[2019-05-22 00:13] VITALS: BP 136/89
== END 2019-05-22 00:14 | disposition home or self-care (01) ==
LOC: M ED 21:22
DX: H60.91 Unspecified otitis externa, right ear (principal); H66.91 Otitis media, unspecified, right ear; I48.91 Unspecified atrial fibrillation; I25.2 Old myocardial infarction; I10 Essential (primary) hypertension; R51 Headache; J44.9 Chronic obstructive pulmonary disease, unspecified; K44.9 Diaphragmatic hernia without obstruction or gangrene; K21.9 Gastro-esophageal reflux disease without esophagitis; M54.9 Dorsalgia, unspecified; F17.200 Nicotine dependence, unspecified, uncomplicated; Z79.82 Long term (current) use of aspirin; Z79.899 Other long term (current) drug therapy

== ENCOUNTER → 2019-08-06 | Outpatient (CLI) | payer OTHER, MEDICAID ==
--- NOTE | 2019-08-08 00:50 | ECWPNPC ---
PATIENT NAME: MEHUL FERRARO : 1970 GENDER: MALE VISIT DATE: 08/06/2019 DISCHARGE DATE: 08/06/19930 VISIT LOCKED DATE TIME: PHYSICIAN: RYAN ORTEGA RESOURCE: RYAN ORTEGA REASON FOR APPOINTMENT 1. MEDS-PT DOES NOT WANT VIDEO VISIT WANTS TO COME IN HISTORY OF PRESENT ILLNESS HISTORY OF PRESENT ILLNESS: HERE FOR FOLLOW-UP OF CHRONIC LEFT-SIDED LOW BACK PAIN. RATING PAIN LEVEL A 7/10 VAS. USES HYDROCODONE PERIODICALLY FOR SEVERE PAIN EPISODES. FINDS MEDICATION HELPFUL AT REDUCING PAIN AND KEEPING HIM FUNCTIONAL. DENIES ADVERSE EFFECTS WITH MEDICATION. BRINGS IN HIS MEDICATION WHICH IS APPROPRIATE FOR WHAT WAS DISPENSED. PATIENT WOULD LIKE TO HOLD OFF ON RADIOFREQUENCY PROCEDURE LEFT LOW BACK UNTIL COVID 19 CRISIS IS UNDER BETTER CONTROL. PAIN THE PATIENT DESCRIBES THE PAIN... FALL RISK SCREENING: SCREENING :NO FALLS REPORTED IN THE LAST YEAR CURRENT MEDICATIONS TAKING ASPIRIN EC 81 MG TABLET DELAYED RELEASE 1 TABLET ORALLY ONCE A DAY TAKING VITAMIN D3 1000 UNIT CAPSULE 1 CAPSULE ORALLY ONCE A DAY TAKING CARVEDILOL 6.25 MG TABLET 1 TABLET WITH FOOD ORALLY DAILY TAKING MENS ONE DAILY - TABLET 1 TAB ORALLY DAILY TAKING PROAIR HFA 108 (90 BASE) MCG/ACT AEROSOL SOLUTION 2 PUFFS NEEDED INHALATION EVERY 4 HRS TAKING CETIRIZINE HCL 10 MG TABLET 1 TABLET ORALLY ONCE A DAY TAKING GABAPENTIN 300 MG CAPSULE 1 CAPSULE ORALLY QHS TAKING OMEPRAZOLE 40 MG CAPSULE DELAYED RELEASE 1 CAPSULE 30 MINUTES BEFORE MORNING MEAL ORALLY TWICE DAILY TAKING GABAPENTIN 100 MG CAPSULE 1 CAPSULE ORALLY 1 IN AM AND 1 MID DAY TAKING BREO ELLIPTA 100-25 MCG/INH AEROSOL POWDER BREATH ACTIVATED USE ONE INHALATION ONCE DAILY TAKING CRESTOR 10 MG TABLET 1 TABLET ORALLY ONCE A DAY TAKING GEMFIBROZIL 600 MG TABLET 1 TABLET ORALLY TWICE A DAY TAKING HYDROCODONE-ACETAMINOPHEN 5-325 MG TABLET 1 TABLET NEEDED ORALLY EVERY 8-12 HRS PRN PAIN MDD=2 MEDICATION LIST REVIEWED AND RECONCILED WITH THE PATIENT PAST MEDICAL HISTORY CAD - NO HISTORY OF INFARCT - CARDIAC CATHETERIZATION 08/24 REVEALED NON-OBSTRUCTIVE DISEASE ONLY. ECHOCARDIOGRAM 10/25 NO VALVULAR DISEASE, TRACE MITRAL INSUFFICIENCY, TRACE TRICUSPID INSUFFICIENCY. NUCLEAR STRESS TEST 10/25 - NORMAL PERFUSION NO ISCHEMIA OR INFARCTION. EF CALCULATED AT 52% EKG - 07/28 - NSR 84 BPM (FOLLOWED BY DR. TORRES) LUMBAGO - OSTEOARTHRITIS - DDD - FOLLOWS WITH PAIN CLINIC HYPERLIPIDEMIA HIATAL HERNIA WITH REFLUX TOBACCO ABUSE WALI DX 02/26 COPD GERD VIT D DEF ED ALLERGIES ENVIRONMENTAL: COUGH, SCRATHY THROAT, - ALLERGY SURGICAL HISTORY B INGUINAL HERNIA REPAIR A CHILD AND AGAIN IN 2010 CARDIAC CATH 2007, 2010 COLONOSCOPY - 05/02 - REPEAT IN 5 YEARS 2010, 2016 FAMILY HISTORY FATHER: 77 YRS, KIDNEY INFECTION CAUSING RENAL FAILURE MOTHER: 75 YRS, DM2, CAD, HYPERLIPIDEMIA SIBLINGS: 3 BROTHERS - UNKNOWN HX 1 SISTER (D) 50 YO - [place] 2 SISTERS - UNKNOWN HX DAUGHTER(S): ALIVE 29 YRS, NO KNOWN MEDICAL PROBLEMS - ESTRANGED 3 BROTHER(S) , 3 SISTER(S) . 1DAUGHTER(S) . SOCIAL HISTORY GENERAL: TOBACCO USE ARE YOU A:CURRENT SMOKER ARE YOU INTERESTED IN QUITTING?THINKING ABOUT QUITTING STATES HE HAS CUT BACK. PREVIOUS QUIT ATTEMPTS?YES, MORE THAN 6 MONTHS AGO. COUNSELED THE PATIENT ON SMOKING CESSATION, EDUCATION [id number]/22/2020 HOW MANY CIGARETTES A DAY DO YOU SMOKE?6-10 HOW SOON AFTER YOU WAKE UP DO YOU SMOKE YOUR FIRST CIGARETTE?6-30 MIN HOW OFTEN DO YOU SMOKE CIGARETTES?SOME DAYS, BUT NOT EVERY DAY PATIENT COUNSELED ON THE DANGERS OF TOBACCO USE AND URGED TO QUIT:08/06/2019 LATEX QUESTIONNAIRE LATEX ALLERGY : HAVE YOU EVER DEVELOPED ANY TYPE OF REACTION AFTER HANDLING LATEX PRODUCTS SUCH RUBBER GLOVES, CONDOMS, DIAPHRAGMS, BALLOONS, SOCKS, OR UNDERWEAR?NO LATEX ALLERGY : HAVE YOU EVER DEVELOPED ANY TYPE OF REACTION DURING OR AFTER DENTAL APPOINTMENT, VAGINAL/RECTAL EXAMINATION, SURGICAL PROCEDURE, OR ANY OTHER EXPOSURE?NO LATEX RISK : HAVE YOU EVER HAD ANY DIFFICULTY BREATHING OR HIVES AFTER EATING OR HANDLING ANY FRUITS, OR VEGETABLES; SUCH KIWI, BANANAS, STONE FRUITS, OR CHESTNUTSNO LATEX RISK : DO YOU HAVE A PREVIOUS PERSONAL HISTORY OF MORE THAN NINE SURGERIES, SPINA BIFIDA, OR REPEATED CATHERIZATIONS? NO LATEX RISK : ARE YOU FREQUENTLY EXPOSED TO LATEX PRODUCTS IN YOUR OCCUPATION?NO DATE ASKED : 08/06/2019 LUNG CANCER SCREENING SMOKING STATUS:CURRENT SMOKER BMI CARE GOAL FOLLOW-UP ABOVE NORMAL BMI FOLLOW-UPWEIGHT MONITORING ALCOHOL SCREENING DID YOU HAVE A DRINK CONTAINING ALCOHOL IN THE PAST YEAR?YES HOW OFTEN DID YOU HAVE A DRINK CONTAINING ALCOHOL IN THE PAST YEAR?MONTHLY OR LESS (1 POINT) POINTS1 INTERPRETATIONNEGATIVE RECREATIONAL DRUG USE DRUG USE?NO CAFFEINE CAFFEINE USE?YES HOW OFTEN AND HOW MUCH? COFFEE 3- 4 CUPS DAILY AT TIMES SEXUAL HX HAD SEX IN THE LAST 12 MONTHS (VAGINAL, ORAL, OR ANAL)?YES WITHWOMEN ONLY HIV / HEP-C SCREENING HIV TEST OFFERED TO PATIENT:YES DATE OFFERED:05/28/2017 TEST ACCEPTED:NO HEP-C TEST OFFERED TO PATIENT:YES DATE OFFERED:08/17/2016 REASON:PATIENT DECLINED TEST ACCEPTED:NO REASON:PATIENT DECLINED BAHAI [id number] NONE LANGUAGE LANGUAGES SPOKEN:GEORGIAN LEARNING BARRIERS / SPECIAL NEEDS BARRIERS TO LEARNING?NO HEARING IMPAIRED?NO VISION IMPAIRED?YES COGNITIVELY IMPAIRED?NO :CORRECTIVE LENSES READINESS TO LEARN?YES LEARNING PREFERENCES?NO LEARNING CAPABILITIES PRESENT?YES EMOTIONAL BARRIERS?NO SPECIAL DEVICES?NO SLAG WORKER NEEDED?NO DOMESTIC VIOLENCE DO YOU FEEL SAFE IN YOUR ENVIRONMENT?YES DIET: REGULAR. EXERCISE: DAILY. MARITAL STATUS: . OTHERS AT HOME: NONE. NEW PATIENT PAIN DIARY TODAY'S VISITNOTES 08/06/2019 PATIENT DESCRIBES PAIN :HAVE IT ALL THE TIME, SHARP, STABBING, THROBBING FROM 0-10, WHAT LEVEL IS YOUR PAIN TODAY?8 PAIN CLINIC PFS, CLERGY, PUBLIC HEALTH REFERRALS PFS REFERRAL NEEDED?NO CLERGY REFERRAL NEEDED?NO PUBLIC HEALTH REFERRAL NEEDED?NO WAS THE PROVIDER NOTIFIED OF ANY PERTINENT INFO? N/A HAS THE PATIENT BEEN EDUCATED REGARDING HIS/HER PLAN OF CARE?YES HAS THE PATIENT BEEN EDUCATED REGARDING PAIN, THE RISK FOR PAIN, THE IMPORTANCE OF EFFECTIVE PAIN MANAGEMENT, AND THE PAIN ASSESSMENT PROCESS?YES ADVANCE DIRECTIVE ADVANCE DIRECTIVE DISCUSSED WITH PATIENT:YES 08/06/2019 PT DOES NOT HAVE ANY ADVANCED DIRECTIVES AND HE DECLINES INFORMATION ON HCP AT THIS TIME. JS HOSPITALIZATION/MAJOR DIAGNOSTIC PROCEDURE CHEST PAIN/ABD PAIN 03/01 CHEST PAIN, CARDIAC CATH 2010 [facility] 02/2017 REVIEW OF SYSTEMS REVIEWED BY: PROVIDER: RYAN CUNNINGHAM . CONSTITUTIONAL: ANY CHANGE IN YOUR MEDICAL CONDITION? NO . CHILLS NO . FEVER NO . INFECTION: DO YOU HAVE NEW INFECTIONS? NO . DO YOU HAVE HISTORY OF MRSA? NO . MUSCULOSKELETAL: ANY NEW PATTERNS OF PAIN OR NUMBNESS? NO . GASTROENTEROLOGY: ANY NEW CHANGE IN BOWEL CONTROL? NO . GENITOURINARY: ANY NEW CHANGE IN BLADDER CONTROL? NO . IS THERE A CHANCE YOU COULD BE ? NO . HEMATOLOGY/LYMPH: DO YOU TAKE ANY BLOOD THINNERS? (FOR EXAMPLE- COUMADIN, PLAVIX, AGGRENOX, PLATEL, PRADAXA, OR XARELTO) NO . WHEN WAS YOUR LAST DOSE? DATE: TIME: . NEUROLOGY: HAVE YOU FALLEN IN THE PAST 12 MONTHS? NO . ANY NEW EXTREMITY NUMBNESS OR WEAKNESS? NO . CARDIOLOGY: DO YOU HAVE A PACEMAKER OR DEFIBRILLATOR? NO . RESPIRATORY: HAVE YOU BEEN SICK IN THE PAST WEEK? NO . FEVER NO . FLU LIKE SYMPTOMS? NO . COUGH NO . INTEGUMENTARY: DO YOU HAVE ANY RASHES OR OPEN SORES? NO . ALLERGIC/IMMUNO: ARE YOU ALLERGIC TO IV DYE? NO . ANY NEW ALLERGIES? NO . PSYCHIATRIC: DO YOU HAVE THOUGHTS OF HURTING YOURSELF OR SOMEONE ELSE? NO . ARE YOU ABUSED, NEGLECTED, OR IN AN UNSAFE ENVIRONMENT? NO . ENDOCRINOLOGY: ARE YOU DIABETIC? NO . OTHER: DO YOU NEED ANY PRESCRIPTIONS? NO . IF YES, PLEASE LIST: ____ . ANY NEW PROBLEMS WITH YOUR MEDICATIONS? NO . WHEN DID YOU LAST EAT? ____ . WHEN DID YOU LAST DRINK? ____ . WHAT DID YOU LAST DRINK? ____ . NAME OF PERSON DRIVING YOU HOME? ____ . DO YOU HAVE ANY OTHER QUESTIONS OR CONCERNS NO . VITAL SIGNS WT 209.0 LBS, HT 68 IN, BMI 31.77 INDEX, BP 138/79 MM HG, HR 81 /MIN, RR 18 /MIN, TEMP 98.6 F, OXYGEN SAT % 95%, SAFE IN ENV? (Y/N) YES, REVIEWED BY: RESHMA. EXAMINATION GENERAL EXAMINATION: GENERALAWAKE,ALERT ,PLEASANT . PSYCHAFFECT NORMAL . LUNGS:LUNG HARRY ARE CLEAR TO AUSCULTATION BILATERALLY. GOOD MOVEMENT OF AIR . HEART:S1, S2 IN A REGULAR RATE AND RHYTHM. NO SIGNIFICANT MURMURS, RUBS OR GALLOPS NOTED . ASSESSMENTS SPONDYLOSIS OF LUMBAR REGION WITHOUT MYELOPATHY OR RADICULOPATHY - M47.816 (PRIMARY) TREATMENT SPONDYLOSIS OF LUMBAR REGION WITHOUT MYELOPATHY OR RADICULOPATHY CONTINUE GABAPENTIN CAPSULE, 300 MG, 1 CAPSULE, ORALLY, QHS CONTINUE GABAPENTIN CAPSULE, 100 MG, 1 CAPSULE, ORALLY, 1 IN AM AND 1 MID DAY CONTINUE HYDROCODONE-ACETAMINOPHEN TABLET, 5-325 MG, 1 TABLET NEEDED, ORALLY, EVERY 8-12 HRS PRN PAIN MDD=2 NOTES: ISTOP REGISTRY REVIEWED AND DEMONSTRATES COMPLLIANCE. BRINGS IN MEDICATIONS WHICH IS APPROPRIATE FOR WHAT WAS DISPENSED. RECENT URINE TOXICOLOGY REVIEWED. NO UNAUTHORIZED MEDICATIONS. NO ILLICIT SUBSTANCES AND PRESCRIBED MEDICATIONS WERE PRESENT. , RISKS OF NARCOTIC/OPIOD MEDICATIONS INCLUDES BUT IS NOT LIMITED TO RISK OF DEPENDANCE/DEVELOPMENT OF ADDICTION, MOOD DISTURBANCE AND DEPRESSION, OSTEOPOROSIS, HORMONAL AND LABIDAL CHANGES, RESPIRATORY DEPRESSION AND . PATIENT IS ADVISED NOT TO DRIVE OR DRINK ALCOHOL WHILE ON THESE MEDICATIONS. PROCEDURE CODES FA211 ESTABILISHED PATIENT [facility] CHARGE DISPOSITION & COMMUNICATION FOLLOW UP 2 MONTHS (REASON: CONSIDER SCHEDULING LEFT LUMBAR RF) ELECTRONICALLY SIGNED BY MARISA CEVALLOS ON 08/07/2019 AT 08:51 AM EDT DISCLAIMER : THIS IS A VISIT SUMMARY EXTRACTED FROM THE [employer] CHART. IT IS NOT A COPY OF THE [employer] PROGRESS NOTE. MELYSSA
== END ==
LOC: M PAIN 09:15
PROVIDERS: ATTEND Nurse Practitioner Family
DX: M47.816 Spondylosis without myelopathy or radiculopathy, lumbar region (principal); F17.210 Nicotine dependence, cigarettes, uncomplicated; Z79.82 Long term (current) use of aspirin; Z79.891 Long term (current) use of opiate analgesic; Z79.899 Other long term (current) drug therapy

== ENCOUNTER → 2019-10-09 | Outpatient (CLI) | payer OTHER, MEDICAID ==
--- NOTE | 2019-10-14 04:37 | ECWPNPC ---
PATIENT NAME: MEHUL FERRARO : 1970 GENDER: MALE VISIT DATE: 10/09/2019 DISCHARGE DATE: 10/09/19 1514 VISIT LOCKED DATE TIME: PHYSICIAN: RYAN ORTEGA RESOURCE: RYAN ORTEGA REASON FOR APPOINTMENT 1. MED MGMNT HISTORY OF PRESENT ILLNESS GENERAL: HERE FOR FOLLOW-UP OF PERSISTENT LOW BACK PAIN, LEFT GREATER THAN RIGHT. HE WANTS TO PROCEED WITH LEFT L4-5, L5-S1 RADIOFREQUENCY PROCEDURE. CONTINUES TO BENEFIT FROM RADIOFREQUENCY THAT WAS DONE ON RIGHT SIDE SEVERAL MONTHS AGO. CONTINUES TO USE HYDROCODONE PERIODICALLY FOR SEVERE PAIN EPISODES. DENIES ADVERSE REACTIONS WITH MEDICATION. DISCUSSED TREATMENT PLAN. - -. FALL RISK SCREENING: SCREENING :NO FALLS REPORTED IN THE LAST YEAR PAIN SCREENING: PATIENT HAS A COMPLAINT OF ACUTE OR CHRONIC PAIN :YES 10/09/19 INTENSITY OF PAIN (SCALE OF 1 TO 10):8 WHAT DOES YOUR PAIN FEEL LIKE:CONTINOUS, STABBING, THROBBING PAIN IS INCREASED BY: ACTIVITY PAIN IS DECREASED BY: NOTHING NURSING NOTE: - -. PAIN CENTER INTAKE QUESTIONS: DO YOU HAVE A HISTORY OF MRSA? :NO DO YOU TAKE A BLOOD THINNERS? :NO DO YOU HAVE ANY BLEEDING DISORDERS? :NO ANY NEW NUMBNESS OR WEAKNESS IN YOUR LEGS OR ARMS? :YES LEFT LEG NUMBNESS ANY PACEMAKER,DEFIBRILLATOR, OR DORSAL COLUMN STIMULATOR? :NO DO YOU HAVE ANY RASHES OR OPEN SORES? :NO ARE YOU ALLERGIC TO IV DYE? :NO ARE YOU DIABETIC? :NO ANY NEW PROBLEMS WITH YOUR MEDICATIONS? :NO HAVE YOU RECEIVED A VACCINE IN THE PAST 30 DAYS? :NO DO YOU PLAN TO RECEIVE A VACCINE IN THE NEXT 21 DAYS? :NO DO YOU NEED ANY PRESCRIPTION? :NO DO YOU TAKE ANY IMMUNOSUPPRESSIVE MEDICATIONS? :NO IS THERE A CHANCE YOU COULD BE ? :NO ARE YOU BREAST FEEDING? :NO CURRENT MEDICATIONS TAKING ASPIRIN EC 81 MG TABLET DELAYED RELEASE 1 TABLET ORALLY ONCE A DAY TAKING VITAMIN D3 1000 UNIT CAPSULE 1 CAPSULE ORALLY ONCE A DAY TAKING CARVEDILOL 6.25 MG TABLET 1 TABLET WITH FOOD ORALLY DAILY TAKING MENS ONE DAILY - TABLET 1 TAB ORALLY DAILY TAKING PROAIR HFA 108 (90 BASE) MCG/ACT AEROSOL SOLUTION 2 PUFFS NEEDED INHALATION EVERY 4 HRS TAKING CETIRIZINE HCL 10 MG TABLET 1 TABLET ORALLY ONCE A DAY TAKING OMEPRAZOLE 40 MG CAPSULE DELAYED RELEASE 1 CAPSULE 30 MINUTES BEFORE MORNING MEAL ORALLY TWICE DAILY TAKING BREO ELLIPTA 100-25 MCG/INH AEROSOL POWDER BREATH ACTIVATED USE ONE INHALATION ONCE DAILY TAKING CRESTOR 10 MG TABLET 1 TABLET ORALLY ONCE A DAY TAKING GEMFIBROZIL 600 MG TABLET 1 TABLET ORALLY TWICE A DAY TAKING GABAPENTIN 300 MG CAPSULE 1 CAPSULE ORALLY QHS TAKING GABAPENTIN 100 MG CAPSULE 1 CAPSULE ORALLY 1 IN AM AND 1 MID DAY TAKING HYDROCODONE-ACETAMINOPHEN 5-325 MG TABLET 1 TABLET NEEDED ORALLY EVERY 8-12 HRS PRN PAIN MDD=2 MEDICATION LIST REVIEWED AND RECONCILED WITH THE PATIENT PAST MEDICAL HISTORY CAD - NO HISTORY OF INFARCT - CARDIAC CATHETERIZATION 08/24 REVEALED NON-OBSTRUCTIVE DISEASE ONLY. ECHOCARDIOGRAM 10/25 NO VALVULAR DISEASE, TRACE MITRAL INSUFFICIENCY, TRACE TRICUSPID INSUFFICIENCY. NUCLEAR STRESS TEST 10/25 - NORMAL PERFUSION NO ISCHEMIA OR INFARCTION. EF CALCULATED AT 52% EKG - 07/28 - NSR 84 BPM (FOLLOWED BY DR. TORRES) LUMBAGO - OSTEOARTHRITIS - DDD - FOLLOWS WITH PAIN CLINIC HYPERLIPIDEMIA HIATAL HERNIA WITH REFLUX TOBACCO ABUSE WALI DX 02/26 COPD GERD VIT D DEF ED ALLERGIES ENVIRONMENTAL: COUGH, SCRATHY THROAT, - ALLERGY SURGICAL HISTORY B INGUINAL HERNIA REPAIR A CHILD AND AGAIN IN 2010 CARDIAC CATH 2007, 2010 COLONOSCOPY - 05/02 - REPEAT IN 5 YEARS 2010, 2016 FAMILY HISTORY FATHER: 77 YRS, KIDNEY INFECTION CAUSING RENAL FAILURE MOTHER: 75 YRS, DM2, CAD, HYPERLIPIDEMIA SIBLINGS: 3 BROTHERS - UNKNOWN HX 1 SISTER (D) 50 YO - [place] 2 SISTERS - UNKNOWN HX DAUGHTER(S): ALIVE 29 YRS, NO KNOWN MEDICAL PROBLEMS - ESTRANGED 3 BROTHER(S) , 3 SISTER(S) . 1DAUGHTER(S) . SOCIAL HISTORY GENERAL: TOBACCO USE ARE YOU A:CURRENT SMOKER ARE YOU INTERESTED IN QUITTING?THINKING ABOUT QUITTING STATES HE HAS CUT BACK. PREVIOUS QUIT ATTEMPTS?YES, MORE THAN 6 MONTHS AGO. COUNSELED THE PATIENT ON SMOKING CESSATION, EDUCATION [id number]/25/2020 HOW MANY CIGARETTES A DAY DO YOU SMOKE?6-10 HOW SOON AFTER YOU WAKE UP DO YOU SMOKE YOUR FIRST CIGARETTE?6-30 MIN HOW OFTEN DO YOU SMOKE CIGARETTES?SOME DAYS, BUT NOT EVERY DAY PATIENT COUNSELED ON THE DANGERS OF TOBACCO USE AND URGED TO QUIT:08/06/2019 LATEX QUESTIONNAIRE LATEX ALLERGY : HAVE YOU EVER DEVELOPED ANY TYPE OF REACTION AFTER HANDLING LATEX PRODUCTS SUCH RUBBER GLOVES, CONDOMS, DIAPHRAGMS, BALLOONS, SOCKS, OR UNDERWEAR?NO LATEX ALLERGY : HAVE YOU EVER DEVELOPED ANY TYPE OF REACTION DURING OR AFTER DENTAL APPOINTMENT, VAGINAL/RECTAL EXAMINATION, SURGICAL PROCEDURE, OR ANY OTHER EXPOSURE?NO DATE ASKED : 08/06/2019 LATEX RISK : HAVE YOU EVER HAD ANY DIFFICULTY BREATHING OR HIVES AFTER EATING OR HANDLING ANY FRUITS, OR VEGETABLES; SUCH KIWI, BANANAS, STONE FRUITS, OR CHESTNUTSNO LATEX RISK : DO YOU HAVE A PREVIOUS PERSONAL HISTORY OF MORE THAN NINE SURGERIES, SPINA BIFIDA, OR REPEATED CATHERIZATIONS? NO LATEX RISK : ARE YOU FREQUENTLY EXPOSED TO LATEX PRODUCTS IN YOUR OCCUPATION?NO LUNG CANCER SCREENING SMOKING STATUS:CURRENT SMOKER BMI CARE GOAL FOLLOW-UP ABOVE NORMAL BMI FOLLOW-UPWEIGHT MONITORING ALCOHOL SCREENING DID YOU HAVE A DRINK CONTAINING ALCOHOL IN THE PAST YEAR?YES HOW OFTEN DID YOU HAVE A DRINK CONTAINING ALCOHOL IN THE PAST YEAR?MONTHLY OR LESS (1 POINT) POINTS1 INTERPRETATIONNEGATIVE RECREATIONAL DRUG USE DRUG USE?NO CAFFEINE CAFFEINE USE?YES HOW OFTEN AND HOW MUCH? COFFEE 3- 4 CUPS DAILY AT TIMES SEXUAL HX HAD SEX IN THE LAST 12 MONTHS (VAGINAL, ORAL, OR ANAL)?YES WITHWOMEN ONLY HIV / HEP-C SCREENING HIV TEST OFFERED TO PATIENT:YES DATE OFFERED:05/28/2017 TEST ACCEPTED:NO HEP-C TEST OFFERED TO PATIENT:YES DATE OFFERED:08/17/2016 REASON:PATIENT DECLINED TEST ACCEPTED:NO REASON:PATIENT DECLINED NONDENOMINATIONAL [id number] NONE LANGUAGE LANGUAGES SPOKEN:KAZAKH LEARNING BARRIERS / SPECIAL NEEDS BARRIERS TO LEARNING?NO HEARING IMPAIRED?NO VISION IMPAIRED?YES COGNITIVELY IMPAIRED?NO :CORRECTIVE LENSES READINESS TO LEARN?YES LEARNING PREFERENCES?NO LEARNING CAPABILITIES PRESENT?YES EMOTIONAL BARRIERS?NO SPECIAL DEVICES?NO FUNERAL SALES MANAGER NEEDED?NO DOMESTIC VIOLENCE DO YOU FEEL SAFE IN YOUR ENVIRONMENT?YES DIET: REGULAR. EXERCISE: DAILY. MARITAL STATUS: . OTHERS AT HOME: NONE. NEW PATIENT PAIN DIARY TODAY'S VISITNOTES 08/06/2019 PATIENT DESCRIBES PAIN :HAVE IT ALL THE TIME, SHARP, STABBING, THROBBING FROM 0-10, WHAT LEVEL IS YOUR PAIN TODAY?8 PAIN CLINIC PFS, CLERGY, PUBLIC HEALTH REFERRALS PFS REFERRAL NEEDED?NO CLERGY REFERRAL NEEDED?NO PUBLIC HEALTH REFERRAL NEEDED?NO WAS THE PROVIDER NOTIFIED OF ANY PERTINENT INFO? N/A HAS THE PATIENT BEEN EDUCATED REGARDING HIS/HER PLAN OF CARE?YES HAS THE PATIENT BEEN EDUCATED REGARDING PAIN, THE RISK FOR PAIN, THE IMPORTANCE OF EFFECTIVE PAIN MANAGEMENT, AND THE PAIN ASSESSMENT PROCESS?YES ADVANCE DIRECTIVE ADVANCE DIRECTIVE DISCUSSED WITH PATIENT:YES PT DOES NOT HAVE ANY ADVANCED DIRECTIVES AND HE DECLINES INFORMATION ON HCP AT THIS TIME. HOSPITALIZATION/MAJOR DIAGNOSTIC PROCEDURE CHEST PAIN/ABD PAIN 03/01 CHEST PAIN, CARDIAC CATH 2010 [facility] 02/2017 REVIEW OF SYSTEMS CONSTITUTIONAL: ANY RECENT FEVER NO . CHILLS NO . WEIGHT CHANGE OF UNKNOWN REASONS NO . GASTROENTEROLOGY: NEW UNEXPLAINABLE CHANGES IN BOWEL CONTROL NO . CONSTIPATION NO . GENITOURINARY: ANY NEW CHANGE IN BLADDER CONTROL? NO . NEUROLOGY: NEW ONSET DIZZINESS OR NEUROLOGICAL CHANGES NOT MENTIONED NO . NEW NUMBNESS OR PAIN PATTERNS NOT MENTIONED AND PERTINENT TO TODAY'S VISIT NO . CARDIOLOGY: NEW CHEST PRESSURE NO . NEW CHEST PAIN NO . RESPIRATORY: UNEXPLAINABLE COUGH NO . NEW SHORTNESS OF BREATH NO . VITAL SIGNS WT 203.2 LBS, HT 68 IN, BMI 30.89 INDEX, BP 139/76 MM HG, HR 76 /MIN, RR 18 /MIN, TEMP 98.2 F, OXYGEN SAT % 96%, NA INITIALS AW 1429. EXAMINATION GENERAL EXAMINATION: GENERAL AWAKE,ALERT ,PLEAASANT . PSYCH AFFECT NORMAL . LUNGS: LUNG HARRY ARE CLEAR TO AUSCULTATION BILATERALLY. GOOD MOVEMENT OF AIR . HEART: S1, S2 IN A REGULAR RATE AND RHYTHM. NO SIGNIFICANT MURMURS, RUBS OR GALLOPS NOTED . MUSCULOSKELETAL: WEAK OVER RIGHT LEG. LUMBAR: SPECIFIC POINT TENDERNESS OVER LEFT L4/5-L5/S1 LUMBAR FACETS WITH FACET LOADING. NEUROLOGIC EXAM: NORMAL SENSATION LIGHT TOUCH BILAT. LOWER EXTREMITIES. DIAGNOSTIC TESTS REVIEWED MRI L/S SPINE-05/04/18. ASSESSMENTS SPONDYLOSIS OF LUMBAR REGION WITHOUT MYELOPATHY OR RADICULOPATHY - M47.816 (PRIMARY) TREATMENT SPONDYLOSIS OF LUMBAR REGION WITHOUT MYELOPATHY OR RADICULOPATHY CONTINUE GABAPENTIN CAPSULE, 300 MG, 1 CAPSULE, ORALLY, QHS CONTINUE GABAPENTIN CAPSULE, 100 MG, 1 CAPSULE, ORALLY, 1 IN AM AND 1 MID DAY CONTINUE HYDROCODONE-ACETAMINOPHEN TABLET, 5-325 MG, 1 TABLET NEEDED, ORALLY, EVERY 8-12 HRS PRN PAIN MDD=2 NOTES: LEFT L4/5-L5/S1 RF , ISTOP REGISTRY REVIEWED AND DEMONSTRATES COMPLLIANCE.BRINGS IN MEDICATIONS WHICH IS APPROPRIATE FOR WHAT WAS DISPENSED. RECENT URINE TOXICOLOGY REVIEWED. NO UNAUTHORIZED MEDICATIONS. NO ILLICIT SUBSTANCES AND PRESCRIBED MEDICATIONS WERE PRESENT. URINE TOX TODAY , RISKS OF NARCOTIC/OPIOD MEDICATIONS INCLUDES BUT IS NOT LIMITED TO RISK OF DEPENDANCE/DEVELOPMENT OF ADDICTION, MOOD DISTURBANCE AND DEPRESSION, OSTEOPOROSIS, HORMONAL AND LABIDAL CHANGES, RESPIRATORY DEPRESSION AND . PATIENT IS ADVISED NOT TO DRIVE OR DRINK ALCOHOL WHILE ON THESE MEDICATIONS. PREVENTIVE MEDICINE PAIN CLINIC TEACHING: PROCEDURE TEACHING PRE-PROCEDURE INSTRUCTIONS REVIEWED WITH PT. VERBALIZED UNDERSTANDING.. PROCEDURE CODES [id number] ESTABILISHED PATIENT [facility] CHARGE DISPOSITION & COMMUNICATION FOLLOW UP POST (REASON: LEFT L4/5-L5/S1 RF) ELECTRONICALLY SIGNED BY MARISA CEVALLOS ON 10/13/2019 AT 08:47 AM EDT DISCLAIMER : THIS IS A VISIT SUMMARY EXTRACTED FROM THE [employer] CHART. IT IS NOT A COPY OF THE [employer] PROGRESS NOTE. MELYSSA
== END ==
LOC: M PAIN 14:30
PROVIDERS: ATTEND Nurse Practitioner Family
DX: M47.816 Spondylosis without myelopathy or radiculopathy, lumbar region (principal)

== ENCOUNTER → 2019-10-25 | Outpatient (CLI) | payer OTHER, MEDICAID ==
[~2019-10-25] MED LIST changes: +ASPI-546 PO; -ASPI1TAB15 PO; -ASPI81TA85 PO; +ASPI81TA86 PO
== END ==
LOC: M LABSMTC 10:31
PROVIDERS: ATTEND Anesthesiology
DX: Z11.59 Encounter for screening for other viral diseases (principal)
CPT/HCPCS: C9803; U0003

== ENCOUNTER → 2019-10-30 | Outpatient (CLI) | payer OTHER, MEDICAID ==
[~2019-10-30] MED LIST changes: +BUPIVACAINE HCL 0.25% 30ML VIAL As Ordered ONE; +LIDOCAINE 1% SDV 30ML VIAL As Ordered ONE; +NORCO, ANEXSIA 5/325MG TABLET (HYDROcodone/ACETAMINOPHEN) As Ordered ONE; +dexameTHASONE 10MG/1ML VIAL PRES.FREE (J1100 PER 1MG) As Ordered ONE
--- NOTE | 2019-10-30 15:17 | REP ---
C-ARM VIEWS LOWER LUMBAR SPINE: CLINICAL HISTORY: Pain. Multiple C-arm views of the lower lumbar spine performed during injection by Dr. Mccall. [place] are seen along the margin of the lower lumbar spine. 41 seconds of fluoroscopy time utilized. Electronically Signed by Alex Braun MD 11/02/2019 11:42 P
--- NOTE | 2019-11-01 01:08 | ECWPNPC ---
PATIENT NAME: MEHUL FERRARO : 1970 GENDER: MALE VISIT DATE: 10/30/2019 DISCHARGE DATE: 10/30/19 1330 VISIT LOCKED DATE TIME: PHYSICIAN: MAXIMILIANO SABA MD RESOURCE: MAXIMILIANO SABA MD REASON FOR APPOINTMENT 1. LEFT L4/5-L5/S1 COOL RF/PAT COMPLETED HISTORY OF PRESENT ILLNESS GENERAL: -. FALL RISK SCREENING: SCREENING :NO FALLS REPORTED IN THE LAST YEAR PAIN SCREENING: PATIENT HAS A COMPLAINT OF ACUTE OR CHRONIC PAIN :YES LOCATION OF PAIN:LOW BACK, LEG(S), THIGH(S), OTHER: DOWN LEFT BUTTOCK, LEG TO FOOT INTENSITY OF PAIN (SCALE OF 1 TO 10):9 AVERAGE 6-7 WHAT DOES YOUR PAIN FEEL LIKE:ACHING, BURNING, CONTINOUS, SHARP, STABBING, THROBBING, SORE, SHOOTING DURATION:CONTINOUS, CONSTANT, STEADY, ALL DAY, AWAKENS FROM SLEEP PAIN IS INCREASED BY: EVERYTHING PAIN IS DECREASED BY: NOTHING NURSING NOTE: -. PAIN CENTER INTAKE QUESTIONS: DO YOU HAVE A HISTORY OF MRSA? :NO DO YOU TAKE A BLOOD THINNERS? :NO DO YOU HAVE ANY BLEEDING DISORDERS? :NO ANY NEW NUMBNESS OR WEAKNESS IN YOUR LEGS OR ARMS? :YES LEFT LEG FEELS LIKE IS ASLEEP ALL THE TIME ANY PACEMAKER,DEFIBRILLATOR, OR DORSAL COLUMN STIMULATOR? :NO DO YOU HAVE ANY RASHES OR OPEN SORES? :NO ARE YOU ALLERGIC TO IV DYE? :NO ARE YOU DIABETIC? :NO ANY NEW PROBLEMS WITH YOUR MEDICATIONS? :NO HAVE YOU RECEIVED A VACCINE IN THE PAST 30 DAYS? :NO DO YOU PLAN TO RECEIVE A VACCINE IN THE NEXT 21 DAYS? :NO DO YOU TAKE ANY IMMUNOSUPPRESSIVE MEDICATIONS? :NO ANY HISTORY OF SEIZURES? :NO ANY HISTORY OF CARDIAC ISSUES OR EVENTS? :YES CAD DO YOU HAVE SLEEP APNEA? :YES DO YOU WEAR A CPAP?NO ANY RECENT HEAD INJURY? :NO DO YOU HAVE ANY NEW INFECTIONS? :NO IS THERE A CHANCE YOU COULD BE ? :NO ARE YOU BREAST FEEDING? :NO WHEN DID YOU LAST EAT? : -10/28 5:30P WHEN DID YOU LAST DRINK? : -10/28 10P WHAT DID YOU LAST DRINK? : -SODA NAME OF PERSON DRIVING YOU HOME? : ALYCIA DO YOU HAVE ANY OTHER QUESTIONS OR CONCERNS? : NONE CURRENT MEDICATIONS TAKING ASPIRIN EC 81 MG TABLET DELAYED RELEASE 1 TABLET ORALLY ONCE A DAY, NOTES: 10/28 TAKING VITAMIN D3 1000 UNIT CAPSULE 1 CAPSULE ORALLY ONCE A DAY, NOTES: 10/28 TAKING CARVEDILOL 6.25 MG TABLET 1 TABLET WITH FOOD ORALLY DAILY, NOTES: 10/28 TAKING MENS ONE DAILY - TABLET 1 TAB ORALLY DAILY, NOTES: 10/28 TAKING PROAIR HFA 108 (90 BASE) MCG/ACT AEROSOL SOLUTION 2 PUFFS NEEDED INHALATION EVERY 4 HRS, NOTES: 2 WEEKS TAKING CETIRIZINE HCL 10 MG TABLET 1 TABLET ORALLY ONCE A DAY, NOTES: 10/28 TAKING OMEPRAZOLE 40 MG CAPSULE DELAYED RELEASE 1 CAPSULE 30 MINUTES BEFORE MORNING MEAL ORALLY TWICE DAILY, NOTES: 10/28 TAKING BREO ELLIPTA 100-25 MCG/INH AEROSOL POWDER BREATH ACTIVATED USE ONE INHALATION ONCE DAILY , NOTES: 10/28 TAKING CRESTOR 10 MG TABLET 1 TABLET ORALLY ONCE A DAY, NOTES: 10/28 TAKING GEMFIBROZIL 600 MG TABLET 1 TABLET ORALLY TWICE A DAY, NOTES: 10/28 10P TAKING GABAPENTIN 300 MG CAPSULE 1 CAPSULE ORALLY QHS, NOTES: 10/27 10P TAKING GABAPENTIN 100 MG CAPSULE 1 CAPSULE ORALLY 1 IN AM AND 1 MID DAY, NOTES: 10/28 TAKING HYDROCODONE-ACETAMINOPHEN 5-325 MG TABLET 1 TABLET NEEDED ORALLY EVERY 8-12 HRS PRN PAIN MDD=2, NOTES: 10/28 MEDICATION LIST REVIEWED AND RECONCILED WITH THE PATIENT PAST MEDICAL HISTORY CAD - NO HISTORY OF INFARCT - CARDIAC CATHETERIZATION 08/24 REVEALED NON-OBSTRUCTIVE DISEASE ONLY. ECHOCARDIOGRAM 10/25 NO VALVULAR DISEASE, TRACE MITRAL INSUFFICIENCY, TRACE TRICUSPID INSUFFICIENCY. NUCLEAR STRESS TEST 10/25 - NORMAL PERFUSION NO ISCHEMIA OR INFARCTION. EF CALCULATED AT 52% EKG - 07/28 - NSR 84 BPM (FOLLOWED BY DR. TORRES) LUMBAGO - OSTEOARTHRITIS - DDD - FOLLOWS WITH PAIN CLINIC HYPERLIPIDEMIA HIATAL HERNIA WITH REFLUX TOBACCO ABUSE WALI DX 02/26 COPD GERD VIT D DEF ED ALLERGIES ENVIRONMENTAL: COUGH, SCRATHY THROAT, - ALLERGY SURGICAL HISTORY B INGUINAL HERNIA REPAIR A CHILD AND AGAIN IN 2010 CARDIAC CATH 2007, 2010 COLONOSCOPY - 05/02 - REPEAT IN 5 YEARS 2010, 2016 FAMILY HISTORY FATHER: 77 YRS, KIDNEY INFECTION CAUSING RENAL FAILURE MOTHER: 75 YRS, DM2, CAD, HYPERLIPIDEMIA SIBLINGS: 3 BROTHERS - UNKNOWN HX 1 SISTER (D) 50 YO - [place] 2 SISTERS - UNKNOWN HX DAUGHTER(S): ALIVE 29 YRS, NO KNOWN MEDICAL PROBLEMS - ESTRANGED 3 BROTHER(S) , 3 SISTER(S) . 1DAUGHTER(S) . SOCIAL HISTORY GENERAL: TOBACCO USE ARE YOU A:CURRENT SMOKER ARE YOU INTERESTED IN QUITTING?THINKING ABOUT QUITTING STATES HE HAS CUT BACK. PREVIOUS QUIT ATTEMPTS?YES, MORE THAN 6 MONTHS AGO. COUNSELED THE PATIENT ON SMOKING CESSATION, EDUCATION [id number]/25/2020 HOW MANY CIGARETTES A DAY DO YOU SMOKE?6-10 HOW SOON AFTER YOU WAKE UP DO YOU SMOKE YOUR FIRST CIGARETTE?6-30 MIN HOW OFTEN DO YOU SMOKE CIGARETTES?SOME DAYS, BUT NOT EVERY DAY PATIENT COUNSELED ON THE DANGERS OF TOBACCO USE AND URGED TO QUIT:10/29/2019 LATEX QUESTIONNAIRE LATEX ALLERGY : HAVE YOU EVER DEVELOPED ANY TYPE OF REACTION AFTER HANDLING LATEX PRODUCTS SUCH RUBBER GLOVES, CONDOMS, DIAPHRAGMS, BALLOONS, SOCKS, OR UNDERWEAR?NO LATEX ALLERGY : HAVE YOU EVER DEVELOPED ANY TYPE OF REACTION DURING OR AFTER DENTAL APPOINTMENT, VAGINAL/RECTAL EXAMINATION, SURGICAL PROCEDURE, OR ANY OTHER EXPOSURE?NO LATEX RISK : HAVE YOU EVER HAD ANY DIFFICULTY BREATHING OR HIVES AFTER EATING OR HANDLING ANY FRUITS, OR VEGETABLES; SUCH KIWI, BANANAS, STONE FRUITS, OR CHESTNUTSNO LATEX RISK : DO YOU HAVE A PREVIOUS PERSONAL HISTORY OF MORE THAN NINE SURGERIES, SPINA BIFIDA, OR REPEATED CATHERIZATIONS? NO LATEX RISK : ARE YOU FREQUENTLY EXPOSED TO LATEX PRODUCTS IN YOUR OCCUPATION?NO DATE ASKED : 10/29/2019 LUNG CANCER SCREENING SMOKING STATUS:CURRENT SMOKER BMI CARE GOAL FOLLOW-UP ABOVE NORMAL BMI FOLLOW-UPWEIGHT MONITORING ALCOHOL SCREENING DID YOU HAVE A DRINK CONTAINING ALCOHOL IN THE PAST YEAR?YES HOW OFTEN DID YOU HAVE A DRINK CONTAINING ALCOHOL IN THE PAST YEAR?MONTHLY OR LESS (1 POINT) POINTS1 INTERPRETATIONNEGATIVE RECREATIONAL DRUG USE DRUG USE?NO CAFFEINE CAFFEINE USE?YES HOW OFTEN AND HOW MUCH? COFFEE 3- 4 CUPS DAILY AT TIMES SEXUAL HX HAD SEX IN THE LAST 12 MONTHS (VAGINAL, ORAL, OR ANAL)?YES WITHWOMEN ONLY HIV / HEP-C SCREENING HIV TEST OFFERED TO PATIENT:YES DATE OFFERED:05/28/2017 TEST ACCEPTED:NO HEP-C TEST OFFERED TO PATIENT:YES DATE OFFERED:08/17/2016 REASON:PATIENT DECLINED TEST ACCEPTED:NO REASON:PATIENT DECLINED LATTER DAY [id number] NONE LANGUAGE LANGUAGES SPOKEN:SLOVENIAN LEARNING BARRIERS / SPECIAL NEEDS BARRIERS TO LEARNING?NO HEARING IMPAIRED?NO VISION IMPAIRED?YES :CORRECTIVE LENSES COGNITIVELY IMPAIRED?NO READINESS TO LEARN?YES LEARNING PREFERENCES?NO LEARNING CAPABILITIES PRESENT?YES EMOTIONAL BARRIERS?NO SPECIAL DEVICES?NO PROGRESSIVE CARE NURSE NEEDED?NO DOMESTIC VIOLENCE DO YOU FEEL SAFE IN YOUR ENVIRONMENT?YES DIET: REGULAR. EXERCISE: DAILY. MARITAL STATUS: . OTHERS AT HOME: NONE. PAIN CLINIC PFS, CLERGY, PUBLIC HEALTH REFERRALS PFS REFERRAL NEEDED?NO CLERGY REFERRAL NEEDED?NO PUBLIC HEALTH REFERRAL NEEDED?NO HAS THE PATIENT BEEN EDUCATED REGARDING HIS/HER PLAN OF CARE?YES HAS THE PATIENT BEEN EDUCATED REGARDING PAIN, THE RISK FOR PAIN, THE IMPORTANCE OF EFFECTIVE PAIN MANAGEMENT, AND THE PAIN ASSESSMENT PROCESS?YES ADVANCE DIRECTIVE ADVANCE DIRECTIVE DISCUSSED WITH PATIENT:YES 10/29/2019 PT DOES NOT HAVE ANY ADVANCED DIRECTIVES AND HE DECLINES INFORMATION ON HCP AT THIS TIME. HOSPITALIZATION/MAJOR DIAGNOSTIC PROCEDURE CHEST PAIN/ABD PAIN 03/01 CHEST PAIN, CARDIAC CATH 2010 [facility] 02/2017 VITAL SIGNS WT 200.4 LBS, HT 68 IN, BMI 30.47 INDEX, BP 126/75 MM HG, HR 87 /MIN, RR 18 /MIN, TEMP 97.6 F, OXYGEN SAT % 94%, SAFE IN ENV? (Y/N) Y, NA INITIALS SC 09:47, REVIEWED BY: KANNAN. EXAMINATION GENERAL EXAMINATION: THE PATIENT IS ALERT, ORIENTED TIMES THREE AND COOPERATIVE. HEART SHOWS REGULAR RHYTHM, NO MURMURS AND NO GALLOPS. LUNGS ARE CLEAR TO AUSCULTATION. ASSESSMENTS SPONDYLOSIS OF LUMBAR REGION WITHOUT MYELOPATHY OR RADICULOPATHY - M47.816 (PRIMARY) SPONDYLOSIS WITHOUT MYELOPATHY OR RADICULOPATHY, LUMBOSACRAL REGION - M47.817 TREATMENT SPONDYLOSIS OF LUMBAR REGION WITHOUT MYELOPATHY OR RADICULOPATHY [facility] FACET BLOCK (PAIN)[id number] MEDICATION: NORCO TABLET 5MG/325MG ORALLY (HYDROCODONE/ACETAMINOPHEN)INDIGO MAST 10/30/2019 10:54:29 AM - GIVE 2 TABS CONCETTA ABREU 10/30/2019 11:01:17 AM > VERIFIED SPONDYLOSIS WITHOUT MYELOPATHY OR RADICULOPATHY, LUMBOSACRAL REGION [facility] FACET BLOCK (PAIN)[id number] PROCEDURES PAIN NURSING RECORD PROCEDURE IN ROOM 1210, PHYSICIAN IN ROOM 1229, START 1232, FINISH 1303, PHYSICIAN OUT OF ROOM 1305, STEROID DEXAMETHASONE, O2 RA, ECG NORMAL SINUS, PATIENT SHIELDED YES, SAFETY STRAP YES, PREP CHLOROPREP, DRESSING TEGADERM LOC: 1. ALERT, ORIENTED RESP: 1. REGULAR, NO DYSPNEA COLOR: 1. PINK SKIN: 1. WARM, DRY POSITION: 1. PRONE VITALS: 1125 122/80 76-18 96% 1145 118/76 76-18 97% 1210 112/68 74-18 98% 1215 106/71 67-18 97% 1230 107/68 68-18 96% 1245 114/74 73-18 94% 1300 106/66 72-18 94% 1315 109/70 74-18 95% 1325 119/79 76-18 97% DISCHARGE: POST PAIN 0, DRESSING SITE DRY AND INTACT, IV N/A, GAIT STEADY, TEACHING COMPLETED, PATIENT ACKNOWLEDGES UNDERSTANDING YES, PATIENT DISCHARGED AT 1331 PN RADIOFREQUENCY DATE OF PROCEDURE 10/30/2019 THERMO LESION RADIOFREQUENCY > 80 DEGREES : COOL SIDE: : LEFT LEVELS: : L4-L5, L5-S1. NEEDLE/CATHETER/GAUGE: : 17 CANULA LENGTH: : 100 MM ACTIVE TIP: : 4 MM GROUNDING PAD PLACED ON AFFECTED SIDE (MUSCULAR AREA): : LEFT 1 ST LEVEL: : L3,INITAL POSTIVE SENSORY RESPONE (50 HZ) 0.8,MOTOR RESPONSE (2 HZ-UP TO 3 VOLTS) 3.0 ,PRE-LOCAL IMPEDENCE READING OHMS 286 ,POST-LOCAL IMPEDENCE READING OHMS 165 ,DURING RF IMPEDENCE READING OHMS 160 , 2 ND LEVEL: : L4,INITIAL POSITIVE SENSORY RESPONSE (50 HZ) 0.8,MOTOR RESPONSE (2 HZ- UP TO 3 VOLTS) 3.0 ,PRE-LOCAL IMPEDENCE READING OHMS 450 ,POST-LOCAL IMEPEDENCE READING OHMS 301 ,DURING RF IMPEDENCE READING OHMS 278 , 3 RD LEVEL: : L5,INITIAL POSITIVE SENSORY RESPONSE (50 HZ) 2.7,MOTOR RESPONSE (2HZ- UP TO 3 VOLTS) 3.0 ,PRE- LOCAL IMPEDENCE READING OHMS 202 ,POST-LOCAL IMPEDENCE READING OHMS 300 ,DURING RF IMPEDENCE READING OHMS 332 , PRE PROCEDURE DIAGNOSES 1. LUMBAR SPONDYLOSIS. 2. LUMBOSACRAL SPONDYLOSIS POST PROCEDURE DIAGNOSES 1. LUMBAR SPONDYLOSIS. 2. LUMBOSACRAL SPONDYLOSIS PROCEDURE LEFT L4-L5 AND LEFT L5-S1 LUMBAR FACET RADIOFREQUENCY-COOLED SURGEON DR. MAXIMILIANO SABA RUG CLEANER NONE ANESTHESIA LOCAL PRE PROCEDURE REPORT THE PATIENT HAS HISTORY OF CHRONIC LOW BACK PAIN. I EVALUATED THE PATIENT AND REVIEWED THE CHART. I WENT OVER THE RISKS, ALTERNATIVES, AND BENEFITS ASSOCIATED WITH THIS PROCEDURE. I DISCUSSED THAT THE USE OF STEROIDS MAY CONTRIBUTE TO IMMUNOSUPPRESSION OF THE PATIENT'S BODY AGAINST INFECTIONS SUCH COVID-19. THE PATIENT IS AWARE OF THE POTENTIAL COMPLICATIONS ASSOCIATED WITH THIS VIRUS, INCLUDING, BUT NOT LIMITED TO, . THE PATIENT WOULD LIKE TO PROCEED AND GAVE CONSENT TO PERFORM THE PROCEDURE. THE PATIENT DENIES UNEXPLAINABLE WEIGHT LOSS, FEVER, CHILLS OR NEW CHANGES IN URINARY OR BOWEL CONTROL. THE PATIENT IS COVID-19 NEGATIVE DESCRIPTION OF PROCEDURE THE PATIENT WAS BROUGHT TO THE PROCEDURE ROOM AND PLACED IN THE PRONE POSITION. A TIMEOUT WAS PERFORMED WHERE LATERALITY AND THE SITE OF THE PROCEDURE WERE CHECKED AND CONFIRMED WITH EVERYONE IN THE ROOM. THE LUMBOSACRAL AREA WAS CLEANED WITH CHLORAPREP SOLUTION AND DRAPED ASEPTICALLY. THE PROCEDURE WAS DONE UNDER STERILE CONDITIONS. UNDER FLUOROSCOPIC GUIDANCE, TARGETS WERE SELECTED AT THE INTERSECTION OF THE LET TRANSVERSE PROCESS OF L4, L5 AND ALA OF S1 WITH ITS RESPECTIVE SUPERIOR ARTICULAR PROCESS. LIDOCAINE WAS USED TO NUMB THE SKIN AND THE SUBCUTANEOUS TISSUE BELOW IT. RADIOFREQUENCY CANNULAS, 17-GAUGE, 100 MM LONG WITH 4 MM ACTIVE TIP, WERE ADVANCED UNDER FLUOROSCOPIC GUIDANCE AND FOLLOWING PATIENT FEEDBACK UNTIL THE TARGET AREA WAS REACHED. POSITION OF THE CANNULA WAS VERIFIED WITH AP AND LATERAL VIEWS. AFTER PROPER POSITION OF THE CANNULA WAS ACHIEVED, WE WORKED WITH THE LEFT SELECTED MEDIAN BRANCHES OF L3, L4 AND THE DORSAL RAMI OF L5. WE MEASURED THE CORRESPONDING IMPEDANCES AND MOTOR RESPONSES INDICATED IN THE RADIOFREQUENCY WORK SHEET. POSITION OF THE CANNULA WAS VERIFIED AGAIN WITH AP AND LATERAL VIEWS. LIDOCAINE 1%, 2 ML, WAS INJECTED AT EACH LEVEL. RADIOFREQUENCY WAS DONE AT EACH LEVEL USING THE [employer] SYSTEM-- COOLED RF-- WITH A SETTING AT THE MACHINE OF 60 DEGREES WITH A TARGET TISSUE TEMPERATURE OF 80 TO 90 DEGREES FOR A MINIMUM OF 150 SECONDS. AFTER RADIOFREQUENCY WAS DONE, THE PATIENT RECEIVED BUPIVACAINE 0.125%,1 ML, WITH DEXAMETHASONE 3 MG AT EACH SITE. THERE WAS NO EVIDENCE OF BLOOD, PARESTHESIA OR CEREBROSPINAL FLUID DURING THE PROCEDURE. THE PATIENT WAS SENT TO THE RECOVERY ROOM. THE PATIENT WAS MOVING THE EXTREMITIES AND DOING WELL. EBL LESS THAN 5 ML. THERE WERE NO COMPLICATIONS DURING THE PROCEDURE. FLUOROSCOPY TIME WAS 41 SECONDS POST PROCEDURE NOTE THE PATIENT WILL BE SEEN IN A FOLLOW UP IN THE NEXT FEW WEEKS. INSTRUCTIONS WERE GIVEN, QUESTIONS WERE ANSWERED, AND THE PATIENT EXPRESSED UNDERSTANDING AND AGREES WITH THE PLAN. THE PATIENT IS AWARE TO STAY HOME FOR THE NEXT WEEK, IF POSSIBLE, DUE TO COVID-19. I, INDIGO MAST, DOCUMENTED THE ABOVE INFORMATION ACTING A SCRIBE FOR DR. SABA. I HAVE REVIEWED THE ABOVE DOCUMENT, WRITTEN BY JADE LEIGH, AND I VERIFY THAT IT IS ACCURATE PROCEDURE CODES 72450 DESTROY LUMB/SAC FACET JNT, MODIF[place]: [place] [id number] DESTROY L/S FACET JNT ADDL, MODIFIERS: LT DISPOSITION & COMMUNICATION FOLLOW UP F/UP WITH [employer] (REASON: POST COOL RF LT L4-L5, L5-S1) ELECTRONICALLY SIGNED BY MAXIMILIANO SABA MD, ON 10/31/2019 AT 06:36 PM EDT DISCLAIMER : THIS IS A VISIT SUMMARY EXTRACTED FROM THE [facility] CHART. IT IS NOT A COPY OF THE [facility] PROGRESS NOTE. MELYSSA
== END ==
LOC: M PAIN 10:00
PROVIDERS: ATTEND Anesthesiology
DX: M47.816 Spondylosis without myelopathy or radiculopathy, lumbar region (principal); M47.817 Spondylosis without myelopathy or radiculopathy, lumbosacral region
CPT/HCPCS: 64635; 64636; J1100

== ENCOUNTER → 2019-11-13 | Outpatient (POV) | payer OTHER, MEDICAID ==
[~2019-11-13] MED LIST changes: -BUPIVACAINE HCL 0.25% 30ML VIAL As Ordered ONE; -LIDOCAINE 1% SDV 30ML VIAL As Ordered ONE; -NORCO, ANEXSIA 5/325MG TABLET (HYDROcodone/ACETAMINOPHEN) As Ordered ONE; -dexameTHASONE 10MG/1ML VIAL PRES.FREE (J1100 PER 1MG) As Ordered ONE
== END ==
LOC: M PAIN 11:45
PROVIDERS: ATTEND Nurse Practitioner Family
DX: M47.817 Spondylosis without myelopathy or radiculopathy, lumbosacral region (principal); Z79.891 Long term (current) use of opiate analgesic

== ENCOUNTER → 2020-02-09 | Outpatient (CLI) | payer OTHER, MEDICAID ==
--- NOTE | 2020-02-14 06:29 | ECWPNPC ---
PATIENT NAME: MEHUL FERRARO : 1970 GENDER: MALE VISIT DATE: 02/09/2020 DISCHARGE DATE: 02/09/20 1257 VISIT LOCKED DATE TIME: PHYSICIAN: RYAN ORTEGA PHYSICIAN PAGER NO: ACTIVE RESOURCE: RYAN ORTEGA REASON FOR APPOINTMENT 1. BACK PAIN HISTORY OF PRESENT ILLNESS GENERAL: HERE FOR FOLLOW-UP OF CHRONIC LOW BACK PAIN. CONTINUES TO BENEFIT FROM RADIOFREQUENCY PROCEDURE THAT WAS DONE IN OCTOBER. HAS BEEN HAVING INCREASE IN LOW BACK PAIN SINCE OVERDOING OVER THE PAST FEW DAYS BUT OVERALL IS DOING WELL. USES PAIN MEDICATIONS FOR SEVERE PAIN EPISODES WITH GOOD EFFECT. DENIES ADVERSE EFFECTS.-. FALL RISK SCREENING: SCREENING :NO FALLS REPORTED IN THE LAST YEAR PAIN SCREENING: PATIENT HAS A COMPLAINT OF ACUTE OR CHRONIC PAIN :YES LOCATION OF PAIN:LOW BACK, LEG(S) INTENSITY OF PAIN (SCALE OF 1 TO 10):9 WHAT DOES YOUR PAIN FEEL LIKE:ACHING, BURNING, CONTINOUS, SHARP, STABBING, TENDER, THROBBING, SORE, SHOOTING DURATION:CONTINOUS, CONSTANT, AWAKENS FROM SLEEP PAIN IS INCREASED BY:ACTIVITIES, PROLONGED STANDING, OTHERS PROLONGED SITTING PAIN IS DECREASED BY: RELAXING NURSING NOTE: -. PAIN CENTER INTAKE QUESTIONS: DO YOU HAVE A HISTORY OF MRSA? :NO DO YOU TAKE A BLOOD THINNERS? :NO DO YOU HAVE ANY BLEEDING DISORDERS? :NO ANY NEW NUMBNESS OR WEAKNESS IN YOUR LEGS OR ARMS? :NO ANY PACEMAKER,DEFIBRILLATOR, OR DORSAL COLUMN STIMULATOR? :NO DO YOU HAVE ANY RASHES OR OPEN SORES? :NO ARE YOU ALLERGIC TO IV DYE? :NO ARE YOU DIABETIC? :NO ANY NEW PROBLEMS WITH YOUR MEDICATIONS? :NO HAVE YOU RECEIVED A VACCINE IN THE PAST 30 DAYS? :NO DO YOU PLAN TO RECEIVE A VACCINE IN THE NEXT 21 DAYS? :YES IF SO WHAT VACCINE AND WHEN? PLANS ON GETTING A FLU SHOT IN THE NEXT COUPLE OF DAYS DO YOU NEED ANY PRESCRIPTION? :NO DO YOU TAKE ANY IMMUNOSUPPRESSIVE MEDICATIONS? :NO IS THERE A CHANCE YOU COULD BE ? :NO ARE YOU BREAST FEEDING? :NO CURRENT MEDICATIONS TAKING ASPIRIN EC 81 MG TABLET DELAYED RELEASE 1 TABLET ORALLY ONCE A DAY TAKING VITAMIN D3 1000 UNIT CAPSULE 1 CAPSULE ORALLY ONCE A DAY TAKING CARVEDILOL 6.25 MG TABLET 1 TABLET WITH FOOD ORALLY DAILY TAKING MENS ONE DAILY - TABLET 1 TAB ORALLY DAILY TAKING PROAIR HFA 108 (90 BASE) MCG/ACT AEROSOL SOLUTION 2 PUFFS NEEDED INHALATION EVERY 4 HRS TAKING CETIRIZINE HCL 10 MG TABLET 1 TABLET ORALLY ONCE A DAY TAKING OMEPRAZOLE 40 MG CAPSULE DELAYED RELEASE 1 CAPSULE 30 MINUTES BEFORE MORNING MEAL ORALLY TWICE DAILY TAKING CRESTOR 10 MG TABLET 1 TABLET ORALLY ONCE A DAY TAKING GEMFIBROZIL 600 MG TABLET 1 TABLET ORALLY TWICE A DAY TAKING GABAPENTIN 300 MG CAPSULE 1 CAPSULE ORALLY QHS TAKING GABAPENTIN 100 MG CAPSULE 1 CAPSULE ORALLY 1 IN AM AND 1 MID DAY TAKING BREO ELLIPTA 100-25 MCG/INH AEROSOL POWDER BREATH ACTIVATED USE ONE INHALATION ONCE DAILY TAKING HYDROCODONE-ACETAMINOPHEN 5-325 MG TABLET 1 TABLET NEEDED ORALLY EVERY 8-12 HRS PRN PAIN MDD=2 DISCONTINUED HYDROCODONE-ACETAMINOPHEN 5-325 MG TABLET 1 TABLET NEEDED ORALLY EVERY 8-12 HRS, MDD 2, NOTES: DUPLICATE MEDICATION LIST REVIEWED AND RECONCILED WITH THE PATIENT PAST MEDICAL HISTORY CAD - NO HISTORY OF INFARCT - CARDIAC CATHETERIZATION 08/24 REVEALED NON-OBSTRUCTIVE DISEASE ONLY. ECHOCARDIOGRAM 10/25 NO VALVULAR DISEASE, TRACE MITRAL INSUFFICIENCY, TRACE TRICUSPID INSUFFICIENCY. NUCLEAR STRESS TEST 10/25 - NORMAL PERFUSION NO ISCHEMIA OR INFARCTION. EF CALCULATED AT 52% EKG - 07/28 - NSR 84 BPM (FOLLOWED BY DR. TORRES) LUMBAGO - OSTEOARTHRITIS - DDD - FOLLOWS WITH PAIN CLINIC HYPERLIPIDEMIA HIATAL HERNIA WITH REFLUX TOBACCO ABUSE WALI DX 02/26 COPD GERD VIT D DEF ED ALLERGIES ENVIRONMENTAL: COUGH, SCRATHY THROAT, - ALLERGY SURGICAL HISTORY B INGUINAL HERNIA REPAIR A CHILD AND AGAIN IN 2010 CARDIAC CATH 2007, 2010 COLONOSCOPY - 05/02 - REPEAT IN 5 YEARS 2010, 2016 FAMILY HISTORY FATHER: 77 YRS, KIDNEY INFECTION CAUSING RENAL FAILURE MOTHER: 75 YRS, DM2, CAD, HYPERLIPIDEMIA SIBLINGS: 3 BROTHERS - UNKNOWN HX 1 SISTER (D) 50 YO - DE 2 SISTERS - UNKNOWN HX DAUGHTER(S): ALIVE 29 YRS, NO KNOWN MEDICAL PROBLEMS - ESTRANGED 3 BROTHER(S) , 3 SISTER(S) . 1DAUGHTER(S) . SOCIAL HISTORY GENERAL: TOBACCO USE ARE YOU A:CURRENT SMOKER ARE YOU INTERESTED IN QUITTING?THINKING ABOUT QUITTING STATES HE HAS CUT BACK. PREVIOUS QUIT ATTEMPTS?YES, MORE THAN 6 MONTHS AGO. COUNSELED THE PATIENT ON SMOKING CESSATION, EDUCATION [id number]/25/2020 HOW MANY CIGARETTES A DAY DO YOU SMOKE?6-10 HOW SOON AFTER YOU WAKE UP DO YOU SMOKE YOUR FIRST CIGARETTE?6-30 MIN HOW OFTEN DO YOU SMOKE CIGARETTES?SOME DAYS, BUT NOT EVERY DAY PATIENT COUNSELED ON THE DANGERS OF TOBACCO USE AND URGED TO QUIT:02/09/2020 LATEX QUESTIONNAIRE LATEX ALLERGY : HAVE YOU EVER DEVELOPED ANY TYPE OF REACTION AFTER HANDLING LATEX PRODUCTS SUCH RUBBER GLOVES, CONDOMS, DIAPHRAGMS, BALLOONS, SOCKS, OR UNDERWEAR?NO LATEX ALLERGY : HAVE YOU EVER DEVELOPED ANY TYPE OF REACTION DURING OR AFTER DENTAL APPOINTMENT, VAGINAL/RECTAL EXAMINATION, SURGICAL PROCEDURE, OR ANY OTHER EXPOSURE?NO LATEX RISK : HAVE YOU EVER HAD ANY DIFFICULTY BREATHING OR HIVES AFTER EATING OR HANDLING ANY FRUITS, OR VEGETABLES; SUCH KIWI, BANANAS, STONE FRUITS, OR CHESTNUTSNO LATEX RISK : DO YOU HAVE A PREVIOUS PERSONAL HISTORY OF MORE THAN NINE SURGERIES, SPINA BIFIDA, OR REPEATED CATHERIZATIONS? NO LATEX RISK : ARE YOU FREQUENTLY EXPOSED TO LATEX PRODUCTS IN YOUR OCCUPATION?NO DATE ASKED : 02/09/2020 LUNG CANCER SCREENING SMOKING STATUS:CURRENT SMOKER BMI CARE GOAL FOLLOW-UP ABOVE NORMAL BMI FOLLOW-UPWEIGHT MONITORING ALCOHOL SCREENING DID YOU HAVE A DRINK CONTAINING ALCOHOL IN THE PAST YEAR?YES HOW OFTEN DID YOU HAVE A DRINK CONTAINING ALCOHOL IN THE PAST YEAR?MONTHLY OR LESS (1 POINT) POINTS1 INTERPRETATIONNEGATIVE RECREATIONAL DRUG USE DRUG USE?NO CAFFEINE CAFFEINE USE?YES HOW OFTEN AND HOW MUCH? COFFEE 3- 4 CUPS DAILY AT TIMES SEXUAL HX HAD SEX IN THE LAST 12 MONTHS (VAGINAL, ORAL, OR ANAL)?YES WITHWOMEN ONLY HIV / HEP-C SCREENING HIV TEST OFFERED TO PATIENT:YES DATE OFFERED:05/28/2017 TEST ACCEPTED:NO HEP-C TEST OFFERED TO PATIENT:YES DATE OFFERED:08/17/2016 REASON:PATIENT DECLINED TEST ACCEPTED:NO REASON:PATIENT DECLINED SCIENTOLOGY [id number] NONE LANGUAGE LANGUAGES SPOKEN:[place] CITIZEN LEARNING BARRIERS / SPECIAL NEEDS BARRIERS TO LEARNING?NO HEARING IMPAIRED?NO VISION IMPAIRED?YES :CORRECTIVE LENSES COGNITIVELY IMPAIRED?NO READINESS TO LEARN?YES LEARNING PREFERENCES?NO LEARNING CAPABILITIES PRESENT?YES EMOTIONAL BARRIERS?NO SPECIAL DEVICES?NO HELICOPTER PILOT INSTRUCTOR NEEDED?NO DOMESTIC VIOLENCE DO YOU FEEL SAFE IN YOUR ENVIRONMENT?YES DIET: REGULAR. EXERCISE: DAILY. MARITAL STATUS: . OTHERS AT HOME: NONE. PAIN CLINIC PFS, CLERGY, PUBLIC HEALTH REFERRALS PFS REFERRAL NEEDED?NO CLERGY REFERRAL NEEDED?NO PUBLIC HEALTH REFERRAL NEEDED?NO HAS THE PATIENT BEEN EDUCATED REGARDING HIS/HER PLAN OF CARE?YES HAS THE PATIENT BEEN EDUCATED REGARDING PAIN, THE RISK FOR PAIN, THE IMPORTANCE OF EFFECTIVE PAIN MANAGEMENT, AND THE PAIN ASSESSMENT PROCESS?YES ADVANCE DIRECTIVE ADVANCE DIRECTIVE DISCUSSED WITH PATIENT:YES 02/09/2020 PT DOES NOT HAVE ANY ADVANCED DIRECTIVES AND HE DECLINES INFORMATION ON HCP AT THIS TIME. HOSPITALIZATION/MAJOR DIAGNOSTIC PROCEDURE CHEST PAIN/ABD PAIN 03/01 CHEST PAIN, CARDIAC CATH 2010 [facility] 02/2017 REVIEW OF SYSTEMS CONSTITUTIONAL: ANY RECENT FEVER NO . CHILLS NO . WEIGHT CHANGE OF UNKNOWN REASONS NO . GASTROENTEROLOGY: NEW UNEXPLAINABLE CHANGES IN BOWEL CONTROL NO . CONSTIPATION NO . GENITOURINARY: ANY NEW CHANGE IN BLADDER CONTROL? NO . NEUROLOGY: NEW ONSET DIZZINESS OR NEUROLOGICAL CHANGES NOT MENTIONED NO . NEW NUMBNESS OR PAIN PATTERNS NOT MENTIONED AND PERTINENT TO TODAY'S VISIT NO . CARDIOLOGY: NEW CHEST PRESSURE NO . NEW CHEST PAIN NO . RESPIRATORY: UNEXPLAINABLE COUGH NO . NEW SHORTNESS OF BREATH NO . VITAL SIGNS WT 201 LBS, HT 68 IN, BMI 30.56 INDEX, BP 137/87 MM HG, HR 74 /MIN, RR 18 /MIN, TEMP 98.5 F, OXYGEN SAT % 95%, SAFE IN ENV? (Y/N) Y, NA INITIALS SC 12:08, REVIEWED BY: ELLI. EXAMINATION GENERAL EXAMINATION: GENERALAWAKE,ALERT ,PLEASANT . PSYCHAFFECT NORMAL . LUNGS:LUNG HARRY ARE CLEAR TO AUSCULTATION BILATERALLY. GOOD MOVEMENT OF AIR . HEART:S1, S2 IN A REGULAR RATE AND RHYTHM. NO SIGNIFICANT MURMURS, RUBS OR GALLOPS NOTED . ASSESSMENTS SPONDYLOSIS OF LUMBAR REGION WITHOUT MYELOPATHY OR RADICULOPATHY - M47.816 (PRIMARY) TREATMENT SPONDYLOSIS OF LUMBAR REGION WITHOUT MYELOPATHY OR RADICULOPATHY CONTINUE GABAPENTIN CAPSULE, 300 MG, 1 CAPSULE, ORALLY, QHS CONTINUE GABAPENTIN CAPSULE, 100 MG, 1 CAPSULE, ORALLY, 1 IN AM AND 1 MID DAY CONTINUE HYDROCODONE-ACETAMINOPHEN TABLET, 5-325 MG, 1 TABLET NEEDED, ORALLY, EVERY 8-12 HRS PRN PAIN MDD=2 NOTES: ISTOP REGISTRY REVIEWED AND DEMONSTRATES COMPLLIANCE. BRINGS IN MEDICATIONS WHICH IS APPROPRIATE FOR WHAT WAS DISPENSED. RECENT URINE TOXICOLOGY REVIEWED. NO UNAUTHORIZED MEDICATIONS. NO ILLICIT SUBSTANCES AND PRESCRIBED MEDICATIONS WERE PRESENT, RISKS OF NARCOTIC/OPIOD MEDICATIONS INCLUDES BUT IS NOT LIMITED TO RISK OF DEPENDANCE/DEVELOPMENT OF ADDICTION, MOOD DISTURBANCE AND DEPRESSION, OSTEOPOROSIS, HORMONAL AND LABIDAL CHANGES, RESPIRATORY DEPRESSION AND . PATIENT IS ADVISED NOT TO DRIVE OR DRINK ALCOHOL WHILE ON THESE MEDICATIONS. PROCEDURE CODES FA211 ESTABILISHED PATIENT [facility] CHARGE DISPOSITION & COMMUNICATION FOLLOW UP 3 MONTHS (REASON: MEDICATION MANAGEMENT/LOW BACK PAIN) ELECTRONICALLY SIGNED BY MARISA CEVALLOS ON 02/13/2020 AT 03:54 PM EDT DISCLAIMER : THIS IS A VISIT SUMMARY EXTRACTED FROM THE [employer] CHART. IT IS NOT A COPY OF THE [employer] PROGRESS NOTE. MELYSSA
== END ==
LOC: M PAIN 11:30
PROVIDERS: ATTEND Nurse Practitioner Family
DX: M47.816 Spondylosis without myelopathy or radiculopathy, lumbar region (principal); I25.10 Atherosclerotic heart disease of native coronary artery without angina pectoris; E78.5 Hyperlipidemia, unspecified; K44.9 Diaphragmatic hernia without obstruction or gangrene; K21.9 Gastro-esophageal reflux disease without esophagitis; G47.33 Obstructive sleep apnea (adult) (pediatric); J44.9 Chronic obstructive pulmonary disease, unspecified; J30.9 Allergic rhinitis, unspecified; E55.9 Vitamin D deficiency, unspecified; N52.9 Male erectile dysfunction, unspecified; F17.210 Nicotine dependence, cigarettes, uncomplicated; Z79.82 Long term (current) use of aspirin; Z79.891 Long term (current) use of opiate analgesic; Z79.899 Other long term (current) drug therapy

== ENCOUNTER → 2020-04-01 | Outpatient (CLI) | payer OTHER, MEDICAID ==
[2020-04-01 14:43] LABS: ALT/SGPT 24 U/L (12-78); BILIRUBIN,TOTAL 0.3 MG/DL (0.2-1.0); BLOOD UREA NITROGEN 17 MG/DL (7-18); CALCIUM LEVEL 9.3 MG/DL (8.5-10.1); CARBON DIOXIDE LEVEL 29 MEQ/L (21-32); CHLORIDE LEVEL 106 MEQ/L (98-107); CHOLESTEROL LEVEL 230 MG/DL (<200); CHOLESTEROL RISK RATIO 6.052 (<5); CREATININE FOR GFR 1.04 MG/DL (0.70-1.30); GLOMERULAR FILTRATION RATE > 60.0 (>56); GLUCOSE, FASTING 107 MG/DL (70-100); HDL CHOLESTEROL 38 MG/DL (>40); LDL CHOLESTEROL 166 MG/DL (<100); NON-HDL-C 192 MG/DL; POTASSIUM SERUM 4.3 MEQ/L (3.5-5.1); SODIUM LEVEL 140 MEQ/L (136-145); TOTAL PROTEIN 6.9 GM/DL (6.4-8.2); TRIGLYCERIDES LEVEL 131 MG/DL (<150)
== END ==
LOC: M LAB 13:35
PROVIDERS: ATTEND Physician Assistant Medical
DX: E78.2 Mixed hyperlipidemia (principal)

== ENCOUNTER → 2020-05-11 | Outpatient (CLI) | payer OTHER, MEDICAID ==
[~2020-05-11] MED LIST changes: +CIPR7.5D5 AS; -CIPRODEX AS; +GABA-282 PO; -GABA-843 PO
--- NOTE | 2020-05-13 05:00 | ECWPNPC ---
PATIENT NAME: MEHUL FERRARO : 1970 GENDER: MALE VISIT DATE: 05/11/2020 DISCHARGE DATE: 05/11/20 1205 VISIT LOCKED DATE TIME: PHYSICIAN: RYAN ORTEGA PHYSICIAN PAGER NO: ACTIVE RESOURCE: RYAN ORTEGA REASON FOR APPOINTMENT 1. BACK PAIN HISTORY OF PRESENT ILLNESS GENERAL: HERE FOR FOLLOW-UP OF CHRONIC LOW BACK PAIN. PAIN HAS BEGUN TO RETURN ACROSS THE LOWER BACK EQUAL ON BOTH SIDES. HAS RESPONDED WELL TO RADIOFREQUENCY IN THE PAST. HAD LEFT COOL RF LUMBAR SPINE IN OCTOBER. PAIN IS AGGRAVATED BY PROLONGED STANDING OR SITTING. FINDS CURRENT CHRONIC PAIN MEDICATION HELPFUL AT REDUCING PAIN AND KEEPING HIM FUNCTIONAL. DENIES ADVERSE SIDE EFFECTS WITH MEDICATIONS. -. FALL RISK SCREENING: SCREENING :NO FALLS REPORTED IN THE LAST YEAR PAIN SCREENING: PATIENT HAS A COMPLAINT OF ACUTE OR CHRONIC PAIN :YES LOCATION OF PAIN:LOW BACK, LEG(S) INTENSITY OF PAIN (SCALE OF 1 TO 10):9 WHAT DOES YOUR PAIN FEEL LIKE:ACHING, BURNING, SHARP, STABBING, THROBBING, SHOOTING DURATION:CONTINOUS, CONSTANT PAIN IS INCREASED BY:ACTIVITIES PAIN IS DECREASED BY:USE OF PAIN MEDICATIONS TREATMENT/MEDICATIONS USED TO MANAGE PAIN:OPIOIDS LEVEL OF RELIEF FROM PAIN TREATMENTS IN THE PAST:25% PAIN HAS INTERFERED WITH THE FOLLOWING:BATHING/DRESSING, WALKING ABILITY, HOUSEWORK, SLEEP, TRANSPORTATION, TOILETING NURSING NOTE: -. PAIN CENTER INTAKE QUESTIONS: DO YOU HAVE A HISTORY OF MRSA? :NO DO YOU TAKE A BLOOD THINNERS? :NO DO YOU HAVE ANY BLEEDING DISORDERS? :NO ANY NEW NUMBNESS OR WEAKNESS IN YOUR LEGS OR ARMS? :NO ANY PACEMAKER,DEFIBRILLATOR, OR DORSAL COLUMN STIMULATOR? :NO DO YOU HAVE ANY RASHES OR OPEN SORES? :NO ARE YOU ALLERGIC TO IV DYE? :NO ARE YOU DIABETIC? :NO ANY NEW PROBLEMS WITH YOUR MEDICATIONS? :NO HAVE YOU RECEIVED A VACCINE IN THE PAST 30 DAYS? :NO DO YOU PLAN TO RECEIVE A VACCINE IN THE NEXT 21 DAYS? :NO DO YOU NEED ANY PRESCRIPTION? :YES NORCO AND SUPRIYA DO YOU TAKE ANY IMMUNOSUPPRESSIVE MEDICATIONS? :NO IS THERE A CHANCE YOU COULD BE ? :NO ARE YOU BREAST FEEDING? :NO CURRENT MEDICATIONS TAKING ASPIRIN EC 81 MG TABLET DELAYED RELEASE 1 TABLET ORALLY ONCE A DAY TAKING VITAMIN D3 1000 UNIT CAPSULE 1 CAPSULE ORALLY ONCE A DAY TAKING CARVEDILOL 6.25 MG TABLET 1 TABLET WITH FOOD ORALLY DAILY TAKING MENS ONE DAILY - TABLET 1 TAB ORALLY DAILY TAKING PROAIR HFA 108 (90 BASE) MCG/ACT AEROSOL SOLUTION 2 PUFFS NEEDED INHALATION EVERY 4 HRS TAKING CETIRIZINE HCL 10 MG TABLET 1 TABLET ORALLY ONCE A DAY TAKING OMEPRAZOLE 40 MG CAPSULE DELAYED RELEASE 1 CAPSULE 30 MINUTES BEFORE MORNING MEAL ORALLY TWICE DAILY TAKING BREO ELLIPTA 100-25 MCG/INH AEROSOL POWDER BREATH ACTIVATED USE ONE INHALATION ONCE DAILY TAKING CRESTOR 10 MG TABLET 1 TABLET ORALLY ONCE A DAY TAKING GEMFIBROZIL 600 MG TABLET 1 TABLET ORALLY TWICE A DAY TAKING GABAPENTIN 300 MG CAPSULE 1 CAPSULE ORALLY QHS TAKING GABAPENTIN 100 MG CAPSULE 1 CAPSULE ORALLY 1 IN AM AND 1 MID DAY TAKING HYDROCODONE-ACETAMINOPHEN 5-325 MG TABLET 1 TABLET NEEDED ORALLY Q12H PRN MDD2 NOT-TAKING HYDROCODONE-ACETAMINOPHEN 5-325 MG TABLET 1 TABLET NEEDED ORALLY EVERY 8-12 HRS PRN PAIN MDD=2 MEDICATION LIST REVIEWED AND RECONCILED WITH THE PATIENT PAST MEDICAL HISTORY CAD - NO HISTORY OF INFARCT - CARDIAC CATHETERIZATION 08/24 REVEALED NON-OBSTRUCTIVE DISEASE ONLY. ECHOCARDIOGRAM 10/25 NO VALVULAR DISEASE, TRACE MITRAL INSUFFICIENCY, TRACE TRICUSPID INSUFFICIENCY. NUCLEAR STRESS TEST 10/25 - NORMAL PERFUSION NO ISCHEMIA OR INFARCTION. EF CALCULATED AT 52% EKG - 07/28 - NSR 84 BPM (FOLLOWED BY DR. TORRES) LUMBAGO - OSTEOARTHRITIS - DDD - FOLLOWS WITH PAIN CLINIC HYPERLIPIDEMIA HIATAL HERNIA WITH REFLUX TOBACCO ABUSE WALI DX 02/26 COPD GERD VIT D DEF ED ALLERGIES ENVIRONMENTAL: COUGH, SCRATHY THROAT, - ALLERGY SOCIAL HISTORY GENERAL: TOBACCO USE ARE YOU A:CURRENT SMOKER HOW OFTEN DO YOU SMOKE CIGARETTES?SOME DAYS, BUT NOT EVERY DAY HOW SOON AFTER YOU WAKE UP DO YOU SMOKE YOUR FIRST CIGARETTE?6-30 MIN HOW MANY CIGARETTES A DAY DO YOU SMOKE?6-10 ARE YOU INTERESTED IN QUITTING?THINKING ABOUT QUITTING STATES HE HAS CUT BACK. PATIENT COUNSELED ON THE DANGERS OF TOBACCO USE AND URGED TO QUIT:02/09/2020 COUNSELED THE PATIENT ON SMOKING CESSATION, EDUCATION [id number]/25/2020 PREVIOUS QUIT ATTEMPTS?YES, MORE THAN 6 MONTHS AGO. LATEX QUESTIONNAIRE LATEX ALLERGY : HAVE YOU EVER DEVELOPED ANY TYPE OF REACTION AFTER HANDLING LATEX PRODUCTS SUCH RUBBER GLOVES, CONDOMS, DIAPHRAGMS, BALLOONS, SOCKS, OR UNDERWEAR?NO LATEX ALLERGY : HAVE YOU EVER DEVELOPED ANY TYPE OF REACTION DURING OR AFTER DENTAL APPOINTMENT, VAGINAL/RECTAL EXAMINATION, SURGICAL PROCEDURE, OR ANY OTHER EXPOSURE?NO DATE ASKED : 02/09/2020 LATEX RISK : HAVE YOU EVER HAD ANY DIFFICULTY BREATHING OR HIVES AFTER EATING OR HANDLING ANY FRUITS, OR VEGETABLES; SUCH KIWI, BANANAS, STONE FRUITS, OR CHESTNUTSNO LATEX RISK : DO YOU HAVE A PREVIOUS PERSONAL HISTORY OF MORE THAN NINE SURGERIES, SPINA BIFIDA, OR REPEATED CATHERIZATIONS? NO LATEX RISK : ARE YOU FREQUENTLY EXPOSED TO LATEX PRODUCTS IN YOUR OCCUPATION?NO LUNG CANCER SCREENING SMOKING STATUS:CURRENT SMOKER BMI CARE GOAL FOLLOW-UP ABOVE NORMAL BMI FOLLOW-UPWEIGHT MONITORING ALCOHOL SCREENING DID YOU HAVE A DRINK CONTAINING ALCOHOL IN THE PAST YEAR?YES HOW OFTEN DID YOU HAVE A DRINK CONTAINING ALCOHOL IN THE PAST YEAR?MONTHLY OR LESS (1 POINT) POINTS1 INTERPRETATIONNEGATIVE RECREATIONAL DRUG USE DRUG USE?NO CAFFEINE CAFFEINE USE?YES HOW OFTEN AND HOW MUCH? COFFEE 3- 4 CUPS DAILY AT TIMES SEXUAL HX HAD SEX IN THE LAST 12 MONTHS (VAGINAL, ORAL, OR ANAL)?YES WITHWOMEN ONLY HIV / HEP-C SCREENING HIV TEST OFFERED TO PATIENT:YES DATE OFFERED:05/28/2017 TEST ACCEPTED:NO HEP-C TEST OFFERED TO PATIENT:YES DATE OFFERED:08/17/2016 REASON:PATIENT DECLINED TEST ACCEPTED:NO REASON:PATIENT DECLINED EVANGELICAL [id number] NONE LANGUAGE LANGUAGES SPOKEN:[place]IZEN OF [place] LEARNING BARRIERS / SPECIAL NEEDS BARRIERS TO LEARNING?NO HEARING IMPAIRED?NO VISION IMPAIRED?YES COGNITIVELY IMPAIRED?NO :CORRECTIVE LENSES READINESS TO LEARN?YES LEARNING PREFERENCES?NO LEARNING CAPABILITIES PRESENT?YES EMOTIONAL BARRIERS?NO SPECIAL DEVICES?NO PICTURE ENLARGER NEEDED?NO DOMESTIC VIOLENCE DO YOU FEEL SAFE IN YOUR ENVIRONMENT?YES DIET: REGULAR. EXERCISE: DAILY. MARITAL STATUS: . OTHERS AT HOME: NONE. - PFS REFERRAL NEEDED?NO CLERGY REFERRAL NEEDED?NO PUBLIC HEALTH REFERRAL NEEDED?NO HAS THE PATIENT BEEN EDUCATED REGARDING HIS/HER PLAN OF CARE?YES HAS THE PATIENT BEEN EDUCATED REGARDING PAIN, THE RISK FOR PAIN, THE IMPORTANCE OF EFFECTIVE PAIN MANAGEMENT, AND THE PAIN ASSESSMENT PROCESS?YES ADVANCE DIRECTIVE ADVANCE DIRECTIVE DISCUSSED WITH PATIENT:YES 02/09/2020 PT DOES NOT HAVE ANY ADVANCED DIRECTIVES AND HE DECLINES INFORMATION ON HCP AT THIS TIME. REVIEW OF SYSTEMS CONSTITUTIONAL: ANY RECENT FEVER NO . CHILLS NO . WEIGHT CHANGE OF UNKNOWN REASONS NO . GASTROENTEROLOGY: NEW UNEXPLAINABLE CHANGES IN BOWEL CONTROL NO . CONSTIPATION NO . GENITOURINARY: ANY NEW CHANGE IN BLADDER CONTROL? NO . NEUROLOGY: NEW ONSET DIZZINESS OR NEUROLOGICAL CHANGES NOT MENTIONED NO . NEW NUMBNESS OR PAIN PATTERNS NOT MENTIONED AND PERTINENT TO TODAY'S VISIT NO . CARDIOLOGY: NEW CHEST PRESSURE NO . NEW CHEST PAIN NO . RESPIRATORY: UNEXPLAINABLE COUGH NO . NEW SHORTNESS OF BREATH NO . VITAL SIGNS WT 204 LBS, HT 68 IN, BMI 31.01 INDEX, BP 131/74 MM HG, HR 77 /MIN, RR 16 /MIN, TEMP 98.9 F, OXYGEN SAT % 96, SAFE IN ENV? (Y/N) Y, REVIEWED BY: EM. EXAMINATION GENERAL EXAMINATION: GENERAL AWAKE,ALERT ,PLEAASANT . PSYCH AFFECT NORMAL . LUNGS: LUNG HARRY ARE CLEAR TO AUSCULTATION BILATERALLY. GOOD MOVEMENT OF AIR . HEART: S1, S2 IN A REGULAR RATE AND RHYTHM. NO SIGNIFICANT MURMURS, RUBS OR GALLOPS NOTED . LUMBAR: SPECIFIC POINT TENDERNESS OVER BILAT. L4/5-L5/S1 LUMBAR FACETS WITH FACET LOADING. NEUROLOGIC EXAM: NORMAL SENSATION LIGHT TOUCH BILAT. LOWER EXTREMITIES. DIAGNOSTIC TESTS REVIEWED MRI L/S SPINE-05/04/18. ASSESSMENTS SPONDYLOSIS OF LUMBAR REGION WITHOUT MYELOPATHY OR RADICULOPATHY - M47.816 (PRIMARY) TREATMENT SPONDYLOSIS OF LUMBAR REGION WITHOUT MYELOPATHY OR RADICULOPATHY STOP HYDROCODONE-ACETAMINOPHEN TABLET, 5-325 MG, 1 TABLET NEEDED, ORALLY, Q12 HR NEEDED FOR SEVERE PAIN MDD2, 30 DAYS, 60 NOTES: LEFT LUMBAR FACET DIAGNOSTIC BLOCK L4-5 L5-S1 #2. PATIENT HAS RECEIVED GREATER THAN 6 MONTHS RELIEF AFTER LEFT RADIOFREQUENCY DONE IN OCTOBER 2019. I WOULD LIKE TO PURSUE RADIOFREQUENCY AGAIN USING RADIOFREQUENCY L4-5 L5-S1 DONE IN OCTOBER DIAGNOSTIC TEST #1. OTHERS STOP HYDROCODONE-ACETAMINOPHEN TABLET, 5-325 MG, 1 TABLET NEEDED, ORALLY, Q12H PRN MDD2 START HYDROCODONE-ACETAMINOPHEN TABLET, 5-325 MG, 1 TABLET NEEDED, ORALLY, TWICE PER DAY IF NEEDED FOR SEVERE PAIN MDD2, 30 DAYS, 60, REFILLS 0 PROCEDURE CODES FA211 ESTABILISHED PATIENT [facility] FACILITY CHARGE DISPOSITION & COMMUNICATION FOLLOW UP POSTPROCEDURE/MED MANAGEMENT/URINE TOXICOLOGY (REASON: RIGHT LUMBAR FACET DIAGNOSTIC BLOCK L4-5 L5-S1 #2) ELECTRONICALLY SIGNED BY MARISA CEVALLOS ON 05/12/2020 AT 01:25 PM EST DISCLAIMER : THIS IS A VISIT SUMMARY EXTRACTED FROM THE [email or web address] CHART. IT IS NOT A COPY OF THE [email or web address] PROGRESS NOTE. MELYSSA
== END ==
LOC: M PAIN 11:00
PROVIDERS: ATTEND Nurse Practitioner Family
DX: M47.816 Spondylosis without myelopathy or radiculopathy, lumbar region (principal); I25.10 Atherosclerotic heart disease of native coronary artery without angina pectoris; E78.5 Hyperlipidemia, unspecified; K44.9 Diaphragmatic hernia without obstruction or gangrene; K21.9 Gastro-esophageal reflux disease without esophagitis; G47.33 Obstructive sleep apnea (adult) (pediatric); J44.9 Chronic obstructive pulmonary disease, unspecified; E55.9 Vitamin D deficiency, unspecified; N52.9 Male erectile dysfunction, unspecified; F17.210 Nicotine dependence, cigarettes, uncomplicated; Z79.891 Long term (current) use of opiate analgesic; Z79.899 Other long term (current) drug therapy; Z79.82 Long term (current) use of aspirin

== ENCOUNTER → 2020-05-22 | Outpatient (CLI) | payer OTHER, MEDICAID | LOC: M LABSMTC 11:11 | PROVIDERS: ATTEND Anesthesiology | DX: Z20.822 Contact with and (suspected) exposure to COVID-19 (principal) ==

== ENCOUNTER → 2020-05-27 | Outpatient (CLI) | payer OTHER, MEDICAID ==
[~2020-05-27] MED LIST changes: +BUPIVACAINE HCL 0.25% 30ML VIAL As Ordered ONE; +ISOVUE-M 300 61% 15ML VIAL As Ordered ONE; +LIDOCAINE 1% SDV 30ML VIAL As Ordered ONE
--- NOTE | 2020-05-27 17:14 | REP ---
INDICATION: DIAGNOSTIC LUMBAR FACET BLOCK L4-L5, L5-S1 #2. COMPARISON: None. TECHNIQUE: Two views. 12.7 seconds of fluoroscopy time is reported. FINDINGS: A sequence of 2 last image hold fluoroscopically obtained spot radiographs of the lumbar spine document various needle positions associated with injection procedure. IMPRESSION: Procedural imaging. <Electronically signed by Rob Allen > 05/27/20 [id number]
--- NOTE | 2020-05-29 00:41 | ECWPNPC ---
PATIENT NAME: MEHUL FERRARO : 1970 GENDER: MALE VISIT DATE: 05/27/2020 DISCHARGE DATE: 05/27/201618 VISIT LOCKED DATE TIME: PHYSICIAN: MAXIMILIANO SABA MD PHYSICIAN PAGER NO: ACTIVE RESOURCE: MAXIMILIANO SABA MD REASON FOR APPOINTMENT 1. LEFT DIAGNOSTIC LUMBAR FACET BLOCK L4-L5, L5-S1 HISTORY OF PRESENT ILLNESS GENERAL: -. FALL RISK SCREENING: SCREENING :NO FALLS REPORTED IN THE LAST YEAR PAIN SCREENING: PATIENT HAS A COMPLAINT OF ACUTE OR CHRONIC PAIN :YES LOCATION OF PAIN: LOW BACK, BILATERAL LEGS INTENSITY OF PAIN (SCALE OF 1 TO 10):9 WHAT DOES YOUR PAIN FEEL LIKE:ACHING, STABBING, THROBBING, SORE DURATION:CONTINOUS, AWAKENS FROM SLEEP PAIN IS INCREASED BY:ACTIVITIES, PROLONGED STANDING PAIN IS DECREASED BY:USE OF PAIN MEDICATIONS PLAN/GOALS/TREATMENT/INTERVENTION/FOLLOW UP:SEE PLAN NURSING NOTE: -. PAIN CENTER INTAKE QUESTIONS: DO YOU HAVE A HISTORY OF MRSA? :NO DO YOU TAKE A BLOOD THINNERS? :NO DO YOU HAVE ANY BLEEDING DISORDERS? :NO ANY NEW NUMBNESS OR WEAKNESS IN YOUR LEGS OR ARMS? :YES LEFT LEG FEELS LIKE IS ASLEEP ALL THE TIME ANY PACEMAKER,DEFIBRILLATOR, OR DORSAL COLUMN STIMULATOR? :NO DO YOU HAVE ANY RASHES OR OPEN SORES? :NO ARE YOU ALLERGIC TO IV DYE? :NO ARE YOU DIABETIC? :NO ANY NEW PROBLEMS WITH YOUR MEDICATIONS? :NO HAVE YOU RECEIVED A VACCINE IN THE PAST 30 DAYS? :NO DO YOU PLAN TO RECEIVE A VACCINE IN THE NEXT 21 DAYS? :NO DO YOU TAKE ANY IMMUNOSUPPRESSIVE MEDICATIONS? :NO ANY HISTORY OF SEIZURES? :NO ANY HISTORY OF CARDIAC ISSUES OR EVENTS? :YES CAD DO YOU HAVE SLEEP APNEA? :YES DO YOU WEAR A CPAP?NO ANY RECENT HEAD INJURY? :NO DO YOU HAVE ANY NEW INFECTIONS? :NO IS THERE A CHANCE YOU COULD BE ? :NO ARE YOU BREAST FEEDING? :NO WHEN DID YOU LAST EAT? : 05/26/20 1830 WHEN DID YOU LAST DRINK? : 05/27/20 0800 WHAT DID YOU LAST DRINK? : WATER NAME OF PERSON DRIVING YOU HOME? : ALYCIA DO YOU HAVE ANY OTHER QUESTIONS OR CONCERNS? : NONE CURRENT MEDICATIONS TAKING ASPIRIN EC 81 MG TABLET DELAYED RELEASE 1 TABLET ORALLY ONCE A DAY TAKING VITAMIN D3 1000 UNIT CAPSULE 1 CAPSULE ORALLY ONCE A DAY TAKING CARVEDILOL 6.25 MG TABLET 1 TABLET WITH FOOD ORALLY DAILY, NOTES: 05/26/20 1000 TAKING MENS ONE DAILY - TABLET 1 TAB ORALLY DAILY TAKING PROAIR HFA 108 (90 BASE) MCG/ACT AEROSOL SOLUTION 2 PUFFS NEEDED INHALATION EVERY 4 HRS TAKING CETIRIZINE HCL 10 MG TABLET 1 TABLET ORALLY ONCE A DAY TAKING OMEPRAZOLE 40 MG CAPSULE DELAYED RELEASE 1 CAPSULE 30 MINUTES BEFORE MORNING MEAL ORALLY TWICE DAILY TAKING BREO ELLIPTA 100-25 MCG/INH AEROSOL POWDER BREATH ACTIVATED USE ONE INHALATION ONCE DAILY TAKING CRESTOR 10 MG TABLET 1 TABLET ORALLY ONCE A DAY TAKING GEMFIBROZIL 600 MG TABLET 1 TABLET ORALLY TWICE A DAY, NOTES: 05/26/20 1000 TAKING GABAPENTIN 300 MG CAPSULE 1 CAPSULE ORALLY QHS, NOTES: 05/25/20 2300 TAKING GABAPENTIN 100 MG CAPSULE 1 CAPSULE ORALLY 1 IN AM AND 1 MID DAY, NOTES: 05/26/20 1000 TAKING HYDROCODONE-ACETAMINOPHEN 5-325 MG TABLET 1 TABLET NEEDED ORALLY TWICE PER DAY IF NEEDED FOR SEVERE PAIN MDD2 MEDICATION LIST REVIEWED AND RECONCILED WITH THE PATIENT PAST MEDICAL HISTORY CAD - NO HISTORY OF INFARCT - CARDIAC CATHETERIZATION 08/24 REVEALED NON-OBSTRUCTIVE DISEASE ONLY. ECHOCARDIOGRAM 10/25 NO VALVULAR DISEASE, TRACE MITRAL INSUFFICIENCY, TRACE TRICUSPID INSUFFICIENCY. NUCLEAR STRESS TEST 10/25 - NORMAL PERFUSION NO ISCHEMIA OR INFARCTION. EF CALCULATED AT 52% EKG - 07/28 - NSR 84 BPM (FOLLOWED BY DR. TORRES) LUMBAGO - OSTEOARTHRITIS - DDD - FOLLOWS WITH PAIN CLINIC HYPERLIPIDEMIA HIATAL HERNIA WITH REFLUX TOBACCO ABUSE WALI DX 02/26 COPD GERD VIT D DEF ED ALLERGIES ENVIRONMENTAL: COUGH, SCRATHY THROAT, - ALLERGY SOCIAL HISTORY GENERAL: TOBACCO USE ARE YOU A:CURRENT SMOKER ARE YOU INTERESTED IN QUITTING?THINKING ABOUT QUITTING STATES HE HAS CUT BACK. PREVIOUS QUIT ATTEMPTS?YES, MORE THAN 6 MONTHS AGO. COUNSELED THE PATIENT ON SMOKING CESSATION, EDUCATION [id number]/11/2021 HOW MANY CIGARETTES A DAY DO YOU SMOKE?6-10 HOW SOON AFTER YOU WAKE UP DO YOU SMOKE YOUR FIRST CIGARETTE?6-30 MIN HOW OFTEN DO YOU SMOKE CIGARETTES?SOME DAYS, BUT NOT EVERY DAY PATIENT COUNSELED ON THE DANGERS OF TOBACCO USE AND URGED TO QUIT:05/27/2020 VAPORNO E-CIGARETTENO LATEX QUESTIONNAIRE LATEX ALLERGY : HAVE YOU EVER DEVELOPED ANY TYPE OF REACTION AFTER HANDLING LATEX PRODUCTS SUCH RUBBER GLOVES, CONDOMS, DIAPHRAGMS, BALLOONS, SOCKS, OR UNDERWEAR?NO LATEX ALLERGY : HAVE YOU EVER DEVELOPED ANY TYPE OF REACTION DURING OR AFTER DENTAL APPOINTMENT, VAGINAL/RECTAL EXAMINATION, SURGICAL PROCEDURE, OR ANY OTHER EXPOSURE?NO DATE ASKED : 02/09/2020 LATEX RISK : HAVE YOU EVER HAD ANY DIFFICULTY BREATHING OR HIVES AFTER EATING OR HANDLING ANY FRUITS, OR VEGETABLES; SUCH KIWI, BANANAS, STONE FRUITS, OR CHESTNUTSNO LATEX RISK : DO YOU HAVE A PREVIOUS PERSONAL HISTORY OF MORE THAN NINE SURGERIES, SPINA BIFIDA, OR REPEATED CATHERIZATIONS? NO LATEX RISK : ARE YOU FREQUENTLY EXPOSED TO LATEX PRODUCTS IN YOUR OCCUPATION?NO LUNG CANCER SCREENING SMOKING STATUS:CURRENT SMOKER BMI CARE GOAL FOLLOW-UP ABOVE NORMAL BMI FOLLOW-UPWEIGHT MONITORING ALCOHOL SCREENING DID YOU HAVE A DRINK CONTAINING ALCOHOL IN THE PAST YEAR?YES HOW OFTEN DID YOU HAVE A DRINK CONTAINING ALCOHOL IN THE PAST YEAR?MONTHLY OR LESS (1 POINT) POINTS1 INTERPRETATIONNEGATIVE RECREATIONAL DRUG USE DRUG USE?NO CAFFEINE CAFFEINE USE?YES HOW OFTEN AND HOW MUCH? COFFEE 3- 4 CUPS DAILY AT TIMES SEXUAL HX HAD SEX IN THE LAST 12 MONTHS (VAGINAL, ORAL, OR ANAL)?YES WITHWOMEN ONLY HIV / HEP-C SCREENING HIV TEST OFFERED TO PATIENT:YES DATE OFFERED:05/28/2017 TEST ACCEPTED:NO HEP-C TEST OFFERED TO PATIENT:YES DATE OFFERED:08/17/2016 REASON:PATIENT DECLINED TEST ACCEPTED:NO REASON:PATIENT DECLINED TENRIISM [id number] NONE LANGUAGE LANGUAGES SPOKEN:INDIAN LEARNING BARRIERS / SPECIAL NEEDS BARRIERS TO LEARNING?NO HEARING IMPAIRED?NO VISION IMPAIRED?YES COGNITIVELY IMPAIRED?NO :CORRECTIVE LENSES READINESS TO LEARN?YES LEARNING PREFERENCES?NO LEARNING CAPABILITIES PRESENT?YES EMOTIONAL BARRIERS?NO SPECIAL DEVICES?NO MUSHROOM PACKER NEEDED?NO DOMESTIC VIOLENCE DO YOU FEEL SAFE IN YOUR ENVIRONMENT?YES DIET: REGULAR. EXERCISE: DAILY. MARITAL STATUS: . OTHERS AT HOME: NONE. - PFS REFERRAL NEEDED?NO CLERGY REFERRAL NEEDED?NO PUBLIC HEALTH REFERRAL NEEDED?NO HAS THE PATIENT BEEN EDUCATED REGARDING HIS/HER PLAN OF CARE?YES HAS THE PATIENT BEEN EDUCATED REGARDING PAIN, THE RISK FOR PAIN, THE IMPORTANCE OF EFFECTIVE PAIN MANAGEMENT, AND THE PAIN ASSESSMENT PROCESS?YES ADVANCE DIRECTIVE ADVANCE DIRECTIVE DISCUSSED WITH PATIENT:YES 02/09/2020 PT DOES NOT HAVE ANY ADVANCED DIRECTIVES AND HE DECLINES INFORMATION ON HCP AT THIS TIME. VITAL SIGNS WT 208.4 LBS, HT 68 IN, BMI 31.68 INDEX, BP 129/83 MM HG, HR 75 /MIN, RR 18 /MIN, TEMP 97.4 F, OXYGEN SAT % 95%, SAFE IN ENV? (Y/N) YES, NA INITIALS AW 1409, REVIEWED BY: Ana MONDRAGON COURTROOM DEPUTY OR CALENDAR CLERK. EXAMINATION GENERAL EXAMINATION: THE PATIENT IS ALERT, ORIENTED TIMES THREE AND COOPERATIVE. LUNGS ARE CLEAR TO AUSCULTATION. HEART SHOWS REGULAR RHYTHM, NO MURMURS AND NO GALLOPS. ASSESSMENTS SPONDYLOSIS WITHOUT MYELOPATHY OR RADICULOPATHY, LUMBAR REGION - M47.816 (PRIMARY) SPONDYLOSIS WITHOUT MYELOPATHY OR RADICULOPATHY, LUMBOSACRAL REGION - M47.817 TREATMENT SPONDYLOSIS WITHOUT MYELOPATHY OR RADICULOPATHY, LUMBAR REGION [facility] FLUORO GUIDANCE (PAIN)[id number] COMPLETION OF PROCEDURAL VISIT WHEN MEETS CRITERIA SPONDYLOSIS WITHOUT MYELOPATHY OR RADICULOPATHY, LUMBOSACRAL REGION [facility] FLUORO GUIDANCE (PAIN)[id number] OTHERS NOTES: 05/26/20 1725 PAT COMPLETED WITH SPOUSE ALYCIA. Ana MONDRAGON RN BSN. PROCEDURES PAIN NURSING RECORD PROCEDURE IN ROOM 1550, PHYSICIAN IN ROOM 1556, START 1600, FINISH 1603, PHYSICIAN OUT OF ROOM 1604, OUT OF ROOM 1608, ECG NORMAL SINUS, PATIENT SHIELDED YES, SAFETY STRAP YES, PREP CHLOROPREP ENEDINA COURTROOM DEPUTY OR CALENDAR CLERK, DRESSING TEGADERM DR. SABA LOC: DELMY MONDRAGON 05/27/2020 3:50:26 PM > 1. ALERT, ORIENTED, LOC REMAINED AT BASELINE THROUGHOUT THE PROCEDURE RESP: DELMY MONDRAGON 05/27/2020 3:50:26 PM > 1. REGULAR, NO DYSPNEA COLOR: DELMY MONDRAGON 05/27/2020 3:50:26 PM > 1. PINK SKIN: DELMY MONDRAGON 05/27/2020 3:50:26 PM > 1. WARM, DRY POSITION: DELMY MONDRAGON 05/27/2020 3:50:26 PM > 1. PRONE VITALS: DELMY MONDRAGON 05/27/2020 3:53:26 PM > 107/72, 74, 97% RA. GIANCARLODELMY 05/27/2020 4:00:10 PM > 118/74, 64, 96% RA. GIANCARLODELMY 05/27/2020 4:10:03 PM > POST PROCEDURE 132/69, 80, 96% RA. COMPLETION OF PROCEDURE APPOINTMENT: POST PAIN 05/26, DRESSING SITE DRY AND INTACT, IV N/A, GAIT STEADY, TEACHING COMPLETED, PATIENT ACKNOWLEDGES UNDERSTANDING YES, PROCEDURE APPOINTMENT COMPLETED AT BY: Ana MONDRAGON RN @ 1618. PN LUMBAR FACET BLOCK DIAGNOSTIC PRE PROCEDURE DIAGNOSIS LUMBAR SPONDYLOSIS, LUMBOSACRAL SPONDYLOSIS POST PROCEDURE DIAGNOSIS LUMBAR SPONDYLOSIS, LUMBOSACRAL SPONDYLOSIS PROCEDURE LEFT L4-L5 AND LEFT L5-S1 FACET BLOCK DIAGNOSTIC NUMBER [address] MAXIMILIANO SABA LYE PEEL OPERATOR NONE ANESTHESIA LOCAL PRE PROCEDURE NOTE THE PATIENT WITH HISTORY OF CHRONIC LOW BACK PAIN. I EVALUATED THE PATIENT AND REVIEWED THE CHART. I WENT OVER THE RISKS, ALTERNATIVES, AND BENEFITS ASSOCIATED WITH THIS PROCEDURE. THE PATIENT WOULD LIKE TO PROCEED AND GAVE CONSENT TO PERFORM THE PROCEDURE. AGREED WITH THE PATIENT, WE ARE DOING THIS PROCEDURE TO DETERMINE IF THE PATIENT IS A CANDIDATE FOR A RADIOFREQUENCY ABLATION OF THE FACETS JOINTS. THE PATIENT DENIES UNEXPLAINABLE WEIGHT LOSS, FEVER, CHILLS, OR NEW CHANGES IN URINARY OR BOWEL CONTROL. THE PATIENT TEST NEGATIVE FOR COVID-19 DESCRIPTION OF PROCEDURE THE PATIENT WAS BROUGHT TO THE PROCEDURE ROOM AND PLACED IN THE PRONE POSITION. THE LUMBOSACRAL AREA WAS CLEANED WITH CHLORAPREP SOLUTION AND DRAPED ASEPTICALLY. THE PROCEDURE WAS DONE UNDER STERILE CONDITIONS. A TIMEOUT WAS PERFORMED WHERE THE CONSENTED SITE WAS VERIFIED WITH EVERYONE IN THE ROOM. UNDER FLUOROSCOPIC GUIDANCE, TARGETS WERE SELECTED AT THE INTERSECTION OF THE LEFT TRANSVERSE PROCESS OF L4, L5 AND ALA OF S1 WITH ITS RESPECTIVE SUPERIOR ARTICULAR PROCESS WITH A TARGET OF THE MEDIAN BRANCHES OF L3, L4 AND THE DORSAL RAMI OF L5. I CONFIRMED AGAIN THE SITE OF THE TARGET AREA. LIDOCAINE WAS USED TO NUMB THE SKIN AND THE SUBCUTANEOUS TISSUE BELOW IT. SPINAL NEEDLE, 22-GAUGE, WAS ADVANCED UNDER FLUOROSCOPIC GUIDANCE AND FOLLOWING PATIENT FEEDBACK UNTIL THE TARGETS WERE REACHED. POSITION OF THE NEEDLES WAS VERIFIED WITH AP AND LATERAL VIEWS. AFTER PROPER POSITION OF THE NEEDLES WAS ACHIEVED, ISOVUE-M DYE 30%, 0.1 ML, WAS INJECTED AT EACH SITE SHOWING ADEQUATE SPREAD OF THE DYE. THEN, A SOLUTION OF 0.4 ML OF BUPIVACAINE 0.25% WAS INJECTED AT EACH SITE. THE MEDICATIONS WERE VERIFIED WITH THE NURSE. THERE WAS NO EVIDENCE OF BLOOD, PARESTHESIA OR CEREBROSPINAL FLUID DURING THE PROCEDURE. THE PATIENT WAS SENT TO THE RECOVERY ROOM. THE PATIENT WAS MOVING THE EXTREMITIES AND DOING WELL. THERE WERE NO COMPLICATIONS DURING THE PROCEDURE. ESTIMATED BLOOD LOSS WAS LESS THAN 5 ML. FLUOROSCOPY TIME WAS 12 SECONDS POST PROCEDURE NOTE THE PATIENT WILL DOCUMENT THE PAIN LEVEL AND RESPONSE TO THIS PROCEDURE PER PAIN DIARY. THE PATIENT WILL BE SEEN IN A FOLLOW UP IN THE NEXT FEW WEEKS. FURTHER DETERMINATION FOR THE PATIENT'S CASE WILL BE DONE AT THE NEXT VISIT. INSTRUCTIONS WERE GIVEN, QUESTIONS WERE ANSWERED, AND THE PATIENT EXPRESSED UNDERSTANDING AND AGREED WITH THE PLAN. I, DELMY HULL, DOCUMENTED THE ABOVE INFORMATION ACTING A SCRIBE FOR DR. SABA. I HAVE REVIEWED THE ABOVE DOCUMENT, WRITTEN BY DELMY HULL, AIR TECHNICIAN, AND I VERIFY THAT IT IS ACCURATE PROCEDURE CODES 06235 INJ PARAVERT F JNT L/S 1 LEV, [place]: [place] [address] INJ PARAVERT F JNT L/S 2 LEV, MODIFIERS: LT DISPOSITION & COMMUNICATION FOLLOW UP FOLLOW UP WITH OIL TESTER (REASON: POST LEFT DIAGNOSTIC LUMBAR FACET BLOCK L4-L5, L5-S1) ELECTRONICALLY SIGNED BY MAXIMILIANO SABA MD, MD ON 05/28/2020 AT 04:07 PM EST DISCLAIMER : THIS IS A VISIT SUMMARY EXTRACTED FROM THE [employer] CHART. IT IS NOT A COPY OF THE [employer] PROGRESS NOTE. MTDMi
== END ==
LOC: M PAIN 14:30
PROVIDERS: ATTEND Anesthesiology
DX: M47.816 Spondylosis without myelopathy or radiculopathy, lumbar region (principal); M47.817 Spondylosis without myelopathy or radiculopathy, lumbosacral region; G47.33 Obstructive sleep apnea (adult) (pediatric); J44.9 Chronic obstructive pulmonary disease, unspecified; K21.9 Gastro-esophageal reflux disease without esophagitis; E55.9 Vitamin D deficiency, unspecified; F17.210 Nicotine dependence, cigarettes, uncomplicated; Z79.82 Long term (current) use of aspirin; Z79.51 Long term (current) use of inhaled steroids; Z79.899 Other long term (current) drug therapy
CPT/HCPCS: 64493; 64494; Q9967

== ENCOUNTER → 2020-06-10 | Outpatient (CLI) | payer OTHER, MEDICAID ==
[~2020-06-10] MED LIST changes: -BUPIVACAINE HCL 0.25% 30ML VIAL As Ordered ONE; -ISOVUE-M 300 61% 15ML VIAL As Ordered ONE; -LIDOCAINE 1% SDV 30ML VIAL As Ordered ONE
--- NOTE | 2020-06-16 03:49 | ECWPNPC ---
PATIENT NAME: MEHUL FERRARO : 1970 GENDER: MALE VISIT DATE: 06/10/2020 DISCHARGE DATE: 06/10/20 1505 VISIT LOCKED DATE TIME: PHYSICIAN: RYAN ORTEGA PHYSICIAN PAGER NO: ACTIVE RESOURCE: RYAN ORTEGA REASON FOR APPOINTMENT 1. POST LEFT LUMBAR FACET DIAGNOSTIC BLOCK L4-5 L5-S1 #2 HISTORY OF PRESENT ILLNESS DEPRESSION SCREENING: PHQ-2 (2015 EDITION) LITTLE INTEREST OR PLEASURE IN DOING THINGS?NOT AT ALL FEELING DOWN, DEPRESSED, OR HOPELESS?NOT AT ALL TOTAL SCORE0 GENERAL: HERE FOR POST PROCEDURE FOLLOW-UP. HAD LEFT LUMBAR FACET BLOCK DIAGNOSTIC BLOCK #2 ON 05/27/2020. HOURLY PAIN DIARY IS REVIEWED. THIS IS SHOWING GREATER THAN 80% REDUCTION IN PAIN FOR 10 HOURS POSTPROCEDURE THEN PAIN ABRUPTLY RETURNED TO BASELINE. PATIENT WOULD LIKE TO DO DIAGNOSTIC #2 ON THE RIGHT SIDE. FALL RISK SCREENING: SCREENING :NO FALLS REPORTED IN THE LAST YEAR PAIN SCREENING: PATIENT HAS A COMPLAINT OF ACUTE OR CHRONIC PAIN :YES LOCATION OF PAIN:LOW BACK INTENSITY OF PAIN (SCALE OF 1 TO 10):8 WHAT DOES YOUR PAIN FEEL LIKE:ACHING, SHARP, STABBING, TENDER, THROBBING DURATION:CONTINOUS, CONSTANT, ALL DAY PAIN IS INCREASED BY:ACTIVITIES PAIN IS DECREASED BY:USE OF PAIN MEDICATIONS NURSING NOTE: -. PAIN CENTER INTAKE QUESTIONS: DO YOU HAVE A HISTORY OF MRSA? :NO DO YOU TAKE A BLOOD THINNERS? :NO DO YOU HAVE ANY BLEEDING DISORDERS? :NO ANY NEW NUMBNESS OR WEAKNESS IN YOUR LEGS OR ARMS? :NO ANY PACEMAKER,DEFIBRILLATOR, OR DORSAL COLUMN STIMULATOR? :NO DO YOU HAVE ANY RASHES OR OPEN SORES? :NO ARE YOU ALLERGIC TO IV DYE? :NO ARE YOU DIABETIC? :NO ANY NEW PROBLEMS WITH YOUR MEDICATIONS? :NO HAVE YOU RECEIVED A VACCINE IN THE PAST 30 DAYS? :NO DO YOU PLAN TO RECEIVE A VACCINE IN THE NEXT 21 DAYS? :NO DO YOU NEED ANY PRESCRIPTION? :YES NORCO AND SUPRIYA DO YOU TAKE ANY IMMUNOSUPPRESSIVE MEDICATIONS? :NO IS THERE A CHANCE YOU COULD BE ? :NO ARE YOU BREAST FEEDING? :NO CURRENT MEDICATIONS TAKING ASPIRIN EC 81 MG TABLET DELAYED RELEASE 1 TABLET ORALLY ONCE A DAY TAKING VITAMIN D3 1000 UNIT CAPSULE 1 CAPSULE ORALLY ONCE A DAY TAKING CARVEDILOL 6.25 MG TABLET 1 TABLET WITH FOOD ORALLY DAILY TAKING MENS ONE DAILY - TABLET 1 TAB ORALLY DAILY TAKING PROAIR HFA 108 (90 BASE) MCG/ACT AEROSOL SOLUTION 2 PUFFS NEEDED INHALATION EVERY 4 HRS TAKING CETIRIZINE HCL 10 MG TABLET 1 TABLET ORALLY ONCE A DAY TAKING BREO ELLIPTA 100-25 MCG/INH AEROSOL POWDER BREATH ACTIVATED USE ONE INHALATION ONCE DAILY TAKING GEMFIBROZIL 600 MG TABLET 1 TABLET ORALLY TWICE A DAY TAKING GABAPENTIN 300 MG CAPSULE 1 CAPSULE ORALLY QHS TAKING GABAPENTIN 100 MG CAPSULE 1 CAPSULE ORALLY 1 IN AM AND 1 MID DAY TAKING HYDROCODONE-ACETAMINOPHEN 5-325 MG TABLET 1 TABLET NEEDED ORALLY TWICE PER DAY IF NEEDED FOR SEVERE PAIN MDD2 TAKING OMEPRAZOLE 40 MG CAPSULE DELAYED RELEASE 1 CAPSULE 30 MINUTES BEFORE MORNING MEAL ORALLY TWICE DAILY NOT-TAKING CRESTOR 10 MG TABLET 1 TABLET ORALLY ONCE A DAY MEDICATION LIST REVIEWED AND RECONCILED WITH THE PATIENT PAST MEDICAL HISTORY LUMBAGO - OSTEOARTHRITIS - DDD - FOLLOWS WITH PAIN CLINIC HYPERLIPIDEMIA HIATAL HERNIA WITH REFLUX TOBACCO ABUSE WALI DX 02/26 COPD GERD VIT D DEF ED CAD - NO HISTORY OF INFARCT - CARDIAC CATHETERIZATION 08/24 REVEALED NON-OBSTRUCTIVE DISEASE ONLY. ECHOCARDIOGRAM 10/25 NO VALVULAR DISEASE, TRACE MITRAL INSUFFICIENCY, TRACE TRICUSPID INSUFFICIENCY. NUCLEAR STRESS TEST 10/25 - NORMAL PERFUSION NO ISCHEMIA OR INFARCTION. EF CALCULATED AT 52% EKG - 07/28 - NSR 84 BPM (FOLLOWED BY DR. TORRES) ALLERGIES ENVIRONMENTAL: COUGH, SCRATHY THROAT, - ALLERGY SURGICAL HISTORY B INGUINAL HERNIA REPAIR A CHILD AND AGAIN IN 2010 CARDIAC CATH 2007, 2010 COLONOSCOPY - 05/02 - REPEAT IN 5 YEARS 2010, 2016 SOCIAL HISTORY GENERAL: TOBACCO USE ARE YOU A:CURRENT SMOKER HOW OFTEN DO YOU SMOKE CIGARETTES?SOME DAYS, BUT NOT EVERY DAY HOW SOON AFTER YOU WAKE UP DO YOU SMOKE YOUR FIRST CIGARETTE?6-30 MIN HOW MANY CIGARETTES A DAY DO YOU SMOKE?6-10 ARE YOU INTERESTED IN QUITTING?THINKING ABOUT QUITTING STATES HE HAS CUT BACK. PATIENT COUNSELED ON THE DANGERS OF TOBACCO USE AND URGED TO QUIT:05/27/2020 COUNSELED THE PATIENT ON SMOKING CESSATION, EDUCATION [id number]/11/2021 VAPORNO E-CIGARETTENO PREVIOUS QUIT ATTEMPTS?YES, MORE THAN 6 MONTHS AGO. LATEX QUESTIONNAIRE LATEX ALLERGY : HAVE YOU EVER DEVELOPED ANY TYPE OF REACTION AFTER HANDLING LATEX PRODUCTS SUCH RUBBER GLOVES, CONDOMS, DIAPHRAGMS, BALLOONS, SOCKS, OR UNDERWEAR?NO LATEX ALLERGY : HAVE YOU EVER DEVELOPED ANY TYPE OF REACTION DURING OR AFTER DENTAL APPOINTMENT, VAGINAL/RECTAL EXAMINATION, SURGICAL PROCEDURE, OR ANY OTHER EXPOSURE?NO LATEX RISK : HAVE YOU EVER HAD ANY DIFFICULTY BREATHING OR HIVES AFTER EATING OR HANDLING ANY FRUITS, OR VEGETABLES; SUCH KIWI, BANANAS, STONE FRUITS, OR CHESTNUTSNO LATEX RISK : DO YOU HAVE A PREVIOUS PERSONAL HISTORY OF MORE THAN NINE SURGERIES, SPINA BIFIDA, OR REPEATED CATHERIZATIONS? NO LATEX RISK : ARE YOU FREQUENTLY EXPOSED TO LATEX PRODUCTS IN YOUR OCCUPATION?NO DATE ASKED : 06/10/2020 ALCOHOL USE: NO. LUNG CANCER SCREENING SMOKING STATUS:CURRENT SMOKER BMI CARE GOAL FOLLOW-UP ABOVE NORMAL BMI FOLLOW-UPWEIGHT MONITORING ALCOHOL SCREENING DID YOU HAVE A DRINK CONTAINING ALCOHOL IN THE PAST YEAR?YES HOW OFTEN DID YOU HAVE A DRINK CONTAINING ALCOHOL IN THE PAST YEAR?MONTHLY OR LESS (1 POINT) POINTS1 INTERPRETATIONNEGATIVE RECREATIONAL DRUG USE DRUG USE?NO CAFFEINE CAFFEINE USE?YES HOW OFTEN AND HOW MUCH? COFFEE 3- 4 CUPS DAILY AT TIMES SEXUAL HX HAD SEX IN THE LAST 12 MONTHS (VAGINAL, ORAL, OR ANAL)?YES WITHWOMEN ONLY HIV / HEP-C SCREENING HIV TEST OFFERED TO PATIENT:YES DATE OFFERED:05/28/2017 TEST ACCEPTED:NO HEP-C TEST OFFERED TO PATIENT:YES DATE OFFERED:08/17/2016 REASON:PATIENT DECLINED TEST ACCEPTED:NO REASON:PATIENT DECLINED ANABAPTIST [id number] NONE LANGUAGE LANGUAGES SPOKEN:[place]ER LEARNING BARRIERS / SPECIAL NEEDS BARRIERS TO LEARNING?NO HEARING IMPAIRED?NO VISION IMPAIRED?YES :CORRECTIVE LENSES COGNITIVELY IMPAIRED?NO READINESS TO LEARN?YES LEARNING PREFERENCES?NO LEARNING CAPABILITIES PRESENT?YES EMOTIONAL BARRIERS?NO SPECIAL DEVICES?YES :CANE, WALKER NEEDED BOTTLE WASHER MACHINE NEEDED?NO DOMESTIC VIOLENCE DO YOU FEEL SAFE IN YOUR ENVIRONMENT?YES DIET: REGULAR. EXERCISE: DAILY. MARITAL STATUS: . OTHERS AT HOME: NONE. - PFS REFERRAL NEEDED?NO CLERGY REFERRAL NEEDED?NO PUBLIC HEALTH REFERRAL NEEDED?NO HAS THE PATIENT BEEN EDUCATED REGARDING HIS/HER PLAN OF CARE?YES HAS THE PATIENT BEEN EDUCATED REGARDING PAIN, THE RISK FOR PAIN, THE IMPORTANCE OF EFFECTIVE PAIN MANAGEMENT, AND THE PAIN ASSESSMENT PROCESS?YES ADVANCE DIRECTIVE ADVANCE DIRECTIVE DISCUSSED WITH PATIENT:YES 02/09/2020 PT DOES NOT HAVE ANY ADVANCED DIRECTIVES AND HE DECLINES INFORMATION ON HCP AT THIS TIME. HOSPITALIZATION/MAJOR DIAGNOSTIC PROCEDURE CHEST PAIN/ABD PAIN 03/01 CHEST PAIN, CARDIAC CATH 2010 [facility] 02/2017 REVIEW OF SYSTEMS CONSTITUTIONAL: ANY RECENT FEVER NO . CHILLS NO . WEIGHT CHANGE OF UNKNOWN REASONS NO . GASTROENTEROLOGY: NEW UNEXPLAINABLE CHANGES IN BOWEL CONTROL NO . CONSTIPATION NO . GENITOURINARY: ANY NEW CHANGE IN BLADDER CONTROL? NO . NEUROLOGY: NEW ONSET DIZZINESS OR NEUROLOGICAL CHANGES NOT MENTIONED NO . NEW NUMBNESS OR PAIN PATTERNS NOT MENTIONED AND PERTINENT TO TODAY'S VISIT NO . CARDIOLOGY: NEW CHEST PRESSURE NO . PATIENT DENIES NO . RESPIRATORY: UNEXPLAINABLE COUGH NO . NEW SHORTNESS OF BREATH NO . VITAL SIGNS WT 209 LBS, HT 68 IN, BMI 31.77 INDEX, BP 110/76 MM HG, HR 77 /MIN, RR 18 /MIN, TEMP 97.2 F, OXYGEN SAT % 95%, SAFE IN ENV? (Y/N) YEST.TERRI BONDS. EXAMINATION GENERAL EXAMINATION: GENERAL AWAKE,ALERT ,PLEAASANT . PSYCH AFFECT NORMAL . LUNGS: LUNG HARRY ARE CLEAR TO AUSCULTATION BILATERALLY. GOOD MOVEMENT OF AIR . HEART: S1, S2 IN A REGULAR RATE AND RHYTHM. NO SIGNIFICANT MURMURS, RUBS OR GALLOPS NOTED . LUMBAR: SPECIFIC POINT TENDERNESS OVER BILAT. L4/5-L5/S1 LUMBAR FACETS WITH FACET LOADING. NEUROLOGIC EXAM: NORMAL SENSATION LIGHT TOUCH BILAT. LOWER EXTREMITIES. DIAGNOSTIC TESTS REVIEWED MRI L/S SPINE-05/04/18. ASSESSMENTS SPONDYLOSIS WITHOUT MYELOPATHY OR RADICULOPATHY, LUMBAR REGION - M47.816 (PRIMARY) CHRONIC PRESCRIPTION OPIATE USE - Z79.891 TREATMENT SPONDYLOSIS WITHOUT MYELOPATHY OR RADICULOPATHY, LUMBAR REGION REFILL HYDROCODONE-ACETAMINOPHEN TABLET, 5-325 MG, 1 TABLET NEEDED, ORALLY, TWICE PER DAY IF NEEDED FOR SEVERE PAIN MDD2, 30 DAYS, 60, REFILLS 0 NOTES: RIGHT DIAGNOSTIC LUMBAR FACET BLOCK L4/5,L5/S1 #2 PRINTED AND REVIEWED PRE PROCEDURES WITH PATIENT ZENON BONDS. CHRONIC PRESCRIPTION OPIATE USE LAB: URINE TEST GROUP ROCAEL MURRAY 06/10/2020 2:44:32 PM > DONE PRE ORDER PROCEDURE CODES FA211 ESTABILISHED PATIENT [facility] FACILITY CHARGE DISPOSITION & COMMUNICATION FOLLOW UP POSTPROCEDURE (REASON: RIGHT DIAGNOSTIC LUMBAR FACET BLOCK L4/5,L5/S1 #2) ELECTRONICALLY SIGNED BY MARISA CEVALLOS ON 06/15/2020 AT 08:13 PM EST DISCLAIMER : THIS IS A VISIT SUMMARY EXTRACTED FROM THE [employer] CHART. IT IS NOT A COPY OF THE [employer] PROGRESS NOTE. MELYSSA
== END ==
LOC: M PAIN 14:30
PROVIDERS: ATTEND Nurse Practitioner Family
DX: M47.816 Spondylosis without myelopathy or radiculopathy, lumbar region (principal); G47.33 Obstructive sleep apnea (adult) (pediatric); J44.9 Chronic obstructive pulmonary disease, unspecified; K21.9 Gastro-esophageal reflux disease without esophagitis; E55.9 Vitamin D deficiency, unspecified; F17.210 Nicotine dependence, cigarettes, uncomplicated; Z79.82 Long term (current) use of aspirin; Z79.51 Long term (current) use of inhaled steroids; Z79.899 Other long term (current) drug therapy

== ENCOUNTER → 2020-06-18 | Outpatient (CLI) | payer OTHER, MEDICAID | LOC: M LABSMTC 12:31 | PROVIDERS: ATTEND Anesthesiology | DX: Z11.52 Encounter for screening for COVID-19 (principal) ==

== ENCOUNTER → 2020-06-23 | Outpatient (CLI) | payer OTHER, MEDICAID ==
[~2020-06-23] MED LIST changes: +BUPIVACAINE HCL 0.25% 30ML VIAL As Ordered ONE; +ISOVUE-M 300 61% 15ML VIAL As Ordered ONE; +LIDOCAINE 1% SDV 30ML VIAL As Ordered ONE
--- NOTE | 2020-06-23 10:55 | REP ---
INDICATION: RIGHT LFBD. COMPARISON: 05/27/2020. TECHNIQUE: Three C-arm views lower lumbar spine performed. FINDINGS: [place] are seen along the right lower lumbar facet joints. A small amount of contrast is injected. IMPRESSION: 13 seconds fluoroscopy time utilized. <Electronically signed by Alex Braun > 06/23/20 [id number]
--- NOTE | 2020-06-25 00:56 | ECWPNPC ---
PATIENT NAME: MEHUL FERRARO : 1970 GENDER: MALE VISIT DATE: 06/23/2020 DISCHARGE DATE: 06/23/20 1056 VISIT LOCKED DATE TIME: PHYSICIAN: MAXIMILIANO SABA MD PHYSICIAN PAGER NO: ACTIVE RESOURCE: MAXIMILIANO SABA MD REASON FOR APPOINTMENT 1. RIGHT DIAGNOSTIC LUMBAR FACET BLOCK #2 L4-L5, L5-S1 HISTORY OF PRESENT ILLNESS GENERAL: -. FALL RISK SCREENING: SCREENING 1 FALL REPORTED IN THE LAST YEAR WITH INJURY SCRAPED NOSE. PAIN SCREENING: PATIENT HAS A COMPLAINT OF ACUTE OR CHRONIC PAIN :YES LOCATION OF PAIN:LOW BACK, LEG(S) INTENSITY OF PAIN (SCALE OF 1 TO 10):8 WHAT DOES YOUR PAIN FEEL LIKE:ACHING, THROBBING DURATION:CONTINOUS, CONSTANT PAIN IS INCREASED BY:ACTIVITIES PAIN IS DECREASED BY:USE OF PAIN MEDICATIONS NURSING NOTE: -. PAIN CENTER INTAKE QUESTIONS: DO YOU HAVE A HISTORY OF MRSA? :NO DO YOU TAKE A BLOOD THINNERS? :NO DO YOU HAVE ANY BLEEDING DISORDERS? :NO ANY NEW NUMBNESS OR WEAKNESS IN YOUR LEGS OR ARMS? :NO ANY PACEMAKER,DEFIBRILLATOR, OR DORSAL COLUMN STIMULATOR? :NO DO YOU HAVE ANY RASHES OR OPEN SORES? :NO ARE YOU ALLERGIC TO IV DYE? :NO ARE YOU DIABETIC? :NO ANY NEW PROBLEMS WITH YOUR MEDICATIONS? :NO HAVE YOU RECEIVED A VACCINE IN THE PAST 30 DAYS? :NO DO YOU PLAN TO RECEIVE A VACCINE IN THE NEXT 21 DAYS? :NO DO YOU TAKE ANY IMMUNOSUPPRESSIVE MEDICATIONS? :NO ANY HISTORY OF SEIZURES? :NO ANY HISTORY OF CARDIAC ISSUES OR EVENTS? :YES OH AND CARDIAC CATHETERIZATION DO YOU HAVE ANY KIDNEY OR LIVER DISEASE? :NO DO YOU HAVE SLEEP APNEA? :NO ANY RECENT HEAD INJURY? :NO DO YOU HAVE ANY NEW INFECTIONS? :NO IS THERE A CHANCE YOU COULD BE ? :NO ARE YOU BREAST FEEDING? :NO WHEN DID YOU LAST EAT? : 06/22/20 WHEN DID YOU LAST DRINK? : 06/22/20 WHAT DID YOU LAST DRINK? : GABINOSI NAME OF PERSON DRIVING YOU HOME? : DO YOU HAVE ANY OTHER QUESTIONS OR CONCERNS? : - CURRENT MEDICATIONS TAKING ASPIRIN EC 81 MG TABLET DELAYED RELEASE 1 TABLET ORALLY ONCE A DAY TAKING VITAMIN D3 1000 UNIT CAPSULE 1 CAPSULE ORALLY ONCE A DAY TAKING CARVEDILOL 6.25 MG TABLET 1 TABLET WITH FOOD ORALLY DAILY, NOTES: 06/22/20 TAKING MENS ONE DAILY - TABLET 1 TAB ORALLY DAILY TAKING PROAIR HFA 108 (90 BASE) MCG/ACT AEROSOL SOLUTION 2 PUFFS NEEDED INHALATION EVERY 4 HRS TAKING CETIRIZINE HCL 10 MG TABLET 1 TABLET ORALLY ONCE A DAY TAKING BREO ELLIPTA 100-25 MCG/INH AEROSOL POWDER BREATH ACTIVATED USE ONE INHALATION ONCE DAILY TAKING GEMFIBROZIL 600 MG TABLET 1 TABLET ORALLY TWICE A DAY TAKING GABAPENTIN 300 MG CAPSULE 1 CAPSULE ORALLY QHS TAKING GABAPENTIN 100 MG CAPSULE 1 CAPSULE ORALLY 1 IN AM AND 1 MID DAY TAKING OMEPRAZOLE 40 MG CAPSULE DELAYED RELEASE 1 CAPSULE 30 MINUTES BEFORE MORNING MEAL ORALLY TWICE DAILY TAKING HYDROCODONE-ACETAMINOPHEN 5-325 MG TABLET 1 TABLET NEEDED ORALLY TWICE PER DAY IF NEEDED FOR SEVERE PAIN MDD2, NOTES: 06/22/20 NOT-TAKING CRESTOR 10 MG TABLET 1 TABLET ORALLY ONCE A DAY MEDICATION LIST REVIEWED AND RECONCILED WITH THE PATIENT PAST MEDICAL HISTORY LUMBAGO - OSTEOARTHRITIS - DDD - FOLLOWS WITH PAIN CLINIC HYPERLIPIDEMIA HIATAL HERNIA WITH REFLUX TOBACCO ABUSE WALI DX 02/26 COPD GERD VIT D DEF ED CAD - NO HISTORY OF INFARCT - CARDIAC CATHETERIZATION 08/24 REVEALED NON-OBSTRUCTIVE DISEASE ONLY. ECHOCARDIOGRAM 10/25 NO VALVULAR DISEASE, TRACE MITRAL INSUFFICIENCY, TRACE TRICUSPID INSUFFICIENCY. NUCLEAR STRESS TEST 10/25 - NORMAL PERFUSION NO ISCHEMIA OR INFARCTION. EF CALCULATED AT 52% EKG - 07/28 - NSR 84 BPM (FOLLOWED BY DR. TORRES) ALLERGIES ENVIRONMENTAL: COUGH, SCRATHY THROAT, - ALLERGY SOCIAL HISTORY GENERAL: TOBACCO USE ARE YOU A:CURRENT SMOKER HOW OFTEN DO YOU SMOKE CIGARETTES?SOME DAYS, BUT NOT EVERY DAY HOW SOON AFTER YOU WAKE UP DO YOU SMOKE YOUR FIRST CIGARETTE?6-30 MIN HOW MANY CIGARETTES A DAY DO YOU SMOKE?6-10 ARE YOU INTERESTED IN QUITTING?THINKING ABOUT QUITTING STATES HE HAS CUT BACK. PATIENT COUNSELED ON THE DANGERS OF TOBACCO USE AND URGED TO QUIT:05/27/2020 COUNSELED THE PATIENT ON SMOKING CESSATION, EDUCATION [id number]/11/2021 VAPORNO E-CIGARETTENO PREVIOUS QUIT ATTEMPTS?YES, MORE THAN 6 MONTHS AGO. LATEX QUESTIONNAIRE LATEX ALLERGY : HAVE YOU EVER DEVELOPED ANY TYPE OF REACTION AFTER HANDLING LATEX PRODUCTS SUCH RUBBER GLOVES, CONDOMS, DIAPHRAGMS, BALLOONS, SOCKS, OR UNDERWEAR?NO LATEX ALLERGY : HAVE YOU EVER DEVELOPED ANY TYPE OF REACTION DURING OR AFTER DENTAL APPOINTMENT, VAGINAL/RECTAL EXAMINATION, SURGICAL PROCEDURE, OR ANY OTHER EXPOSURE?NO DATE ASKED : 06/10/2020 LATEX RISK : HAVE YOU EVER HAD ANY DIFFICULTY BREATHING OR HIVES AFTER EATING OR HANDLING ANY FRUITS, OR VEGETABLES; SUCH KIWI, BANANAS, STONE FRUITS, OR CHESTNUTSNO LATEX RISK : DO YOU HAVE A PREVIOUS PERSONAL HISTORY OF MORE THAN NINE SURGERIES, SPINA BIFIDA, OR REPEATED CATHERIZATIONS? NO LATEX RISK : ARE YOU FREQUENTLY EXPOSED TO LATEX PRODUCTS IN YOUR OCCUPATION?NO ALCOHOL USE: NO. LUNG CANCER SCREENING SMOKING STATUS:CURRENT SMOKER BMI CARE GOAL FOLLOW-UP ABOVE NORMAL BMI FOLLOW-UPWEIGHT MONITORING ALCOHOL SCREENING DID YOU HAVE A DRINK CONTAINING ALCOHOL IN THE PAST YEAR?YES HOW OFTEN DID YOU HAVE A DRINK CONTAINING ALCOHOL IN THE PAST YEAR?MONTHLY OR LESS (1 POINT) POINTS1 INTERPRETATIONNEGATIVE RECREATIONAL DRUG USE DRUG USE?NO CAFFEINE CAFFEINE USE?YES HOW OFTEN AND HOW MUCH? COFFEE 3- 4 CUPS DAILY AT TIMES SEXUAL HX HAD SEX IN THE LAST 12 MONTHS (VAGINAL, ORAL, OR ANAL)?YES WITHWOMEN ONLY HIV / HEP-C SCREENING HIV TEST OFFERED TO PATIENT:YES DATE OFFERED:05/28/2017 TEST ACCEPTED:NO HEP-C TEST OFFERED TO PATIENT:YES DATE OFFERED:08/17/2016 REASON:PATIENT DECLINED TEST ACCEPTED:NO REASON:PATIENT DECLINED ZOROASTRIANISM [id number] NONE LANGUAGE LANGUAGES SPOKEN:ROMANIAN LEARNING BARRIERS / SPECIAL NEEDS BARRIERS TO LEARNING?NO HEARING IMPAIRED?NO VISION IMPAIRED?YES COGNITIVELY IMPAIRED?NO :CORRECTIVE LENSES READINESS TO LEARN?YES LEARNING PREFERENCES?NO LEARNING CAPABILITIES PRESENT?YES EMOTIONAL BARRIERS?NO SPECIAL DEVICES?YES :CANE, WALKER NEEDED NUCLEAR MEDICINE PET CT TECHNOLOGIST NEEDED?NO DOMESTIC VIOLENCE DO YOU FEEL SAFE IN YOUR ENVIRONMENT?YES DIET: REGULAR. EXERCISE: DAILY. MARITAL STATUS: . OTHERS AT HOME: NONE. - PFS REFERRAL NEEDED?NO CLERGY REFERRAL NEEDED?NO PUBLIC HEALTH REFERRAL NEEDED?NO HAS THE PATIENT BEEN EDUCATED REGARDING HIS/HER PLAN OF CARE?YES HAS THE PATIENT BEEN EDUCATED REGARDING PAIN, THE RISK FOR PAIN, THE IMPORTANCE OF EFFECTIVE PAIN MANAGEMENT, AND THE PAIN ASSESSMENT PROCESS?YES ADVANCE DIRECTIVE ADVANCE DIRECTIVE DISCUSSED WITH PATIENT:YES 02/09/2020 PT DOES NOT HAVE ANY ADVANCED DIRECTIVES AND HE DECLINES INFORMATION ON HCP AT THIS TIME. VITAL SIGNS WT 208 LBS, HT 68 IN, BMI 31.62 INDEX, BP 132/81 MM HG, HR 74 /MIN, RR 16 /MIN, TEMP 97.6 F, OXYGEN SAT % 94, SAFE IN ENV? (Y/N) Y, REVIEWED BY: EM. EXAMINATION GENERAL EXAMINATION: THE PATIENT IS ALERT, ORIENTED TIMES THREE AND COOPERATIVE. LUNGS ARE CLEAR TO AUSCULTATION. HEART SHOWS REGULAR RHYTHM, NO MURMURS AND NO GALLOPS. ASSESSMENTS SPONDYLOSIS OF LUMBAR REGION WITHOUT MYELOPATHY OR RADICULOPATHY - M47.816 (PRIMARY) SPONDYLOSIS OF LUMBOSACRAL REGION WITHOUT MYELOPATHY OR RADICULOPATHY - M47.817 TREATMENT SPONDYLOSIS OF LUMBAR REGION WITHOUT MYELOPATHY OR RADICULOPATHY [facility] FACET BLOCK (PAIN)[id number] COMPLETION OF PROCEDURAL VISIT WHEN MEETS CRITERIAABBY CARMONA 06/23/2020 10:58:46 AM > CRITERIA MET PROCEDURES PAIN NURSING RECORD PROCEDURE IN ROOM 1005, PHYSICIAN IN ROOM 1029, START 1033, FINISH 1036, PHYSICIAN OUT OF ROOM 1037, OUT OF ROOM 1045, ECG NORMAL SINUS, PATIENT SHIELDED YES, SAFETY STRAP YES, PREP CHLOROPREP E MATHEW, CORRECTIONAL GUARD, DRESSING TEGADERM DR SABA LOC: 1. ALERT, ORIENTED, ABBY CARMONA 06/23/2020 10:38:43 AM > RESP: 1. REGULAR, NO DYSPNEA, ABBY CARMONA 06/23/2020 10:38:47 AM > COLOR: 1. PINKMATHEW ELIZABETH 06/23/2020 10:38:50 AM > SKIN: 1. WARM, DRY, ABBY CARMONA 06/23/2020 10:38:53 AM > POSITION: 1. PRONE, ABBY CARMONA 06/23/2020 10:38:57 AM > VITALS: 113/65, 79, 16, 95% ABBY CARMONA 06/23/2020 10:15:24 AM > , 109/62, 74, 16, 95% ABBY CARMONA 06/23/2020 10:22:06 AM > 114/64, 73, 18, 97%, ABBY CARMONA 06/23/2020 10:30:49 AM > 119/77, 71, 18, 97%, ABBY CARMONA 06/23/2020 10:50:08 AM > NOTES E. MATHEW RN COMPLETION OF PROCEDURE APPOINTMENT: POST PAIN 0, DRESSING SITE DRY AND INTACT, IV N/A, GAIT STEADY, TEACHING COMPLETED, PATIENT ACKNOWLEDGES UNDERSTANDING YES, PROCEDURE APPOINTMENT COMPLETED AT 1055 PN LUMBAR FACET BLOCK DIAGNOSTIC PRE PROCEDURE DIAGNOSIS LUMBAR SPONDYLOSIS, LUMBOSACRAL SPONDYLOSIS POST PROCEDURE DIAGNOSIS LUMBAR SPONDYLOSIS, LUMBOSACRAL SPONDYLOSIS PROCEDURE RIGHT L4-L5 AND RIGHT L5-S1 FACET BLOCK DIAGNOSTIC NUMBER [address] MAXIMILIANO SABA CARE AID NONE ANESTHESIA LOCAL PRE PROCEDURE NOTE THE PATIENT WITH HISTORY OF CHRONIC LOW BACK PAIN. I EVALUATED THE PATIENT AND REVIEWED THE CHART. I WENT OVER THE RISKS, ALTERNATIVES, AND BENEFITS ASSOCIATED WITH THIS PROCEDURE. THE PATIENT WOULD LIKE TO PROCEED AND GAVE CONSENT TO PERFORM THE PROCEDURE. AGREED WITH THE PATIENT, WE ARE DOING THIS PROCEDURE TO DETERMINE IF THE PATIENT IS A CANDIDATE FOR A RADIOFREQUENCY ABLATION OF THE FACETS JOINTS. THE PATIENT DENIES UNEXPLAINABLE WEIGHT LOSS, FEVER, CHILLS, OR NEW CHANGES IN URINARY OR BOWEL CONTROL. THE PATIENT IS COVID-19 NEGATIVE DESCRIPTION OF PROCEDURE THE PATIENT WAS BROUGHT TO THE PROCEDURE ROOM AND PLACED IN THE PRONE POSITION. THE LUMBOSACRAL AREA WAS CLEANED WITH CHLORAPREP SOLUTION AND DRAPED ASEPTICALLY. THE PROCEDURE WAS DONE UNDER STERILE CONDITIONS. A TIMEOUT WAS PERFORMED WHERE THE CONSENTED SITE WAS VERIFIED WITH EVERYONE IN THE ROOM. UNDER FLUOROSCOPIC GUIDANCE, TARGETS WERE SELECTED AT THE INTERSECTION OF THE RIGHT TRANSVERSE PROCESS OF L4, L5 AND ALA OF S1 WITH ITS RESPECTIVE SUPERIOR ARTICULAR PROCESS WITH A TARGET OF THE MEDIAN BRANCHES OF L3, L4 AND THE DORSAL RAMI OF L5. I CONFIRMED AGAIN THE SITE OF TARGET. LIDOCAINE WAS USED TO NUMB THE SKIN AND THE SUBCUTANEOUS TISSUE BELOW IT. SPINAL NEEDLE, 22-GAUGE, WAS ADVANCED UNDER FLUOROSCOPIC GUIDANCE AND FOLLOWING PATIENT FEEDBACK UNTIL THE TARGETS WERE REACHED. POSITION OF THE NEEDLES WAS VERIFIED WITH AP AND LATERAL VIEWS. AFTER PROPER POSITION OF THE NEEDLES WAS ACHIEVED, ISOVUE-M DYE 30%, 0.1 ML, WAS INJECTED AT EACH SITE SHOWING ADEQUATE SPREAD OF THE DYE. THEN, A SOLUTION OF 0.4 ML OF BUPIVACAINE 0.25% WAS INJECTED AT EACH SITE. THE MEDICATIONS WERE VERIFIED WITH THE NURSE. THERE WAS NO EVIDENCE OF BLOOD, PARESTHESIA OR CEREBROSPINAL FLUID DURING THE PROCEDURE. THE PATIENT WAS SENT TO THE RECOVERY ROOM. THE PATIENT WAS MOVING THE EXTREMITIES AND DOING WELL. THERE WERE NO COMPLICATIONS DURING THE PROCEDURE. ESTIMATED BLOOD LOSS WAS LESS THAN 5 ML. FLUOROSCOPY TIME WAS 12 SECONDS POST PROCEDURE NOTE THE PATIENT WILL DOCUMENT THE PAIN LEVEL AND RESPONSE TO THIS PROCEDURE PER PAIN DIARY. THE PATIENT WILL BE SEEN IN A FOLLOW UP IN THE NEXT FEW WEEKS. FURTHER DETERMINATION FOR THE PATIENT'S CASE WILL BE DONE AT THE NEXT VISIT. INSTRUCTIONS WERE GIVEN, QUESTIONS WERE ANSWERED, AND THE PATIENT EXPRESSED UNDERSTANDING AND AGREED WITH THE PLAN. I, INDIGO MAST, DOCUMENTED THE ABOVE INFORMATION ACTING A SCRIBE FOR DR. SABA. I HAVE REVIEWED THE ABOVE DOCUMENT, WRITTEN BY INDIGO MAST, FLASHER ADJUSTER, AND I VERIFY THAT IT IS ACCURATE PROCEDURE CODES 28400 INJ PARAVERT F JNT L/S 1 LEV, MODIFIERS: [place] [id number] INJ PARAVERT F JNT L/S 2 LEV, MODIFIERS: RT DISPOSITION & COMMUNICATION FOLLOW UP FOLLOW UP WITH SPECIAL NEEDS LIBRARIAN (REASON: POST RIGHT DIAGNOSTIC LUMBAR FACET BLOCK L4-L5, L5-S1) ELECTRONICALLY SIGNED BY MAXIMILIANO SABA MD, MD ON 06/24/2020 AT 11:16 AM EST DISCLAIMER : THIS IS A VISIT SUMMARY EXTRACTED FROM THE [employer] CHART. IT IS NOT A COPY OF THE [employer] PROGRESS NOTE. NILAD
== END ==
LOC: M PAIN 10:20
PROVIDERS: ATTEND Anesthesiology
DX: M47.816 Spondylosis without myelopathy or radiculopathy, lumbar region (principal); M47.817 Spondylosis without myelopathy or radiculopathy, lumbosacral region; K21.9 Gastro-esophageal reflux disease without esophagitis; J44.9 Chronic obstructive pulmonary disease, unspecified; E55.9 Vitamin D deficiency, unspecified; F17.210 Nicotine dependence, cigarettes, uncomplicated; Z79.82 Long term (current) use of aspirin; Z79.51 Long term (current) use of inhaled steroids; Z79.899 Other long term (current) drug therapy
CPT/HCPCS: 64493; 64494; Q9967

== ENCOUNTER → 2020-07-09 | Outpatient (CLI) | payer OTHER, MEDICAID ==
[~2020-07-09] MED LIST changes: -BUPIVACAINE HCL 0.25% 30ML VIAL As Ordered ONE; -ISOVUE-M 300 61% 15ML VIAL As Ordered ONE; -LIDOCAINE 1% SDV 30ML VIAL As Ordered ONE
--- NOTE | 2020-07-14 03:04 | ECWPNPC ---
PATIENT NAME: MEHUL FERRARO : 1970 GENDER: MALE VISIT DATE: 07/09/2020 DISCHARGE DATE: 07/09/20 1458 VISIT LOCKED DATE TIME: PHYSICIAN: RYAN ORTEGA RESOURCE: RYAN ORTEGA REASON FOR APPOINTMENT 1. POST RIGHT DIAGNOSTIC LUMBAR FACET BLOCK L4-L5, L5-S1 #2 HISTORY OF PRESENT ILLNESS GENERAL: HERE FOR POST PROCEDURE FOLLOW-UP. HAD RIGHT L4-5, L5-S1 DIAGNOSTIC LUMBAR FACET BLOCK #2 ON 06/23/20. REPORTING GREATER THAN 80% REDUCTION IN PAIN FOR 1 WEEK THEN PAIN RETURNED TO BASELINE. PAIN IS AGGRAVATED BY PROLONGED STANDING OR SITTING. REVIEWED MRI OF THE LUMBAR SPINE AND DISCUSSED TREATMENT PLAN.-. FALL RISK SCREENING: SCREENING : NO FALLS REPORTED IN THE LAST YEAR. PAIN SCREENING: PATIENT HAS A COMPLAINT OF ACUTE OR CHRONIC PAIN :YES LOCATION OF PAIN:LOW BACK INTENSITY OF PAIN (SCALE OF 1 TO 10):8 WHAT DOES YOUR PAIN FEEL LIKE:ACHING, BURNING, CONTINOUS DURATION:ALL DAY PAIN IS INCREASED BY:ACTIVITIES PAIN IS DECREASED BY:USE OF PAIN MEDICATIONS NURSING NOTE: -. PAIN CENTER INTAKE QUESTIONS: DO YOU HAVE A HISTORY OF MRSA? :NO DO YOU TAKE A BLOOD THINNERS? :NO DO YOU HAVE ANY BLEEDING DISORDERS? :NO ANY NEW NUMBNESS OR WEAKNESS IN YOUR LEGS OR ARMS? :YES LEFT LEG ANY PACEMAKER,DEFIBRILLATOR, OR DORSAL COLUMN STIMULATOR? :NO DO YOU HAVE ANY RASHES OR OPEN SORES? :NO ARE YOU ALLERGIC TO IV DYE? :NO ARE YOU DIABETIC? :NO ANY NEW PROBLEMS WITH YOUR MEDICATIONS? :NO HAVE YOU RECEIVED A VACCINE IN THE PAST 30 DAYS? :NO DO YOU PLAN TO RECEIVE A VACCINE IN THE NEXT 21 DAYS? :NO DO YOU NEED ANY PRESCRIPTION? :YES NORCO DO YOU TAKE ANY IMMUNOSUPPRESSIVE MEDICATIONS? :NO IS THERE A CHANCE YOU COULD BE ? :NO ARE YOU BREAST FEEDING? :NO CURRENT MEDICATIONS TAKING ASPIRIN EC 81 MG TABLET DELAYED RELEASE 1 TABLET ORALLY ONCE A DAY TAKING VITAMIN D3 1000 UNIT CAPSULE 1 CAPSULE ORALLY ONCE A DAY TAKING CARVEDILOL 6.25 MG TABLET 1 TABLET WITH FOOD ORALLY DAILY TAKING MENS ONE DAILY - TABLET 1 TAB ORALLY DAILY TAKING PROAIR HFA 108 (90 BASE) MCG/ACT AEROSOL SOLUTION 2 PUFFS NEEDED INHALATION EVERY 4 HRS TAKING CETIRIZINE HCL 10 MG TABLET 1 TABLET ORALLY ONCE A DAY TAKING BREO ELLIPTA 100-25 MCG/INH AEROSOL POWDER BREATH ACTIVATED USE ONE INHALATION ONCE DAILY TAKING GEMFIBROZIL 600 MG TABLET 1 TABLET ORALLY TWICE A DAY TAKING GABAPENTIN 300 MG CAPSULE 1 CAPSULE ORALLY QHS TAKING GABAPENTIN 100 MG CAPSULE 1 CAPSULE ORALLY 1 IN AM AND 1 MID DAY TAKING OMEPRAZOLE 40 MG CAPSULE DELAYED RELEASE 1 CAPSULE 30 MINUTES BEFORE MORNING MEAL ORALLY TWICE DAILY TAKING HYDROCODONE-ACETAMINOPHEN 5-325 MG TABLET 1 TABLET NEEDED ORALLY TWICE PER DAY IF NEEDED FOR SEVERE PAIN MDD2 TAKING CHANTIX 1 TAB ORAL NOT-TAKING ZYRTEC 1 TAB ORAL NOT-TAKING CRESTOR 10 MG TABLET 1 TABLET ORALLY ONCE A DAY MEDICATION LIST REVIEWED AND RECONCILED WITH THE PATIENT PAST MEDICAL HISTORY LUMBAGO - OSTEOARTHRITIS - DDD - FOLLOWS WITH PAIN CLINIC HYPERLIPIDEMIA HIATAL HERNIA WITH REFLUX TOBACCO ABUSE WALI DX 02/26 COPD GERD VIT D DEF ED CAD - NO HISTORY OF INFARCT - CARDIAC CATHETERIZATION 08/24 REVEALED NON-OBSTRUCTIVE DISEASE ONLY. ECHOCARDIOGRAM 10/25 NO VALVULAR DISEASE, TRACE MITRAL INSUFFICIENCY, TRACE TRICUSPID INSUFFICIENCY. NUCLEAR STRESS TEST 10/25 - NORMAL PERFUSION NO ISCHEMIA OR INFARCTION. EF CALCULATED AT 52% EKG - 07/28 - NSR 84 BPM (FOLLOWED BY DR. TORRES) ALLERGIES ENVIRONMENTAL: COUGH, SCRATHY THROAT, - ALLERGY SOCIAL HISTORY GENERAL: TOBACCO USE ARE YOU A:CURRENT SMOKER HOW OFTEN DO YOU SMOKE CIGARETTES?SOME DAYS, BUT NOT EVERY DAY HOW SOON AFTER YOU WAKE UP DO YOU SMOKE YOUR FIRST CIGARETTE?6-30 MIN HOW MANY CIGARETTES A DAY DO YOU SMOKE?6-10 ARE YOU INTERESTED IN QUITTING?THINKING ABOUT QUITTING STATES HE HAS CUT BACK. PATIENT COUNSELED ON THE DANGERS OF TOBACCO USE AND URGED TO QUIT:05/27/2020 COUNSELED THE PATIENT ON SMOKING CESSATION, EDUCATION [id number]/11/2021 VAPORNO E-CIGARETTENO PREVIOUS QUIT ATTEMPTS?YES, MORE THAN 6 MONTHS AGO. LATEX QUESTIONNAIRE LATEX ALLERGY : HAVE YOU EVER DEVELOPED ANY TYPE OF REACTION AFTER HANDLING LATEX PRODUCTS SUCH RUBBER GLOVES, CONDOMS, DIAPHRAGMS, BALLOONS, SOCKS, OR UNDERWEAR?NO LATEX ALLERGY : HAVE YOU EVER DEVELOPED ANY TYPE OF REACTION DURING OR AFTER DENTAL APPOINTMENT, VAGINAL/RECTAL EXAMINATION, SURGICAL PROCEDURE, OR ANY OTHER EXPOSURE?NO LATEX RISK : HAVE YOU EVER HAD ANY DIFFICULTY BREATHING OR HIVES AFTER EATING OR HANDLING ANY FRUITS, OR VEGETABLES; SUCH KIWI, BANANAS, STONE FRUITS, OR CHESTNUTSNO LATEX RISK : DO YOU HAVE A PREVIOUS PERSONAL HISTORY OF MORE THAN NINE SURGERIES, SPINA BIFIDA, OR REPEATED CATHERIZATIONS? NO LATEX RISK : ARE YOU FREQUENTLY EXPOSED TO LATEX PRODUCTS IN YOUR OCCUPATION?NO DATE ASKED : 07/09/2020 ALCOHOL USE: NO. LUNG CANCER SCREENING SMOKING STATUS:CURRENT SMOKER BMI CARE GOAL FOLLOW-UP ABOVE NORMAL BMI FOLLOW-UPWEIGHT MONITORING ALCOHOL SCREENING DID YOU HAVE A DRINK CONTAINING ALCOHOL IN THE PAST YEAR?YES HOW OFTEN DID YOU HAVE A DRINK CONTAINING ALCOHOL IN THE PAST YEAR?MONTHLY OR LESS (1 POINT) POINTS1 INTERPRETATIONNEGATIVE RECREATIONAL DRUG USE DRUG USE?NO CAFFEINE CAFFEINE USE?YES HOW OFTEN AND HOW MUCH? COFFEE 3- 4 CUPS DAILY AT TIMES SEXUAL HX HAD SEX IN THE LAST 12 MONTHS (VAGINAL, ORAL, OR ANAL)?YES WITHWOMEN ONLY HIV / HEP-C SCREENING HIV TEST OFFERED TO PATIENT:YES DATE OFFERED:05/28/2017 TEST ACCEPTED:NO HEP-C TEST OFFERED TO PATIENT:YES DATE OFFERED:08/17/2016 REASON:PATIENT DECLINED TEST ACCEPTED:NO REASON:PATIENT DECLINED CONGREGATION [id number] NONE LANGUAGE LANGUAGES SPOKEN:TELUGU LEARNING BARRIERS / SPECIAL NEEDS BARRIERS TO LEARNING?NO HEARING IMPAIRED?NO VISION IMPAIRED?YES COGNITIVELY IMPAIRED?NO :CORRECTIVE LENSES READINESS TO LEARN?YES LEARNING PREFERENCES?NO LEARNING CAPABILITIES PRESENT?YES EMOTIONAL BARRIERS?NO SPECIAL DEVICES?YES :CANE, WALKER NEEDED LIBRARY CONSULTANT NEEDED?NO DOMESTIC VIOLENCE DO YOU FEEL SAFE IN YOUR ENVIRONMENT?YES DIET: REGULAR. EXERCISE: DAILY. MARITAL STATUS: . OTHERS AT HOME: NONE. - PFS REFERRAL NEEDED?NO CLERGY REFERRAL NEEDED?NO PUBLIC HEALTH REFERRAL NEEDED?NO HAS THE PATIENT BEEN EDUCATED REGARDING HIS/HER PLAN OF CARE?YES HAS THE PATIENT BEEN EDUCATED REGARDING PAIN, THE RISK FOR PAIN, THE IMPORTANCE OF EFFECTIVE PAIN MANAGEMENT, AND THE PAIN ASSESSMENT PROCESS?YES ADVANCE DIRECTIVE ADVANCE DIRECTIVE DISCUSSED WITH PATIENT:YES 02/09/2020 PT DOES NOT HAVE ANY ADVANCED DIRECTIVES AND HE DECLINES INFORMATION ON HCP AT THIS TIME. REVIEW OF SYSTEMS CONSTITUTIONAL: ANY RECENT FEVER NO . CHILLS NO . WEIGHT CHANGE OF UNKNOWN REASONS NO . GASTROENTEROLOGY: NEW UNEXPLAINABLE CHANGES IN BOWEL CONTROL NO . CONSTIPATION NO . GENITOURINARY: ANY NEW CHANGE IN BLADDER CONTROL? NO . NEUROLOGY: NEW ONSET DIZZINESS OR NEUROLOGICAL CHANGES NOT MENTIONED NO . NEW NUMBNESS OR PAIN PATTERNS NOT MENTIONED AND PERTINENT TO TODAY'S VISIT NO . CARDIOLOGY: NEW CHEST PRESSURE NO . PATIENT DENIES NO . RESPIRATORY: UNEXPLAINABLE COUGH NO . NEW SHORTNESS OF BREATH NO . VITAL SIGNS WT 209.8 LBS, HT 68 IN, BMI 31.90 INDEX, BP 122/78 MM HG, HR 72 /MIN, RR 18 /MIN, TEMP 99.2 F, OXYGEN SAT % 94%, SAFE IN ENV? (Y/N) YES, NA INITIALS SC 14:19T.TERRI BONDS. EXAMINATION GENERAL EXAMINATION: GENERAL AWAKE,ALERT ,PLEAASANT . PSYCH AFFECT NORMAL . LUNGS: LUNG HARRY ARE CLEAR TO AUSCULTATION BILATERALLY. GOOD MOVEMENT OF AIR . HEART: S1, S2 IN A REGULAR RATE AND RHYTHM. NO SIGNIFICANT MURMURS, RUBS OR GALLOPS NOTED . LUMBAR: SPECIFIC POINT TENDERNESS OVER BILAT. L4/5-L5/S1 LUMBAR FACETS WITH FACET LOADING. NEUROLOGIC EXAM: NORMAL SENSATION LIGHT TOUCH BILAT. LOWER EXTREMITIES. DIAGNOSTIC TESTS REVIEWED MRI L/S SPINE-05/04/18. ASSESSMENTS OTHER CHRONIC PAIN - G89.29 (PRIMARY) SPONDYLOSIS OF LUMBAR REGION WITHOUT MYELOPATHY OR RADICULOPATHY - M47.816 SPONDYLOSIS WITHOUT MYELOPATHY OR RADICULOPATHY, LUMBAR REGION - M47.816 TREATMENT OTHER CHRONIC PAIN PAIN PROCEDURE LOGDATE OF PROCEDURE1PROCEDURE:RIGHT DIAGNOSTIC LUMBAR FACET BLOCK #2 L4-L5,L5-L2DAWHVO OF PRE SEDATE0/0RESULT:1 WEEK OF >80 % REDUCTION IN PAIN THEN PAIN RETURNED TO BASELINE NOTES: RIGHT LUMBAR STANDARD RADIOFREQUENCY L4-5,L5-S1 PRINTED AND REVIEWED PRE PROCEDURE WITH PATIENT ZENON BONDS. SPONDYLOSIS WITHOUT MYELOPATHY OR RADICULOPATHY, LUMBAR REGION REFILL HYDROCODONE-ACETAMINOPHEN TABLET, 5-325 MG, 1 TABLET NEEDED, ORALLY, TWICE PER DAY IF NEEDED FOR SEVERE PAIN MDD2, 30 DAYS, 60, REFILLS 0 PROCEDURE CODES [id number] ESTABILISHED PATIENT [facility] FACILITY CHARGE DISPOSITION & COMMUNICATION FOLLOW UP POST PROCEDURE (REASON: RIGHT LUMBAR STANDARD RADIOFREQUENCY L4-5,L5-S1) ELECTRONICALLY SIGNED BY MARISA CEVALLOS ON 07/13/2020 AT 01:23 PM EDT DISCLAIMER : THIS IS A VISIT SUMMARY EXTRACTED FROM THE [employer] CHART. IT IS NOT A COPY OF THE [employer] PROGRESS NOTE. MELYSSA
== END ==
LOC: M PAIN 14:30
PROVIDERS: ATTEND Nurse Practitioner Family
DX: M47.816 Spondylosis without myelopathy or radiculopathy, lumbar region (principal); G89.29 Other chronic pain; K21.9 Gastro-esophageal reflux disease without esophagitis; G47.33 Obstructive sleep apnea (adult) (pediatric); J44.9 Chronic obstructive pulmonary disease, unspecified; E55.9 Vitamin D deficiency, unspecified; F17.210 Nicotine dependence, cigarettes, uncomplicated; Z79.82 Long term (current) use of aspirin; Z79.51 Long term (current) use of inhaled steroids; Z79.899 Other long term (current) drug therapy

== ENCOUNTER → 2020-07-21 | Outpatient (CLI) | payer OTHER, MEDICAID | LOC: M LABSMTC 13:52 | PROVIDERS: ATTEND Anesthesiology | DX: Z20.822 Contact with and (suspected) exposure to COVID-19 (principal) ==

== ENCOUNTER → 2020-07-26 | Outpatient (CLI) | payer OTHER ==
[~2020-07-26] MED LIST changes: +BUPIVACAINE HCL 0.25% 30ML VIAL As Ordered ONE; +LIDOCAINE 1% SDV 30ML VIAL As Ordered ONE; +NORCO, ANEXSIA 5/325MG TABLET (HYDROcodone/ACETAMINOPHEN) As Ordered ONE; +dexameTHASONE 10MG/1ML VIAL PRES.FREE (J1100 PER 1MG) As Ordered ONE; +diazePAM 5MG TABLET As Ordered ONE
--- NOTE | 2020-07-27 09:04 | REP ---
INDICATION: RIGHT LUMBAR RADIOFREQUENCY. COMPARISON: 10/30/2019. TECHNIQUE: Multiple C-arm views lower lumbar spine performed. FINDINGS: [place] are seen along the lower lumbar spine. IMPRESSION: 1 minutes 10 seconds fluoroscopy time utilized. <Electronically signed by Alex Braun > 07/27/20 0900
--- NOTE | 2020-07-28 23:50 | ECWPNPC ---
PATIENT NAME: MEHUL FERRARO : 1970 GENDER: MALE VISIT DATE: 07/26/2020 DISCHARGE DATE: 07/26/20 1710 VISIT LOCKED DATE TIME: PHYSICIAN: MAXIMILINAO SABA MD RESOURCE: MAXIMILIANO SABA MD REASON FOR APPOINTMENT 1. RIGHT L4-L5, L5-S1 COOL RADIOFREQUENCY HISTORY OF PRESENT ILLNESS GENERAL: -. FALL RISK SCREENING: SCREENING : NO FALLS REPORTED IN THE LAST YEAR. PAIN SCREENING: PATIENT HAS A COMPLAINT OF ACUTE OR CHRONIC PAIN :YES LOCATION OF PAIN:LOW BACK, LEFT HIP, RIGHT HIP, LEG(S) RADIATES DOWN BLE INTENSITY OF PAIN (SCALE OF 1 TO 10):8 WHAT DOES YOUR PAIN FEEL LIKE:CONTINOUS, STABBING, THROBBING, SHOOTING DURATION:CONTINOUS PAIN IS INCREASED BY:ACTIVITIES PAIN IS DECREASED BY:SITTING NURSING NOTE: -. PAIN CENTER INTAKE QUESTIONS: DO YOU HAVE A HISTORY OF MRSA? :NO DO YOU TAKE A BLOOD THINNERS? :NO DO YOU HAVE ANY BLEEDING DISORDERS? :NO ANY NEW NUMBNESS OR WEAKNESS IN YOUR LEGS OR ARMS? :NO ANY PACEMAKER,DEFIBRILLATOR, OR DORSAL COLUMN STIMULATOR? :NO DO YOU HAVE ANY RASHES OR OPEN SORES? :NO ARE YOU ALLERGIC TO IV DYE? :NO ARE YOU DIABETIC? :NO ANY NEW PROBLEMS WITH YOUR MEDICATIONS? :NO HAVE YOU RECEIVED A VACCINE IN THE PAST 30 DAYS? :NO DO YOU PLAN TO RECEIVE A VACCINE IN THE NEXT 21 DAYS? :NO DO YOU TAKE ANY IMMUNOSUPPRESSIVE MEDICATIONS? :NO ANY HISTORY OF SEIZURES? :NO ANY HISTORY OF CARDIAC ISSUES OR EVENTS? :YES HISTORY OF 3 HEART ATTACKS DO YOU HAVE ANY KIDNEY OR LIVER DISEASE? :NO DO YOU HAVE SLEEP APNEA? :NO ANY RECENT HEAD INJURY? :NO DO YOU HAVE ANY NEW INFECTIONS? :NO IS THERE A CHANCE YOU COULD BE ? :NO ARE YOU BREAST FEEDING? :NO WHEN DID YOU LAST EAT? : 07/25/2020 WHEN DID YOU LAST DRINK? : 07/25/20201929 WHAT DID YOU LAST DRINK? : SODA NAME OF PERSON DRIVING YOU HOME? : GAVIN DO YOU HAVE ANY OTHER QUESTIONS OR CONCERNS? : NO CURRENT MEDICATIONS TAKING ASPIRIN EC 81 MG TABLET DELAYED RELEASE 1 TABLET ORALLY ONCE A DAY TAKING VITAMIN D3 1000 UNIT CAPSULE 1 CAPSULE ORALLY ONCE A DAY TAKING CARVEDILOL 6.25 MG TABLET 1 TABLET WITH FOOD ORALLY DAILY, NOTES: 07/25/2020 TAKING MENS ONE DAILY - TABLET 1 TAB ORALLY DAILY TAKING PROAIR HFA 108 (90 BASE) MCG/ACT AEROSOL SOLUTION 2 PUFFS NEEDED INHALATION EVERY 4 HRS TAKING CETIRIZINE HCL 10 MG TABLET 1 TABLET ORALLY ONCE A DAY TAKING BREO ELLIPTA 100-25 MCG/INH AEROSOL POWDER BREATH ACTIVATED USE ONE INHALATION ONCE DAILY TAKING GEMFIBROZIL 600 MG TABLET 1 TABLET ORALLY TWICE A DAY TAKING OMEPRAZOLE 40 MG CAPSULE DELAYED RELEASE 1 CAPSULE 30 MINUTES BEFORE MORNING MEAL ORALLY TWICE DAILY TAKING CHANTIX 1 TAB ORAL TAKING HYDROCODONE-ACETAMINOPHEN 5-325 MG TABLET 1 TABLET NEEDED ORALLY TWICE PER DAY IF NEEDED FOR SEVERE PAIN MDD2, NOTES: 07/25/2020 2200 TAKING GABAPENTIN 300 MG CAPSULE 1 CAPSULE ORALLY QHS, NOTES: 07/25/2020 2200 TAKING GABAPENTIN 100 MG CAPSULE 1 CAPSULE ORALLY 1 IN AM AND 1 MID DAY, NOTES: 07/25/2020 1600 NOT-TAKING ZYRTEC 1 TAB ORAL NOT-TAKING CRESTOR 10 MG TABLET 1 TABLET ORALLY ONCE A DAY MEDICATION LIST REVIEWED AND RECONCILED WITH THE PATIENT PAST MEDICAL HISTORY LUMBAGO - OSTEOARTHRITIS - DDD - FOLLOWS WITH PAIN CLINIC HYPERLIPIDEMIA HIATAL HERNIA WITH REFLUX TOBACCO ABUSE WALI DX 02/26 COPD GERD VIT D DEF ED CAD - NO HISTORY OF INFARCT - CARDIAC CATHETERIZATION 08/24 REVEALED NON-OBSTRUCTIVE DISEASE ONLY. ECHOCARDIOGRAM 10/25 NO VALVULAR DISEASE, TRACE MITRAL INSUFFICIENCY, TRACE TRICUSPID INSUFFICIENCY. NUCLEAR STRESS TEST 10/25 - NORMAL PERFUSION NO ISCHEMIA OR INFARCTION. EF CALCULATED AT 52% EKG - 07/28 - NSR 84 BPM (FOLLOWED BY DR. TORRES) ALLERGIES ENVIRONMENTAL: COUGH, SCRATHY THROAT, - ALLERGY SOCIAL HISTORY GENERAL: TOBACCO USE ARE YOU A:CURRENT SMOKER ARE YOU INTERESTED IN QUITTING?THINKING ABOUT QUITTING STATES HE HAS CUT BACK. PREVIOUS QUIT ATTEMPTS?YES, MORE THAN 6 MONTHS AGO. COUNSELED THE PATIENT ON SMOKING CESSATION, EDUCATION [id number]/11/2021 HOW MANY CIGARETTES A DAY DO YOU SMOKE?6-10 HOW SOON AFTER YOU WAKE UP DO YOU SMOKE YOUR FIRST CIGARETTE?6-30 MIN HOW OFTEN DO YOU SMOKE CIGARETTES?SOME DAYS, BUT NOT EVERY DAY PATIENT COUNSELED ON THE DANGERS OF TOBACCO USE AND URGED TO QUIT:07/26/2020 VAPORNO E-CIGARETTENO LATEX QUESTIONNAIRE LATEX ALLERGY : HAVE YOU EVER DEVELOPED ANY TYPE OF REACTION AFTER HANDLING LATEX PRODUCTS SUCH RUBBER GLOVES, CONDOMS, DIAPHRAGMS, BALLOONS, SOCKS, OR UNDERWEAR?NO LATEX ALLERGY : HAVE YOU EVER DEVELOPED ANY TYPE OF REACTION DURING OR AFTER DENTAL APPOINTMENT, VAGINAL/RECTAL EXAMINATION, SURGICAL PROCEDURE, OR ANY OTHER EXPOSURE?NO LATEX RISK : HAVE YOU EVER HAD ANY DIFFICULTY BREATHING OR HIVES AFTER EATING OR HANDLING ANY FRUITS, OR VEGETABLES; SUCH KIWI, BANANAS, STONE FRUITS, OR CHESTNUTSNO LATEX RISK : DO YOU HAVE A PREVIOUS PERSONAL HISTORY OF MORE THAN NINE SURGERIES, SPINA BIFIDA, OR REPEATED CATHERIZATIONS? NO LATEX RISK : ARE YOU FREQUENTLY EXPOSED TO LATEX PRODUCTS IN YOUR OCCUPATION?NO DATE ASKED : 07/26/2020 ALCOHOL USE: NO. LUNG CANCER SCREENING SMOKING STATUS:CURRENT SMOKER BMI CARE GOAL FOLLOW-UP ABOVE NORMAL BMI FOLLOW-UPWEIGHT MONITORING ALCOHOL SCREENING DID YOU HAVE A DRINK CONTAINING ALCOHOL IN THE PAST YEAR?YES HOW OFTEN DID YOU HAVE A DRINK CONTAINING ALCOHOL IN THE PAST YEAR?MONTHLY OR LESS (1 POINT) POINTS1 INTERPRETATIONNEGATIVE RECREATIONAL DRUG USE DRUG USE?NO CAFFEINE CAFFEINE USE?YES HOW OFTEN AND HOW MUCH? COFFEE 3- 4 CUPS DAILY AT TIMES SEXUAL HX HAD SEX IN THE LAST 12 MONTHS (VAGINAL, ORAL, OR ANAL)?YES WITHWOMEN ONLY HIV / HEP-C SCREENING HIV TEST OFFERED TO PATIENT:YES DATE OFFERED:05/28/2017 TEST ACCEPTED:NO HEP-C TEST OFFERED TO PATIENT:YES DATE OFFERED:08/17/2016 REASON:PATIENT DECLINED TEST ACCEPTED:NO REASON:PATIENT DECLINED VOODOO [id number] NONE LANGUAGE LANGUAGES SPOKEN:ICELANDIC LEARNING BARRIERS / SPECIAL NEEDS BARRIERS TO LEARNING?NO HEARING IMPAIRED?NO VISION IMPAIRED?YES COGNITIVELY IMPAIRED?NO :CORRECTIVE LENSES READINESS TO LEARN?YES LEARNING PREFERENCES?NO LEARNING CAPABILITIES PRESENT?YES EMOTIONAL BARRIERS?NO SPECIAL DEVICES?YES :CANE, WALKER NEEDED PRINCIPAL STRATEGIST NEEDED?NO DOMESTIC VIOLENCE DO YOU FEEL SAFE IN YOUR ENVIRONMENT?YES DIET: REGULAR. EXERCISE: DAILY. MARITAL STATUS: . OTHERS AT HOME: NONE. - PFS REFERRAL NEEDED?NO CLERGY REFERRAL NEEDED?NO PUBLIC HEALTH REFERRAL NEEDED?NO HAS THE PATIENT BEEN EDUCATED REGARDING HIS/HER PLAN OF CARE?YES HAS THE PATIENT BEEN EDUCATED REGARDING PAIN, THE RISK FOR PAIN, THE IMPORTANCE OF EFFECTIVE PAIN MANAGEMENT, AND THE PAIN ASSESSMENT PROCESS?YES ADVANCE DIRECTIVE ADVANCE DIRECTIVE DISCUSSED WITH PATIENT:YES 02/09/2020 PT DOES NOT HAVE ANY ADVANCED DIRECTIVES AND HE DECLINES INFORMATION ON HCP AT THIS TIME. VITAL SIGNS WT 210.2 LBS, HT 68 IN, BMI 31.96 INDEX, BP 140/80 MM HG, HR 79 /MIN, RR 18 /MIN, TEMP 98.3 F, OXYGEN SAT % 96%, SAFE IN ENV? (Y/N) YES, NA INITIALS SC 14:01, REVIEWED BY: Emanuel POLO, RN. EXAMINATION GENERAL: THE PATIENT IS ALERT, ORIENTED TIMES THREE AND COOPERATIVE. LUNGS ARE CLEAR TO AUSCULTATION. HEART SHOWS REGULAR RHYTHM, NO MURMURS AND NO GALLOPS. ASSESSMENTS SPONDYLOSIS OF LUMBAR REGION WITHOUT MYELOPATHY OR RADICULOPATHY - M47.816 (PRIMARY) TREATMENT SPONDYLOSIS OF LUMBAR REGION WITHOUT MYELOPATHY OR RADICULOPATHY [facility] FACET BLOCK (PAIN)[id number] MEDICATION: VALIUM TAB 5MG ORALLY (DIAZEPAM)PETRAS,LAWSON R 07/26/2020 2:45:59 PM > VERIFIED KINDRAKALA 07/26/2020 2:49:11 PM > ADMINISTERED COMPLETION OF PROCEDURAL VISIT WHEN MEETS CRITERIAKINDRAKALA 07/26/2020 5:07:08 PM > CRITERIA MET MED: PAIN NORCO TABLET 5MG/325MG ORALLY HYDROCODONE/ACETAMINOPHENDILEONARDO,INDIGO 07/26/2020 2:41:39 PM > GIVE 2 TABLETS PETRAS,LAWSON R 07/26/2020 2:46:19 PM > VERIFIED KINDRAKALA 07/26/2020 2:49:32 PM > ADMINISTERED PROCEDURES PAIN NURSING RECORD PROCEDURE IN ROOM 1531, PHYSICIAN IN ROOM 1616, START 1621, FINISH 1653, PHYSICIAN OUT OF ROOM 1655, OUT OF ROOM 1700, ECG NORMAL SINUS, PATIENT SHIELDED YES, SAFETY STRAP NO, PREP CHLOROPREP Nicky POLO RN, DRESSING TEGADERM DR. SABA LOC: ROLANDO ARGUELLESLE 07/26/2020 3:42:39 PM > , 1. ALERT, ORIENTED RESP: KINDRAKALA 07/26/2020 3:42:42 PM > , 1. REGULAR, NO DYSPNEA COLOR: KINDRAKALA 07/26/2020 3:42:45 PM > , 1. PINK SKIN: KINDRAKALA 07/26/2020 3:43:11 PM > , 1. WARM, DRY POSITION: KALA ARGUELLES 07/26/2020 3:43:15 PM > , 1. PRONE VITALS: KALA ARGUELLES 07/26/2020 3:43:20 PM > 119/82-79-18-94% , KALA ARGUELLES 07/26/2020 3:57:25 PM > 118/72-71-18-95% , KALA ARGUELLES 07/26/2020 4:11:09 PM > 116/71-71-18-94% KALA ARGUELLES 07/26/2020 4:30 PM> 118/74-76-18-95% KALA ARGUELLES 07/26/2020 4:45 PM> 119/75-74-18-96% DELMY MONDRAGON 07/26/2020 5:05:25 PM > POST PROCEDURE 131/78, 75, 18, 95% RA. NOTES Nicky POLO RN [id number] GROUNDING PAD REMOVED FROM RIGHT POSTERIOR THIGH, SITE ASYMPTOMATIC Emanuel POLO RN COMPLETION OF PROCEDURE APPOINTMENT: POST PAIN 07/24 "THROBBING" AT PROCEDURE SITE., DRESSING SITE DRY AND INTACT, IV N/A, GAIT STEADY, TEACHING COMPLETED, PATIENT ACKNOWLEDGES UNDERSTANDING YES BY Ana MONDRAGON RN, PROCEDURE APPOINTMENT COMPLETED AT 1715 BY: Ana MONDRAGON RN PN RADIOFREQUENCY DATE OF PROCEDURE 07/26/2020 THERMO LESION RADIOFREQUENCY > 80 DEGREES : COOL - [employer] SYSTEM SET AT 60* WITH TISSUE TARGET TEMP > 80* OR MORE. STRAIGHT NEEDLE SIDE: : RIGHT LEVELS: : L4-L5, L5-S1 NEEDLE/CATHETER/GAUGE: : 17 CANULA LENGTH: : 100 MM ACTIVE TIP: : 4 MM GROUNDING PAD PLACED ON AFFECTED SIDE (MUSCULAR AREA): : LUMBAR (POSTERIOR UPPER THIGH) RIGHT 1 ST LEVEL: : L3,INITAL POSTIVE SENSORY RESPONE (50 HZ) 0.5,MOTOR RESPONSE (2 HZ-UP TO 3 VOLTS) 3.0 ,PRE-LOCAL IMPEDENCE READING OHMS 404 ,POST-LOCAL IMPEDENCE READING OHMS 241 ,DURING RF IMPEDENCE READING OHMS 248 , 2 ND LEVEL: : L4,INITIAL POSITIVE SENSORY RESPONSE (50 HZ) 0.4,MOTOR RESPONSE (2 HZ- UP TO 3 VOLTS) 3.0 ,PRE-LOCAL IMPEDENCE READING OHMS 260 ,POST-LOCAL IMEPEDENCE READING OHMS 345 ,DURING RF IMPEDENCE READING OHMS 316 , 3 RD LEVEL: : L5,INITIAL POSITIVE SENSORY RESPONSE (50 HZ) 0.4,MOTOR RESPONSE (2HZ- UP TO 3 VOLTS) 3.0 ,PRE- LOCAL IMPEDENCE READING OHMS 316 ,POST-LOCAL IMPEDENCE READING OHMS 199 ,DURING RF IMPEDENCE READING OHMS 220 , PRE PROCEDURE DIAGNOSES 1. LUMBAR SPONDYLOSIS. 2. LUMBOSACRAL SPONDYLOSIS POST PROCEDURE DIAGNOSES 1. LUMBAR SPONDYLOSIS. 2. LUMBOSACRAL SPONDYLOSIS PROCEDURE RIGHT L4-L5 AND RIGHT L5-S1 LUMBAR FACET RADIOFREQUENCY SURGEON DR. MAXIMILIANO SABA [employer] PIL[employer] NONE ANESTHESIA LOCAL PRE PROCEDURE REPORT THE PATIENT HAS HISTORY OF CHRONIC LOW BACK PAIN. I EVALUATED THE PATIENT AND REVIEWED THE CHART. I WENT OVER THE RISKS, ALTERNATIVES, AND BENEFITS ASSOCIATED WITH THIS PROCEDURE. THE PATIENT WOULD LIKE TO PROCEED AND GAVE CONSENT TO PERFORM THE PROCEDURE. THE PATIENT DENIES UNEXPLAINABLE WEIGHT LOSS, FEVER, CHILLS OR NEW CHANGES IN URINARY OR BOWEL CONTROL. THE PATIENT IS COVID-19 NEGATIVE DESCRIPTION OF PROCEDURE THE PATIENT WAS BROUGHT TO THE PROCEDURE ROOM AND PLACED IN THE PRONE POSITION. A TIMEOUT WAS PERFORMED WHERE THE CONSENTED SITE WAS VERIFIED WITH EVERYONE IN THE ROOM. THE LUMBOSACRAL AREA WAS CLEANED WITH CHLORAPREP SOLUTION AND DRAPED ASEPTICALLY. THE PROCEDURE WAS DONE UNDER STERILE CONDITIONS. UNDER FLUOROSCOPIC GUIDANCE, TARGETS WERE SELECTED AT THE INTERSECTION OF THE RIGHT TRANSVERSE PROCESS OF L4, L5 AND ALA OF S1 WITH ITS RESPECTIVE SUPERIOR ARTICULAR PROCESS. I CONFIRMED AGAIN THE SITE OF TARGET. LIDOCAINE WAS USED TO NUMB THE SKIN AND THE SUBCUTANEOUS TISSUE BELOW IT. RADIOFREQUENCY CANNULAS, 17-GAUGE, 100 MM LONG WITH 4 MM ACTIVE TIP, WERE ADVANCED UNDER FLUOROSCOPIC GUIDANCE AND FOLLOWING PATIENT FEEDBACK UNTIL THE TARGET AREA WAS REACHED. POSITION OF THE CANNULA WAS VERIFIED WITH AP AND LATERAL VIEWS. AFTER PROPER POSITION OF THE CANNULA WAS ACHIEVED, WE WORKED WITH THE RIGHT SELECTED MEDIAN BRANCHES OF L3, L4 AND THE DORSAL RAMI OF L5. WE MEASURED THE CORRESPONDING IMPEDANCES AND MOTOR RESPONSES INDICATED IN THE RADIOFREQUENCY WORK SHEET. POSITION OF THE CANNULA WAS VERIFIED AGAIN WITH AP AND LATERAL VIEWS. LIDOCAINE 1%, 2 ML, WAS INJECTED AT EACH LEVEL. RADIOFREQUENCY WAS DONE AT EACH LEVEL USING THE [employer] SYSTEM-- COOLED RF-- WITH A SETTING AT THE MACHINE OF 60 DEGREES WITH A TARGET TISSUE TEMPERATURE OF 80 TO 90 DEGREES FOR A MINIMUM OF 150 SECONDS. AFTER RADIOFREQUENCY WAS DONE, THE PATIENT RECEIVED BUPIVACAINE 0.125%,1 ML, WITH DEXAMETHASONE 3 MG AT EACH SITE. THERE WAS NO EVIDENCE OF BLOOD, PARESTHESIA OR CEREBROSPINAL FLUID DURING THE PROCEDURE. THE PATIENT WAS SENT TO THE RECOVERY ROOMS. THE PATIENT WAS MOVING THE EXTREMITIES AND DOING WELL. EBL LESS THAN 5 ML. THERE WERE NO COMPLICATIONS DURING THE PROCEDURE. FLUOROSCOPY TIME WAS 1 MINUTE 10 SECONDS POST PROCEDURE NOTE THE PATIENT WILL BE SEEN IN A FOLLOW UP IN THE NEXT FEW WEEKS. INSTRUCTIONS WERE GIVEN, QUESTIONS WERE ANSWERED, AND THE PATIENT EXPRESSED UNDERSTANDING AND AGREES WITH THE PLAN. . I, INDIGO MAST, DOCUMENTED THE ABOVE INFORMATION ACTING A SCRIBE FOR DR. SABA. I HAVE REVIEWED THE ABOVE DOCUMENT, WRITTEN BY JADE LEIGH, AND I VERIFY THAT IT IS ACCURATE 0. PROCEDURE CODES 64261 DESTROY LUMB/SAC FACET JNT, MODIFIERS: [place] [id number] DESTROY L/S FACET JNT ADDL, MODIFIERS: RT DISPOSITION & COMMUNICATION FOLLOW UP FOLLOW UP WITH GUITAR TECHNICIAN (REASON: POST RIGHT L4-L5, L5-S1 COOL RADIOFREQUENCY) ELECTRONICALLY SIGNED BY MAXIMILIANO SABA MD, MD ON 07/28/2020 AT 03:35 PM EDT DISCLAIMER : THIS IS A VISIT SUMMARY EXTRACTED FROM THE [employer] CHART. IT IS NOT A COPY OF THE [employer] PROGRESS NOTE. MELYSSA
== END ==
LOC: M PAIN 14:00
PROVIDERS: ATTEND Anesthesiology
DX: M47.816 Spondylosis without myelopathy or radiculopathy, lumbar region (principal); F17.210 Nicotine dependence, cigarettes, uncomplicated; E78.5 Hyperlipidemia, unspecified; K44.9 Diaphragmatic hernia without obstruction or gangrene; G47.33 Obstructive sleep apnea (adult) (pediatric); J44.9 Chronic obstructive pulmonary disease, unspecified; K21.9 Gastro-esophageal reflux disease without esophagitis; E55.9 Vitamin D deficiency, unspecified; N52.9 Male erectile dysfunction, unspecified; I25.10 Atherosclerotic heart disease of native coronary artery without angina pectoris; Z79.891 Long term (current) use of opiate analgesic; Z79.82 Long term (current) use of aspirin; Z79.899 Other long term (current) drug therapy
CPT/HCPCS: 64635; 64636; J1100

== ENCOUNTER → 2020-08-19 | Outpatient (CLI) | payer OTHER ==
[~2020-08-19] MED LIST changes: -BUPIVACAINE HCL 0.25% 30ML VIAL As Ordered ONE; -LIDOCAINE 1% SDV 30ML VIAL As Ordered ONE; -NORCO, ANEXSIA 5/325MG TABLET (HYDROcodone/ACETAMINOPHEN) As Ordered ONE; -dexameTHASONE 10MG/1ML VIAL PRES.FREE (J1100 PER 1MG) As Ordered ONE; -diazePAM 5MG TABLET As Ordered ONE
--- NOTE | 2020-08-24 06:42 | ECWPNPC ---
PATIENT NAME: MEHUL FERRARO : 1970 GENDER: MALE VISIT DATE: 08/19/2020 DISCHARGE DATE: 08/19/20 1456 VISIT LOCKED DATE TIME: PHYSICIAN: RYAN ORTEGA RESOURCE: RYAN ORTEGA REASON FOR APPOINTMENT 1. POST RIGHT LUMBAR STANDARD RADIOFREQUENCY L4-5,L5-S1 HISTORY OF PRESENT ILLNESS GENERAL: HERE FOR FOLLOW-UP OF RIGHT L4-5, L5-S1 COOL RADIOFREQUENCY PROCEDURE DONE ON 07/26/2020. REPORTING MARKED REDUCTION IN PAIN THAT CONTINUES TODAY IN THE RIGHT LOWER BACK. CHIEF AREA OF PAIN IS LEFT LOW BACK. HAS COMPLETED TWO BILATERAL LUMBAR DIAGNOSTIC FACET BLOCKS. HE WOULD LIKE TO PROCEED WITH RADIOFREQUENCY OF LEFT LUMBAR SPINE. BRINGS IN HIS MEDICATION WHICH IS APPROPRIATE FOR WHAT WAS DISPENSED. RECENT URINE TOXICOLOGY WITHIN NORMAL LIMITS. USING HYDROCODONE 5/325 APPROXIMATELY 2 TABLETS DAILY FOR CHRONIC LOW BACK PAIN. -. FALL RISK SCREENING: SCREENING : NO FALLS REPORTED IN THE LAST YEAR. PAIN SCREENING: PATIENT HAS A COMPLAINT OF ACUTE OR CHRONIC PAIN :YES LOCATION OF PAIN:LOW BACK INTENSITY OF PAIN (SCALE OF 1 TO 10):7 WHAT DOES YOUR PAIN FEEL LIKE:ACHING, BURNING, THROBBING, SHOOTING DURATION:CONTINOUS, CONSTANT, ALL DAY PAIN IS INCREASED BY:ACTIVITIES PAIN IS DECREASED BY:USE OF PAIN MEDICATIONS NURSING NOTE: -. PAIN CENTER INTAKE QUESTIONS: DO YOU HAVE A HISTORY OF MRSA? :NO DO YOU TAKE A BLOOD THINNERS? :NO DO YOU HAVE ANY BLEEDING DISORDERS? :NO ANY NEW NUMBNESS OR WEAKNESS IN YOUR LEGS OR ARMS? :YES LEFT LEG ANY PACEMAKER,DEFIBRILLATOR, OR DORSAL COLUMN STIMULATOR? :NO DO YOU HAVE ANY RASHES OR OPEN SORES? :NO ARE YOU ALLERGIC TO IV DYE? :NO ARE YOU DIABETIC? :NO ANY NEW PROBLEMS WITH YOUR MEDICATIONS? :NO HAVE YOU RECEIVED A VACCINE IN THE PAST 30 DAYS? :NO DO YOU PLAN TO RECEIVE A VACCINE IN THE NEXT 21 DAYS? :NO DO YOU NEED ANY PRESCRIPTION? :NO DO YOU TAKE ANY IMMUNOSUPPRESSIVE MEDICATIONS? :NO IS THERE A CHANCE YOU COULD BE ? :NO ARE YOU BREAST FEEDING? :NO CURRENT MEDICATIONS TAKING ASPIRIN EC 81 MG TABLET DELAYED RELEASE 1 TABLET ORALLY ONCE A DAY TAKING VITAMIN D3 1000 UNIT CAPSULE 1 CAPSULE ORALLY ONCE A DAY TAKING CARVEDILOL 6.25 MG TABLET 1 TABLET WITH FOOD ORALLY DAILY TAKING MENS ONE DAILY - TABLET 1 TAB ORALLY DAILY TAKING PROAIR HFA 108 (90 BASE) MCG/ACT AEROSOL SOLUTION 2 PUFFS NEEDED INHALATION EVERY 4 HRS TAKING CETIRIZINE HCL 10 MG TABLET 1 TABLET ORALLY ONCE A DAY TAKING BREO ELLIPTA 100-25 MCG/INH AEROSOL POWDER BREATH ACTIVATED USE ONE INHALATION ONCE DAILY TAKING GEMFIBROZIL 600 MG TABLET 1 TABLET ORALLY TWICE A DAY TAKING OMEPRAZOLE 40 MG CAPSULE DELAYED RELEASE 1 CAPSULE 30 MINUTES BEFORE MORNING MEAL ORALLY TWICE DAILY TAKING CHANTIX 1 TAB ORAL TAKING GABAPENTIN 300 MG CAPSULE 1 CAPSULE ORALLY QHS, NOTES: 07/25/2020 2200 TAKING GABAPENTIN 100 MG CAPSULE 1 CAPSULE ORALLY 1 IN AM AND 1 MID DAY, NOTES: 07/25/2020 1600 TAKING HYDROCODONE-ACETAMINOPHEN 5-325 MG TABLET 1 TABLET NEEDED ORALLY TWICE PER DAY IF NEEDED FOR SEVERE PAIN MDD2, NOTES: 07/25/20200 NOT-TAKING ZYRTEC 1 TAB ORAL NOT-TAKING CRESTOR 10 MG TABLET 1 TABLET ORALLY ONCE A DAY MEDICATION LIST REVIEWED AND RECONCILED WITH THE PATIENT PAST MEDICAL HISTORY LUMBAGO - OSTEOARTHRITIS - DDD - FOLLOWS WITH PAIN CLINIC HYPERLIPIDEMIA HIATAL HERNIA WITH REFLUX TOBACCO ABUSE WALI DX 02/26 COPD GERD VIT D DEF ED CAD - NO HISTORY OF INFARCT - CARDIAC CATHETERIZATION 08/24 REVEALED NON-OBSTRUCTIVE DISEASE ONLY. ECHOCARDIOGRAM 10/25 NO VALVULAR DISEASE, TRACE MITRAL INSUFFICIENCY, TRACE TRICUSPID INSUFFICIENCY. NUCLEAR STRESS TEST 10/25 - NORMAL PERFUSION NO ISCHEMIA OR INFARCTION. EF CALCULATED AT 52% EKG - 07/28 - NSR 84 BPM (FOLLOWED BY DR. TORRES) ALLERGIES ENVIRONMENTAL: COUGH, SCRATHY THROAT, - ALLERGY SOCIAL HISTORY GENERAL: TOBACCO USE ARE YOU A:CURRENT SMOKER ARE YOU INTERESTED IN QUITTING?THINKING ABOUT QUITTING STATES HE HAS CUT BACK. PREVIOUS QUIT ATTEMPTS?YES, MORE THAN 6 MONTHS AGO. COUNSELED THE PATIENT ON SMOKING CESSATION, EDUCATION [id number]/06/2021 HOW MANY CIGARETTES A DAY DO YOU SMOKE?11-20 HOW SOON AFTER YOU WAKE UP DO YOU SMOKE YOUR FIRST CIGARETTE?6-30 MIN HOW OFTEN DO YOU SMOKE CIGARETTES?SOME DAYS, BUT NOT EVERY DAY PATIENT COUNSELED ON THE DANGERS OF TOBACCO USE AND URGED TO QUIT:07/26/2020 VAPORNO E-CIGARETTENO LATEX QUESTIONNAIRE LATEX ALLERGY : HAVE YOU EVER DEVELOPED ANY TYPE OF REACTION AFTER HANDLING LATEX PRODUCTS SUCH RUBBER GLOVES, CONDOMS, DIAPHRAGMS, BALLOONS, SOCKS, OR UNDERWEAR?NO LATEX ALLERGY : HAVE YOU EVER DEVELOPED ANY TYPE OF REACTION DURING OR AFTER DENTAL APPOINTMENT, VAGINAL/RECTAL EXAMINATION, SURGICAL PROCEDURE, OR ANY OTHER EXPOSURE?NO LATEX RISK : HAVE YOU EVER HAD ANY DIFFICULTY BREATHING OR HIVES AFTER EATING OR HANDLING ANY FRUITS, OR VEGETABLES; SUCH KIWI, BANANAS, STONE FRUITS, OR CHESTNUTSNO LATEX RISK : DO YOU HAVE A PREVIOUS PERSONAL HISTORY OF MORE THAN NINE SURGERIES, SPINA BIFIDA, OR REPEATED CATHERIZATIONS? NO LATEX RISK : ARE YOU FREQUENTLY EXPOSED TO LATEX PRODUCTS IN YOUR OCCUPATION?NO DATE ASKED : 08/19/2020 ALCOHOL USE: NO. LUNG CANCER SCREENING SMOKING STATUS:CURRENT SMOKER BMI CARE GOAL FOLLOW-UP ABOVE NORMAL BMI FOLLOW-UPWEIGHT MONITORING ALCOHOL SCREENING DID YOU HAVE A DRINK CONTAINING ALCOHOL IN THE PAST YEAR?YES HOW OFTEN DID YOU HAVE A DRINK CONTAINING ALCOHOL IN THE PAST YEAR?MONTHLY OR LESS (1 POINT) POINTS1 INTERPRETATIONNEGATIVE RECREATIONAL DRUG USE DRUG USE?NO CAFFEINE CAFFEINE USE?YES HOW OFTEN AND HOW MUCH? COFFEE 3- 4 CUPS DAILY AT TIMES SEXUAL HX HAD SEX IN THE LAST 12 MONTHS (VAGINAL, ORAL, OR ANAL)?YES WITHWOMEN ONLY HIV / HEP-C SCREENING HIV TEST OFFERED TO PATIENT:YES DATE OFFERED:05/28/2017 TEST ACCEPTED:NO HEP-C TEST OFFERED TO PATIENT:YES DATE OFFERED:08/17/2016 REASON:PATIENT DECLINED TEST ACCEPTED:NO REASON:PATIENT DECLINED JEWISH [id number] NONE LANGUAGE LANGUAGES SPOKEN:ANDORRAN LEARNING BARRIERS / SPECIAL NEEDS BARRIERS TO LEARNING?NO HEARING IMPAIRED?NO VISION IMPAIRED?YES :CORRECTIVE LENSES COGNITIVELY IMPAIRED?NO READINESS TO LEARN?YES LEARNING PREFERENCES?NO LEARNING CAPABILITIES PRESENT?YES EMOTIONAL BARRIERS?NO SPECIAL DEVICES?YES :CANE, WALKER NEEDED ENVIRONMENTAL SERVICES ASSOCIATE NEEDED?NO DOMESTIC VIOLENCE DO YOU FEEL SAFE IN YOUR ENVIRONMENT?YES DIET: REGULAR. EXERCISE: DAILY. MARITAL STATUS: . OTHERS AT HOME: NONE. - PFS REFERRAL NEEDED?NO CLERGY REFERRAL NEEDED?NO PUBLIC HEALTH REFERRAL NEEDED?NO HAS THE PATIENT BEEN EDUCATED REGARDING HIS/HER PLAN OF CARE?YES HAS THE PATIENT BEEN EDUCATED REGARDING PAIN, THE RISK FOR PAIN, THE IMPORTANCE OF EFFECTIVE PAIN MANAGEMENT, AND THE PAIN ASSESSMENT PROCESS?YES ADVANCE DIRECTIVE ADVANCE DIRECTIVE DISCUSSED WITH PATIENT:YES 02/09/2020 PT DOES NOT HAVE ANY ADVANCED DIRECTIVES AND HE DECLINES INFORMATION ON HCP AT THIS TIME. REVIEW OF SYSTEMS CONSTITUTIONAL: ANY RECENT FEVER NO . CHILLS NO . WEIGHT CHANGE OF UNKNOWN REASONS NO . GASTROENTEROLOGY: NEW UNEXPLAINABLE CHANGES IN BOWEL CONTROL NO . CONSTIPATION NO . GENITOURINARY: ANY NEW CHANGE IN BLADDER CONTROL? NO . NEUROLOGY: NEW ONSET DIZZINESS OR NEUROLOGICAL CHANGES NOT MENTIONED NO . NEW NUMBNESS OR PAIN PATTERNS NOT MENTIONED AND PERTINENT TO TODAY'S VISIT NO . CARDIOLOGY: NEW CHEST PRESSURE NO . PATIENT DENIES NO . RESPIRATORY: UNEXPLAINABLE COUGH NO . NEW SHORTNESS OF BREATH NO . VITAL SIGNS WT 202.8 LBS, HT 68 IN, BMI 30.83 INDEX, BP 125/73 MM HG, HR 80 /MIN, RR 18 /MIN, TEMP 98.2 F, OXYGEN SAT % 95%, SAFE IN ENV? (Y/N) YES, NA INITIALS SC 14:18T.TERRI BONDS. EXAMINATION GENERAL EXAMINATION: GENERAL AWAKE,ALERT ,PLEAASANT . PSYCH AFFECT NORMAL . LUNGS: LUNG HARRY ARE CLEAR TO AUSCULTATION BILATERALLY. GOOD MOVEMENT OF AIR . HEART: S1, S2 IN A REGULAR RATE AND RHYTHM. NO SIGNIFICANT MURMURS, RUBS OR GALLOPS NOTED . LUMBAR: SPECIFIC POINT TENDERNESS OVER LEFT L4/5-L5/S1 LUMBAR FACETS WITH FACET LOADING. NEUROLOGIC EXAM: NORMAL SENSATION LIGHT TOUCH BILAT. LOWER EXTREMITIES. DIAGNOSTIC TESTS REVIEWED MRI L/S SPINE-05/04/18. ASSESSMENTS SPONDYLOSIS WITHOUT MYELOPATHY OR RADICULOPATHY, LUMBAR REGION - M47.816 (PRIMARY) OTHER CHRONIC PAIN - G89.29 TREATMENT SPONDYLOSIS WITHOUT MYELOPATHY OR RADICULOPATHY, LUMBAR REGION REFILL HYDROCODONE-ACETAMINOPHEN TABLET, 5-325 MG, 1 TABLET NEEDED, ORALLY, TWICE PER DAY IF NEEDED FOR SEVERE PAIN MDD2, 30 DAYS, 60, REFILLS 0, NOTES: 07/25/2020 2200 MEDICATION: VALIUM TAB 5MG ORALLY (DIAZEPAM) (ORDERED FOR 08/26/2020) MED: PAIN NORCO TABLET 5MG/325MG ORALLY HYDROCODONE/ACETAMINOPHEN (ORDERED FOR 08/26/2020) NOTES: LEFT LUMBAR COOL RADIOFREQUENCY L4-5,L5-S1 REVIEWED PRE PROCEDURE INFORMATION, PATIENT VERBALIZED UNDERSTANDING ZENON BONDS. OTHER CHRONIC PAIN PAIN PROCEDURE LOGDATE OF PROCEDURE1PROCEDURE:RIGHT LUMBAR COOL RADIOFREQUENCY FACET BLOCK L4-L5,L5-C6FLQAFI OF PRE SEDATEVALIUM 5MG, NORCO 5-325MGRESULT:GREATER THAN 80% REDUCTION IN PAIN CONTINUES TODAY. REPORTING IMPROVED ACTIVITY TOLERANCE. PROCEDURE CODES [id number] ESTABILISHED PATIENT [facility] FACILITY CHARGE DISPOSITION & COMMUNICATION FOLLOW UP POST (REASON: LEFT LUMBAR COOL RADIOFREQUENCY L4-5,L5-S1) ELECTRONICALLY SIGNED BY MARISA CEVALLOS ON 08/23/2020 AT 10:45 AM EDT DISCLAIMER : THIS IS A VISIT SUMMARY EXTRACTED FROM THE [employer] CHART. IT IS NOT A COPY OF THE [employer] PROGRESS NOTE. MTDD
== END ==
LOC: M PAIN 14:00
PROVIDERS: ATTEND Nurse Practitioner Family
DX: M47.816 Spondylosis without myelopathy or radiculopathy, lumbar region (principal); G89.29 Other chronic pain; K21.9 Gastro-esophageal reflux disease without esophagitis; G47.33 Obstructive sleep apnea (adult) (pediatric); J44.9 Chronic obstructive pulmonary disease, unspecified; E55.9 Vitamin D deficiency, unspecified; F17.210 Nicotine dependence, cigarettes, uncomplicated; Z79.82 Long term (current) use of aspirin; Z79.51 Long term (current) use of inhaled steroids; Z79.899 Other long term (current) drug therapy

== ENCOUNTER → 2020-09-10 | Outpatient (CLI) | payer OTHER | LOC: M LABSMTC 12:45 | PROVIDERS: ATTEND Anesthesiology | DX: Z20.822 Contact with and (suspected) exposure to COVID-19 (principal) ==

== ENCOUNTER → 2020-09-15 | Outpatient (CLI) | payer OTHER ==
[~2020-09-15] MED LIST changes: +BUPIVACAINE HCL 0.25% 30ML VIAL As Ordered ONE; +LIDOCAINE 1% SDV 30ML VIAL As Ordered ONE; +NORCO, ANEXSIA 5/325MG TABLET (HYDROcodone/ACETAMINOPHEN) As Ordered ONE; +dexameTHASONE 10MG/1ML VIAL PRES.FREE (J1100 PER 1MG) As Ordered ONE; +diazePAM 5MG TABLET As Ordered ONE
--- NOTE | 2020-09-15 15:01 | REP ---
INDICATION: LEFT LUMBAR COOL RADIOFREQUENCY L4-L5, L5-S1. COMPARISON: None. TECHNIQUE: Three C-arm views lower lumbar spine performed. FINDINGS: [place] are seen along the lower lumbar spine. IMPRESSION: 1 minutes 13 seconds fluoroscopy time utilized. <Electronically signed by Alex Braun > 09/15/20 0318
--- NOTE | 2020-09-17 00:52 | ECWPNPC ---
PATIENT NAME: MEHUL FERRARO : 1970 GENDER: MALE VISIT DATE: 09/15/2020 DISCHARGE DATE: 09/15/20 1507 VISIT LOCKED DATE TIME: PHYSICIAN: MAXIMILIANO SABA MD RESOURCE: MAXIMILIANO SABA MD REASON FOR APPOINTMENT 1. LEFT LUMBAR COOL RADIOFREQUENCY L4-5,L5-S1 HISTORY OF PRESENT ILLNESS GENERAL: -. FALL RISK SCREENING: SCREENING : NO FALLS REPORTED IN THE LAST YEAR. PAIN SCREENING: PATIENT HAS A COMPLAINT OF ACUTE OR CHRONIC PAIN :YES LOCATION OF PAIN:LOW BACK, LEFT HIP, RIGHT HIP, LEG(S), FEET, KNEES, THIGH(S) RADIATES DOWN BLE INTENSITY OF PAIN (SCALE OF 1 TO 10):9 WHAT DOES YOUR PAIN FEEL LIKE:CONTINOUS, STABBING, THROBBING, SORE DURATION:CONTINOUS, AWAKENS FROM SLEEP PAIN IS INCREASED BY:ACTIVITIES PAIN IS DECREASED BY:SITTING, USE OF PAIN MEDICATIONS NURSING NOTE: -. PAIN CENTER INTAKE QUESTIONS: DO YOU HAVE A HISTORY OF MRSA? :NO DO YOU TAKE A BLOOD THINNERS? :NO DO YOU HAVE ANY BLEEDING DISORDERS? :NO ANY NEW NUMBNESS OR WEAKNESS IN YOUR LEGS OR ARMS? :NO ANY PACEMAKER,DEFIBRILLATOR, OR DORSAL COLUMN STIMULATOR? :NO DO YOU HAVE ANY RASHES OR OPEN SORES? :NO ARE YOU ALLERGIC TO IV DYE? :NO ARE YOU DIABETIC? :NO ANY NEW PROBLEMS WITH YOUR MEDICATIONS? :NO HAVE YOU RECEIVED A VACCINE IN THE PAST 30 DAYS? :NO DO YOU PLAN TO RECEIVE A VACCINE IN THE NEXT 21 DAYS? :NO DO YOU TAKE ANY IMMUNOSUPPRESSIVE MEDICATIONS? :NO ANY HISTORY OF SEIZURES? :NO ANY HISTORY OF CARDIAC ISSUES OR EVENTS? :YES HISTORY OF 3 HEART ATTACKS DO YOU HAVE ANY KIDNEY OR LIVER DISEASE? :NO DO YOU HAVE SLEEP APNEA? :NO ANY RECENT HEAD INJURY? :NO DO YOU HAVE ANY NEW INFECTIONS? :NO IS THERE A CHANCE YOU COULD BE ? :NO ARE YOU BREAST FEEDING? :NO WHEN DID YOU LAST EAT? : 09/14/20202329 WHEN DID YOU LAST DRINK? : 09/14/20202329 WHAT DID YOU LAST DRINK? : WATER NAME OF PERSON DRIVING YOU HOME? : GAVIN DO YOU HAVE ANY OTHER QUESTIONS OR CONCERNS? : NO CURRENT MEDICATIONS TAKING ASPIRIN EC 81 MG TABLET DELAYED RELEASE 1 TABLET ORALLY ONCE A DAY TAKING VITAMIN D3 1000 UNIT CAPSULE 1 CAPSULE ORALLY ONCE A DAY TAKING CARVEDILOL 6.25 MG TABLET 1 TABLET WITH FOOD ORALLY DAILY TAKING MENS ONE DAILY - TABLET 1 TAB ORALLY DAILY TAKING PROAIR HFA 108 (90 BASE) MCG/ACT AEROSOL SOLUTION 2 PUFFS NEEDED INHALATION EVERY 4 HRS TAKING CETIRIZINE HCL 10 MG TABLET 1 TABLET ORALLY ONCE A DAY TAKING BREO ELLIPTA 100-25 MCG/INH AEROSOL POWDER BREATH ACTIVATED USE ONE INHALATION ONCE DAILY TAKING OMEPRAZOLE 40 MG CAPSULE DELAYED RELEASE 1 CAPSULE 30 MINUTES BEFORE MORNING MEAL ORALLY TWICE DAILY TAKING CHANTIX 1 TAB ORAL TAKING GABAPENTIN 300 MG CAPSULE 1 CAPSULE ORALLY QHS TAKING GABAPENTIN 100 MG CAPSULE 1 CAPSULE ORALLY 1 IN AM AND 1 MID DAY TAKING CRESTOR 10 MG TABLET 1 TABLET ORALLY ONCE A DAY TAKING GEMFIBROZIL 600 MG TABLET 1 TABLET ORALLY TWICE A DAY TAKING HYDROCODONE-ACETAMINOPHEN 5-325 MG TABLET 1 TABLET NEEDED ORALLY TWICE PER DAY IF NEEDED FOR SEVERE PAIN MDD2 NOT-TAKING ZYRTEC 1 TAB ORAL MEDICATION LIST REVIEWED AND RECONCILED WITH THE PATIENT PAST MEDICAL HISTORY LUMBAGO - OSTEOARTHRITIS - DDD - FOLLOWS WITH PAIN CLINIC HYPERLIPIDEMIA HIATAL HERNIA WITH REFLUX TOBACCO ABUSE WALI DX 02/26 COPD GERD VIT D DEF ED CAD - NO HISTORY OF INFARCT - CARDIAC CATHETERIZATION 08/24 REVEALED NON-OBSTRUCTIVE DISEASE ONLY. ECHOCARDIOGRAM 10/25 NO VALVULAR DISEASE, TRACE MITRAL INSUFFICIENCY, TRACE TRICUSPID INSUFFICIENCY. NUCLEAR STRESS TEST 10/25 - NORMAL PERFUSION NO ISCHEMIA OR INFARCTION. EF CALCULATED AT 52% EKG - 07/28 - NSR 84 BPM (FOLLOWED BY DR. TORRES) ALLERGIES ENVIRONMENTAL: COUGH, SCRATHY THROAT, - ALLERGY SOCIAL HISTORY GENERAL: TOBACCO USE ARE YOU A:CURRENT SMOKER ARE YOU INTERESTED IN QUITTING?THINKING ABOUT QUITTING STATES HE HAS CUT BACK. PREVIOUS QUIT ATTEMPTS?YES, MORE THAN 6 MONTHS AGO. COUNSELED THE PATIENT ON SMOKING CESSATION, EDUCATION [id number]/28/2021 HOW MANY CIGARETTES A DAY DO YOU SMOKE?11-20 HOW SOON AFTER YOU WAKE UP DO YOU SMOKE YOUR FIRST CIGARETTE?6-30 MIN HOW OFTEN DO YOU SMOKE CIGARETTES?SOME DAYS, BUT NOT EVERY DAY PATIENT COUNSELED ON THE DANGERS OF TOBACCO USE AND URGED TO QUIT:07/26/2020 VAPORNO E-CIGARETTENO LATEX QUESTIONNAIRE LATEX ALLERGY : HAVE YOU EVER DEVELOPED ANY TYPE OF REACTION AFTER HANDLING LATEX PRODUCTS SUCH RUBBER GLOVES, CONDOMS, DIAPHRAGMS, BALLOONS, SOCKS, OR UNDERWEAR?NO LATEX ALLERGY : HAVE YOU EVER DEVELOPED ANY TYPE OF REACTION DURING OR AFTER DENTAL APPOINTMENT, VAGINAL/RECTAL EXAMINATION, SURGICAL PROCEDURE, OR ANY OTHER EXPOSURE?NO LATEX RISK : HAVE YOU EVER HAD ANY DIFFICULTY BREATHING OR HIVES AFTER EATING OR HANDLING ANY FRUITS, OR VEGETABLES; SUCH KIWI, BANANAS, STONE FRUITS, OR CHESTNUTSNO LATEX RISK : DO YOU HAVE A PREVIOUS PERSONAL HISTORY OF MORE THAN NINE SURGERIES, SPINA BIFIDA, OR REPEATED CATHERIZATIONS? NO LATEX RISK : ARE YOU FREQUENTLY EXPOSED TO LATEX PRODUCTS IN YOUR OCCUPATION?NO DATE ASKED : 09/10/2020 ALCOHOL USE: NO. LUNG CANCER SCREENING SMOKING STATUS:CURRENT SMOKER BMI CARE GOAL FOLLOW-UP ABOVE NORMAL BMI FOLLOW-UPWEIGHT MONITORING ALCOHOL SCREENING DID YOU HAVE A DRINK CONTAINING ALCOHOL IN THE PAST YEAR?YES HOW OFTEN DID YOU HAVE A DRINK CONTAINING ALCOHOL IN THE PAST YEAR?MONTHLY OR LESS (1 POINT) POINTS1 INTERPRETATIONNEGATIVE RECREATIONAL DRUG USE DRUG USE?NO CAFFEINE CAFFEINE USE?YES HOW OFTEN AND HOW MUCH? COFFEE 3- 4 CUPS DAILY AT TIMES SEXUAL HX HAD SEX IN THE LAST 12 MONTHS (VAGINAL, ORAL, OR ANAL)?YES WITHWOMEN ONLY HIV / HEP-C SCREENING HIV TEST OFFERED TO PATIENT:YES DATE OFFERED:05/28/2017 TEST ACCEPTED:NO HEP-C TEST OFFERED TO PATIENT:YES DATE OFFERED:08/17/2016 REASON:PATIENT DECLINED TEST ACCEPTED:NO REASON:PATIENT DECLINED NONDENOMINATIONAL [id number] NONE LANGUAGE LANGUAGES SPOKEN:POLISH LEARNING BARRIERS / SPECIAL NEEDS BARRIERS TO LEARNING?NO HEARING IMPAIRED?NO VISION IMPAIRED?YES :CORRECTIVE LENSES COGNITIVELY IMPAIRED?NO READINESS TO LEARN?YES LEARNING PREFERENCES?NO LEARNING CAPABILITIES PRESENT?YES EMOTIONAL BARRIERS?NO SPECIAL DEVICES?YES :CANE, WALKER NEEDED BUS DRIVER NEEDED?NO DOMESTIC VIOLENCE DO YOU FEEL SAFE IN YOUR ENVIRONMENT?YES DIET: REGULAR. EXERCISE: DAILY. MARITAL STATUS: . OTHERS AT HOME: NONE. - PFS REFERRAL NEEDED?NO CLERGY REFERRAL NEEDED?NO PUBLIC HEALTH REFERRAL NEEDED?NO HAS THE PATIENT BEEN EDUCATED REGARDING HIS/HER PLAN OF CARE?YES HAS THE PATIENT BEEN EDUCATED REGARDING PAIN, THE RISK FOR PAIN, THE IMPORTANCE OF EFFECTIVE PAIN MANAGEMENT, AND THE PAIN ASSESSMENT PROCESS?YES ADVANCE DIRECTIVE ADVANCE DIRECTIVE DISCUSSED WITH PATIENT:YES 02/09/2020 PT DOES NOT HAVE ANY ADVANCED DIRECTIVES AND HE DECLINES INFORMATION ON HCP AT THIS TIME. VITAL SIGNS WT 195.4 LBS, HT 68 IN, BMI 29.71 INDEX, BP 118/76 MM HG, HR 97 /MIN, RR 18 /MIN, TEMP 99 F, OXYGEN SAT % 95%, SAFE IN ENV? (Y/N) YES, NA INITIALS OR 12:13, REVIEWED BY: Emanuel POLO RN. EXAMINATION GENERAL: A HISTORY AND PHYSICAL EXAM ON THE PATIENT WAS DONE ON 08/19/2020 (DATE OF ORIGINAL ASSESSMENT) IN PREPARATION OF SURGERY/PROCEDURE. I HAVE NOW REASSESSED THIS PATIENT'S HEALTH STATUS AND PERFORMED AN UPDATED EXAM TODAY. ALL CHANGES IN THE PATIENT'S HISTORY, PHYSICAL EXAM, PRE-EXISTING CONDITONS, AND INDICATIONS/CONTRAINDICATIONS TO THE PLANNED PROCEDURE AND ANESTHESIA ARE DOCUMENTED AND EVALUATED BELOW. I ATTEST TO THE ADEQUACY AND APPROPRIATENESS OF MY ASSESSMENT, AND CONFIRM THE NECESSITY FOR THE PLANNED PROCEDURE. THE PATIENT IS ALERT, ORIENTED TIMES THREE AND COOPERATIVE. LUNGS ARE CLEAR TO AUSCULTATION. HEART SHOWS REGULAR RHYTHM, NO MURMURS AND NO GALLOPS. ASSESSMENTS SPONDYLOSIS WITHOUT MYELOPATHY OR RADICULOPATHY, LUMBAR REGION - M47.816 (PRIMARY) SPONDYLOSIS WITHOUT MYELOPATHY OR RADICULOPATHY, LUMBOSACRAL REGION - M47.817 TREATMENT SPONDYLOSIS WITHOUT MYELOPATHY OR RADICULOPATHY, LUMBAR REGION [facility] FACET BLOCK (PAIN)[id number] MEDICATION: VALIUM TAB 10MG ORALLY (DIAZEPAM)ABBY CARMONA 09/15/2020 12:37:15 PM > VERIFIED KALA ARGUELLES 09/15/2020 12:42:30 PM > ADMINISTERED COMPLETION OF PROCEDURAL VISIT WHEN MEETS CRITERIAKALA ARGUELLES 09/15/2020 3:17:07 PM > 1510 CRITERIA MET MED: PAIN NORCO TABLET 5MG/325MG ORALLY HYDROCODONE/ACETAMINOPHENDILEONARDO,INDIGO 09/15/2020 12:29:04 PM > GIVE 2 TABLETS ABBY CARMONA 09/15/2020 12:37:29 PM > VERIFIED KALA ARGUELLES 09/15/2020 12:42:53 PM > ADMINISTERED OTHERS NOTES: 09/10/20 1436 PAT COMPLETED. Ana MONDRAGON ASSOCIATE FINANCIAL ANALYST. PROCEDURES PAIN NURSING RECORD PROCEDURE IN ROOM 1335, PHYSICIAN IN ROOM 1400, START 1406, FINISH 1449, PHYSICIAN OUT OF ROOM 1451, OUT OF ROOM 1459, ECG NORMAL SINUS, PATIENT SHIELDED YES, SAFETY STRAP NO, PREP CHLORHEXIDINE AND DURAPREP Nicky POLO RN, DRESSING TEGADERM DR. SABA LOC: KALA ARGUELLES 09/15/2020 1:40:09 PM > , 1. ALERT, ORIENTED RESP: KALA ARGUELLES 09/15/2020 1:40:09 PM , 1. REGULAR, NO DYSPNEA COLOR: KALA ARGUELLES 09/15/2020 1:40:33 PM > , 1. PINK SKIN: KALA ARGUELLES 09/15/2020 1:40:42 PM > , 1. WARM, DRY POSITION: KALA ARGUELLES 09/15/2020 1:40:52 PM > , 1. PRONE VITALS: 09/15/2020 1300 131/79-84-18-94% JIMENEZ GARCIA 09/15/2020 1:15:17 PM > HR 94 O2 95% BP 111/71 , KALA ARGUELLES 09/15/2020 1:40:07 PM > 131/81-81-18-94% , KALA ARGUELLES 09/15/2020 1:55:49 PM > 134/84-86-18-96% , KALA ARGUELLES 09/15/2020 2:10:23 PM > 131/79-84-18-94% KALA ARGUELLES 09/15/2020 2:25:44 PM > 133/78-84-18-95% KALA ARGUELLES 09/15/2020 2:40:25 PM > 151/94-84-18-94% POST PROCEDURE VITALS: 1505 140/91-89-18-99% NOTES Nicky POLO RN COMPLETION OF PROCEDURE APPOINTMENT: POST PAIN 0, DRESSING SITE DRY AND INTACT LEFT LUMBAR BACK, IV N/A, GAIT STEADY, TEACHING COMPLETED, PATIENT ACKNOWLEDGES UNDERSTANDING YES PATIENT VERBALIZES UNDERSTANDING OF POST PROCEDURE INSTRUCTIONS REVIEWED, PROCEDURE APPOINTMENT COMPLETED AT 1510 BY: Nicky POLO RN PN RADIOFREQUENCY DATE OF PROCEDURE 09/15/2020 THERMO LESION RADIOFREQUENCY > 80 DEGREES : COOL - AVANOS SYSTEM SET AT 60* WITH TISSUE TARGET TEMP > 80* OR MORE. STRAIGHT NEEDLE SIDE: : LEFT LEVELS: : L4-L5, L5-S1 NEEDLE/CATHETER/GAUGE: : 17 CANULA LENGTH: : 100 MM ACTIVE TIP: : [address] LEVEL: : L3, INITAL POSTIVE SENSORY RESPONE (50 HZ) 0.5, MOTOR RESPONSE (2 HZ-UP TO 3 VOLTS) 3.0 , PRE-LOCAL IMPEDENCE READING OHMS 384 , POST-LOCAL IMPEDENCE READING OHMS 192 , DURING RF IMPEDENCE READING OHMS 157 2 ND LEVEL: : L4, INITIAL POSITIVE SENSORY RESPONSE (50 HZ) 1.3, MOTOR RESPONSE (2 HZ- UP TO 3 VOLTS) 3.0 , PRE-LOCAL IMPEDENCE READING OHMS 307 , POST-LOCAL IMEPEDENCE READING OHMS 213 , DURING RF IMPEDENCE READING OHMS [address] LEVEL: : L5, INITIAL POSITIVE SENSORY RESPONSE (50 HZ) 1.8, MOTOR RESPONSE (2HZ- UP TO 3 VOLTS) 3.0 , PRE- LOCAL IMPEDENCE READING OHMS 225 , POST-LOCAL IMPEDENCE READING OHMS 209 , DURING RF IMPEDENCE READING OHMS 173 PRE PROCEDURE DIAGNOSES 1. LUMBAR SPONDYLOSIS. 2. LUMBOSACRAL SPONDYLOSIS POST PROCEDURE DIAGNOSES 1. LUMBAR SPONDYLOSIS. 2. LUMBOSACRAL SPONDYLOSIS PROCEDURE LEFT L4-L5 AND LEFT L5-S1 LUMBAR FACET RADIOFREQUENCY (COOLED RF-AVANOS SYSTEM ) SURGEON DR. MAXIMILIANO SABA CUTTER OPERATOR NONE ANESTHESIA LOCAL PRE PROCEDURE REPORT THE PATIENT HAS HISTORY OF CHRONIC LOW BACK PAIN. I EVALUATED THE PATIENT AND REVIEWED THE CHART. I WENT OVER THE RISKS, ALTERNATIVES, AND BENEFITS ASSOCIATED WITH THIS PROCEDURE. THE PATIENT WOULD LIKE TO PROCEED AND GAVE CONSENT TO PERFORM THE PROCEDURE. THE PATIENT DENIES UNEXPLAINABLE WEIGHT LOSS, FEVER, CHILLS OR NEW CHANGES IN URINARY OR BOWEL CONTROL. THE PATIENT IS COVID-19 NEGATIVE. ON MAY 27, 2020, HE HAD THE SECOND DIAGNOSTIC TEST. DESCRIPTION OF PROCEDURE THE PATIENT WAS BROUGHT TO THE PROCEDURE ROOM AND PLACED IN THE PRONE POSITION. A TIMEOUT WAS PERFORMED WHERE THE CONSENTED SITE WAS VERIFIED WITH EVERYONE IN THE ROOM. THE LUMBOSACRAL AREA WAS CLEANED WITH CHLORAPREP SOLUTION AND DRAPED ASEPTICALLY. THE PROCEDURE WAS DONE UNDER STERILE CONDITIONS. UNDER FLUOROSCOPIC GUIDANCE, TARGETS WERE SELECTED AT THE INTERSECTION OF THE LEFT TRANSVERSE PROCESS OF L4, L5 AND ALA OF S1 WITH ITS RESPECTIVE SUPERIOR ARTICULAR PROCESS. I CONFIRMED AGAIN THE SITE OF TARGET. LIDOCAINE WAS USED TO NUMB THE SKIN AND THE SUBCUTANEOUS TISSUE BELOW IT. RADIOFREQUENCY CANNULAS, 17-GAUGE, 100 MM LONG WITH 4 MM ACTIVE TIP, WERE ADVANCED UNDER FLUOROSCOPIC GUIDANCE AND FOLLOWING PATIENT FEEDBACK UNTIL THE TARGET AREA WAS REACHED. POSITION OF THE CANNULA WAS VERIFIED WITH AP AND LATERAL VIEWS. AFTER PROPER POSITION OF THE CANNULA WAS ACHIEVED, WE WORKED WITH THE LEFT SELECTED MEDIAN BRANCHES OF L3, L4 AND THE DORSAL RAMI OF L5. WE MEASURED THE CORRESPONDING IMPEDANCES AND MOTOR RESPONSES INDICATED IN THE RADIOFREQUENCY WORK SHEET. POSITION OF THE CANNULA WAS VERIFIED AGAIN WITH AP AND LATERAL VIEWS. LIDOCAINE 1%, 2 ML, WAS INJECTED AT EACH LEVEL. RADIOFREQUENCY WAS DONE AT EACH LEVEL USING THE [employer] SYSTEM-- COOLED RF-- WITH A SETTING AT THE MACHINE OF 60 DEGREES WITH A TARGET TISSUE TEMPERATURE OF 80 TO 90 DEGREES FOR A MINIMUM OF 150 SECONDS. AFTER RADIOFREQUENCY WAS DONE, THE PATIENT RECEIVED BUPIVACAINE 0.125%,1 ML, WITH DEXAMETHASONE 3 MG AT EACH SITE. THERE WAS NO EVIDENCE OF BLOOD, PARESTHESIA OR CEREBROSPINAL FLUID DURING THE PROCEDURE. THE PATIENT WAS SENT TO THE RECOVERY ROOMS. THE PATIENT WAS MOVING THE EXTREMITIES AND DOING WELL. EBL LESS THAN 5 ML. THERE WERE NO COMPLICATIONS DURING THE PROCEDURE. FLUOROSCOPY TIME WAS 1 MINUTE 31 SECONDS POST PROCEDURE NOTE THE PATIENT WILL BE SEEN IN A FOLLOW UP IN THE NEXT FEW WEEKS. INSTRUCTIONS WERE GIVEN, QUESTIONS WERE ANSWERED, AND THE PATIENT EXPRESSED UNDERSTANDING AND AGREES WITH THE PLAN. . I, INDIGO MAST, DOCUMENTED THE ABOVE INFORMATION ACTING A SCRIBE FOR DR. SABA. I HAVE REVIEWED THE ABOVE DOCUMENT, WRITTEN BY INDIGO MAST, SCRIBE, AND I VERIFY THAT IT IS ACCURATE PROCEDURE CODES 82905 DESTROY LUMB/SAC FACET JNT, [place]: [place] [address] DESTROY L/S FACET JNT ADDL, MODIFIERS: LT DISPOSITION & COMMUNICATION FOLLOW UP FOLLOW UP WITH GRAPHIC DESIGN MANAGER (REASON: POST LEFT LUMBAR COOL RADIOFREQUENCY L4-L5, L5-S1) ELECTRONICALLY SIGNED BY MAXIMILIANO SABA MD, MD ON 09/16/2020 AT 11:51 AM EDT DISCLAIMER : THIS IS A VISIT SUMMARY EXTRACTED FROM THE [employer] CHART. IT IS NOT A COPY OF THE [employer] PROGRESS NOTE. MTDD
== END ==
LOC: M PAIN 13:00
PROVIDERS: ATTEND Anesthesiology
DX: M47.816 Spondylosis without myelopathy or radiculopathy, lumbar region (principal); M47.817 Spondylosis without myelopathy or radiculopathy, lumbosacral region; E78.5 Hyperlipidemia, unspecified; K44.9 Diaphragmatic hernia without obstruction or gangrene; G47.33 Obstructive sleep apnea (adult) (pediatric); J44.9 Chronic obstructive pulmonary disease, unspecified; K21.9 Gastro-esophageal reflux disease without esophagitis; E55.9 Vitamin D deficiency, unspecified; J30.9 Allergic rhinitis, unspecified; N52.9 Male erectile dysfunction, unspecified; I25.10 Atherosclerotic heart disease of native coronary artery without angina pectoris; F17.210 Nicotine dependence, cigarettes, uncomplicated; Z79.82 Long term (current) use of aspirin; Z79.891 Long term (current) use of opiate analgesic; Z79.899 Other long term (current) drug therapy
CPT/HCPCS: 64635; 64636; J1100

== ENCOUNTER → 2020-10-05 | Outpatient (CLI) | payer OTHER ==
[~2020-10-05] MED LIST changes: -BUPIVACAINE HCL 0.25% 30ML VIAL As Ordered ONE; -LIDOCAINE 1% SDV 30ML VIAL As Ordered ONE; -NORCO, ANEXSIA 5/325MG TABLET (HYDROcodone/ACETAMINOPHEN) As Ordered ONE; +OMEP40CA4 PO; -OMEP40CA97 PO; -dexameTHASONE 10MG/1ML VIAL PRES.FREE (J1100 PER 1MG) As Ordered ONE; -diazePAM 5MG TABLET As Ordered ONE
--- NOTE | 2020-10-07 01:40 | ECWPNPC ---
PATIENT NAME: MEHUL FERRARO : 1970 GENDER: MALE VISIT DATE: 10/05/2020 DISCHARGE DATE: 10/05/20 1423 VISIT LOCKED DATE TIME: PHYSICIAN: RYAN ORTEGA RESOURCE: RYAN ORTEGA REASON FOR APPOINTMENT 1. POST LEFT LUMBAR COOL RADIOFREQUENCY L4-5,L5-S1 HISTORY OF PRESENT ILLNESS GENERAL: HERE FOR POST PROCEDURE FOLLOW-UP. HAD LEFT LUMBAR RADIOFREQUENCY L4-5, L5-S1 ON 09/15/2020. REPORTING SIGNIFICANT REDUCTION IN PAIN THAT CONTINUES TODAY. REPORTING LESS NEED FOR USE OF PAIN MEDICATIONS. REPORTING IMPROVED ACTIVITY TOLERANCE SINCE PROCEDURE. -. FALL RISK SCREENING: SCREENING : NO FALLS REPORTED IN THE LAST YEAR. PAIN SCREENING: PATIENT HAS A COMPLAINT OF ACUTE OR CHRONIC PAIN :YES LOCATION OF PAIN:LOW BACK INTENSITY OF PAIN (SCALE OF 1 TO 10):0 WHAT DOES YOUR PAIN FEEL LIKE:OTHER NO PAIN DURATION:CONTINOUS, CONSTANT, ALL DAY PAIN IS INCREASED BY:ACTIVITIES PAIN IS DECREASED BY:USE OF PAIN MEDICATIONS NURSING NOTE: -. PAIN CENTER INTAKE QUESTIONS: DO YOU HAVE A HISTORY OF MRSA? :NO DO YOU TAKE A BLOOD THINNERS? :NO ASPIRIN EC 81 MG DO YOU HAVE ANY BLEEDING DISORDERS? :NO ANY NEW NUMBNESS OR WEAKNESS IN YOUR LEGS OR ARMS? :YES LEFT LEG ANY PACEMAKER,DEFIBRILLATOR, OR DORSAL COLUMN STIMULATOR? :NO DO YOU HAVE ANY RASHES OR OPEN SORES? :NO ARE YOU ALLERGIC TO IV DYE? :NO ARE YOU DIABETIC? :NO ANY NEW PROBLEMS WITH YOUR MEDICATIONS? :NO HAVE YOU RECEIVED A VACCINE IN THE PAST 30 DAYS? :NO DO YOU PLAN TO RECEIVE A VACCINE IN THE NEXT 21 DAYS? :NO DO YOU NEED ANY PRESCRIPTION? :NO DO YOU TAKE ANY IMMUNOSUPPRESSIVE MEDICATIONS? :NO IS THERE A CHANCE YOU COULD BE ? :NO ARE YOU BREAST FEEDING? :NO CURRENT MEDICATIONS TAKING ASPIRIN EC 81 MG TABLET DELAYED RELEASE 1 TABLET ORALLY ONCE A DAY TAKING VITAMIN D3 1000 UNIT CAPSULE 1 CAPSULE ORALLY ONCE A DAY TAKING CARVEDILOL 6.25 MG TABLET 1 TABLET WITH FOOD ORALLY DAILY TAKING MENS ONE DAILY - TABLET 1 TAB ORALLY DAILY TAKING PROAIR HFA 108 (90 BASE) MCG/ACT AEROSOL SOLUTION 2 PUFFS NEEDED INHALATION EVERY 4 HRS TAKING CETIRIZINE HCL 10 MG TABLET 1 TABLET ORALLY ONCE A DAY TAKING BREO ELLIPTA 100-25 MCG/INH AEROSOL POWDER BREATH ACTIVATED USE ONE INHALATION ONCE DAILY TAKING OMEPRAZOLE 40 MG CAPSULE DELAYED RELEASE 1 CAPSULE 30 MINUTES BEFORE MORNING MEAL ORALLY TWICE DAILY TAKING CHANTIX 1 TAB ORAL TAKING GABAPENTIN 300 MG CAPSULE 1 CAPSULE ORALLY QHS TAKING GABAPENTIN 100 MG CAPSULE 1 CAPSULE ORALLY 1 IN AM AND 1 MID DAY TAKING CRESTOR 10 MG TABLET 1 TABLET ORALLY ONCE A DAY TAKING GEMFIBROZIL 600 MG TABLET 1 TABLET ORALLY TWICE A DAY TAKING HYDROCODONE-ACETAMINOPHEN 5-325 MG TABLET 1 TABLET NEEDED ORALLY TWICE PER DAY IF NEEDED FOR SEVERE PAIN MDD2 NOT-TAKING ZYRTEC 1 TAB ORAL MEDICATION LIST REVIEWED AND RECONCILED WITH THE PATIENT PAST MEDICAL HISTORY LUMBAGO - OSTEOARTHRITIS - DDD - FOLLOWS WITH PAIN CLINIC HYPERLIPIDEMIA HIATAL HERNIA WITH REFLUX TOBACCO ABUSE WALI DX 02/26 COPD GERD VIT D DEF ED CAD - NO HISTORY OF INFARCT - CARDIAC CATHETERIZATION 08/24 REVEALED NON-OBSTRUCTIVE DISEASE ONLY. ECHOCARDIOGRAM 10/25 NO VALVULAR DISEASE, TRACE MITRAL INSUFFICIENCY, TRACE TRICUSPID INSUFFICIENCY. NUCLEAR STRESS TEST 10/25 - NORMAL PERFUSION NO ISCHEMIA OR INFARCTION. EF CALCULATED AT 52% EKG - 07/28 - NSR 84 BPM (FOLLOWED BY DR. TORRES) ALLERGIES ENVIRONMENTAL: COUGH, SCRATHY THROAT, - ALLERGY SOCIAL HISTORY GENERAL: TOBACCO USE ARE YOU A:CURRENT SMOKER ARE YOU INTERESTED IN QUITTING?THINKING ABOUT QUITTING STATES HE HAS CUT BACK. PREVIOUS QUIT ATTEMPTS?YES, MORE THAN 6 MONTHS AGO. COUNSELED THE PATIENT ON SMOKING CESSATION, EDUCATION [id number]/22/2021 HOW MANY CIGARETTES A DAY DO YOU SMOKE?11-20 HOW SOON AFTER YOU WAKE UP DO YOU SMOKE YOUR FIRST CIGARETTE?6-30 MIN HOW OFTEN DO YOU SMOKE CIGARETTES?SOME DAYS, BUT NOT EVERY DAY PATIENT COUNSELED ON THE DANGERS OF TOBACCO USE AND URGED TO QUIT:07/26/2020 VAPORNO E-CIGARETTENO LATEX QUESTIONNAIRE LATEX ALLERGY : HAVE YOU EVER DEVELOPED ANY TYPE OF REACTION AFTER HANDLING LATEX PRODUCTS SUCH RUBBER GLOVES, CONDOMS, DIAPHRAGMS, BALLOONS, SOCKS, OR UNDERWEAR?NO LATEX ALLERGY : HAVE YOU EVER DEVELOPED ANY TYPE OF REACTION DURING OR AFTER DENTAL APPOINTMENT, VAGINAL/RECTAL EXAMINATION, SURGICAL PROCEDURE, OR ANY OTHER EXPOSURE?NO LATEX RISK : HAVE YOU EVER HAD ANY DIFFICULTY BREATHING OR HIVES AFTER EATING OR HANDLING ANY FRUITS, OR VEGETABLES; SUCH KIWI, BANANAS, STONE FRUITS, OR CHESTNUTSNO LATEX RISK : DO YOU HAVE A PREVIOUS PERSONAL HISTORY OF MORE THAN NINE SURGERIES, SPINA BIFIDA, OR REPEATED CATHERIZATIONS? NO LATEX RISK : ARE YOU FREQUENTLY EXPOSED TO LATEX PRODUCTS IN YOUR OCCUPATION?NO DATE ASKED : 10/05/2020 ALCOHOL USE: NO. LUNG CANCER SCREENING SMOKING STATUS:CURRENT SMOKER BMI CARE GOAL FOLLOW-UP ABOVE NORMAL BMI FOLLOW-UPWEIGHT MONITORING ALCOHOL SCREENING DID YOU HAVE A DRINK CONTAINING ALCOHOL IN THE PAST YEAR?YES HOW OFTEN DID YOU HAVE A DRINK CONTAINING ALCOHOL IN THE PAST YEAR?MONTHLY OR LESS (1 POINT) POINTS1 INTERPRETATIONNEGATIVE RECREATIONAL DRUG USE DRUG USE?NO CAFFEINE CAFFEINE USE?YES HOW OFTEN AND HOW MUCH? COFFEE 3- 4 CUPS DAILY AT TIMES SEXUAL HX HAD SEX IN THE LAST 12 MONTHS (VAGINAL, ORAL, OR ANAL)?YES WITHWOMEN ONLY HIV / HEP-C SCREENING HIV TEST OFFERED TO PATIENT:YES DATE OFFERED:05/28/2017 TEST ACCEPTED:NO HEP-C TEST OFFERED TO PATIENT:YES DATE OFFERED:08/17/2016 REASON:PATIENT DECLINED TEST ACCEPTED:NO REASON:PATIENT DECLINED QUAKER [id number] NONE LANGUAGE LANGUAGES SPOKEN:BERMUDIAN LEARNING BARRIERS / SPECIAL NEEDS BARRIERS TO LEARNING?NO HEARING IMPAIRED?NO VISION IMPAIRED?YES :CORRECTIVE LENSES COGNITIVELY IMPAIRED?NO READINESS TO LEARN?YES LEARNING PREFERENCES?NO LEARNING CAPABILITIES PRESENT?YES EMOTIONAL BARRIERS?NO SPECIAL DEVICES?YES :CANE 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 EXERCISE: DAILY. MARITAL STATUS: . OTHERS AT HOME: NONE. - PFS REFERRAL NEEDED?NO CLERGY REFERRAL NEEDED?NO PUBLIC HEALTH REFERRAL NEEDED?NO HAS THE PATIENT BEEN EDUCATED REGARDING HIS/HER PLAN OF CARE?YES HAS THE PATIENT BEEN EDUCATED REGARDING PAIN, THE RISK FOR PAIN, THE IMPORTANCE OF EFFECTIVE PAIN MANAGEMENT, AND THE PAIN ASSESSMENT PROCESS?YES ADVANCE DIRECTIVE ADVANCE DIRECTIVE DISCUSSED WITH PATIENT:YES 02/09/2020 PT DOES NOT HAVE ANY ADVANCED DIRECTIVES AND HE DECLINES INFORMATION ON HCP AT THIS TIME. REVIEW OF SYSTEMS CONSTITUTIONAL: ANY RECENT FEVER NO . CHILLS NO . WEIGHT CHANGE OF UNKNOWN REASONS NO . GASTROENTEROLOGY: NEW UNEXPLAINABLE CHANGES IN BOWEL CONTROL NO . CONSTIPATION NO . GENITOURINARY: ANY NEW CHANGE IN BLADDER CONTROL? NO . NEUROLOGY: NEW ONSET DIZZINESS OR NEUROLOGICAL CHANGES NOT MENTIONED NO . NEW NUMBNESS OR PAIN PATTERNS NOT MENTIONED AND PERTINENT TO TODAY'S VISIT NO . CARDIOLOGY: NEW CHEST PRESSURE NO . PATIENT DENIES NO . RESPIRATORY: UNEXPLAINABLE COUGH NO . NEW SHORTNESS OF BREATH NO . VITAL SIGNS WT 193 LBS, HT 68 IN, BMI 29.34 INDEX, BP 124/74 MM HG, HR 76 /MIN, RR 18 /MIN, TEMP 99.01 F, OXYGEN SAT % 96%, SAFE IN ENV? (Y/N) YEST.TERRI BONDS. EXAMINATION GENERAL EXAMINATION: GENERALAWAKE,ALERT ,PLEASANT . PSYCHAFFECT NORMAL . LUNGS:LUNG HARRY ARE CLEAR TO AUSCULTATION BILATERALLY. GOOD MOVEMENT OF AIR . HEART:S1, S2 IN A REGULAR RATE AND RHYTHM. NO SIGNIFICANT MURMURS, RUBS OR GALLOPS NOTED . ASSESSMENTS OTHER CHRONIC PAIN - G89.29 (PRIMARY) SPONDYLOSIS WITHOUT MYELOPATHY OR RADICULOPATHY, LUMBAR REGION - M47.816 TREATMENT OTHER CHRONIC PAIN PAIN PROCEDURE LOGDATE OF PROCEDURE1PROCEDURE:LEFT LUMBAR COOL RADIOFREQUENCY L4-L5,L5-Z5KYSDJR OF PRE SEDATEVALIUM 10MG, NORCO 5-325MGRESULT:MARKED REDUCTION IN PAIN AND IMPROVED ACTIVITY TOLERANCE CONTINUES TODAY PROCEDURE CODES FA211 ESTABILISHED PATIENT [facility] CHARGE DISPOSITION & COMMUNICATION FOLLOW UP 3 MONTHS (REASON: MED MGMNT/UTOX) ELECTRONICALLY SIGNED BY MARISA CEVALLOS ON 10/06/2020 AT 01:05 PM EDT DISCLAIMER : THIS IS A VISIT SUMMARY EXTRACTED FROM THE [employer] CHART. IT IS NOT A COPY OF THE [employer] PROGRESS NOTE. MTDD
== END ==
LOC: M PAIN 14:00
PROVIDERS: ATTEND Nurse Practitioner Family
DX: M47.816 Spondylosis without myelopathy or radiculopathy, lumbar region (principal); G89.29 Other chronic pain; G47.33 Obstructive sleep apnea (adult) (pediatric); J44.9 Chronic obstructive pulmonary disease, unspecified; K21.9 Gastro-esophageal reflux disease without esophagitis; E55.9 Vitamin D deficiency, unspecified; F17.210 Nicotine dependence, cigarettes, uncomplicated; Z79.82 Long term (current) use of aspirin; Z79.51 Long term (current) use of inhaled steroids; Z79.899 Other long term (current) drug therapy

== ENCOUNTER → 2021-01-05 | Outpatient (CLI) | payer OTHER, MEDICAID | LOC: M PAIN 14:15 | PROVIDERS: ATTEND Anesthesiology | DX: M47.816 Spondylosis without myelopathy or radiculopathy, lumbar region (principal); G89.29 Other chronic pain; G47.33 Obstructive sleep apnea (adult) (pediatric); J44.9 Chronic obstructive pulmonary disease, unspecified; K21.9 Gastro-esophageal reflux disease without esophagitis; E55.9 Vitamin D deficiency, unspecified; F17.210 Nicotine dependence, cigarettes, uncomplicated; Z79.51 Long term (current) use of inhaled steroids; Z79.82 Long term (current) use of aspirin; Z79.899 Other long term (current) drug therapy ==

== ENCOUNTER → 2021-04-06 | Outpatient (CLI) | payer OTHER, MEDICAID | LOC: M PAIN 14:30 | PROVIDERS: ATTEND Anesthesiology | DX: M47.816 Spondylosis without myelopathy or radiculopathy, lumbar region (principal); G89.29 Other chronic pain; K21.9 Gastro-esophageal reflux disease without esophagitis; G47.33 Obstructive sleep apnea (adult) (pediatric); J44.9 Chronic obstructive pulmonary disease, unspecified; E55.9 Vitamin D deficiency, unspecified; F17.210 Nicotine dependence, cigarettes, uncomplicated; Z79.82 Long term (current) use of aspirin; Z79.51 Long term (current) use of inhaled steroids; Z79.899 Other long term (current) drug therapy ==

== ENCOUNTER → 2021-05-13 | Outpatient (CLI) | payer MEDICARE, MEDICAID ==
[~2021-05-13] MED LIST changes: +OMEP-173; -OMEP-218
== END ==
LOC: M PLARAD 13:35
PROVIDERS: ATTEND Anesthesiology
DX: M47.816 Spondylosis without myelopathy or radiculopathy, lumbar region (principal); M51.26 Other intervertebral disc displacement, lumbar region; M51.27 Other intervertebral disc displacement, lumbosacral region

== ENCOUNTER → 2021-06-22 | Outpatient (CLI) | payer OTHER, MEDICAID | LOC: M PAIN 13:30 | PROVIDERS: ATTEND Anesthesiology | DX: M51.16 Intervertebral disc disorders with radiculopathy, lumbar region (principal); G89.29 Other chronic pain; G47.33 Obstructive sleep apnea (adult) (pediatric); J44.9 Chronic obstructive pulmonary disease, unspecified; K21.9 Gastro-esophageal reflux disease without esophagitis; E55.9 Vitamin D deficiency, unspecified; F17.210 Nicotine dependence, cigarettes, uncomplicated; Z79.51 Long term (current) use of inhaled steroids; Z79.82 Long term (current) use of aspirin; Z79.899 Other long term (current) drug therapy ==

== ENCOUNTER → 2021-09-19 | Outpatient (CLI) | payer OTHER, MEDICAID | LOC: M LABSMTC 11:05 | PROVIDERS: ATTEND Anesthesiology | DX: Z01.812 Encounter for preprocedural laboratory examination (principal); Z20.822 Contact with and (suspected) exposure to COVID-19 ==

== ENCOUNTER → 2021-09-23 | Outpatient (CLI) | payer OTHER, MEDICAID ==
[~2021-09-23] MED LIST changes: +CETI10CH PO; +ISOVUE-M 300 61% 15ML VIAL As Ordered ONE; +LIDOCAINE 1% SDV 30ML VIAL As Ordered ONE; +NORCO, ANEXSIA 5/325MG TABLET (HYDROcodone/ACETAMINOPHEN) As Ordered ONE; +NORCO, ANEXSIA 5/325MG TABLET (HYDROcodone/ACETAMINOPHEN) PO ONE; +NOXI1TAB PO; +OMEGCAP9 PO; +PROAAER10 INH; +VITMTA PO; +diazePAM 5MG TABLET As Ordered ONE; +diazePAM 5MG TABLET PO ONE; +methylPREDNISolone SUSP 40MG/ML 1ML VIAL (DEPO MEDROL) As Ordered ONE
[2021-09-23 14:22] VITALS: BP 131/80
== END ==
LOC: M IRPRO 11:34
PROVIDERS: ATTEND Anesthesiology
DX: M51.16 Intervertebral disc disorders with radiculopathy, lumbar region (principal); G89.29 Other chronic pain; J44.9 Chronic obstructive pulmonary disease, unspecified; G47.30 Sleep apnea, unspecified
CPT/HCPCS: 62323; J1030; Q9967

== ENCOUNTER → 2021-11-02 | Outpatient (CLI) | payer OTHER, MEDICAID ==
[~2021-11-02] MED LIST changes: -ISOVUE-M 300 61% 15ML VIAL As Ordered ONE; -LIDOCAINE 1% SDV 30ML VIAL As Ordered ONE; -NORCO, ANEXSIA 5/325MG TABLET (HYDROcodone/ACETAMINOPHEN) As Ordered ONE; -NORCO, ANEXSIA 5/325MG TABLET (HYDROcodone/ACETAMINOPHEN) PO ONE; -diazePAM 5MG TABLET As Ordered ONE; -diazePAM 5MG TABLET PO ONE; -methylPREDNISolone SUSP 40MG/ML 1ML VIAL (DEPO MEDROL) As Ordered ONE
== END ==
LOC: M RAD 13:00
PROVIDERS: ATTEND Nurse Practitioner Family
DX: Z12.2 Encounter for screening for malignant neoplasm of respiratory organs (principal); F17.210 Nicotine dependence, cigarettes, uncomplicated; J84.10 Pulmonary fibrosis, unspecified

== ENCOUNTER → 2021-11-02 | Outpatient (CLI) | payer OTHER, MEDICAID | LOC: M PAIN 14:15 | PROVIDERS: ATTEND Nurse Practitioner Family | DX: M51.16 Intervertebral disc disorders with radiculopathy, lumbar region (principal); G89.29 Other chronic pain; J44.9 Chronic obstructive pulmonary disease, unspecified; K21.9 Gastro-esophageal reflux disease without esophagitis; E55.9 Vitamin D deficiency, unspecified; F17.210 Nicotine dependence, cigarettes, uncomplicated; Z79.51 Long term (current) use of inhaled steroids; Z79.82 Long term (current) use of aspirin; Z79.899 Other long term (current) drug therapy ==

== ENCOUNTER → 2022-01-29 | Outpatient (CLI) | payer OTHER, MEDICAID | LOC: M LABSMTC 11:18 | PROVIDERS: ATTEND Anesthesiology | DX: Z01.812 Encounter for preprocedural laboratory examination (principal); Z11.52 Encounter for screening for COVID-19 ==

== ENCOUNTER → 2022-02-02 | Outpatient (CLI) | payer OTHER, MEDICAID ==
[~2022-02-02] MED LIST changes: +ISOVUE-M 300 61% 15ML VIAL As Ordered ONE; +LIDOCAINE 1% SDV 30ML VIAL As Ordered ONE; +NORCO, ANEXSIA 5/325MG TABLET (HYDROcodone/ACETAMINOPHEN) As Ordered ONE; +diazePAM 5MG TABLET As Ordered ONE; +methylPREDNISolone SUSP 40MG/ML 1ML VIAL (DEPO MEDROL) As Ordered ONE
== END ==
LOC: M PAIN 10:00
PROVIDERS: ATTEND Anesthesiology
DX: M51.16 Intervertebral disc disorders with radiculopathy, lumbar region (principal); G89.29 Other chronic pain; G47.33 Obstructive sleep apnea (adult) (pediatric); J44.9 Chronic obstructive pulmonary disease, unspecified; K21.9 Gastro-esophageal reflux disease without esophagitis; E55.9 Vitamin D deficiency, unspecified; F17.210 Nicotine dependence, cigarettes, uncomplicated; Z79.51 Long term (current) use of inhaled steroids; Z79.82 Long term (current) use of aspirin; Z79.899 Other long term (current) drug therapy
CPT/HCPCS: 62323; J1030; Q9967

== ENCOUNTER → 2022-02-27 | Outpatient (CLI) | payer OTHER, MEDICAID ==
[~2022-02-27] MED LIST changes: -ISOVUE-M 300 61% 15ML VIAL As Ordered ONE; -LIDOCAINE 1% SDV 30ML VIAL As Ordered ONE; -NORCO, ANEXSIA 5/325MG TABLET (HYDROcodone/ACETAMINOPHEN) As Ordered ONE; -diazePAM 5MG TABLET As Ordered ONE; -methylPREDNISolone SUSP 40MG/ML 1ML VIAL (DEPO MEDROL) As Ordered ONE
== END ==
LOC: M PAIN 13:45
PROVIDERS: ATTEND Nurse Practitioner Family
DX: M51.16 Intervertebral disc disorders with radiculopathy, lumbar region (principal); G89.29 Other chronic pain; K21.9 Gastro-esophageal reflux disease without esophagitis; G47.33 Obstructive sleep apnea (adult) (pediatric); J44.9 Chronic obstructive pulmonary disease, unspecified; E55.9 Vitamin D deficiency, unspecified; F17.210 Nicotine dependence, cigarettes, uncomplicated; Z79.51 Long term (current) use of inhaled steroids; Z79.82 Long term (current) use of aspirin; Z79.899 Other long term (current) drug therapy

== ENCOUNTER → 2022-04-17 | Outpatient (CLI) | payer OTHER, MEDICAID ==
[2022-04-17 14:00] LABS: ALKALINE PHOSPHATASE 70 U/L (46-116); ALT/SGPT 10 U/L (7.0-40); AST/SGOT 18 U/L (<34); BILIRUBIN,TOTAL 0.2 MG/DL (0.3-1.2); BLOOD UREA NITROGEN 17 MG/DL (9-23); CALCIUM LEVEL 9.2 MG/DL (8.5-10.1); CARBON DIOXIDE LEVEL 25 MMOL/L (20-31); CHLORIDE LEVEL 105 MMOL/L (98-107); CHOLESTEROL LEVEL 198 MG/DL (<200); CHOLESTEROL RISK RATIO 4.74 (<5); CREATININE FOR GFR 0.99 MG/DL (0.70-1.30); GLOMERULAR FILTRATION RATE > 60.0 (>56); GLUCOSE, FASTING 102 MG/DL (60-100); HDL CHOLESTEROL 41.7 MG/DL (>40); LDL CHOLESTEROL 118.3 MG/DL (<100); NON-HDL-C 156 MG/DL; POTASSIUM SERUM 4.7 MMOL/L (3.5-5.1); SODIUM LEVEL 137 MMOL/L (136-145); TOTAL PROTEIN 6.6 G/DL (5.7-8.2); TRIGLYCERIDES LEVEL 190 MG/DL (<150)
== END ==
LOC: M LAB 13:11
PROVIDERS: ATTEND Nurse Practitioner Family
DX: I10 Essential (primary) hypertension (principal); E78.2 Mixed hyperlipidemia

== ENCOUNTER → 2022-05-17 | Outpatient (CLI) | payer OTHER, MEDICAID | LOC: M LABSMTC 09:22 | PROVIDERS: ATTEND Anesthesiology | DX: Z01.818 Encounter for other preprocedural examination (principal) ==

== ENCOUNTER → 2022-05-18 | Outpatient (REF) | payer OTHER, MEDICAID | LOC: M LAB REF 17:19 | PROVIDERS: ATTEND Surgery | DX: H60.92 Unspecified otitis externa, left ear (principal) ==

== ENCOUNTER → 2022-05-19 | Outpatient (CLI) | payer OTHER, MEDICAID ==
[~2022-05-19] MED LIST changes: +BUPIVACAINE HCL 0.25% 30ML VIAL As Ordered ONE; +ISOVUE-M 300 61% 15ML VIAL As Ordered ONE; +LIDOCAINE 1% SDV 30ML VIAL As Ordered ONE; +NORCO, ANEXSIA 5/325MG TABLET (HYDROcodone/ACETAMINOPHEN) As Ordered ONE; +diazePAM 5MG TABLET As Ordered ONE
== END ==
LOC: M PAIN 11:00
PROVIDERS: ATTEND Anesthesiology
DX: M51.16 Intervertebral disc disorders with radiculopathy, lumbar region (principal); G89.29 Other chronic pain; G47.33 Obstructive sleep apnea (adult) (pediatric); J44.9 Chronic obstructive pulmonary disease, unspecified; K21.9 Gastro-esophageal reflux disease without esophagitis; E55.9 Vitamin D deficiency, unspecified; F17.210 Nicotine dependence, cigarettes, uncomplicated; Z79.82 Long term (current) use of aspirin; Z79.51 Long term (current) use of inhaled steroids; Z79.899 Other long term (current) drug therapy
CPT/HCPCS: 64483; 64484; J1100; Q9967

== ENCOUNTER → 2022-06-01 | Outpatient (CLI) | payer OTHER, MEDICAID ==
[~2022-06-01] MED LIST changes: -BUPIVACAINE HCL 0.25% 30ML VIAL As Ordered ONE; -ISOVUE-M 300 61% 15ML VIAL As Ordered ONE; -LIDOCAINE 1% SDV 30ML VIAL As Ordered ONE; -NORCO, ANEXSIA 5/325MG TABLET (HYDROcodone/ACETAMINOPHEN) As Ordered ONE; -diazePAM 5MG TABLET As Ordered ONE
== END ==
LOC: M PAIN 13:45
PROVIDERS: ATTEND Anesthesiology
DX: M51.16 Intervertebral disc disorders with radiculopathy, lumbar region (principal); G89.29 Other chronic pain; K21.9 Gastro-esophageal reflux disease without esophagitis; G47.33 Obstructive sleep apnea (adult) (pediatric); J44.9 Chronic obstructive pulmonary disease, unspecified; E55.9 Vitamin D deficiency, unspecified; F17.210 Nicotine dependence, cigarettes, uncomplicated; Z79.51 Long term (current) use of inhaled steroids; Z79.82 Long term (current) use of aspirin; Z79.899 Other long term (current) drug therapy

== ENCOUNTER → 2022-06-16 | Outpatient (CLI) | payer OTHER, MEDICAID ==
[~2022-06-16] MED LIST changes: +BAYE81TA10 PO; -BREO1INH; -CARV6.25; +CHOL10007 PO; +HYDR-3713 PO; +LOPI600T PO; +OMEP40CA5 PO; -ROSU10TA6; +ROSU10TA6 PO
== END ==
LOC: M LABSMTC 11:17
PROVIDERS: ATTEND Anesthesiology
DX: Z01.812 Encounter for preprocedural laboratory examination (principal); Z20.822 Contact with and (suspected) exposure to COVID-19

== ENCOUNTER 2022-06-21 10:44 | Day surgery (SDC) | payer OTHER, MEDICAID ==
[~2022-06-21] VITALS: Ht 172.7 cm; Wt 88.2 kg
[~2022-06-21 10:44] MED LIST changes: +NS 1,000 ML IV ONE
[2022-06-21] MEDS ORDERED: propofoL 200 MG/20 ML VIAL As Ordered ONE (11:36)
[2022-06-21 12:11] VITALS: BP 109/73
== END 2022-06-21 12:15 | disposition home or self-care (01) ==
LOC: M OPP 10:44
PROVIDERS: ATTEND Surgery
DX: Z80.0 Family history of malignant neoplasm of digestive organs (principal); K57.30 Diverticulosis of large intestine without perforation or abscess without bleeding; K64.4 Residual hemorrhoidal skin tags; K64.8 Other hemorrhoids; E78.5 Hyperlipidemia, unspecified; I48.91 Unspecified atrial fibrillation; I25.2 Old myocardial infarction; I10 Essential (primary) hypertension; J44.9 Chronic obstructive pulmonary disease, unspecified; F17.200 Nicotine dependence, unspecified, uncomplicated; Z79.02 Long term (current) use of antithrombotics/antiplatelets; Z79.51 Long term (current) use of inhaled steroids; Z79.82 Long term (current) use of aspirin; Z79.84 Long term (current) use of oral hypoglycemic drugs; Z79.899 Other long term (current) drug therapy

== ENCOUNTER → 2022-08-24 | Outpatient (CLI) | payer OTHER, MEDICAID ==
[~2022-08-24] MED LIST changes: -NS 1,000 ML IV ONE
== END ==
LOC: M PAIN 14:30
PROVIDERS: ATTEND Nurse Practitioner Family
DX: M51.16 Intervertebral disc disorders with radiculopathy, lumbar region (principal); Z79.891 Long term (current) use of opiate analgesic; M47.816 Spondylosis without myelopathy or radiculopathy, lumbar region; E78.5 Hyperlipidemia, unspecified; K44.9 Diaphragmatic hernia without obstruction or gangrene; K21.9 Gastro-esophageal reflux disease without esophagitis; G47.33 Obstructive sleep apnea (adult) (pediatric); J44.9 Chronic obstructive pulmonary disease, unspecified; E55.9 Vitamin D deficiency, unspecified; N52.9 Male erectile dysfunction, unspecified; I25.10 Atherosclerotic heart disease of native coronary artery without angina pectoris; F17.210 Nicotine dependence, cigarettes, uncomplicated; Z79.82 Long term (current) use of aspirin; Z79.899 Other long term (current) drug therapy; J30.1 Allergic rhinitis due to pollen

== ENCOUNTER → 2022-11-07 | Outpatient (CLI) | payer OTHER, MEDICAID ==
[~2022-11-07] MED LIST changes: +ISOVUE-M 300 61% 15ML VIAL As Ordered ONE; +LIDOCAINE 1% SDV 30ML VIAL As Ordered ONE; +NORCO, ANEXSIA 5/325MG TABLET (HYDROcodone/ACETAMINOPHEN) As Ordered ONE; +dexAMETHasone 10MG/1ML VIAL PRES.FREE As Ordered ONE; +diazePAM 5MG TABLET As Ordered ONE
== END ==
LOC: M PAIN 09:30
PROVIDERS: ATTEND Anesthesiology
DX: M51.16 Intervertebral disc disorders with radiculopathy, lumbar region (principal); G89.29 Other chronic pain; E78.5 Hyperlipidemia, unspecified; K44.9 Diaphragmatic hernia without obstruction or gangrene; K21.9 Gastro-esophageal reflux disease without esophagitis; G47.33 Obstructive sleep apnea (adult) (pediatric); J44.9 Chronic obstructive pulmonary disease, unspecified; E55.9 Vitamin D deficiency, unspecified; N52.9 Male erectile dysfunction, unspecified; I25.10 Atherosclerotic heart disease of native coronary artery without angina pectoris; F17.210 Nicotine dependence, cigarettes, uncomplicated; Z79.82 Long term (current) use of aspirin; Z79.891 Long term (current) use of opiate analgesic; Z79.899 Other long term (current) drug therapy; J30.1 Allergic rhinitis due to pollen
CPT/HCPCS: 64483; 64484; J0665; J1100; Q9967

== ENCOUNTER → 2022-11-10 | Outpatient (CLI) | payer OTHER, MEDICAID ==
[~2022-11-10] MED LIST changes: -ISOVUE-M 300 61% 15ML VIAL As Ordered ONE; -LIDOCAINE 1% SDV 30ML VIAL As Ordered ONE; -NORCO, ANEXSIA 5/325MG TABLET (HYDROcodone/ACETAMINOPHEN) As Ordered ONE; -dexAMETHasone 10MG/1ML VIAL PRES.FREE As Ordered ONE; -diazePAM 5MG TABLET As Ordered ONE
== END ==
LOC: M RAD 09:15
PROVIDERS: ATTEND Nurse Practitioner Family
DX: R91.8 Other nonspecific abnormal finding of lung field (principal); F17.210 Nicotine dependence, cigarettes, uncomplicated

== ENCOUNTER → 2022-12-12 | Outpatient (CLI) | payer OTHER, MEDICAID | LOC: M PAIN 10:45 | PROVIDERS: ATTEND Nurse Practitioner Family | DX: M47.816 Spondylosis without myelopathy or radiculopathy, lumbar region (principal); M47.817 Spondylosis without myelopathy or radiculopathy, lumbosacral region; G89.29 Other chronic pain; K21.9 Gastro-esophageal reflux disease without esophagitis; J44.9 Chronic obstructive pulmonary disease, unspecified; E55.9 Vitamin D deficiency, unspecified; F17.210 Nicotine dependence, cigarettes, uncomplicated; Z79.82 Long term (current) use of aspirin; Z79.899 Other long term (current) drug therapy ==

== ENCOUNTER → 2023-01-23 | Outpatient (CLI) | payer OTHER, MEDICAID | LOC: M PAIN 08:30 | PROVIDERS: ATTEND Anesthesiology | DX: M47.816 Spondylosis without myelopathy or radiculopathy, lumbar region (principal); F17.210 Nicotine dependence, cigarettes, uncomplicated; Z91.048 Other nonmedicinal substance allergy status; Z79.82 Long term (current) use of aspirin; Z79.899 Other long term (current) drug therapy | CPT/HCPCS: 76000; G0463 ==

== ENCOUNTER 2023-02-02 05:26 | Emergency (ER) | payer OTHER, MEDICAID ==
[~2023-02-02] VITALS: Ht 172.7 cm; Wt 90.0 kg
[2023-02-02] MEDS ORDERED: SUCRALFATE SUSP 1GM/10ML UD PO ONE (05:55)
[2023-02-02 06:02] LABS: BASO # 0.1 10^3/uL (0.0-0.2); BASO % 0.6 % (0.0-1.0); EOS # 0.4 10^3/uL (0.0-0.5); EOS % 2.8 % (0.0-3.0); HEMATOCRIT 41.1 % (42.0-52.0); HEMOGLOBIN 13.9 g/dl (13.5-17.5); LYMPH # 2.6 10^3/uL (1.5-5.0); LYMPH % 20.8 % (24.0-44.0); MEAN CORPUSCULAR HEMOGLOBIN 29.4 pg (27.0-33.0); MEAN CORPUSCULAR HGB CONC 33.8 g/dl (32.0-36.5); MEAN CORPUSCULAR VOLUME 87.1 fl (80.0-96.0); MONO # 0.9 10^3/uL (0.0-0.8); MONO % 7.4 % (2.0-8.0); NEUTROPHILS # 8.6 10^3/uL (1.5-8.5); NEUTROPHILS % 68.1 % (36.0-66.0); PLATELET COUNT, AUTOMATED 277 10^3/uL (150-450); RED BLOOD COUNT 4.72 10^6/uL (4.30-6.10); WHITE BLOOD COUNT 12.6 10^3/uL (4.0-10.0)
[2023-02-02 06:13] LABS: INR 0.95; PROTHROMBIN TIME 12.4 SECONDS (12.5-14.5)
[2023-02-02 06:14] LABS: PARTIAL THROMBOPLASTIN TIME 30.1 SECONDS (24.8-34.2)
[2023-02-02] MEDS ORDERED: NS 500 ML IV ONE ×2 (07:35→10:00)
[2023-02-02] MEDS ORDERED: ISOVUE-370 76% 100ML VIAL As Ordered ONE (07:43)
[2023-02-02] MEDS ORDERED: ASPIRIN 81MG CHEW TABLET PO ONE (13:35)
[2023-02-02] MEDS ORDERED: HEPARIN SOD (PORCINE) 5000UNITS/ML 1ML VIAL/SYRINGE IV ONE (14:50)
[2023-02-02] MEDS ORDERED: FAMOTIDINE 20 MG TAB PO ONE (14:50)
[2023-02-02] MEDS ORDERED: HEPARIN DRIP 25,000 UNITS in IV 1 EA IV SCH (14:50)
[2023-02-02] MEDS ORDERED: NS 1,000 ML IV SCH (14:50)
[2023-02-02] MEDS ORDERED: CLOPIDOGREL 300 MG TAB (PLAVIX) As Ordered ONE (15:12)
[2023-02-02 15:15] VITALS: BP 137/73; TEMP 97.8; O2SAT 95
[2023-02-02] MEDS ORDERED: CLOPIDOGREL 300 MG TAB (PLAVIX) PO ONE (15:15)
[2023-02-02 15:58] LABS: BLOOD UREA NITROGEN 17 MG/DL (7-21); CREATININE FOR GFR 0.8 MG/DL (0.7-1.5); GLOMERULAR FILTRATION RATE > 60.0 (>56); GLUCOSE, FASTING 120 MG/DL (70-99)
[2023-02-02 15:59] LABS: CARBON DIOXIDE LEVEL 21 MEQ/L (22-30); CHLORIDE LEVEL 106 MEQ/L (98-107); POTASSIUM SERUM 4.4 MEQ/L (3.6-5.0); SODIUM LEVEL 139 MEQ/L (134-153)
[2023-02-02 16:00] LABS: BILIRUBIN,DIRECT < 0.2 MG/DL (0.1-0.4); CPK CREATINE PHOSPHOKINASE 182 U/L (30-170)
[2023-02-02 16:01] LABS: LIPASE 28 U/L (13-60)
[2023-02-02 16:03] LABS: THYROID STIMULATING HORMONE 0.79 UIU/ML (0.47-5.01)
[2023-02-02 16:04] LABS: FREE T4 1.26 NG/DL (0.93-1.70)
[2023-02-04 11:02] LABS: AST/SGOT 19 U/L (5-40)
[2023-02-04 11:03] LABS: ALBUMIN 4.4 G/DL (3.9-5.0); ALKALINE PHOSPHATASE 76 U/L (40-129); ALT/SGPT 10 U/L (1-41); BILIRUBIN,TOTAL < 0.7 MG/DL (0.2-1.3); TOTAL PROTEIN 6.7 G/DL (6.3-8.2)
[2023-02-04 11:06] LABS: CPK CREATINE PHOSPHOKINASE 194 U/L (30-170)
[2023-02-05 13:15] LABS: CK-MB VALUE MASS 2.6 NG/ML (0.0-10.4); MB/CK RELATIVE INDEX 1.34 (< OR =4)
== END 2023-02-02 15:25 | disposition short-term general hospital (02) ==
LOC: M ED 05:26
DX: I21.4 Non-ST elevation (NSTEMI) myocardial infarction (principal); I25.2 Old myocardial infarction; K21.9 Gastro-esophageal reflux disease without esophagitis; J44.9 Chronic obstructive pulmonary disease, unspecified; I10 Essential (primary) hypertension; E78.5 Hyperlipidemia, unspecified; F17.200 Nicotine dependence, unspecified, uncomplicated; F10.10 Alcohol abuse, uncomplicated; Z86.79 Personal history of other diseases of the circulatory system; Z79.82 Long term (current) use of aspirin; Z79.891 Long term (current) use of opiate analgesic; Z79.83 Long term (current) use of bisphosphonates; Z79.899 Other long term (current) drug therapy
CPT/HCPCS: 71045; 71275; 80047; 80048; 80076; 82550; 82553; 83690; 83880; 84439; 84443; 84484; 85025; 85610; 85730; 87486; 87581; 87633; 87798; 93005; 93041; 94760; 96361; 96374; 96376; 99285; Q9967

== ENCOUNTER → 2023-03-16 | Outpatient (CLI) | payer OTHER, MEDICAID | LOC: M PAIN 16:00 | PROVIDERS: ATTEND Nurse Practitioner Family | DX: M47.816 Spondylosis without myelopathy or radiculopathy, lumbar region (principal); G89.29 Other chronic pain; M54.50 Low back pain, unspecified; E78.5 Hyperlipidemia, unspecified; K44.9 Diaphragmatic hernia without obstruction or gangrene; G47.33 Obstructive sleep apnea (adult) (pediatric); J44.9 Chronic obstructive pulmonary disease, unspecified; K21.9 Gastro-esophageal reflux disease without esophagitis; E55.9 Vitamin D deficiency, unspecified; N52.9 Male erectile dysfunction, unspecified; I25.10 Atherosclerotic heart disease of native coronary artery without angina pectoris; F17.210 Nicotine dependence, cigarettes, uncomplicated; Z79.82 Long term (current) use of aspirin; Z79.891 Long term (current) use of opiate analgesic; Z79.899 Other long term (current) drug therapy ==

== ENCOUNTER → 2023-06-15 | Outpatient (CLI) | payer OTHER, MEDICAID | LOC: M PAIN 14:30 | PROVIDERS: ATTEND Nurse Practitioner Family | DX: M47.816 Spondylosis without myelopathy or radiculopathy, lumbar region (principal); Z79.891 Long term (current) use of opiate analgesic; F17.200 Nicotine dependence, unspecified, uncomplicated; Z86.74 Personal history of sudden cardiac arrest; E78.5 Hyperlipidemia, unspecified; J44.9 Chronic obstructive pulmonary disease, unspecified; Z95.5 Presence of coronary angioplasty implant and graft; Z79.02 Long term (current) use of antithrombotics/antiplatelets; Z79.1 Long term (current) use of non-steroidal anti-inflammatories (NSAID); Z79.51 Long term (current) use of inhaled steroids; Z79.52 Long term (current) use of systemic steroids; Z79.82 Long term (current) use of aspirin; Z79.899 Other long term (current) drug therapy ==

== ENCOUNTER → 2023-09-17 | Outpatient (CLI) | payer OTHER, MEDICAID ==
[~2023-09-17] MED LIST changes: +ONDA-282 PO; -ONDA4TAB6 PO; -ROSU10TA6 PO; +ROSU10TA61 PO
== END ==
LOC: M PAIN 14:45
PROVIDERS: ATTEND Nurse Practitioner Family
DX: M47.816 Spondylosis without myelopathy or radiculopathy, lumbar region (principal); M54.50 Low back pain, unspecified; G89.29 Other chronic pain; K44.9 Diaphragmatic hernia without obstruction or gangrene; K21.9 Gastro-esophageal reflux disease without esophagitis; G47.33 Obstructive sleep apnea (adult) (pediatric); J44.9 Chronic obstructive pulmonary disease, unspecified; E55.9 Vitamin D deficiency, unspecified; I25.10 Atherosclerotic heart disease of native coronary artery without angina pectoris; F17.210 Nicotine dependence, cigarettes, uncomplicated; Z79.82 Long term (current) use of aspirin; Z79.891 Long term (current) use of opiate analgesic; Z79.899 Other long term (current) drug therapy

== ENCOUNTER → 2023-09-21 | Outpatient (CLI) | payer OTHER, MEDICAID | LOC: M RAD 14:11 | PROVIDERS: ATTEND Internal Medicine Pulmonary Disease | DX: R91.8 Other nonspecific abnormal finding of lung field (principal) ==

== ENCOUNTER → 2024-03-28 | Outpatient (CLI) | payer OTHER, MEDICAID ==
[~2024-03-28] MED LIST changes: +GABA-1172 PO; -GABA-282 PO
== END ==
LOC: M PAIN 14:45
PROVIDERS: ATTEND Nurse Practitioner Family
DX: M47.816 Spondylosis without myelopathy or radiculopathy, lumbar region (principal); M47.817 Spondylosis without myelopathy or radiculopathy, lumbosacral region; Z79.891 Long term (current) use of opiate analgesic; G89.29 Other chronic pain; M54.50 Low back pain, unspecified; E78.5 Hyperlipidemia, unspecified; K21.9 Gastro-esophageal reflux disease without esophagitis; G47.33 Obstructive sleep apnea (adult) (pediatric); J44.9 Chronic obstructive pulmonary disease, unspecified; E55.9 Vitamin D deficiency, unspecified; I25.10 Atherosclerotic heart disease of native coronary artery without angina pectoris; I25.2 Old myocardial infarction; F17.210 Nicotine dependence, cigarettes, uncomplicated; Z79.899 Other long term (current) drug therapy

== ENCOUNTER 2024-05-05 23:49 | Emergency (ER) | payer OTHER, MEDICAID ==
[~2024-05-05] VITALS: Ht 172.7 cm; Wt 88.4 kg
[2024-05-06 00:19] LABS: BASO # 0.1 10^3/uL (0.0-0.2); BASO % 0.5 % (0.0-1.0); EOS # 0.3 10^3/uL (0.0-0.5); EOS % 2.3 % (0.0-3.0); HEMATOCRIT 43.8 % (42.0-52.0); HEMOGLOBIN 14.8 g/dl (13.5-17.5); LYMPH # 3.2 10^3/uL (1.5-5.0); LYMPH % 24.7 % (24.0-44.0); MEAN CORPUSCULAR HEMOGLOBIN 29.4 pg (27.0-33.0); MEAN CORPUSCULAR HGB CONC 33.8 g/dl (32.0-36.5); MEAN CORPUSCULAR VOLUME 87.1 fl (80.0-96.0); MONO # 0.7 10^3/uL (0.0-0.8); MONO % 5.7 % (2.0-8.0); NEUTROPHILS # 8.5 10^3/uL (1.5-8.5); NEUTROPHILS % 66.5 % (36.0-66.0); PLATELET COUNT, AUTOMATED 302 10^3/uL (150-450); RED BLOOD COUNT 5.03 10^6/uL (4.30-6.10); WHITE BLOOD COUNT 12.8 10^3/uL (4.0-10.0)
[2024-05-06] MEDS ORDERED: ATOR80TA59 (00:36)
[2024-05-06] MEDS ORDERED: VARE1TAB2 (00:36)
[2024-05-06] MEDS ORDERED: FAMO1TAB11 (00:36)
[2024-05-06] MEDS ORDERED: PRAS10TA2 (00:36)
[2024-05-06 00:39] LABS: LIPASE 42 U/L (12-53)
[2024-05-06 00:41] LABS: ALBUMIN 3.9 G/DL (3.2-5.2); ALKALINE PHOSPHATASE 96 U/L (40-129); ALT/SGPT 31 U/L (7.0-40); AST/SGOT 50 U/L (<34); BILIRUBIN,DIRECT < 0.1 MG/DL (<0.4); BILIRUBIN,TOTAL 0.2 MG/DL (0.3-1.2); BLOOD UREA NITROGEN 16 MG/DL (9-23); CALCIUM LEVEL 9.1 MG/DL (8.5-10.1); CARBON DIOXIDE LEVEL 26 MMOL/L (20-31); CHLORIDE LEVEL 104 MMOL/L (98-107); CK-MB VALUE MASS 28.8 NG/ML (<3.6); CREATININE FOR GFR 1.02 MG/DL (0.70-1.30); GLOMERULAR FILTRATION RATE > 60.0 (>56); GLUCOSE, FASTING 112 MG/DL (60-100); SODIUM LEVEL 140 MMOL/L (136-145); TOTAL PROTEIN 7.4 G/DL (5.7-8.2)
[2024-05-06] MEDS ORDERED: TENECTEPLASE 50 MG/10 ML VIAL As Ordered ONE (00:52)
[2024-05-06 00:59] LABS: CPK CREATINE PHOSPHOKINASE 384 U/L (46-171)
[2024-05-06] MEDS ORDERED: CLOPIDOGREL 300 MG TAB (PLAVIX) As Ordered ONE (00:59)
[2024-05-06 01:00] VITALS: BP 133/87; O2SAT 96
[2024-05-06] MEDS: NS (Normal Saline) 0.9% 1,000 ML IV ONE (01:00)
[2024-05-06] MEDS: TENECTEPLASE 50 MG/10 ML VIAL IV STA (01:01)
[2024-05-06 01:03] VITALS: BP 133/77
[2024-05-06] MEDS: NITROGLYCERIN 2% OINT 1 GM *U/D* PKT TOP ONE (01:03)
[2024-05-06] MEDS: CLOPIDOGREL 300 MG TAB (PLAVIX) PO ONE (01:03)
[2024-05-06] MEDS: HEPARIN SOD (PORCINE) 5000UNITS/ML 1ML VIAL/SYRINGE IV ONE (01:04)
[2024-05-06] MEDS: HEPARIN DRIP 25,000 UNITS in IV 1 EA IV SCH (01:09)
[2024-05-06 01:10] LABS: INR 0.9; PARTIAL THROMBOPLASTIN TIME 28.9 SECONDS (24.8-34.2); PROTHROMBIN TIME 12.4 SECONDS (12.5-14.5)
[2024-05-06 01:13] VITALS: TEMP 97
== END 2024-05-06 01:07 | disposition short-term general hospital (02) ==
LOC: EDBD 23:49 → M ED 23:49
DX: I21.19 ST elevation (STEMI) myocardial infarction involving other coronary artery of inferior wall (principal); I25.10 Atherosclerotic heart disease of native coronary artery without angina pectoris; I25.2 Old myocardial infarction; I10 Essential (primary) hypertension; E78.5 Hyperlipidemia, unspecified; E66.9 Obesity, unspecified; G89.29 Other chronic pain; Z95.5 Presence of coronary angioplasty implant and graft; F17.200 Nicotine dependence, unspecified, uncomplicated; Z79.82 Long term (current) use of aspirin; Z79.899 Other long term (current) drug therapy
CPT/HCPCS: 71045; 80048; 80076; 82550; 82553; 83690; 83880; 84484; 85025; 85610; 85730; 93005; 93041; 94760; 96374; 96375; 99291; 99292; J3101

== ENCOUNTER 2025-01-17 23:07 | Emergency (ER) | payer MEDICARE, MEDICAID ==
[~2025-01-17] VITALS: Ht 172.7 cm; Wt 77.3 kg
[~2025-01-17 23:07] MED LIST changes: +ATOR80TA59; +FAMO1TAB11; +PRAS10TA2; +PRED20TA PO; +VARE1TAB2; +VENTAER INH
[2025-01-17 23:34] VITALS: TEMP 97.9
[2025-01-17 23:37] LABS: BASO # 0.1 10^3/uL (0.0-0.2); BASO % 0.8 % (0.0-1.0); EOS # 0.2 10^3/uL (0.0-0.5); EOS % 2.1 % (0.0-3.0); LYMPH # 3.5 10^3/uL (1.5-5.0); LYMPH % 39.7 % (24.0-44.0); MONO # 0.7 10^3/uL (0.0-0.8); MONO % 7.7 % (2.0-8.0); NEUTROPHILS # 4.3 10^3/uL (1.5-8.5); NEUTROPHILS % 49.4 % (36.0-66.0); PLATELET COUNT, AUTOMATED 353 10^3/uL (150-450)
[2025-01-18 00:14] LABS: CALCIUM LEVEL 8.8 MG/DL (8.5-10.1); CARBON DIOXIDE LEVEL 27 MMOL/L (20-31); CHLORIDE LEVEL 101 MMOL/L (98-107); CREATININE FOR GFR 0.81 MG/DL (0.70-1.30); GLOMERULAR FILTRATION RATE > 90.0 (>56); POTASSIUM SERUM 4.1 MMOL/L (3.5-5.1); SODIUM LEVEL 133 MMOL/L (136-145)
[2025-01-18 00:16] LABS: CK-MB VALUE MASS 1.0 NG/ML (<3.6)
[2025-01-18 00:19] LABS: CPK CREATINE PHOSPHOKINASE 156 U/L (46-171); MB/CK RELATIVE INDEX 0.64 (< OR =4)
[2025-01-18] MEDS ORDERED: diphenhydrAMINE 50 MG/ML VIAL IV ONE (00:50)
[2025-01-18] MEDS ORDERED: ISOVUE-370 76% 100 ML VIAL As Ordered ONE (01:05)
[2025-01-18 01:30] VITALS: BP 110/75; O2SAT 96
[2025-01-18 01:33] LABS: CK-MB VALUE MASS < 1.0 NG/ML (<3.6)
[2025-01-18 01:40] LABS: CPK CREATINE PHOSPHOKINASE 134 U/L (46-171)
[2025-01-18] MEDS ORDERED: ACETAMINOPHEN *IV* 1,000 MG in IV 1 EA IV ONE (02:00)
== END 2025-01-18 02:09 | disposition left against medical advice (07) ==
LOC: M ED 23:07
DX: R07.9 Chest pain, unspecified (principal); Z53.9 Procedure and treatment not carried out, unspecified reason; I10 Essential (primary) hypertension; E78.5 Hyperlipidemia, unspecified; I48.91 Unspecified atrial fibrillation; K21.9 Gastro-esophageal reflux disease without esophagitis; I25.10 Atherosclerotic heart disease of native coronary artery without angina pectoris; Z95.5 Presence of coronary angioplasty implant and graft; Z79.82 Long term (current) use of aspirin; Z79.899 Other long term (current) drug therapy
CPT/HCPCS: 71045; 71275; 80048; 82550; 82553; 84484; 85025; 93005; 93041; 99284; Q9967